=== PATIENT | female | born 1955 | race Caucasian/White ===

== ENCOUNTER → 2016-06-16 | Outpatient (CLI) | payer BC ==
[2014-01-31 01:30] VITALS: BP 175/92
== END ==
LOC: LAB 16:32
PROVIDERS: ATTEND Nurse Practitioner Family
DX: J41.1 Mucopurulent chronic bronchitis (principal); B96.29 Other Escherichia coli [E. coli] as the cause of diseases classified elsewhere
CPT/HCPCS: 87070; 87077; 87186; 87205

== ENCOUNTER → 2016-07-22 | Outpatient (CLI) | payer BC ==
[2014-01-31 01:30] VITALS: BP 175/92
[2016-07-22 13:13] LABS: HEMOGLOBIN A1C 7.2 % (4.5-6.2)
[2016-07-22 13:22] LABS: CHOL/HDL RATIO 5.3 (0.0-5.0); TSH (3RD GENERATION) 0.722 uIU/mL (0.358-3.74)
== END ==
LOC: LAB 12:25
PROVIDERS: ATTEND Nurse Practitioner Family
DX: E11.69 Type 2 diabetes mellitus with other specified complication (principal); D53.8 Other specified nutritional anemias; E03.8 Other specified hypothyroidism
CPT/HCPCS: 36415; 80061; 82607; 82728; 82746; 83036; 83918; 84443; 84466

== ENCOUNTER → 2016-07-25 | Outpatient (CLI) | payer BC ==
[2014-01-31 01:30] VITALS: BP 175/92
[2016-07-25 11:18] LABS: CREATININE,URINE 109.26 mg/dL (29-226); MICROALBUMIN,URINE 4.8 mg/L
== END ==
LOC: LAB 10:01
PROVIDERS: ATTEND Nurse Practitioner Family
DX: R05 Cough (principal)
CPT/HCPCS: 82043; 87070; 87205

== ENCOUNTER → 2016-07-30 | Outpatient (CLI) | payer BC ==
[2014-01-31 01:30] VITALS: BP 175/92
[2016-07-30 10:09] LABS: BILIRUBIN,URINE NEGATIVE (NEGATIVE); BLOOD/HEMOGLOBIN,URINE NEGATIVE (NEGATIVE); GLUCOSE, URINE NEGATIVE (NEGATIVE); KETONES,URINE NEGATIVE (NEGATIVE); LEUKOCYTE ESTERASE ,URINE NEGATIVE (NEGATIVE); NITRITES,URINE NEGATIVE (NEGATIVE); PROTEIN,URINE NEGATIVE (NEGATIVE); UROBILINOGEN,URINE NORMAL (NORMAL)
[2016-07-30 10:18] LABS: APPEARANCE,URINE CLEAR (CLEAR); BACTERIA,URINE TRACE /HPF (NEGATIVE); COLOR,URINE YELLOW (YELLOW); RBC,URINE 0-3 /HPF (NEGATIVE); SQUAMOUS EPITHELIAL CELL,UR RARE /HPF (NEGATIVE)
== END ==
LOC: LAB 09:36
PROVIDERS: ATTEND Nurse Practitioner Family
DX: N34.3 Urethral syndrome, unspecified (principal)
CPT/HCPCS: 81001; 87086

== ENCOUNTER → 2016-08-12 | Outpatient (CLI) | payer BC ==
[2014-01-31 01:30] VITALS: BP 175/92
--- NOTE | 2016-08-12 06:31 | RAD ---
HISTORY: Shortness of breath Study: Chest two-view Comparison: March 31, 2016 Findings: The heart is overall upper limits normal in size, however, the left ventricle is prominent. No conge stive heart failure is noted. No infiltrates are identified. No pleural effusions are present. The b luzma thorax is unremarkable. IMPRESSION: Left ventricular prominence Lungs clear Reported By:
== END ==
LOC: RAD 00:14
PROVIDERS: ATTEND Nurse Practitioner Family
DX: R06.02 Shortness of breath (principal)
CPT/HCPCS: 71020

== ENCOUNTER → 2017-01-30 | Outpatient (CLI) | payer BC ==
[2014-01-31 01:30] VITALS: BP 175/92
--- NOTE | 2017-01-30 14:20 | RAD ---
Examination: Right knee, three views History: Chronic pain no trauma Comparison reference: 10/19/2015 Findings: There is degenerative narrowing of the patellar-femoral and lateral compartments. Less carlene re degenerative change involves the medial compartment. No fracture or bone destruction or subluxatio n is noted. Detail is limited by patient habitus. There is a healed fracture deformity of the proxima l neck of the fibula but this was present on prior examination. Impression: 1. Osteoarthritis, distribution as noted. No acute features identified. 2. Old fracture proximal right fibula. Reported By:
== END | disposition home or self-care (01) | DRG 57 ==
LOC: RAD 12:54
DX: G25.81 Restless legs syndrome (principal); Z68.44 Body mass index [BMI] 60.0-69.9, adult; M54.2 Cervicalgia; Z79.899 Other long term (current) drug therapy; M17.0 Bilateral primary osteoarthritis of knee; M54.5 Low back pain; M79.7 Fibromyalgia; M1A.09X0 Idiopathic chronic gout, multiple sites, without tophus (tophi)
CPT/HCPCS: 73560

== ENCOUNTER → 2017-03-24 | Outpatient (CLI) | payer BC ==
[2014-01-31 01:30] VITALS: BP 175/92
--- NOTE | 2017-03-25 05:34 | RAD ---
Examination: Chest, PA and lateral views History: Cough and cold Comparison 08/12/2016 Findings: Continued borderline cardiac enlargement with grossly clear lungs and pleural spaces. There is no obvious consolidation, pulmonary edema or pneumothorax. Impression: Cardiac prominence, no acute findings. Reported By:
== END ==
LOC: RAD 19:06
PROVIDERS: ATTEND Psychiatry & Neurology Neurology
DX: J44.1 Chronic obstructive pulmonary disease with (acute) exacerbation (principal)
CPT/HCPCS: 71046; 87070; 87205

== ENCOUNTER → 2017-06-30 | Outpatient (CLI) | payer BC ==
[2014-01-31 01:30] VITALS: BP 175/92
--- NOTE | 2017-06-30 11:03 | RAD ---
Left knee, three views Indication: Chronic knee pain Comparison: None Findings: No acute fracture, malalignment or significant joint effusion is identified. There is mild degenerative narrowing of the medial femorotibial and patellofemoral compartments. Surrounding soft t issues are unremarkable. Impression: Degenerative changes, as above without acute fracture or dislocation. Reported By:
[2017-06-30 11:06] LABS: BASOPHILS # (AUTO) 0.1 X10^3/uL (0.0-0.1); BASOPHILS % (AUTO) 0.7 % (0.2-1.0); EOSINOPHILS # (AUTO) 0.3 x10^3/uL (0.0-0.2); EOSINOPHILS % (AUTO) 2.2 % (0.9-2.9); HEMATOCRIT 40.5 % (36.0-47.0); HEMOGLOBIN 13.3 g/dL (12.0-16.0); LYMPHOCYTES # (AUTO) 2.6 X10^3/uL (1.3-2.9); LYMPHOCYTES % (AUTO) 20.9 % (21.0-51.0); MEAN CORPUSCULAR HEMOGLOBIN 26.9 pg (27.0-34.0); MEAN CORPUSCULAR HGB CONC 32.8 g/dL (33.0-35.0); MEAN CORPUSCULAR VOLUME 82.1 fL (80.0-100.0); MEAN PLATELET VOLUME 8.7 fL (7.4-11.0); MONOCYTES # (AUTO) 0.7 x10^3/uL (0.3-0.8); MONOCYTES % (AUTO) 5.9 % (0.0-13.0); NEUTROPHILS # (AUTO) 8.8 x10^3/uL (2.2-4.8); NEUTROPHILS % (AUTO) 70.3 % (42.0-75.0); PLATELET COUNT 292 X10^3/uL (150.0-450.0); RED BLOOD COUNT 4.93 X10^6/uL (3.5-5.4); RED CELL DISTRIBUTION WIDTH 16.2 % (11.6-16.5); WHITE BLOOD COUNT 12.5 X10^3/uL (3.6-10.0)
[2017-06-30 11:13] LABS: CREATININE,URINE 78.47 mg/dL (29-226); MICROALBUMIN,URINE 7.9 mg/L
[2017-06-30 11:15] LABS: HEMOGLOBIN A1C 7.1 %
[2017-06-30 11:24] LABS: ALANINE AMINOTRANSFERASE 25 Units/L (12-78); ALBUMIN 3.8 g/dL (3.4-5.0); ALKALINE PHOSPHATASE 95 Units/L (46-116); ASPARTATE AMINO TRANSFERASE 17 Units/L (15-37); BLOOD UREA NITROGEN 25 mg/dL (7-18); CALCIUM 8.9 mg/dL (8.5-10.1); CARBON DIOXIDE 28.7 mmol/L (21-32); CHLORIDE 101 mmol/L (98-107); CHOL/HDL RATIO 4.9 (0.0-5.0); CHOLESTEROL 221 mg/dL (0-200); COR NA(FOR HYPERGLY) 140 mmol/L (136-145); CREATININE 0.86 mg/dL (0.55-1.02); HDL CHOLESTEROL 45 mg/dL (40-60); SODIUM 139 mmol/L (136-145); TOTAL PROTEIN 8.9 g/dL (6.4-8.2); TRIGLYCERIDES 158 mg/dL (0-150); TSH (3RD GENERATION) 1.325 uIU/mL (0.358-3.74); URIC ACID 7.6 mg/dL (2.6-6.0); eGFR BLACK RACES > 60 (>60); eGFR NON BLACK RACES > 60 (>60)
[2017-06-30 11:37] LABS: ERYTHROCYTE SEDIMENTATION RATE 56 MM/HOUR (0-20)
[2017-06-30 11:45] LABS: IRON 60 ug/dL (50-175); TOTAL IRON BINDING CAPACITY 415 ug/dL (250-450)
== END ==
LOC: LAB 10:01
PROVIDERS: ATTEND Psychiatry & Neurology Neurology
DX: M10.9 Gout, unspecified (principal); Z86.39 Personal history of other endocrine, nutritional and metabolic disease; E03.8 Other specified hypothyroidism; E56.8 Deficiency of other vitamins; E11.9 Type 2 diabetes mellitus without complications; M17.0 Bilateral primary osteoarthritis of knee; R79.82 Elevated C-reactive protein (CRP)
CPT/HCPCS: 36415; 73564; 80053; 80061; 82043; 82607; 83036; 83540; 83550; 84439; 84443; 84481; 84550; 85025; 85652; 86140

== ENCOUNTER 2018-12-07 17:05 | Observation (INO) ==
[2018-12-07] MEDS ORDERED: LR 1000 ML IV 2,000 ML IV ONE (18:13)
[2018-12-07] MEDS ORDERED: LR IV SCH ×2 (18:18)
[2018-12-07] MEDS ORDERED: MVI IV SCH ×2 (18:18)
[2018-12-07] MEDS ORDERED: LR 1000 ML IV 1,000 ML IV ONE (19:00)
[2018-12-07] MEDS ORDERED: HumuLIN R SC PRN (19:20)
[2018-12-07 19:57] VITALS: BMI 55.0
[2018-12-07] MEDS: PROTONIX INJ 40 MG VIAL IVP SCH (21:25)
[2018-12-07] MEDS: LR 1000 ML IV 1,000 ML IV ONE (23:23)
[2018-12-08] MEDS ORDERED: LR IV ONE ×2 (03:00)
[2018-12-08] MEDS ORDERED: MVI IV ONE ×2 (03:00)
[2018-12-08] MEDS: LR 1000 ML IV 1,000 ML IV ONE (03:30)
[2018-12-08 08:39] LABS: CRYPTOSPORIDIUM PARVUM ANTIGEN NEGATIVE (NEGATIVE); GIARDIA LAMBLIA ANTIGEN NEGATIVE (NEGATIVE)
[2018-12-08] MEDS ORDERED: VISTARIL PO PRN (08:46)
[2018-12-08 09:12] LABS: BASOPHILS % (AUTO) 0.3 % (0.2-1.0); EOSINOPHILS # (AUTO) 0.1 x10^3/uL (0.0-0.2); EOSINOPHILS % (AUTO) 1.9 % (0.9-2.9); HEMATOCRIT 36.2 % (36.0-47.0); HEMOGLOBIN 11.8 g/dL (12.0-16.0); LYMPHOCYTES % (AUTO) 19.3 % (21.0-51.0); MEAN CORPUSCULAR HEMOGLOBIN 27.9 pg (27.0-34.0); MEAN CORPUSCULAR HGB CONC 32.7 g/dL (33.0-35.0); MEAN CORPUSCULAR VOLUME 85.3 fL (80.0-100.0); MEAN PLATELET VOLUME 7.8 fL (7.4-11.0); MONOCYTES # (AUTO) 0.6 x10^3/uL (0.3-0.8); NEUTROPHILS # (AUTO) 3.6 x10^3/uL (2.2-4.8); NEUTROPHILS % (AUTO) 67.5 % (42.0-75.0); PLATELET COUNT 185 X10^3/uL (150.0-450.0); RED BLOOD COUNT 4.24 X10^6/uL (3.5-5.4); RED CELL DISTRIBUTION WIDTH 16.9 % (11.6-16.5); WHITE BLOOD COUNT 5.3 X10^3/uL (3.6-10.0)
[2018-12-08 09:22] LABS: ALANINE AMINOTRANSFERASE 15 Units/L (12-78); ALBUMIN 2.9 g/dL (3.4-5.0); ALKALINE PHOSPHATASE 71 Units/L (46-116); ASPARTATE AMINO TRANSFERASE 13 Units/L (15-37); BLOOD UREA NITROGEN 29 mg/dL (7-18); CALCIUM 8.3 mg/dL (8.5-10.1); CARBON DIOXIDE 25.5 mmol/L (21-32); CHLORIDE 105 mmol/L (98-107); COR CA(FOR HYPOALB) 9.2 mg/dL (8.5-10.1); SODIUM 139 mmol/L (136-145); TOTAL PROTEIN 6.9 g/dL (6.4-8.2); eGFR NON BLACK RACES 60 (>60)
[2018-12-08] MEDS ORDERED: PHARMACY CONSULT - DOSE _____ XX SCH (10:00)
[2018-12-08] MEDS ORDERED: NS 1000 ML 1,000 ML IV ONE (10:02)
[2018-12-08] MEDS: NORCO 10/325 TAB PO PRN ×2 (10:26→21:39)
[2018-12-08] MEDS: PROTONIX INJ 40 MG VIAL IVP SCH ×2 (10:27→21:44)
[2018-12-08] MEDS ORDERED: NS 1000 ML 1,000 ML ONE (10:30)
[2018-12-08] MEDS: LOVENOX INJ 40 MG SYR SC SCH (11:55)
[2018-12-08] MEDS ORDERED: ZOFRAN INJ 4 MG VIAL IVP PRN (15:36)
[2018-12-08] MEDS ORDERED: ZOFRAN INJ 4 MG VIAL ONE (16:21)
[2018-12-09 05:17] LABS: BASOPHILS % (AUTO) 0.3 % (0.2-1.0); EOSINOPHILS # (AUTO) 0.1 x10^3/uL (0.0-0.2); EOSINOPHILS % (AUTO) 2.3 % (0.9-2.9); HEMATOCRIT 35.6 % (36.0-47.0); HEMOGLOBIN 11.6 g/dL (12.0-16.0); LYMPHOCYTES # (AUTO) 1.2 X10^3/uL (1.3-2.9); LYMPHOCYTES % (AUTO) 26.3 % (21.0-51.0); MEAN CORPUSCULAR HEMOGLOBIN 28.2 pg (27.0-34.0); MEAN CORPUSCULAR HGB CONC 32.5 g/dL (33.0-35.0); MEAN CORPUSCULAR VOLUME 86.6 fL (80.0-100.0); MEAN PLATELET VOLUME 8.4 fL (7.4-11.0); MONOCYTES # (AUTO) 0.6 x10^3/uL (0.3-0.8); MONOCYTES % (AUTO) 12.3 % (0.0-13.0); NEUTROPHILS # (AUTO) 2.7 x10^3/uL (2.2-4.8); NEUTROPHILS % (AUTO) 58.8 % (42.0-75.0); PLATELET COUNT 170 X10^3/uL (150.0-450.0); RED BLOOD COUNT 4.11 X10^6/uL (3.5-5.4); RED CELL DISTRIBUTION WIDTH 16.3 % (11.6-16.5); WHITE BLOOD COUNT 4.6 X10^3/uL (3.6-10.0)
[2018-12-09 05:26] LABS: ALANINE AMINOTRANSFERASE 12 Units/L (12-78); ALBUMIN 2.7 g/dL (3.4-5.0); ALKALINE PHOSPHATASE 64 Units/L (46-116); ASPARTATE AMINO TRANSFERASE 12 Units/L (15-37); BLOOD UREA NITROGEN 14 mg/dL (7-18); CALCIUM 8.2 mg/dL (8.5-10.1); CARBON DIOXIDE 26.3 mmol/L (21-32); CHLORIDE 107 mmol/L (98-107); COR CA(FOR HYPOALB) 9.2 mg/dL (8.5-10.1); CREATININE 0.82 mg/dL (0.55-1.02); SODIUM 141 mmol/L (136-145); TOTAL PROTEIN 6.5 g/dL (6.4-8.2); eGFR NON BLACK RACES > 60 (>60)
[2018-12-09] MEDS: NORCO 10/325 TAB PO PRN (07:30)
[2018-12-09] MEDS ORDERED: MICRO K EXTEN CAP 10 MEQ PO PRN (08:00)
[2018-12-09] MEDS ORDERED: K-DUR TAB 20 MEQ PO PRN (08:00)
[2018-12-09] MEDS ORDERED: POTASSIUM CHL 60 MEQ/NS 0.45% 500 ML IV PRN (08:00)
[2018-12-09] MEDS ORDERED: KLOR-CON PO PRN (08:00)
[2018-12-09] MEDS ORDERED: POTASSIUM CHL 40 MEQ/NS 0.45% 500 ML IV PRN (08:00)
[2018-12-09] MEDS ORDERED: POTASSIUM CHLORIDE LIQ 20 MEQ UDC PO PRN (08:00)
[2018-12-09] MEDS ORDERED: K-RIDER 10 MEQ/NS 100 ML 10 MEQ/100 ML BAG IV PRN (08:00)
[2018-12-09] MEDS ORDERED: CALAN SR 240 MG PO SCH (09:00)
[2018-12-09] MEDS ORDERED: LOTENSIN TAB 10 MG PO SCH (09:00)
[2018-12-09] MEDS ORDERED: CYMBALTA PO SCH (09:00)
[2018-12-09] MEDS ORDERED: SYNTHROID 150 mcg TAB PO SCH (09:00)
[2018-12-09] MEDS: PROTONIX INJ 40 MG VIAL IVP SCH (09:44)
[2018-12-09] MEDS: LOVENOX INJ 40 MG SYR SC SCH (10:28)
[2018-12-09 11:53] VITALS: BP 155/69
[2018-12-09] MEDS ORDERED: LOPRESSOR TAB 50 MG PO SCH (21:00)
== END 2018-12-09 11:48 | disposition home or self-care (01) ==
LOC: MED/SURG
PROVIDERS: ADMIT Obstetrics & Gynecology Obstetrics; ATTEND Obstetrics & Gynecology Obstetrics
DX: I95.89 Other hypotension; E86.0 Dehydration; Z79.899 Other long term (current) drug therapy; K58.0 Irritable bowel syndrome with diarrhea
CPT/HCPCS: 36415; 74022; 80053; 82270; 83630; 83735; 85025; 87045; 87328; 87329; 87427; 87449; 87493; 87899; 94760; 96367; 96372; 96374; A4222; C9113; Q0177; G0378; J1650; J2405; J7030; J7120

== ENCOUNTER 2023-08-28 13:46 | Inpatient (IN) ==
--- NOTE | 2023-08-28 14:45 | DR.EXTPAIN ---
HPI Time seen Time Seen by Provider: 08/28/23 14:44 PCP Primary Care Physician: Stacey Stanley Complaint/Symptoms Chief Complaint Doctor Comments: Right foot ulcer that is now draining and red. Primary care provider sent her here for further evaluation and most probably admission for treatment with antibiotic therapy. Chief Complaint:: Pt c/o fever x2 days, saw PCP today d/t "thought I might have a URI and allergies". Pt having burning w/ urination. Pt states she also is having issue with her right foot. Pt also has bruising and redness to left holliday and redness to left foot. Pt has dressing to right foot that she states is rowdy ining malodorous blood tinged/clear fluid. Pt is not currently taking any antibiotics Self Treatment fo Chief Complaint: Pt has been going to wound clinic x2 weeks on Wednesdays; did not go this week d/t "I felt so bad". Pt has home health nurses on Thursday and Thursday was supposed to have them come today; pt cancelled nurse today and has presented to PCP who transferred pt to ER Source History Provided: Patient Mode of arrival Mode of Arrival: Wheelchair Timing Onset of Chief Complaint: 08/26/23 PMH PMH Past Medical History: Yes Past Medical History: Anemia, Arthritis, COPD, Diabetes, Migraines, GERD, Gout, Hypertension, Hypothyroidism, Kidney Stones, Renal Disease and Sleep Apnea Past Medical History Comment: states she doesn't wear CPAP at HS d/t "I've been sleeping in the recliner" Past Surgical History: Yes Surgical History: Hysterectomy, Thyroidectomy, Tonsillectomy and Other Family History History of Family Medical Conditions: Yes Family Medical History: Diabetes Mellitus, Cancer, [place] and Hypertension Social History Does patient currently use any type of tobacco product: No Have you used tobacco products in the last 12 months: No Type of Tobacco Use: None Does any household member use tobacco: No Alcohol Use: None Do you use any recreational Drugs:: No Lives With: Alone Lives Where: Home Infectious screening Have you traveled outside the country in the last 6 months?: No Isolation: Contact ROS Review of Systems Constitutional: Other (pain in r heel with some drainage from ulcer) Eyes: No Symptoms Reported ENTM: No Symptoms Reported Respiratoy: No Symptoms Reported Cardiovascular: No Symptoms Reported Gastrointestinal/Abdominal: No Symptoms Reported Genitourinary: No Symptoms Reported Neurological: No Symptoms Reported Musculoskeletal: Right and Foot (heel ulcer) Integumentary: Other (ulcer r ight heel) Hematologic/Lymphatic: No Symptoms Reported Endocrine: No Symptoms Reported Psychiatric: No Symptoms Reported PE Vital Signs Vitals: Vital Signs Temperature 98.3 F Temperature 98.5 F Pulse Rate [Left] 65 Pulse Rate 62 Respiratory Rate 18 Respiratory Rate 17 Blood Pressure [Left Arm] 137/68 Blood Pressure 133/62 Blood Pressure 121/61 O2 Sat by Pulse Oximetry 97 O2 Sat by Pulse Oximetry 95 General Limitations: Physical Limitation (limite ambulation due to weight and r heel ulcer) General Appearance: Alert and In Distress (mild distress) Head Head Exam: Atraumatic Eyes Eye exam: Normal Appearance, PERRL and EOMI ENT ENT Exam: Normal Exam, Normal Oropharynx and Normal External Ear Exam Neck Neck Exam: Normal Inspection, Full ROM and Trachea Midline Chest Chest Inspection: Normal Inspection and Symmetric Chest Wall Rise Respiratory Respiratory Exam: Normal Lung Sounds Bilat Respiratory Exam: Bilateral: Clear to Auscultation Cardiovascular Cardiovascular Exam: Regular Rate and Normal Rhythm Abdominal Exam Abdominal Exam: Normal Inspection and Normal Bowel Sounds Extremities Extremities Exam: Normal Inspection and Full ROM Upper Extremities Shoulder Exam: Normal Inspection Arm Exam: Normal Inspection Elbow Exam: Normal Inspection Forearm Exam: Normal Inspection Hand Exam: Normal Inspection Neuromotor Exam: Normal Exam Lower Extremities Hip/Pelvis Exam: Normal Inspection Upper Leg Exam: Normal Inspection Knee Exam: Normal Inspection Lower Leg Exam: Normal Inspection Ankle Exam: Normal Inspection Foot/Toe Exam: Tenderness, Swelling and Other (ulcer with drainage on r heel) Gait Exam: Not Tested/Not Observed Back Back Exam: Normal Inspection Neurological Neurological Exam: Alert, Oriented X3 and CN II-XII Intact Psychiatric Psychiatric Exam: Normal Affect Skin Skin Exam: Warm and Other (heel ulcer with drainage on r heel) MDM Differential Diagnosis Differential Diagnosis: Other (ulcer r heel,sepsis) COURSE Treatment Treatment: Patient remained relatively stable during the ER evaluation. She did have an infected ulcer on her right heel. Which has showed a chronic increase exchange administrator the last couple days she was getting wound care for that ulcer but it seemed to progress more to the necrosis. Patient's primary care provider sent her here for further evaluation possible treatment possible put in for antibiotic therapy and get a consultation with the clinical esthetician for a possible debridement while she was here. Contact was made with Dr. Langley who was in the ER seeing another patient that need to be admitted and he stated he would follow-up on the patient consult on the patient and he also wanted Dr. Worthy to see the patient for possible evaluation for some vascular intervention. I spoke to Dr. Lazcano who is the on-call medical personnel and he stated that he would take the patient for the medical side of treatment for this patient contact was made with the utilization review and they stated they would have her to come in for antibiotic treatment for observation. The patient was made of the intent to admit and was agreeable to the admission . [facility]OR Labs Reviewed Laboratory Results Reviewed?: Yes 08/28/23 14:45 08/28/23 14:45 Laboratory: WBC 11.9 X10^3/uL (3.6-10.0) H 08/28/23 14:45 RBC 4.26 X10^6/uL (3.5-5.4) 08/28/23 14:45 Hgb 12.3 g/dL (12.0-16.0) 08/28/23 14:45 Hct 38.1 % (36.0-47.0) 08/28/23 14:45 MCV 89.5 fL (80.0-100.0) 08/28/23 14:45 MCH 28.9 pg (27.0-34.0) 08/28/23 14:45 MCHC 32.3 g/dL (33.0-35.0) L 08/28/23 14:45 RDW 14.7 % (11.6-16.5) 08/28/23 14:45 Plt Count 259 X10^3/uL (150.0-450.0) 08/28/23 14:45 MPV 8.2 fL (7.4-11.0) 08/28/23 14:45 Neut % (Auto) 74.6 % (42.0-75.0) 08/28/23 14:45 Lymph % (Auto) 12.0 % (21.0-51.0) L 08/28/23 14:45 [place] % (Auto) 11.4 % (0.0-13.0) 08/28/23 14:45 Eos % (Auto) 1.7 % (0.9-2.9) 08/28/23 14:45 Baso % (Auto) 0.3 % (0.2-1.0) 08/28/23 14:45 Neut # (Auto) 8.9 x10^3/uL (2.2-4.8) H 08/28/23 14:45 Lymph # (Auto) 1.4 X10^3/uL (1.3-2.9) 08/28/23 14:45 [place] # (Auto) 1.4 x10^3/uL (0.3-0.8) H 08/28/23 14:45 Eos # (Auto) 0.2 x10^3/uL (0.0-0.2) 08/28/23 14:45 Baso # (Auto) 0.0 X10^3/uL (0.0-0.1) 08/28/23 14:45 Absolute Nucleated RBC 0.0 /100WBC 08/28/23 14:45 Sodium 139 mmol/L (136-145) 08/28/23 14:45 Corrected Sodium TNP 08/28/23 14:45 Potassium 4.7 mmol/L (3.5-5.1) 08/28/23 14:45 Chloride 103 mmol/L (98-107) 08/28/23 14:45 Carbon Dioxide 30.7 mmol/L (21-32) 08/28/23 14:45 BUN 30 mg/dL (7-18) H 08/28/23 14:45 Creatinine 0.77 mg/dL (0.55-1.02) 08/28/23 14:45 Est GFR (MDRD) Af Amer > 60 (>60) 08/28/23 14:45 Est GFR (MDRD) Non-Af > 60 (>60) 08/28/23 14:45 Glucose 92 mg/dL (65-99) 08/28/23 14:45 Lactic Acid 1.4 mmol/L (0.4-2.0) 08/28/23 14:45 Calcium 9.0 mg/dL (8.5-10.1) 08/28/23 14:45 Corrected Calcium 9.8 mg/dL (8.5-10.1) 08/28/23 14:45 Total Bilirubin 0.40 mg/dL (0.2-1.0) 08/28/23 14:45 AST 31 Units/L (15-37) 08/28/23 14:45 ALT 26 Units/L (12-78) 08/28/23 14:45 Alkaline Phosphatase 106 Units/L (46-116) 08/28/23 14:45 Total Protein 7.5 g/dL (6.4-8.2) 08/28/23 14:45 Albumin 3.0 g/dL (3.4-5.0) L 08/28/23 14:45 Globulin 4.5 g/dL (2.5-4.5) 08/28/23 14:45 Albumin/Globulin Ratio 0.7 Ratio (1.1-2.1) L 08/28/23 14:45 Specimen Type Clean catch urine 08/28/23 17:51 Urine Color Yellow (YELLOW) 08/28/23 17:51 Urine Appearance Cloudy (CLEAR) 08/28/23 17:51 Urine pH 6.0 (5.0 - 8.0) 08/28/23 17:51 Ur Specific [place] 1.015 (1.000-1.030) 08/28/23 17:51 Urine Protein 2+ (NEGATIVE) 08/28/23 17:51 Urine Glucose (UA) Negative (NEGATIVE) 08/28/23 17:51 Urine Ketones Negative (NEGATIVE) 08/28/23 17:51 Urine Blood 1+ (NEGATIVE) 08/28/23 17:51 Urine Nitrite Negative (NEGATIVE) 08/28/23 17:51 Urine Bilirubin Negative (NEGATIVE) 08/28/23 17:51 Urine Urobilinogen 1+ (NORMAL) 08/28/23 17:51 Ur Leukocyte Esterase 2+ (NEGATIVE) 08/28/23 17:51 Urine RBC 0-2 /HPF (0-3) 08/28/23 17:51 Urine WBC 10-20 /HPF (0-5) A 08/28/23 17:51 Ur Squamous Epith Cells Rare /HPF (NEGATIVE) 08/28/23 17:51 Urine Bacteria 3+ /HPF (NEGATIVE) 08/28/23 17:51 Ur Culture Indicated? Yes/culture set up 08/28/23 17:51 Opioid Opioid Risk Tool Age (Garrett box if 16-45): No History of Preadolescent Sexual Abuse: No Total: 0 Total Score Risk Category: Low Risk Copyright: Niranjan ZHENG predicting aberrant behaviors Discharge Plan Diagnosis Discharge Problem: Cellulitis of foot, right, Pressure ulcer of right heel Discharge Plan Patient Disposition: ADMITTED INPATIENT Condition: Stable Orders to Discharge Patient Discharge Orders: Transfer (Routine); Ordered 08/28/23 Ordered By: Noel Caldwell
[2023-08-28 15:14] LABS: BASOPHILS % (AUTO) 0.3 % (0.2-1.0); EOSINOPHILS # (AUTO) 0.2 x10^3/uL (0.0-0.2); EOSINOPHILS % (AUTO) 1.7 % (0.9-2.9); HEMATOCRIT 38.1 % (36.0-47.0); HEMOGLOBIN 12.3 g/dL (12.0-16.0); LYMPHOCYTES # (AUTO) 1.4 X10^3/uL (1.3-2.9); MEAN CORPUSCULAR HEMOGLOBIN 28.9 pg (27.0-34.0); MEAN CORPUSCULAR HGB CONC 32.3 g/dL (33.0-35.0); MEAN CORPUSCULAR VOLUME 89.5 fL (80.0-100.0); MEAN PLATELET VOLUME 8.2 fL (7.4-11.0); MONOCYTES # (AUTO) 1.4 x10^3/uL (0.3-0.8); MONOCYTES % (AUTO) 11.4 % (0.0-13.0); NEUTROPHILS # (AUTO) 8.9 x10^3/uL (2.2-4.8); NEUTROPHILS % (AUTO) 74.6 % (42.0-75.0); PLATELET COUNT 259 X10^3/uL (150.0-450.0); RED BLOOD COUNT 4.26 X10^6/uL (3.5-5.4); RED CELL DISTRIBUTION WIDTH 14.7 % (11.6-16.5); WHITE BLOOD COUNT 11.9 X10^3/uL (3.6-10.0)
[2023-08-28 15:24] LABS: ALANINE AMINOTRANSFERASE 26 Units/L (12-78); ALKALINE PHOSPHATASE 106 Units/L (46-116); BLOOD UREA NITROGEN 30 mg/dL (7-18); CARBON DIOXIDE 30.7 mmol/L (21-32); CHLORIDE 103 mmol/L (98-107); COR CA(FOR HYPOALB) 9.8 mg/dL (8.5-10.1); CREATININE 0.77 mg/dL (0.55-1.02); GLUCOSE 92 mg/dL (65-99); SODIUM 139 mmol/L (136-145); TOTAL PROTEIN 7.5 g/dL (6.4-8.2); eGFR NON BLACK RACES > 60 (>60)
[2023-08-28 15:27] LABS: ASPARTATE AMINO TRANSFERASE 31 Units/L (15-37); POTASSIUM 4.7 mmol/L (3.5-5.1)
--- NOTE | 2023-08-28 15:57 | NOTE.SOAP ---
Soap Note Note for Day of Date of Exam: 08/28/23 Subjective Data Subjective Data: Patient presents to the ER with a chief complaint of a heel sore to her right foot. She is typically seen by Dr. Barnett in [place] and developped a heal wound about 3 months ago. She is neuropathic and denies any senstion to the area. Denies any constitutional symptoms at this time Objective Data Objective Data: Full thickness ulcer under the right heel that is necrotic and unstageable. Erythema surrounding the wound. No purulence or malodor. nonpalpable pulses. Gross epicritic and protective sensation is diminished. Assessment Assessment: Cellulitis, Right foot PAD Diabetes Mellitis with neuropathy Plan Plan: Patient was seen bedside this am. Diagnosis and treatment discussed. CT, MRI and VAS ordered to futher evaluate the extent of patient's condition. Dressing changes with betadine DSD to the RLE. Keep heel offloaded at all times. Vascular recs appreciated. IV antibiotics on schedule. Will follow
--- NOTE | 2023-08-28 16:05 | DR.CONSULT ---
CONSULT Consultation for Day of: Date: 08/28/23 Chief Complaint Chief Complaint: consult for wound on the right foot which has not healed. Allergies Allergies Allergy/AdvReac Type Severity Reaction Status Date / Time erythromycin base Allergy Intermediate Verified 08/28/23 14:13 diclofenac [From Voltaren] Allergy Unknown Verified 08/28/23 14:13 Fish Containing Products Allergy Unknown Verified 08/28/23 14:13 gabapentin Allergy Unknown Verified 08/28/23 14:13 ibuprofen [Nuprin] Allergy Unknown Verified 08/28/23 14:13 nalbuphine [From Nubain] Allergy Unknown Verified 08/28/23 14:13 Penicillins Allergy Unknown Verified 08/28/23 14:13 shrimp Allergy Unknown Verified 08/28/23 14:13 sumatriptan [Imitrex] Allergy Unknown Verified 08/28/23 14:13 minocycline Allergy Verified 08/28/23 14:13 morphine Allergy Verified 08/28/23 14:13 oyster extract Allergy Verified 08/28/23 14:13 penicillin G Allergy Verified 08/28/23 14:13 promethazine [From Phenergan] Allergy Verified 08/28/23 14:13 History of Present Illness History of Present Illness: patient seen in consult for right foot wound. has seen Dr. Barnett in recent past. has wound of unknown cause. patient has small sore on lateralright 5th met head as well. Past Medical History Past Medical History: Anemia, Arthritis, COPD, Diabetes, Migraines, GERD, Gout, Hypertension, Hypothyroidism, Kidney Stones, Renal Disease and Sleep Apnea Past Surgical History Surgical History: Hysterectomy, Thyroidectomy, Tonsillectomy and Other Family History Family Medical History: Diabetes Mellitus, Cancer, [place] and Hypertension Social History Does patient currently use any type of tobacco product: No Have you used tobacco products in the last 12 months: No Type of Tobacco Use: None Does any household member use tobacco: No Alcohol Use: None Medications Home Medications: erythromycin base Allergy (Intermediate, Verified 08/28/23 14:13) diclofenac [From Voltaren] Allergy (Unknown, Verified 08/28/23 14:13) Fish Containing Products Allergy (Unknown, Verified 08/28/23 14:13) gabapentin Allergy (Unknown, Verified 08/28/23 14:13) ibuprofen [Nuprin] Allergy (Unknown, Verified 08/28/23 14:13) nalbuphine [From Nubain] Allergy (Unknown, Verified 08/28/23 14:13) Penicillins Allergy (Unknown, Verified 08/28/23 14:13) shrimp Allergy (Unknown, Verified 08/28/23 14:13) sumatriptan [Imitrex] Allergy (Unknown, Verified 08/28/23 14:13) minocycline Allergy (Verified 08/28/23 14:13) morphine Allergy (Verified 08/28/23 14:13) oyster extract Allergy (Verified 08/28/23 14:13) penicillin G Allergy (Verified 08/28/23 14:13) promethazine [From Phenergan] Allergy (Verified 08/28/23 14:13) Physical Exam Vital Signs: Vital Signs Temperature 98.5 F Pulse Rate 62 Respiratory Rate 17 Blood Pressure 133/62 Blood Pressure 121/61 O2 Sat by Pulse Oximetry 95 Tenderness: Other (has mild tenderness with palpatino medial lateral heel with squeeze but no pain with ROM of ankle. no crepitation noted. ) Musculoskeletal: Foot (right foot with large wound plantar foot. 6.5cm diameter with necrotic eschar. this is full thickness to the fat. she has erythema that is medial and lateral on the foot and extends to the ankle. has no drainage or purulence expressed. no malodor. ) Plan (1) Decubitus ulcer of foot, stage 3: Status: Acute Narrative Support Text: wound plantar foot. consistent with peroneal artery occlusion. will order CTA and will consult vascular. patient will probably need OR debridement as well, will await vascular findings. IV abx at this time and will order santyl to bedside to apply to the wound. no planned OR today, may consider next week. (2) Cellulitis of right foot: Status: Acute Narrative Support Text: admission and iv abx. failed outpatient woundcare and oral abx and treatment
--- NOTE | 2023-08-28 16:31 | CT ---
EXAM:CT right foot without IV contrastHISTORY:Right foot ulcerCOMPARISON:CT 08/07/2023TECHNIQUE:Multiple axial images of the right foot are obtained without IV contrast . Sagittal and coronal reconstructions were performed and reviewed. Dose reduction techniques including Automated Exposure Control (AEC) and adjustment of mA and kV were utilized.FINDINGS:Diffuse soft tissue edema is seen in the right lower leg, ankle and foot. This is similar to prior study. No gas is seen in the soft tissues. No abscess is seen on this unenhanced exam. There may be skin ulceration in the heel.No fracture or dislocation is seen. No bone destruction is seen to suggest osteomyelitis. Accessory ossicle is seen adjacent to the dorsum of the navicular bone, unchanged. Mild calcifications are seen in the plantar fascia, unchanged. Moderate arthritic changes are seen in the 1st MTP joint with mild arthritic changes in the midfoot.IMPRESSION:Persistent diffuse soft tissue edema could be bland edema or cellulitis. No evidence of osteomyelitis is seen. Consider evaluation with three-phase nuclear medicine bone scan or MRI if clinical suspicion for osteomyelitis persists.THIS IS AN ELECTRONICALLY VERIFIED FINAL REPORT08/28/2023 4:27 PM - Electronically signed by Lux Manning MD
[2023-08-28 18:18] LABS: BILIRUBIN,URINE NEGATIVE (NEGATIVE); BLOOD/HEMOGLOBIN,URINE 1+ (NEGATIVE); GLUCOSE, URINE NEGATIVE (NEGATIVE); KETONES,URINE NEGATIVE (NEGATIVE); LEUKOCYTE ESTERASE ,URINE 2+ (NEGATIVE); NITRITES,URINE NEGATIVE (NEGATIVE); PROTEIN,URINE 2+ (NEGATIVE); UROBILINOGEN,URINE 1+ (NORMAL)
[2023-08-28 18:29] LABS: APPEARANCE,URINE CLOUDY (CLEAR); BACTERIA,URINE 3+ /HPF (NEGATIVE); COLOR,URINE YELLOW (YELLOW); RBC,URINE 0-2 /HPF (0-3); SQUAMOUS EPITHELIAL CELL,UR RARE /HPF (NEGATIVE)
[2023-08-28] MEDS: CLEOCIN 600 MG IV PREMIX 600 MG/50 ML BAG IV ONE (19:52)
--- NOTE | 2023-08-28 20:16 | VAS ---
EXAM:LOWER EXT ARTERIALHISTORY:PAD, ULCER ;COMPARISON:None.TECHNIQUE:45 images were provided for interpretation.FINDINGS:RIGHT LOWER EXTREMITY ARTERY:Common femoral artery:183 cm/sec; triphasic wave patternSuperficial femoral artery: 108-186 cm/sec; triphasic wave patternPopliteal artery: 131 cm/sec; biphasic wave patternPosterior tibial artery: 96 cm/sec; monophasic wave patternDorsalis pedis artery: 74 cm/sec; monophasic wave patternLEFT LOWER EXTREMITY ARTERY:Common femoral artery: 110 cm/sec; biphasic wave patternSuperficial femoral artery: 138 cm/sec; triphasic wave patternPopliteal artery: 77 cm/sec; biphasic wave patternPosterior tibial artery: 82 cm/sec; triphasic wave patternDorsalis pedis artery: 97 cm/sec; triphasic wave patternIMPRESSION:1. Based on the above velocities and wave patterns, findings most likely represent moderate degree of multifocal segmental disease in the right lower extremity arteries most notable in the popliteal artery and three-vessel runoff.2. Based on the above velocity and wave patterns, findings most likely represent moderate degree of flow-limiting stenosis in the left lower extremity arteries at the level of the popliteal artery.THIS IS AN ELECTRONICALLY VERIFIED FINAL REPORT08/28/2023 8:13 PM - Electronically signed by Roney Coley MD
[2023-08-28] MEDS: SNACK - Diabetic Appropriate PO SCH (21:00)
[2023-08-28] MEDS ORDERED: PATIENT'S HOME MEDICATION (Lovastatin 40 mg tablet) PO SCH (21:00)
[2023-08-28] MEDS: LOPRESSOR TAB 50 MG PO SCH (21:36)
[2023-08-28] MEDS: SINGULAIR TAB 10 MG PO SCH (21:36)
[2023-08-28] MEDS: TOPAMAX TAB 100 MG PO SCH (21:36)
[2023-08-28] MEDS: MIRAPEX TAB 0.25 MG PO SCH (21:36)
[2023-08-28] MEDS: MICRO K EXTEN CAP 10 MEQ PO SCH (21:37)
[2023-08-28] MEDS: CLEOCIN 600 MG IV PREMIX 600 MG/50 ML BAG IV SCH (21:37)
[2023-08-28] MEDS: LIPITOR TAB 10 MG PO SCH (22:00)
[2023-08-28] MEDS: ZANAFLEX PO PRN (22:00)
[2023-08-28] MEDS ORDERED: SANTYL ONE (22:10)
[2023-08-29] MEDS: NS 250 ML IV 250 ML IV PRN (05:22)
[2023-08-29] MEDS: SANTYL EXT SCH (05:23)
[2023-08-29 06:45] LABS: BASOPHILS % (AUTO) 0.4 % (0.2-1.0); EOSINOPHILS # (AUTO) 0.2 x10^3/uL (0.0-0.2); EOSINOPHILS % (AUTO) 2.7 % (0.9-2.9); HEMATOCRIT 36.3 % (36.0-47.0); HEMOGLOBIN 11.6 g/dL (12.0-16.0); LYMPHOCYTES # (AUTO) 1.3 X10^3/uL (1.3-2.9); LYMPHOCYTES % (AUTO) 18.8 % (21.0-51.0); MEAN CORPUSCULAR HEMOGLOBIN 28.8 pg (27.0-34.0); MEAN CORPUSCULAR HGB CONC 31.9 g/dL (33.0-35.0); MEAN CORPUSCULAR VOLUME 90.1 fL (80.0-100.0); MEAN PLATELET VOLUME 7.9 fL (7.4-11.0); MONOCYTES # (AUTO) 0.7 x10^3/uL (0.3-0.8); NEUTROPHILS # (AUTO) 4.9 x10^3/uL (2.2-4.8); NEUTROPHILS % (AUTO) 68.1 % (42.0-75.0); PLATELET COUNT 218 X10^3/uL (150.0-450.0); RED BLOOD COUNT 4.03 X10^6/uL (3.5-5.4); RED CELL DISTRIBUTION WIDTH 14.8 % (11.6-16.5); WHITE BLOOD COUNT 7.2 X10^3/uL (3.6-10.0)
[2023-08-29 06:56] LABS: ALANINE AMINOTRANSFERASE 21 Units/L (12-78); ALBUMIN 2.5 g/dL (3.4-5.0); ALKALINE PHOSPHATASE 84 Units/L (46-116); ASPARTATE AMINO TRANSFERASE 18 Units/L (15-37); BLOOD UREA NITROGEN 20 mg/dL (7-18); CALCIUM 8.7 mg/dL (8.5-10.1); CARBON DIOXIDE 29.8 mmol/L (21-32); CHLORIDE 105 mmol/L (98-107); COR CA(FOR HYPOALB) 9.9 mg/dL (8.5-10.1); CREATININE 0.65 mg/dL (0.55-1.02); GLUCOSE 94 mg/dL (65-99); POTASSIUM 4.1 mmol/L (3.5-5.1); SODIUM 141 mmol/L (136-145); TOTAL PROTEIN 6.5 g/dL (6.4-8.2); eGFR NON BLACK RACES > 60 (>60)
[2023-08-29] MEDS: AMARYL TAB 4 MG PO SCH (08:43)
[2023-08-29] MEDS: CYMBALTA PO SCH (08:43)
[2023-08-29] MEDS: ASPIRIN 81 MG CHEWTAB PO SCH (08:43)
[2023-08-29] MEDS: LOTENSIN TAB 10 MG PO SCH (08:43)
[2023-08-29] MEDS: NU IRON PO SCH (08:43)
[2023-08-29] MEDS: CALAN SR 240 MG PO SCH (08:43)
[2023-08-29] MEDS: ZYLOPRIM PO SCH (08:43)
[2023-08-29] MEDS: PLAQUENIL PO SCH (08:43)
--- NOTE | 2023-08-29 08:57 | NOTE.SOAP ---
Soap Note Note for Day of Date of Exam: 08/29/23 Subjective Data Subjective Data: Patient doing well this am; resting comfortably and receiving dressing changes. No complaitns Objective Data Objective Data: Dressing intact with some serous drainage this am Full thickness ulcer under the right heel that is necrotic and unstageable. Erythema surrounding the wound. No purulence or malodor. nonpalpable pulses. Gross epicritic and protective sensation is diminished. Assessment Assessment: Cellulitis, Right foot PAD Diabetes Mellitis with neuropathy Plan Plan: Patient was seen bedside this am. Diagnosis and treatment discussed. Patient unable to get CTA at this facility, MRI will be done on thursday and VAS reviewed; recommending vascular intervention. Dressing changes with amara BENSON to the RLE daily. Keep heel offloaded at all times with pillowed. IV antibiotics on schedule. Will follow
[2023-08-29] MEDS: ROCEPHIN VIAL 1 GRAM 1 G in NS 100 ML IV 100 ML IV SCH (14:00)
--- NOTE | 2023-08-29 16:25 | DR.H&P ---
H&P History & Physical for Day of: H&P Date: 08/29/23 Chief Complaint Chief Complaint: foot ulcer History of Present Illness History of Present Illness: Patient with a longstanding foot ulcer being treated by a local national coverage specialist missed wound care visit earlier this week. At the beginning of the week the wound had seem to be healing and overall improved. She went to see her PCP yesterday and it was noted that the wound and now become necrotic. She was sent straight to the ER where she was evaluated by podiatry and it was advised that she be admitted for failure of outpatient antibiotics and possible surgical intervention. She did not go to the OR yesterday and they are planning on observing her on antibiotics over the weekend. She currently reports she feels like she is doing well and the pain is well-controlled. She is confined to the bed at this time with the wound redressed this morning by podiatry. Nurses deny any interval events. ROS: 12 point review of systems negative except as noted in the HPI. Past Medical History Past Medical History: Anemia, Arthritis, COPD, Diabetes, Migraines, GERD, Gout, Hypertension, Hypothyroidism, Kidney Stones, Renal Disease and Sleep Apnea Past Surgical History Surgical History: Thyroidectomy Family History Family Medical History: Diabetes Mellitus and [place] Social History Does patient currently use any type of tobacco product: No Have you used tobacco products in the last 12 months: No Type of Tobacco Use: None Does any household member use tobacco: No Alcohol Use: None Drug Use: None Medications Home Medications: Home Medications Medication Instructions Recorded Confirmed Type allopurinol 300 mg tablet 300 mg PO DAILY 08/07/23 08/28/23 History aspirin 81 mg chewable tablet 81 mg PO DAILY 08/07/23 08/28/23 History benazepril 20 mg tablet 20 mg PO DAILY 08/07/23 08/28/23 History duloxetine 60 mg capsule,delayed 60 mg PO QDAY 08/07/23 08/28/23 History release empagliflozin 10 mg tablet 10 mg PO DAILY 08/07/23 08/28/23 History (Jardiance) hydroxychloroquine 200 mg tablet 200 mg PO DAILY 08/07/23 08/28/23 History lovastatin 40 mg tablet 40 mg PO HS 08/07/23 08/28/23 History metoprolol tartrate 50 mg tablet 50 mg PO HS 08/07/23 08/28/23 History montelukast 10 mg tablet 10 mg PO HS 08/07/23 08/28/23 History polysaccharide iron complex 150 mg 150 mg DAILY 08/07/23 08/28/23 History iron capsule pramipexole 0.5 mg tablet 0.5 mg PO BID 08/07/23 08/28/23 History topiramate 100 mg tablet 100 mg PO BID 08/07/23 08/28/23 History verapamil 240 mg tablet,extended 240 mg PO DAILY 08/07/23 08/28/23 History release tizanidine 4 mg tablet 4 mg PO TID PRN 08/28/23 08/28/23 History Allergies Allergies Allergy/AdvReac Type Severity Reaction Status Date / Time erythromycin base Allergy Intermediate Verified 08/28/23 14:13 diclofenac [From Voltaren] Allergy Unknown Verified 08/28/23 14:13 Fish Containing Products Allergy Unknown Verified 08/28/23 14:13 gabapentin Allergy Unknown Verified 08/28/23 14:13 ibuprofen [Nuprin] Allergy Unknown Verified 08/28/23 14:13 nalbuphine [From Nubain] Allergy Unknown Verified 08/28/23 14:13 Penicillins Allergy Unknown Verified 08/28/23 14:13 shrimp Allergy Unknown Verified 08/28/23 14:13 sumatriptan [Imitrex] Allergy Unknown Verified 08/28/23 14:13 minocycline Allergy Verified 08/28/23 14:13 morphine Allergy Verified 08/28/23 14:13 oyster extract Allergy Verified 08/28/23 14:13 penicillin G Allergy Verified 08/28/23 14:13 promethazine [From Phenergan] Allergy Verified 08/28/23 14:13 Labs 08/29/23 05:54 08/29/23 05:54 Labs: 08/28/23 14:50 Foot - Right Wound Gram Stain - Final 08/28/23 14:50 Foot - Right Wound Culture - Preliminary 08/28/23 17:51 Urine,Clean Catch Urine Culture - Preliminary Laboratory WBC 7.2 X10^3/uL (3.6-10.0) 08/29/23 05:54 RBC 4.03 X10^6/uL (3.5-5.4) 08/29/23 05:54 Hgb 11.6 g/dL (12.0-16.0) L 08/29/23 05:54 Hct 36.3 % (36.0-47.0) 08/29/23 05:54 MCV 90.1 fL (80.0-100.0) 08/29/23 05:54 MCH 28.8 pg (27.0-34.0) 08/29/23 05:54 MCHC 31.9 g/dL (33.0-35.0) L 08/29/23 05:54 RDW 14.8 % (11.6-16.5) 08/29/23 05:54 Plt Count 218 X10^3/uL (150.0-450.0) 08/29/23 05:54 MPV 7.9 fL (7.4-11.0) 08/29/23 05:54 Neut % (Auto) 68.1 % (42.0-75.0) 08/29/23 05:54 Lymph % (Auto) 18.8 % (21.0-51.0) L 08/29/23 05:54 [place] % (Auto) 10.0 % (0.0-13.0) 08/29/23 05:54 Eos % (Auto) 2.7 % (0.9-2.9) 08/29/23 05:54 Baso % (Auto) 0.4 % (0.2-1.0) 08/29/23 05:54 Neut # (Auto) 4.9 x10^3/uL (2.2-4.8) H 08/29/23 05:54 Lymph # (Auto) 1.3 X10^3/uL (1.3-2.9) 08/29/23 05:54 [place] # (Auto) 0.7 x10^3/uL (0.3-0.8) 08/29/23 05:54 Eos # (Auto) 0.2 x10^3/uL (0.0-0.2) 08/29/23 05:54 Baso # (Auto) 0.0 X10^3/uL (0.0-0.1) 08/29/23 05:54 Absolute Nucleated RBC 0.1 /100WBC 08/29/23 05:54 Sodium 141 mmol/L (136-145) 08/29/23 05:54 Corrected Sodium TNP 08/29/23 05:54 Potassium 4.1 mmol/L (3.5-5.1) 08/29/23 05:54 Chloride 105 mmol/L (98-107) 08/29/23 05:54 Carbon Dioxide 29.8 mmol/L (21-32) 08/29/23 05:54 BUN 20 mg/dL (7-18) H 08/29/23 05:54 Creatinine 0.65 mg/dL (0.55-1.02) 08/29/23 05:54 Est GFR (MDRD) Af Amer > 60 (>60) 08/29/23 05:54 Est GFR (MDRD) Non-Af > 60 (>60) 08/29/23 05:54 Glucose 94 mg/dL (65-99) 08/29/23 05:54 POC Glucose (mg/dL) 132 mg/dL (65-99) H 08/29/23 10:52 Lactic Acid 1.4 mmol/L (0.4-2.0) 08/28/23 14:45 Calcium 8.7 mg/dL (8.5-10.1) 08/29/23 05:54 Corrected Calcium 9.9 mg/dL (8.5-10.1) 08/29/23 05:54 Total Bilirubin 0.40 mg/dL (0.2-1.0) 08/29/23 05:54 AST 18 Units/L (15-37) 08/29/23 05:54 ALT 21 Units/L (12-78) 08/29/23 05:54 Alkaline Phosphatase 84 Units/L (46-116) 08/29/23 05:54 Total Protein 6.5 g/dL (6.4-8.2) 08/29/23 05:54 Albumin 2.5 g/dL (3.4-5.0) L 08/29/23 05:54 Globulin 4.0 g/dL (2.5-4.5) 08/29/23 05:54 Albumin/Globulin Ratio 0.6 Ratio (1.1-2.1) L 08/29/23 05:54 Specimen Type Clean catch urine 08/28/23 17:51 Urine Color Yellow (YELLOW) 08/28/23 17:51 Urine Appearance Cloudy (CLEAR) 08/28/23 17:51 Urine pH 6.0 (5.0 - 8.0) 08/28/23 17:51 Ur Specific [place] 1.015 (1.000-1.030) 08/28/23 17:51 Urine Protein 2+ (NEGATIVE) 08/28/23 17:51 Urine Glucose (UA) Negative (NEGATIVE) 08/28/23 17:51 Urine Ketones Negative (NEGATIVE) 08/28/23 17:51 Urine Blood 1+ (NEGATIVE) 08/28/23 17:51 Urine Nitrite Negative (NEGATIVE) 08/28/23 17:51 Urine Bilirubin Negative (NEGATIVE) 08/28/23 17:51 Urine Urobilinogen 1+ (NORMAL) 08/28/23 17:51 Ur Leukocyte Esterase 2+ (NEGATIVE) 08/28/23 17:51 Urine RBC 0-2 /HPF (0-3) 08/28/23 17:51 Urine WBC 10-20 /HPF (0-5) A 08/28/23 17:51 Ur Squamous Epith Cells Rare /HPF (NEGATIVE) 08/28/23 17:51 Urine Bacteria 3+ /HPF (NEGATIVE) 08/28/23 17:51 Ur Culture Indicated? Yes/culture set up 08/28/23 17:51 Physical Exam Vital Signs: Vital Signs Temperature 97.7 F Pulse Rate [Left] 67 Respiratory Rate 18 Blood Pressure [Left Arm] 134/62 O2 Sat by Pulse Oximetry 99 Oriented: Time, Person and Place Ear: Normal (Hearing intact to conversation.) Respiratory: Clear Throughout and Diminished Throughout Cardiovascular: Normal; negative Murmur Auscultation: Bowel Sounds: Normal Palpation: Normal (Protuberant) Tenderness: Normal Musculoskeletal: Normal (Other than right lower extremity which is currently wrapped) Psychiatric: Normal Mood Description: Calm Affect: Normal Speech Pattern: Clear and Appropriate Assessment/Plan (1) Decubitus ulcer of foot, stage 3: Qualifiers: Laterality: right Qualified Code(s): L89.893 - Pressure ulcer of other site, stage 3 Narrative Support Text: Continue IV antibiotics. Continue per podiatry. Status: Acute (2) Cellulitis of right foot: Narrative Support Text: See above Status: Acute (3) Hypothyroidism in adult: Narrative Support Text: Continue home meds. Status: None (4) Type 2 diabetes mellitus with morbid obesity: Narrative Support Text: Monitor sugars closely. Sliding scale insulin. Status: None
[2023-08-29] MEDS: TYLENOL 325 MG TAB PO PRN (23:17)
[2023-08-30 06:27] LABS: BASOPHILS % (AUTO) 0.4 % (0.2-1.0); EOSINOPHILS # (AUTO) 0.3 x10^3/uL (0.0-0.2); EOSINOPHILS % (AUTO) 3.5 % (0.9-2.9); HEMATOCRIT 35.5 % (36.0-47.0); HEMOGLOBIN 11.4 g/dL (12.0-16.0); LYMPHOCYTES # (AUTO) 1.6 X10^3/uL (1.3-2.9); MEAN CORPUSCULAR HEMOGLOBIN 28.8 pg (27.0-34.0); MEAN CORPUSCULAR VOLUME 89.9 fL (80.0-100.0); MEAN PLATELET VOLUME 7.9 fL (7.4-11.0); MONOCYTES # (AUTO) 0.8 x10^3/uL (0.3-0.8); MONOCYTES % (AUTO) 10.8 % (0.0-13.0); NEUTROPHILS % (AUTO) 64.3 % (42.0-75.0); PLATELET COUNT 238 X10^3/uL (150.0-450.0); RED BLOOD COUNT 3.95 X10^6/uL (3.5-5.4); RED CELL DISTRIBUTION WIDTH 14.3 % (11.6-16.5); WHITE BLOOD COUNT 7.8 X10^3/uL (3.6-10.0)
[2023-08-30 06:39] LABS: ALANINE AMINOTRANSFERASE 22 Units/L (12-78); ALBUMIN 2.4 g/dL (3.4-5.0); ALKALINE PHOSPHATASE 91 Units/L (46-116); ASPARTATE AMINO TRANSFERASE 17 Units/L (15-37); BLOOD UREA NITROGEN 18 mg/dL (7-18); CALCIUM 8.2 mg/dL (8.5-10.1); CARBON DIOXIDE 29.6 mmol/L (21-32); CHLORIDE 106 mmol/L (98-107); COR CA(FOR HYPOALB) 9.5 mg/dL (8.5-10.1); COR NA(FOR HYPERGLY) 141 mmol/L (136-145); CREATININE 0.77 mg/dL (0.55-1.02); GLUCOSE 119 mg/dL (65-99); POTASSIUM 4.6 mmol/L (3.5-5.1); SODIUM 141 mmol/L (136-145); TOTAL PROTEIN 6.4 g/dL (6.4-8.2); eGFR NON BLACK RACES > 60 (>60)
[2023-08-30] MEDS: DUONEB 0.5 MG/3 MG (3 mL) NEB PRN (10:29)
--- NOTE | 2023-08-30 10:31 | EKG ---
Test Reason : preop clearance Blood Pressure : */* mmHG Vent. Rate : 56 BPM Atrial Rate : * BPM P-R Int : * ms QRS Dur : 100 ms QT Int : 456 ms P-R-T Axes : * 45 38 degrees QTc Int : 440 ms Junctional rhythm Poor R-wave progression Abnormal ECG No previous ECGs available Confirmed by Reji Palmer MD ([id number]) on 08/31/2023 7:31:47 AM Referred By: Confirmed By: Reji Palmer MD
[2023-08-30 12:29] VITALS: BMI 55.0
--- NOTE | 2023-08-30 14:24 | DR.PROGNOT ---
HOSPITAL PROGRESS NOTE Progress Note for Day of: Progress Note Date: 08/30/23 Chief Complaint Chief Complaint: Heel still draining. No overnight events. Pt reports she is doing well. Further imaging studies planned for tomorrow. Past Medical Family Social History Allergies: Allergies erythromycin base Allergy (Intermediate, Verified 08/28/23 14:13) diclofenac [From Voltaren] Allergy (Unknown, Verified 08/28/23 14:13) Reason: Drug allergy Fish Containing Products Allergy (Unknown, Verified 08/28/23 14:13) "seafood" allergy gabapentin Allergy (Unknown, Verified 08/28/23 14:13) Reason: Drug allergy ibuprofen [Nuprin] Allergy (Unknown, Verified 08/28/23 14:13) nalbuphine [From Nubain] Allergy (Unknown, Verified 08/28/23 14:13) Penicillins Allergy (Unknown, Verified 08/28/23 14:13) shrimp Allergy (Unknown, Verified 08/28/23 14:13) "seafood" allergy sumatriptan [Imitrex] Allergy (Unknown, Verified 08/28/23 14:13) minocycline Allergy (Verified 08/28/23 14:13) morphine Allergy (Verified 08/28/23 14:13) oyster extract Allergy (Verified 08/28/23 14:13) penicillin G Allergy (Verified 08/28/23 14:13) promethazine [From Phenergan] Allergy (Verified 08/28/23 14:13) Vital Signs Vital Signs: Vital Signs Temperature 97.0 F Temperature 97.0 F Pulse Rate [Left] 84 Pulse Rate [Left] 50 Pulse Rate 55 Respiratory Rate 18 Respiratory Rate 18 Blood Pressure [Left Arm] 119/58 Blood Pressure [Left Arm] 133/55 O2 Sat by Pulse Oximetry 93 O2 Sat by Pulse Oximetry 96 O2 Sat by Pulse Oximetry 95 Physical Exam Oriented: Time, Person and Place Ear: Normal (Hearing intact to conversation.) Cardiovascular: Normal; negative Murmur GI:Auscultation: Normal GI:Palpation: Normal (Protuberant) GI: Tenderness: Normal Musculoskeletal: Normal (Other than right lower extremity which is currently wrapped) Psychiatric: Normal Mood Description: Calm Affect: Normal Speech Pattern: Clear and Appropriate Laboratory and Diagnostics 08/30/23 06:05 08/30/23 06:05 Labs: 08/28/23 14:55 Blood Blood Culture - Preliminary 08/28/23 14:45 Blood Blood Culture - Preliminary 08/28/23 17:51 Urine,Clean Catch Urine Culture - Final Escherichia Coli 08/28/23 14:50 Foot - Right Wound Gram Stain - Final 08/28/23 14:50 Foot - Right Wound Culture - Preliminary Laboratory WBC 7.8 X10^3/uL (3.6-10.0) 08/30/23 06:05 RBC 3.95 X10^6/uL (3.5-5.4) 08/30/23 06:05 Hgb 11.4 g/dL (12.0-16.0) L 08/30/23 06:05 Hct 35.5 % (36.0-47.0) L 08/30/23 06:05 MCV 89.9 fL (80.0-100.0) 08/30/23 06:05 MCH 28.8 pg (27.0-34.0) 08/30/23 06:05 MCHC 32.0 g/dL (33.0-35.0) L 08/30/23 06:05 RDW 14.3 % (11.6-16.5) 08/30/23 06:05 Plt Count 238 X10^3/uL (150.0-450.0) 08/30/23 06:05 MPV 7.9 fL (7.4-11.0) 08/30/23 06:05 Neut % (Auto) 64.3 % (42.0-75.0) 08/30/23 06:05 Lymph % (Auto) 21.0 % (21.0-51.0) 08/30/23 06:05 [place] % (Auto) 10.8 % (0.0-13.0) 08/30/23 06:05 Eos % (Auto) 3.5 % (0.9-2.9) H 08/30/23 06:05 Baso % (Auto) 0.4 % (0.2-1.0) 08/30/23 06:05 Neut # (Auto) 5.0 x10^3/uL (2.2-4.8) H 08/30/23 06:05 Lymph # (Auto) 1.6 X10^3/uL (1.3-2.9) 08/30/23 06:05 [place] # (Auto) 0.8 x10^3/uL (0.3-0.8) 08/30/23 06:05 Eos # (Auto) 0.3 x10^3/uL (0.0-0.2) H 08/30/23 06:05 Baso # (Auto) 0.0 X10^3/uL (0.0-0.1) 08/30/23 06:05 Absolute Nucleated RBC 0.0 /100WBC 08/30/23 06:05 Sodium 141 mmol/L (136-145) 08/30/23 06:05 Corrected Sodium 141 mmol/L (136-145) 08/30/23 06:05 Potassium 4.6 mmol/L (3.5-5.1) 08/30/23 06:05 Chloride 106 mmol/L (98-107) 08/30/23 06:05 Carbon Dioxide 29.6 mmol/L (21-32) 08/30/23 06:05 BUN 18 mg/dL (7-18) 08/30/23 06:05 Creatinine 0.77 mg/dL (0.55-1.02) 08/30/23 06:05 Est GFR (MDRD) Af Amer > 60 (>60) 08/30/23 06:05 Est GFR (MDRD) Non-Af > 60 (>60) 08/30/23 06:05 Glucose 119 mg/dL (65-99) H 08/30/23 06:05 POC Glucose (mg/dL) 120 mg/dL (65-99) H 08/30/23 12:42 Lactic Acid 1.4 mmol/L (0.4-2.0) 08/28/23 14:45 Calcium 8.2 mg/dL (8.5-10.1) L 08/30/23 06:05 Corrected Calcium 9.5 mg/dL (8.5-10.1) 08/30/23 06:05 Total Bilirubin 0.20 mg/dL (0.2-1.0) 08/30/23 06:05 AST 17 Units/L (15-37) 08/30/23 06:05 ALT 22 Units/L (12-78) 08/30/23 06:05 Alkaline Phosphatase 91 Units/L (46-116) 08/30/23 06:05 Total Protein 6.4 g/dL (6.4-8.2) 08/30/23 06:05 Albumin 2.4 g/dL (3.4-5.0) L 08/30/23 06:05 Globulin 4.0 g/dL (2.5-4.5) 08/30/23 06:05 Albumin/Globulin Ratio 0.6 Ratio (1.1-2.1) L 08/30/23 06:05 Specimen Type Clean catch urine 08/28/23 17:51 Urine Color Yellow (YELLOW) 08/28/23 17:51 Urine Appearance Cloudy (CLEAR) 08/28/23 17:51 Urine pH 6.0 (5.0 - 8.0) 08/28/23 17:51 Ur Specific [place] 1.015 (1.000-1.030) 08/28/23 17:51 Urine Protein 2+ (NEGATIVE) 08/28/23 17:51 Urine Glucose (UA) Negative (NEGATIVE) 08/28/23 17:51 Urine Ketones Negative (NEGATIVE) 08/28/23 17:51 Urine Blood 1+ (NEGATIVE) 08/28/23 17:51 Urine Nitrite Negative (NEGATIVE) 08/28/23 17:51 Urine Bilirubin Negative (NEGATIVE) 08/28/23 17:51 Urine Urobilinogen 1+ (NORMAL) 08/28/23 17:51 Ur Leukocyte Esterase 2+ (NEGATIVE) 08/28/23 17:51 Urine RBC 0-2 /HPF (0-3) 08/28/23 17:51 Urine WBC 10-20 /HPF (0-5) A 08/28/23 17:51 Ur Squamous Epith Cells Rare /HPF (NEGATIVE) 08/28/23 17:51 Urine Bacteria 3+ /HPF (NEGATIVE) 08/28/23 17:51 Ur Culture Indicated? Yes/culture set up 08/28/23 17:51 Assessment and Plan 1: Rt foot cellulitis with pressure wound to heel. Continue current. MRI tomorrow. Follow podiatry recommendations 2: DM2 with peripheral neuropathy and diabetic foot wound. Continue current. Sugars and SCr doing well. 3: Ess HTN. No changes. Monitor. 4: SLE. continue Plaquenil. Problem Patient Problems: Patient Problems (Updated 08/29/23 @ 16:24 by Glenn Lazcano) Cellulitis of foot, right (Acute) L03.115 Pressure ulcer of right heel (Acute) L89.619
--- NOTE | 2023-08-30 19:24 | DR.CONSULT ---
CONSULT Consultation for Day of: Date: 08/30/23 Chief Complaint Chief Complaint: large ulcer/ infection plantar aspect of right heel Allergies Allergies Allergy/AdvReac Type Severity Reaction Status Date / Time erythromycin base Allergy Intermediate Verified 08/28/23 14:13 diclofenac [From Voltaren] Allergy Unknown Verified 08/28/23 14:13 Fish Containing Products Allergy Unknown Verified 08/28/23 14:13 gabapentin Allergy Unknown Verified 08/28/23 14:13 ibuprofen [Nuprin] Allergy Unknown Verified 08/28/23 14:13 nalbuphine [From Nubain] Allergy Unknown Verified 08/28/23 14:13 Penicillins Allergy Unknown Verified 08/28/23 14:13 shrimp Allergy Unknown Verified 08/28/23 14:13 sumatriptan [Imitrex] Allergy Unknown Verified 08/28/23 14:13 minocycline Allergy Verified 08/28/23 14:13 morphine Allergy Verified 08/28/23 14:13 oyster extract Allergy Verified 08/28/23 14:13 penicillin G Allergy Verified 08/28/23 14:13 promethazine [From Phenergan] Allergy Verified 08/28/23 14:13 History of Present Illness History of Present Illness: 67 year old female, morbidly obese with diabetes who presents with an uncontrolled ulcer/ infection to the plantar aspect to the right foot with obvious infection. Past Medical History Past Medical History: Anemia, Arthritis, COPD, Diabetes, Migraines, GERD, Gout, Hypertension, Hypothyroidism, Kidney Stones, Renal Disease and Sleep Apnea Past Surgical History Surgical History: Thyroidectomy Family History Family Medical History: Diabetes Mellitus and [place] Social History Does patient currently use any type of tobacco product: No Have you used tobacco products in the last 12 months: No Type of Tobacco Use: None Does any household member use tobacco: No Alcohol Use: None Drug Use: None Medications Home Medications: erythromycin base Allergy (Intermediate, Verified 08/28/23 14:13) diclofenac [From Voltaren] Allergy (Unknown, Verified 08/28/23 14:13) Fish Containing Products Allergy (Unknown, Verified 08/28/23 14:13) gabapentin Allergy (Unknown, Verified 08/28/23 14:13) ibuprofen [Nuprin] Allergy (Unknown, Verified 08/28/23 14:13) nalbuphine [From Nubain] Allergy (Unknown, Verified 08/28/23 14:13) Penicillins Allergy (Unknown, Verified 08/28/23 14:13) shrimp Allergy (Unknown, Verified 08/28/23 14:13) sumatriptan [Imitrex] Allergy (Unknown, Verified 08/28/23 14:13) minocycline Allergy (Verified 08/28/23 14:13) morphine Allergy (Verified 08/28/23 14:13) oyster extract Allergy (Verified 08/28/23 14:13) penicillin G Allergy (Verified 08/28/23 14:13) promethazine [From Phenergan] Allergy (Verified 08/28/23 14:13) Review of Systems Constitutional: See HPI Eyes: No Symptoms Reported ENT: No Symptoms Reported Respiratory: No Symptoms Reported Cardiovascular: No Symptoms Reported Gastrointestinal: No Symptoms Reported Genitourinary: No Symptoms Reported Musculoskeletal: No Symptoms Reported Skin: See HPI Neurological: No Symptoms Reported Physical Exam Vital Signs: Vital Signs Temperature 97.2 F Temperature 97.0 F Pulse Rate [Left] 54 Pulse Rate [Left] 84 Respiratory Rate 17 Respiratory Rate 18 Blood Pressure [Left Arm] 149/69 Blood Pressure [Left Arm] 119/58 O2 Sat by Pulse Oximetry 93 O2 Sat by Pulse Oximetry 93 Oriented: Normal, Time, Person and Place Eyes: Normal Ear: Normal Nose: Normal Throat: Normal Respiratory: Clear Throughout Cardiovascular: Normal and Other (Palpable pulses throughout both legs all the way to the ankles ) : Normal Auscultation: Bowel Sounds: Normal Palpation: Normal Skin: Other (7 cm diameter ulcer to the planter right foot with eschar and evidence of celluitis ) Musculoskeletal: Normal Psychiatric: Normal Mood Description: Calm Affect: Normal Speech Pattern: Clear and Appropriate Plan (1) Decubitus ulcer of foot, stage 3: Status: Acute Qualifiers: Laterality: right Qualified Code(s): L89.893 - Pressure ulcer of other site, stage 3 Plan: As you are doing , planned debridemetn and IV antibitocs , I have nothing to ad, no obvious vascuar compromise (2) Cellulitis of right foot: Status: Acute (3) Hypothyroidism in adult: Status: None (4) Type 2 diabetes mellitus with morbid obesity: Status: None
[2023-08-30] MEDS: COLACE CAP 100 MG PO SCH (20:09)
[2023-08-30] MEDS: MILK OF MAGNESIA PO SCH (20:09)
[2023-08-31 04:56] LABS: BASOPHILS % (AUTO) 0.5 % (0.2-1.0); EOSINOPHILS # (AUTO) 0.3 x10^3/uL (0.0-0.2); EOSINOPHILS % (AUTO) 3.3 % (0.9-2.9); HEMATOCRIT 35.2 % (36.0-47.0); HEMOGLOBIN 11.3 g/dL (12.0-16.0); LYMPHOCYTES # (AUTO) 1.5 X10^3/uL (1.3-2.9); LYMPHOCYTES % (AUTO) 18.6 % (21.0-51.0); MEAN CORPUSCULAR HEMOGLOBIN 28.8 pg (27.0-34.0); MEAN CORPUSCULAR HGB CONC 32.2 g/dL (33.0-35.0); MEAN CORPUSCULAR VOLUME 89.4 fL (80.0-100.0); MEAN PLATELET VOLUME 7.8 fL (7.4-11.0); MONOCYTES # (AUTO) 0.8 x10^3/uL (0.3-0.8); MONOCYTES % (AUTO) 9.7 % (0.0-13.0); NEUTROPHILS # (AUTO) 5.4 x10^3/uL (2.2-4.8); NEUTROPHILS % (AUTO) 67.9 % (42.0-75.0); PLATELET COUNT 247 X10^3/uL (150.0-450.0); RED BLOOD COUNT 3.94 X10^6/uL (3.5-5.4); RED CELL DISTRIBUTION WIDTH 14.5 % (11.6-16.5); WHITE BLOOD COUNT 7.9 X10^3/uL (3.6-10.0)
[2023-08-31] MEDS: HIBICLENS WASH EXT ONE (05:03)
[2023-08-31] MEDS: NOZIN NASAL SANITIZER TP ONE (05:04)
[2023-08-31 05:06] LABS: ALANINE AMINOTRANSFERASE 21 Units/L (12-78); ALBUMIN 2.3 g/dL (3.4-5.0); ALKALINE PHOSPHATASE 87 Units/L (46-116); ASPARTATE AMINO TRANSFERASE 17 Units/L (15-37); BLOOD UREA NITROGEN 12 mg/dL (7-18); CALCIUM 8.4 mg/dL (8.5-10.1); CARBON DIOXIDE 29.2 mmol/L (21-32); CHLORIDE 106 mmol/L (98-107); COR CA(FOR HYPOALB) 9.8 mg/dL (8.5-10.1); CREATININE 0.69 mg/dL (0.55-1.02); GLUCOSE 83 mg/dL (65-99); SODIUM 141 mmol/L (136-145); TOTAL PROTEIN 6.4 g/dL (6.4-8.2); eGFR NON BLACK RACES > 60 (>60)
[2023-08-31] MEDS: NS 1,000 ML IV 1,000 ML ONE (08:45)
[2023-08-31] MEDS: DUONEB 0.5 MG/3 MG (3 mL) NEB ONE (09:17)
[2023-08-31] MEDS: FENTANYL VIAL INJ 100 mcg ONE (09:29)
[2023-08-31] MEDS ORDERED: XYLOCAINE 2 % (PLAIN) ONE (09:29)
[2023-08-31] MEDS ORDERED: KETAMINE HCL ONE (09:29)
[2023-08-31] MEDS: DECADRON INJ ONE (09:29)
[2023-08-31] MEDS: VERSED ONE (09:29)
[2023-08-31] MEDS: OFIRMEV IV 1000 MG VIAL 1,000 MG/100 ML VIAL IV ONE (09:29)
[2023-08-31] MEDS: DIPRIVAN VIAL 20 ML ONE (09:29)
[2023-08-31] MEDS: ZOFRAN INJ 4 MG VIAL ONE (09:29)
[2023-08-31] MEDS: PEPCID 20 MG VIAL ONE (09:29)
[2023-08-31] MEDS: ROBINUL ONE (09:29)
[2023-08-31] MEDS ORDERED: PRECEDEX INJ VIAL ONE (09:29)
[2023-08-31] MEDS: MARCAINE 0.25% INJ ONE (09:43)
[2023-08-31] MEDS: BETADINE SOLN ONE (09:43)
[2023-08-31] MEDS: VANCOMYCIN HCL ONE (09:45)
[2023-08-31] MEDS: TOBRAMYCIN SULFATE ONE (09:46)
--- NOTE | 2023-08-31 09:53 | RAD ---
EXAM: Portable chest HISTORY: Preop vascular surgery COMPARISON: 02/13/2024 FINDINGS: Heart is minimally enlarged. No congestive heart failure is noted. No acute alveolar infiltrates or pleural effusions are identified. Bony thorax is unremarkable. IMPRESSION: Minimal cardiomegaly without congestive heart failure Lungs clear THIS IS AN ELECTRONICALLY VERIFIED FINAL REPORT 08/31/2023 9:47 AM - Electronically signed by Doc Montoya MD
[2023-08-31] MEDS: EPHEDRINE SULFATE INJ ONE ×2 (10:07)
[2023-08-31] MEDS ORDERED: ZOFRAN INJ 4 MG VIAL ONE (10:28)
--- NOTE | 2023-08-31 10:43 | PCM.PROG ---
Progress Note Progress Note for Day of Date of Exam: 08/31/23 Subjective Subjective: Patient seen at bedside, just came back from the OR after I&D of right foot. She is being treated for diabetic ulcer and cellulitis. Podiatry and Vascular following. She is currently on Rocephin and Clindamycin IV. Labs/imaging reviewed -Hgb 11.3 WBC 7.9 -Wound Cx: ENTEROBACTER CLOACAE -Urine Cx: E.Coli -Blood Cx: no growth Plan: follow Podiatry/Vascular recommendations. Switch Rocephin to Invanz. Picc line placement. Follow pending wound cultures. Follow pending imaging studies. Replace electrolytes as per protocol. Continue pain control. Monitor AM labs/imaging. Past Medical Family Social History Allergies: Allergies erythromycin base Allergy (Intermediate, Verified 08/28/23 14:13) diclofenac [From Voltaren] Allergy (Unknown, Verified 08/28/23 14:13) Reason: Drug allergy Fish Containing Products Allergy (Unknown, Verified 08/28/23 14:13) "seafood" allergy gabapentin Allergy (Unknown, Verified 08/28/23 14:13) Reason: Drug allergy ibuprofen [Nuprin] Allergy (Unknown, Verified 08/28/23 14:13) nalbuphine [From Nubain] Allergy (Unknown, Verified 08/28/23 14:13) Penicillins Allergy (Unknown, Verified 08/28/23 14:13) shrimp Allergy (Unknown, Verified 08/28/23 14:13) "seafood" allergy sumatriptan [Imitrex] Allergy (Unknown, Verified 08/28/23 14:13) minocycline Allergy (Verified 08/28/23 14:13) morphine Allergy (Verified 08/28/23 14:13) oyster extract Allergy (Verified 08/28/23 14:13) penicillin G Allergy (Verified 08/28/23 14:13) promethazine [From Phenergan] Allergy (Verified 08/28/23 14:13) Vital Signs and I&O's Vital Signs: Vital Signs Temperature 98.4 F Temperature 97.1 F Temperature 98.4 F Pulse Rate [Right Brachial] 81 Pulse Rate [Left] 74 Pulse Rate [Left] 72 Pulse Rate 80 Respiratory Rate 18 Respiratory Rate 18 Respiratory Rate 18 Respiratory Rate 18 Blood Pressure [Left Arm] 136/63 Blood Pressure [Left Arm] 115/59 Blood Pressure [Right Arm] 112/53 Blood Pressure 125/58 O2 Sat by Pulse Oximetry 93 O2 Sat by Pulse Oximetry 94 O2 Sat by Pulse Oximetry 92 O2 Sat by Pulse Oximetry 94 Intake and Output: Intake & Output 08/28/23 08/29/23 08/30/23 08/31/23 23:59 23:59 23:59 23:59 Intake Total 100 / 100 1612 / 1612 2041 / 2041 1050 / 1050 Output Total 800 / 800 1200 / 1200 2450 / 2450 Balance 100 / 100 812 / 812 841 / 841 -1400 / -1400 Physical Exam Oriented: Normal, Time, Person and Place Eyes: Normal Ear: Normal Nose: Normal Throat: Normal Respiratory: Generalized and Diminished Cardiovascular: Normal : Normal Auscultation: Bowel Sounds: Normal Tenderness: Normal Skin: Other (7 cm diameter ulcer to the planter right foot with eschar and evidence of cellulitis: dressing intact) Musculoskeletal: Normal Psychiatric: Normal Mood Description: Calm Affect: Normal Speech Pattern: Clear and Appropriate Laboratory and Diagnostics 08/31/23 04:30 08/31/23 04:30 Labs: 08/28/23 14:50 Foot - Right Wound Gram Stain - Final 08/28/23 14:50 Foot - Right Wound Culture - Preliminary Enterobacter Cloacae 08/28/23 14:55 Blood Blood Culture - Preliminary 08/28/23 14:45 Blood Blood Culture - Preliminary 08/28/23 17:51 Urine,Clean Catch Urine Culture - Final Escherichia Coli Laboratory WBC 7.9 X10^3/uL (3.6-10.0) 08/31/23 04:30 RBC 3.94 X10^6/uL (3.5-5.4) 08/31/23 04:30 Hgb 11.3 g/dL (12.0-16.0) L 08/31/23 04:30 Hct 35.2 % (36.0-47.0) L 08/31/23 04:30 MCV 89.4 fL (80.0-100.0) 08/31/23 04:30 MCH 28.8 pg (27.0-34.0) 08/31/23 04:30 MCHC 32.2 g/dL (33.0-35.0) L 08/31/23 04:30 RDW 14.5 % (11.6-16.5) 08/31/23 04:30 Plt Count 247 X10^3/uL (150.0-450.0) 08/31/23 04:30 MPV 7.8 fL (7.4-11.0) 08/31/23 04:30 Neut % (Auto) 67.9 % (42.0-75.0) 08/31/23 04:30 Lymph % (Auto) 18.6 % (21.0-51.0) L 08/31/23 04:30 [place] % (Auto) 9.7 % (0.0-13.0) 08/31/23 04:30 Eos % (Auto) 3.3 % (0.9-2.9) H 08/31/23 04:30 Baso % (Auto) 0.5 % (0.2-1.0) 08/31/23 04:30 Neut # (Auto) 5.4 x10^3/uL (2.2-4.8) H 08/31/23 04:30 Lymph # (Auto) 1.5 X10^3/uL (1.3-2.9) 08/31/23 04:30 [place] # (Auto) 0.8 x10^3/uL (0.3-0.8) 08/31/23 04:30 Eos # (Auto) 0.3 x10^3/uL (0.0-0.2) H 08/31/23 04:30 Baso # (Auto) 0.0 X10^3/uL (0.0-0.1) 08/31/23 04:30 Absolute Nucleated RBC 0.0 /100WBC 08/31/23 04:30 Sodium 141 mmol/L (136-145) 08/31/23 04:30 Corrected Sodium TNP 08/31/23 04:30 Potassium 4.0 mmol/L (3.5-5.1) 08/31/23 04:30 Chloride 106 mmol/L (98-107) 08/31/23 04:30 Carbon Dioxide 29.2 mmol/L (21-32) 08/31/23 04:30 BUN 12 mg/dL (7-18) 08/31/23 04:30 Creatinine 0.69 mg/dL (0.55-1.02) 08/31/23 04:30 Est GFR (MDRD) Af Amer > 60 (>60) 08/31/23 04:30 Est GFR (MDRD) Non-Af > 60 (>60) 08/31/23 04:30 Glucose 83 mg/dL (65-99) 08/31/23 04:30 POC Glucose (mg/dL) 106 mg/dL (65-99) H 08/31/23 08:45 Lactic Acid 1.4 mmol/L (0.4-2.0) 08/28/23 14:45 Calcium 8.4 mg/dL (8.5-10.1) L 08/31/23 04:30 Corrected Calcium 9.8 mg/dL (8.5-10.1) 08/31/23 04:30 Total Bilirubin 0.30 mg/dL (0.2-1.0) 08/31/23 04:30 AST 17 Units/L (15-37) 08/31/23 04:30 ALT 21 Units/L (12-78) 08/31/23 04:30 Alkaline Phosphatase 87 Units/L (46-116) 08/31/23 04:30 Total Protein 6.4 g/dL (6.4-8.2) 08/31/23 04:30 Albumin 2.3 g/dL (3.4-5.0) L 08/31/23 04:30 Globulin 4.1 g/dL (2.5-4.5) 08/31/23 04:30 Albumin/Globulin Ratio 0.6 Ratio (1.1-2.1) L 08/31/23 04:30 Specimen Type Clean catch urine 08/28/23 17:51 Urine Color Yellow (YELLOW) 08/28/23 17:51 Urine Appearance Cloudy (CLEAR) 08/28/23 17:51 Urine pH 6.0 (5.0 - 8.0) 08/28/23 17:51 Ur Specific [place] 1.015 (1.000-1.030) 08/28/23 17:51 Urine Protein 2+ (NEGATIVE) 08/28/23 17:51 Urine Glucose (UA) Negative (NEGATIVE) 08/28/23 17:51 Urine Ketones Negative (NEGATIVE) 08/28/23 17:51 Urine Blood 1+ (NEGATIVE) 08/28/23 17:51 Urine Nitrite Negative (NEGATIVE) 08/28/23 17:51 Urine Bilirubin Negative (NEGATIVE) 08/28/23 17:51 Urine Urobilinogen 1+ (NORMAL) 08/28/23 17:51 Ur Leukocyte Esterase 2+ (NEGATIVE) 08/28/23 17:51 Urine RBC 0-2 /HPF (0-3) 08/28/23 17:51 Urine WBC 10-20 /HPF (0-5) A 08/28/23 17:51 Ur Squamous Epith Cells Rare /HPF (NEGATIVE) 08/28/23 17:51 Urine Bacteria 3+ /HPF (NEGATIVE) 08/28/23 17:51 Ur Culture Indicated? Yes/culture set up 08/28/23 17:51 Plan (1) Decubitus ulcer of foot, stage 3: Status: Acute Qualifiers: Laterality: right Qualified Code(s): L89.893 - Pressure ulcer of other site, stage 3 (2) Cellulitis of right foot: Status: Acute (3) Hypothyroidism in adult: Status: None (4) Type 2 diabetes mellitus with morbid obesity: Status: None
[2023-08-31] MEDS: LOVENOX INJ 40 MG SYR SC SCH (12:04)
[2023-08-31] MEDS: INVanz INJ 1 GRAM VIAL 1 G in NS 100 ML IV 100 ML IV SCH (12:20)
[2023-09-01 06:13] LABS: BASOPHILS % (AUTO) 0.5 % (0.2-1.0); EOSINOPHILS # (AUTO) 0.1 x10^3/uL (0.0-0.2); EOSINOPHILS % (AUTO) 0.7 % (0.9-2.9); HEMATOCRIT 36.5 % (36.0-47.0); HEMOGLOBIN 11.4 g/dL (12.0-16.0); LYMPHOCYTES # (AUTO) 1.4 X10^3/uL (1.3-2.9); LYMPHOCYTES % (AUTO) 18.3 % (21.0-51.0); MEAN CORPUSCULAR HGB CONC 31.4 g/dL (33.0-35.0); MEAN CORPUSCULAR VOLUME 89.4 fL (80.0-100.0); MEAN PLATELET VOLUME 7.7 fL (7.4-11.0); MONOCYTES # (AUTO) 0.6 x10^3/uL (0.3-0.8); MONOCYTES % (AUTO) 8.5 % (0.0-13.0); NEUTROPHILS # (AUTO) 5.5 x10^3/uL (2.2-4.8); PLATELET COUNT 255 X10^3/uL (150.0-450.0); RED BLOOD COUNT 4.08 X10^6/uL (3.5-5.4); RED CELL DISTRIBUTION WIDTH 14.4 % (11.6-16.5); WHITE BLOOD COUNT 7.7 X10^3/uL (3.6-10.0)
[2023-09-01 06:26] LABS: ALANINE AMINOTRANSFERASE 18 Units/L (12-78); ALBUMIN 2.3 g/dL (3.4-5.0); ALKALINE PHOSPHATASE 88 Units/L (46-116); ASPARTATE AMINO TRANSFERASE 15 Units/L (15-37); BLOOD UREA NITROGEN 15 mg/dL (7-18); CALCIUM 8.5 mg/dL (8.5-10.1); CARBON DIOXIDE 29.5 mmol/L (21-32); CHLORIDE 107 mmol/L (98-107); COR CA(FOR HYPOALB) 9.9 mg/dL (8.5-10.1); CREATININE 0.79 mg/dL (0.55-1.02); GLUCOSE 107 mg/dL (65-99); POTASSIUM 4.5 mmol/L (3.5-5.1); SODIUM 141 mmol/L (136-145); TOTAL PROTEIN 6.6 g/dL (6.4-8.2); eGFR NON BLACK RACES > 60 (>60)
--- NOTE | 2023-09-01 06:29 | NOTE.SOAP ---
Soap Note Note for Day of Date of Exam: 09/01/23 Subjective Data Subjective Data: Patient is POD1 s/p right heel I&D with implantation of abx cement and bone biopsy. Patient is havign a litttle pain but otherwise doing well Objective Data Objective Data: Dressing c/d/i without strikethrouhg Assessment Assessment: s/p right heel I&D with implantation of abx cement and bone biopsy Cellulitis, Right foot PAD Diabetes Mellitis with neuropathy Plan Plan: Patient was seen bedside this am. Diagnosis and treatment discussed. Imaging reviewed; mri unable to be obtained due to weight. Will wait on bone biopsy result to determine if patient needs outpatient infectious disease consult. PICC line attempted but unable to obtain due to small veins. CUlture is only sensitive to IV antibiotics but there is antibiotic infused cement in her wound to help treat locally. Keep heel offloaded at all times with pillowed. IV antibiotics on schedule. Ok for discharge from a podiatry standpoint
--- NOTE | 2023-09-01 16:35 | RAD ---
EXAM: CHEST, 1 VIEW HISTORY: cough; COMPARISON: August 30, 2019 TECHNIQUE: Single frontal view of the chest FINDINGS: Heart size and mediastinal contours are normal. Lungs are clear as are the pleural spaces. No free ai r or pneumothorax. No acute bony abnormality. IMPRESSION: No acute radiographic abnormalities of the chest THIS IS AN ELECTRONICALLY VERIFIED FINAL REPORT 09/01/2023 4:31 PM - Electronically signed by Navid Jessica MD
[2023-09-02 05:02] LABS: BASOPHILS # (AUTO) 0.1 X10^3/uL (0.0-0.1); BASOPHILS % (AUTO) 0.7 % (0.2-1.0); EOSINOPHILS # (AUTO) 0.3 x10^3/uL (0.0-0.2); EOSINOPHILS % (AUTO) 4.7 % (0.9-2.9); HEMATOCRIT 37.9 % (36.0-47.0); LYMPHOCYTES # (AUTO) 1.8 X10^3/uL (1.3-2.9); LYMPHOCYTES % (AUTO) 26.4 % (21.0-51.0); MEAN CORPUSCULAR HEMOGLOBIN 28.4 pg (27.0-34.0); MEAN CORPUSCULAR HGB CONC 31.6 g/dL (33.0-35.0); MEAN PLATELET VOLUME 7.6 fL (7.4-11.0); MONOCYTES # (AUTO) 0.6 x10^3/uL (0.3-0.8); MONOCYTES % (AUTO) 8.5 % (0.0-13.0); NEUTROPHILS # (AUTO) 4.2 x10^3/uL (2.2-4.8); NEUTROPHILS % (AUTO) 59.7 % (42.0-75.0); PLATELET COUNT 269 X10^3/uL (150.0-450.0); RED BLOOD COUNT 4.22 X10^6/uL (3.5-5.4); RED CELL DISTRIBUTION WIDTH 14.6 % (11.6-16.5)
[2023-09-02 05:17] LABS: ALANINE AMINOTRANSFERASE 19 Units/L (12-78); ALBUMIN 2.5 g/dL (3.4-5.0); ALKALINE PHOSPHATASE 94 Units/L (46-116); ASPARTATE AMINO TRANSFERASE 15 Units/L (15-37); BLOOD UREA NITROGEN 16 mg/dL (7-18); CALCIUM 8.6 mg/dL (8.5-10.1); CARBON DIOXIDE 30.6 mmol/L (21-32); CHLORIDE 106 mmol/L (98-107); COR CA(FOR HYPOALB) 9.8 mg/dL (8.5-10.1); CREATININE 0.86 mg/dL (0.55-1.02); GLUCOSE 96 mg/dL (65-99); POTASSIUM 4.4 mmol/L (3.5-5.1); SODIUM 142 mmol/L (136-145); TOTAL PROTEIN 6.8 g/dL (6.4-8.2); eGFR NON BLACK RACES > 60 (>60)
--- NOTE | 2023-09-02 07:23 | VAS ---
EXAM:ANKLE BRACHIAL INDEXHISTORY:REDNESS IN THE LEGS;COMPARISON:NoneTECHNIQUE:Multi-segm ental arterial pressure with PVR wave form of both lower extremities.FINDINGS:RIGHTThe right brachial segmental pressure mmHg is 106.The right calf segmental pressure mmHg is 141 and the index is 1.18; waveform analysis is monophasic.The right posterior tibial mmHg is 130 and the index is 1.08; waveform analysis is monophasic.LEFTThe left brachial segmental pressure mmHg is 120.The left thigh segmental pressure mmHg is 168 and the index is 0.40; waveform analysis is monophasic.The left calf segmental pressure mmHg is 130 and the index is 1.08; waveform analysis is monophasic.The left posterior tibial mmHg is 132 and the index is 1.10; waveform analysis is monophasic.IMPRESSION:Right: 1.08Left: 1.10THIS IS AN ELECTRONICALLY VERIFIED FINAL REPORT09/02/2023 7:19 AM - Electronically signed by Doc Montoya MD
--- NOTE | 2023-09-02 08:49 | PCM.PROG ---
Progress Note Progress Note for Day of Date of Exam: 09/01/23 Subjective Subjective: POD#1 s/p I&D right heel with implantation of abx cement and bone biopsy. Patient seen at bedside, no acute events overnight. She is doing well. She states pain has been well-controlled. PICC line could not be placed yesterday due to multiple attempts. Patient is stable to be discharged home with home health as per podiatry. Patient does not need IV antibiotics at this time as there is abx cement placed in the heel. Patient will f/u with Podiatry outpatient for biopsy results. Labs/imaging reviewed -Hgb 11.4 WBC 7.7 -Wound Cx: ENTEROBACTER CLOACAE, repeat wound Cx pending -Urine Cx: E.Coli -Blood Cx: no growth Plan: follow podiatry recommendations. Patient is stable for discharge. Initially patient wanted to go home with home health but then decided to go to rehab. CM is working on rehab placement. Continue current medications. Continue pain control. Continue dressing changes. Monitor AM labs/imaging. Past Medical Family Social History Allergies: Allergies erythromycin base Allergy (Intermediate, Verified 08/28/23 14:13) diclofenac [From Voltaren] Allergy (Unknown, Verified 08/28/23 14:13) Reason: Drug allergy Fish Containing Products Allergy (Unknown, Verified 08/28/23 14:13) "seafood" allergy gabapentin Allergy (Unknown, Verified 08/28/23 14:13) Reason: Drug allergy ibuprofen [Nuprin] Allergy (Unknown, Verified 08/28/23 14:13) nalbuphine [From Nubain] Allergy (Unknown, Verified 08/28/23 14:13) Penicillins Allergy (Unknown, Verified 08/28/23 14:13) shrimp Allergy (Unknown, Verified 08/28/23 14:13) "seafood" allergy sumatriptan [Imitrex] Allergy (Unknown, Verified 08/28/23 14:13) minocycline Allergy (Verified 08/28/23 14:13) morphine Allergy (Verified 08/28/23 14:13) oyster extract Allergy (Verified 08/28/23 14:13) penicillin G Allergy (Verified 08/28/23 14:13) promethazine [From Phenergan] Allergy (Verified 08/28/23 14:13) Vital Signs and I&O's Vital Signs: Vital Signs Temperature 98.7 F Pulse Rate [Left] 75 Respiratory Rate 18 Blood Pressure [Left Arm] 139/66 O2 Sat by Pulse Oximetry 96 Intake and Output: Intake & Output 08/30/23 08/31/23 09/01/23 09/02/23 23:59 23:59 23:59 23:59 Intake Total 2040 / 2041 2265 / 2265 1730 / 1730 700 / 700 Output Total 1200 / 1200 3750 / 3750 1999 / 1999 1500 / 1500 Balance 841 / 841 -1485 / -1485 -270 / -270 -800 / -800 Physical Exam Oriented: Normal, Time, Person and Place Eyes: Normal Ear: Normal Nose: Normal Throat: Normal Respiratory: Generalized and Diminished Cardiovascular: Normal Auscultation: Bowel Sounds: Normal Palpation: Normal Tenderness: Normal Skin: Other (dressing intact - no streaking noted ) Musculoskeletal: Normal Psychiatric: Normal Mood Description: Calm Affect: Normal Speech Pattern: Clear and Appropriate Laboratory and Diagnostics 09/02/23 04:33 09/02/23 04:33 Labs: 08/28/23 14:50 Foot - Right Wound Gram Stain - Final 08/28/23 14:50 Foot - Right Wound Culture - Final Enterobacter Cloacae 08/31/23 09:55 Foot - Right Wound Gram Stain - Final 08/31/23 09:55 Foot - Right Wound Culture - Preliminary 08/28/23 14:55 Blood Blood Culture - Preliminary 08/28/23 14:45 Blood Blood Culture - Preliminary 08/28/23 17:51 Urine,Clean Catch Urine Culture - Final Escherichia Coli Laboratory WBC 7.0 X10^3/uL (3.6-10.0) 09/02/23 04:33 RBC 4.22 X10^6/uL (3.5-5.4) 09/02/23 04:33 Hgb 12.0 g/dL (12.0-16.0) 09/02/23 04:33 Hct 37.9 % (36.0-47.0) 09/02/23 04:33 MCV 90.0 fL (80.0-100.0) 09/02/23 04:33 MCH 28.4 pg (27.0-34.0) 09/02/23 04:33 MCHC 31.6 g/dL (33.0-35.0) L 09/02/23 04:33 RDW 14.6 % (11.6-16.5) 09/02/23 04:33 Plt Count 269 X10^3/uL (150.0-450.0) 09/02/23 04:33 MPV 7.6 fL (7.4-11.0) 09/02/23 04:33 Neut % (Auto) 59.7 % (42.0-75.0) 09/02/23 04:33 Lymph % (Auto) 26.4 % (21.0-51.0) 09/02/23 04:33 [place] % (Auto) 8.5 % (0.0-13.0) 09/02/23 04:33 Eos % (Auto) 4.7 % (0.9-2.9) H 09/02/23 04:33 Baso % (Auto) 0.7 % (0.2-1.0) 09/02/23 04:33 Neut # (Auto) 4.2 x10^3/uL (2.2-4.8) 09/02/23 04:33 Lymph # (Auto) 1.8 X10^3/uL (1.3-2.9) 09/02/23 04:33 [place] # (Auto) 0.6 x10^3/uL (0.3-0.8) 09/02/23 04:33 Eos # (Auto) 0.3 x10^3/uL (0.0-0.2) H 09/02/23 04:33 Baso # (Auto) 0.1 X10^3/uL (0.0-0.1) 09/02/23 04:33 Absolute Nucleated RBC 0.0 /100WBC 09/02/23 04:33 Sodium 142 mmol/L (136-145) 09/02/23 04:33 Corrected Sodium TNP 09/02/23 04:33 Potassium 4.4 mmol/L (3.5-5.1) 09/02/23 04:33 Chloride 106 mmol/L (98-107) 09/02/23 04:33 Carbon Dioxide 30.6 mmol/L (21-32) 09/02/23 04:33 BUN 16 mg/dL (7-18) 09/02/23 04:33 Creatinine 0.86 mg/dL (0.55-1.02) 09/02/23 04:33 Est GFR (MDRD) Af Amer > 60 (>60) 09/02/23 04:33 Est GFR (MDRD) Non-Af > 60 (>60) 09/02/23 04:33 Glucose 96 mg/dL (65-99) 09/02/23 04:33 POC Glucose (mg/dL) 147 mg/dL (65-99) H 09/02/23 05:45 Lactic Acid 1.4 mmol/L (0.4-2.0) 08/28/23 14:45 Calcium 8.6 mg/dL (8.5-10.1) 09/02/23 04:33 Corrected Calcium 9.8 mg/dL (8.5-10.1) 09/02/23 04:33 Magnesium 2.0 mg/dL (2.0-2.9) 09/01/23 05:44 Total Bilirubin 0.10 mg/dL (0.2-1.0) L 09/02/23 04:33 AST 15 Units/L (15-37) 09/02/23 04:33 ALT 19 Units/L (12-78) 09/02/23 04:33 Alkaline Phosphatase 94 Units/L (46-116) 09/02/23 04:33 Total Protein 6.8 g/dL (6.4-8.2) 09/02/23 04:33 Albumin 2.5 g/dL (3.4-5.0) L 09/02/23 04:33 Globulin 4.3 g/dL (2.5-4.5) 09/02/23 04:33 Albumin/Globulin Ratio 0.6 Ratio (1.1-2.1) L 09/02/23 04:33 Specimen Type Clean catch urine 08/28/23 17:51 Urine Color Yellow (YELLOW) 08/28/23 17:51 Urine Appearance Cloudy (CLEAR) 08/28/23 17:51 Urine pH 6.0 (5.0 - 8.0) 08/28/23 17:51 Ur Specific [place] 1.015 (1.000-1.030) 08/28/23 17:51 Urine Protein 2+ (NEGATIVE) 08/28/23 17:51 Urine Glucose (UA) Negative (NEGATIVE) 08/28/23 17:51 Urine Ketones Negative (NEGATIVE) 08/28/23 17:51 Urine Blood 1+ (NEGATIVE) 08/28/23 17:51 Urine Nitrite Negative (NEGATIVE) 08/28/23 17:51 Urine Bilirubin Negative (NEGATIVE) 08/28/23 17:51 Urine Urobilinogen 1+ (NORMAL) 08/28/23 17:51 Ur Leukocyte Esterase 2+ (NEGATIVE) 08/28/23 17:51 Urine RBC 0-2 /HPF (0-3) 08/28/23 17:51 Urine WBC 10-20 /HPF (0-5) A 08/28/23 17:51 Ur Squamous Epith Cells Rare /HPF (NEGATIVE) 08/28/23 17:51 Urine Bacteria 3+ /HPF (NEGATIVE) 08/28/23 17:51 Ur Culture Indicated? Yes/culture set up 08/28/23 17:51 Plan (1) Decubitus ulcer of foot, stage 3: Status: Acute Qualifiers: Laterality: right Qualified Code(s): L89.893 - Pressure ulcer of other site, stage 3 (2) Cellulitis of right foot: Status: Acute (3) Hypothyroidism in adult: Status: None (4) Type 2 diabetes mellitus with morbid obesity: Status: None
--- NOTE | 2023-09-02 09:53 | NOTE.SOAP ---
Soap Note Note for Day of Date of Exam: 09/02/23 Subjective Data Subjective Data: Patient is POD2 s/p right heel I&D with implantation of abx cement and bone biopsy. Patient is havign a litttle pain but otherwise doing well. Waiting for rehab placement Objective Data Objective Data: Full thickness would with granular base and some sanguinous drainage. Macerated periphery. Edema and erythema appears to have resolved. Antibiotic cement beads are intact within the wound. Assessment Assessment: s/p right heel I&D with implantation of abx cement and bone biopsy Cellulitis, Right foot PAD Diabetes Mellitis with neuropathy Plan Plan: Patient was seen bedside this am. Diagnosis and treatment discussed. Imaging reviewed; mri unable to be obtained due to weight. Will wait on bone biopsy result to determine if patient needs outpatient infectious disease consult. PICC line attempted but unable to obtain due to small veins. CUlture is only sensitive to IV antibiotics but there is antibiotic infused cement in her wound to help treat locally. Keep heel offloaded at all times with pillowed. I changed her dressing today with gauze, webril, abd and an anuj. IV antibiotics on schedule. Ok for discharge from a podiatry standpoint once rehab is placed; discussed with CM about dressing changes every other day
--- NOTE | 2023-09-02 19:21 | PCM.PROG ---
Progress Note Progress Note for Day of Date of Exam: 09/02/23 Subjective Subjective: POD#2 s/p I&D right heel with implantation of abx cement and bone biopsy. Patient seen at bedside, no acute events overnight. She is doing well. She states pain has been well-controlled. Patient is awaiting rehab placement. Patient does not need IV antibiotics at this time as there is abx cement placed in the heel. Patient will f/u with Podiatry outpatient for biopsy results. Labs/imaging reviewed -Hgb 12.0 WBC 7.0 -Wound Cx: ENTEROBACTER CLOACAE, repeat wound Cx Gram (-) rods -Urine Cx: E.Coli -Blood Cx: no growth Plan: follow podiatry recommendations.CM is working on rehab placement. Continue IV antibiotics. Continue current medications. Continue pain control. Continue dressing changes. Monitor AM labs/imaging. Past Medical Family Social History Allergies: Allergies erythromycin base Allergy (Intermediate, Verified 08/28/23 14:13) diclofenac [From Voltaren] Allergy (Unknown, Verified 08/28/23 14:13) Reason: Drug allergy Fish Containing Products Allergy (Unknown, Verified 08/28/23 14:13) "seafood" allergy gabapentin Allergy (Unknown, Verified 08/28/23 14:13) Reason: Drug allergy ibuprofen [Nuprin] Allergy (Unknown, Verified 08/28/23 14:13) nalbuphine [From Nubain] Allergy (Unknown, Verified 08/28/23 14:13) Penicillins Allergy (Unknown, Verified 08/28/23 14:13) shrimp Allergy (Unknown, Verified 08/28/23 14:13) "seafood" allergy sumatriptan [Imitrex] Allergy (Unknown, Verified 08/28/23 14:13) minocycline Allergy (Verified 08/28/23 14:13) morphine Allergy (Verified 08/28/23 14:13) oyster extract Allergy (Verified 08/28/23 14:13) penicillin G Allergy (Verified 08/28/23 14:13) promethazine [From Phenergan] Allergy (Verified 08/28/23 14:13) Vital Signs and I&O's Vital Signs: Vital Signs Temperature 98.1 F Temperature 97.9 F Pulse Rate [Left] 72 Pulse Rate [Left] 81 Respiratory Rate 18 Respiratory Rate 20 Respiratory Rate 18 Respiratory Rate 20 Blood Pressure [Left Arm] 141/63 Blood Pressure [Left Arm] 144/76 O2 Sat by Pulse Oximetry 94 O2 Sat by Pulse Oximetry 95 Intake and Output: Intake & Output 08/30/23 08/31/23 09/01/23 09/02/23 23:59 23:59 23:59 23:59 Intake Total 2040 / 2040 2265 / 2265 1730 / 1730 1568 / 1568 Output Total 1200 / 1200 3750 / 3750 1999 / 1999 2900 / 2900 Balance 841 / 841 -1485 / -1485 -270 / -270 -1332 / -1332 Physical Exam Oriented: Normal, Time, Person and Place Eyes: Normal Ear: Normal Nose: Normal Throat: Normal Respiratory: Generalized and Diminished Cardiovascular: Normal Auscultation: Bowel Sounds: Normal Tenderness: Normal Skin: Other (dressing intact - no streaking noted ) Musculoskeletal: Normal Psychiatric: Normal Mood Description: Calm Affect: Normal Speech Pattern: Clear and Appropriate Laboratory and Diagnostics 09/02/23 04:33 09/02/23 04:33 Labs: 08/28/23 14:50 Foot - Right Wound Gram Stain - Final 08/28/23 14:50 Foot - Right Wound Culture - Final Enterobacter Cloacae 08/31/23 09:55 Foot - Right Wound Gram Stain - Final 08/31/23 09:55 Foot - Right Wound Culture - Preliminary 08/28/23 14:55 Blood Blood Culture - Preliminary 08/28/23 14:45 Blood Blood Culture - Preliminary 08/28/23 17:51 Urine,Clean Catch Urine Culture - Final Escherichia Coli Laboratory WBC 7.0 X10^3/uL (3.6-10.0) 09/02/23 04:33 RBC 4.22 X10^6/uL (3.5-5.4) 09/02/23 04:33 Hgb 12.0 g/dL (12.0-16.0) 09/02/23 04:33 Hct 37.9 % (36.0-47.0) 09/02/23 04:33 MCV 90.0 fL (80.0-100.0) 09/02/23 04:33 MCH 28.4 pg (27.0-34.0) 09/02/23 04:33 MCHC 31.6 g/dL (33.0-35.0) L 09/02/23 04:33 RDW 14.6 % (11.6-16.5) 09/02/23 04:33 Plt Count 269 X10^3/uL (150.0-450.0) 09/02/23 04:33 MPV 7.6 fL (7.4-11.0) 09/02/23 04:33 Neut % (Auto) 59.7 % (42.0-75.0) 09/02/23 04:33 Lymph % (Auto) 26.4 % (21.0-51.0) 09/02/23 04:33 [place] % (Auto) 8.5 % (0.0-13.0) 09/02/23 04:33 Eos % (Auto) 4.7 % (0.9-2.9) H 09/02/23 04:33 Baso % (Auto) 0.7 % (0.2-1.0) 09/02/23 04:33 Neut # (Auto) 4.2 x10^3/uL (2.2-4.8) 09/02/23 04:33 Lymph # (Auto) 1.8 X10^3/uL (1.3-2.9) 09/02/23 04:33 [place] # (Auto) 0.6 x10^3/uL (0.3-0.8) 09/02/23 04:33 Eos # (Auto) 0.3 x10^3/uL (0.0-0.2) H 09/02/23 04:33 Baso # (Auto) 0.1 X10^3/uL (0.0-0.1) 09/02/23 04:33 Absolute Nucleated RBC 0.0 /100WBC 09/02/23 04:33 Sodium 142 mmol/L (136-145) 09/02/23 04:33 Corrected Sodium TNP 09/02/23 04:33 Potassium 4.4 mmol/L (3.5-5.1) 09/02/23 04:33 Chloride 106 mmol/L (98-107) 09/02/23 04:33 Carbon Dioxide 30.6 mmol/L (21-32) 09/02/23 04:33 BUN 16 mg/dL (7-18) 09/02/23 04:33 Creatinine 0.86 mg/dL (0.55-1.02) 09/02/23 04:33 Est GFR (MDRD) Af Amer > 60 (>60) 09/02/23 04:33 Est GFR (MDRD) Non-Af > 60 (>60) 09/02/23 04:33 Glucose 96 mg/dL (65-99) 09/02/23 04:33 POC Glucose (mg/dL) 110 mg/dL (65-99) H 09/02/23 16:37 Lactic Acid 1.4 mmol/L (0.4-2.0) 08/28/23 14:45 Calcium 8.6 mg/dL (8.5-10.1) 09/02/23 04:33 Corrected Calcium 9.8 mg/dL (8.5-10.1) 09/02/23 04:33 Magnesium 2.0 mg/dL (2.0-2.9) 09/01/23 05:44 Total Bilirubin 0.10 mg/dL (0.2-1.0) L 09/02/23 04:33 AST 15 Units/L (15-37) 09/02/23 04:33 ALT 19 Units/L (12-78) 09/02/23 04:33 Alkaline Phosphatase 94 Units/L (46-116) 09/02/23 04:33 Total Protein 6.8 g/dL (6.4-8.2) 09/02/23 04:33 Albumin 2.5 g/dL (3.4-5.0) L 09/02/23 04:33 Globulin 4.3 g/dL (2.5-4.5) 09/02/23 04:33 Albumin/Globulin Ratio 0.6 Ratio (1.1-2.1) L 09/02/23 04:33 Specimen Type Clean catch urine 08/28/23 17:51 Urine Color Yellow (YELLOW) 08/28/23 17:51 Urine Appearance Cloudy (CLEAR) 08/28/23 17:51 Urine pH 6.0 (5.0 - 8.0) 08/28/23 17:51 Ur Specific [place] 1.015 (1.000-1.030) 08/28/23 17:51 Urine Protein 2+ (NEGATIVE) 08/28/23 17:51 Urine Glucose (UA) Negative (NEGATIVE) 08/28/23 17:51 Urine Ketones Negative (NEGATIVE) 08/28/23 17:51 Urine Blood 1+ (NEGATIVE) 08/28/23 17:51 Urine Nitrite Negative (NEGATIVE) 08/28/23 17:51 Urine Bilirubin Negative (NEGATIVE) 08/28/23 17:51 Urine Urobilinogen 1+ (NORMAL) 08/28/23 17:51 Ur Leukocyte Esterase 2+ (NEGATIVE) 08/28/23 17:51 Urine RBC 0-2 /HPF (0-3) 08/28/23 17:51 Urine WBC 10-20 /HPF (0-5) A 08/28/23 17:51 Ur Squamous Epith Cells Rare /HPF (NEGATIVE) 08/28/23 17:51 Urine Bacteria 3+ /HPF (NEGATIVE) 08/28/23 17:51 Ur Culture Indicated? Yes/culture set up 08/28/23 17:51 Plan (1) Decubitus ulcer of foot, stage 3: Status: Acute Qualifiers: Laterality: right Qualified Code(s): L89.893 - Pressure ulcer of other site, stage 3 (2) Cellulitis of right foot: Status: Acute (3) Hypothyroidism in adult: Status: None (4) Type 2 diabetes mellitus with morbid obesity: Status: None
[2023-09-03 05:20] LABS: BASOPHILS # (AUTO) 0.1 X10^3/uL (0.0-0.1); BASOPHILS % (AUTO) 0.8 % (0.2-1.0); EOSINOPHILS # (AUTO) 0.4 x10^3/uL (0.0-0.2); EOSINOPHILS % (AUTO) 4.5 % (0.9-2.9); HEMATOCRIT 37.6 % (36.0-47.0); HEMOGLOBIN 12.1 g/dL (12.0-16.0); LYMPHOCYTES # (AUTO) 2.1 X10^3/uL (1.3-2.9); LYMPHOCYTES % (AUTO) 26.2 % (21.0-51.0); MEAN CORPUSCULAR HEMOGLOBIN 28.6 pg (27.0-34.0); MEAN CORPUSCULAR HGB CONC 32.1 g/dL (33.0-35.0); MEAN CORPUSCULAR VOLUME 89.1 fL (80.0-100.0); MEAN PLATELET VOLUME 7.8 fL (7.4-11.0); MONOCYTES # (AUTO) 0.7 x10^3/uL (0.3-0.8); MONOCYTES % (AUTO) 9.2 % (0.0-13.0); NEUTROPHILS # (AUTO) 4.7 x10^3/uL (2.2-4.8); NEUTROPHILS % (AUTO) 59.3 % (42.0-75.0); PLATELET COUNT 262 X10^3/uL (150.0-450.0); RED BLOOD COUNT 4.22 X10^6/uL (3.5-5.4); RED CELL DISTRIBUTION WIDTH 14.6 % (11.6-16.5); WHITE BLOOD COUNT 7.9 X10^3/uL (3.6-10.0)
[2023-09-03 05:30] LABS: ALANINE AMINOTRANSFERASE 18 Units/L (12-78); ALBUMIN 2.4 g/dL (3.4-5.0); ALKALINE PHOSPHATASE 91 Units/L (46-116); ASPARTATE AMINO TRANSFERASE 17 Units/L (15-37); BLOOD UREA NITROGEN 18 mg/dL (7-18); CALCIUM 8.7 mg/dL (8.5-10.1); CHLORIDE 104 mmol/L (98-107); CREATININE 0.85 mg/dL (0.55-1.02); GLUCOSE 98 mg/dL (65-99); POTASSIUM 4.2 mmol/L (3.5-5.1); SODIUM 142 mmol/L (136-145); TOTAL PROTEIN 6.5 g/dL (6.4-8.2); eGFR NON BLACK RACES > 60 (>60)
[2023-09-03] MEDS: SYNTHROID 150 mcg TAB PO SCH (05:32)
[2023-09-04 06:09] LABS: BASOPHILS # (AUTO) 0.1 X10^3/uL (0.0-0.1); BASOPHILS % (AUTO) 0.7 % (0.2-1.0); EOSINOPHILS # (AUTO) 0.4 x10^3/uL (0.0-0.2); EOSINOPHILS % (AUTO) 5.2 % (0.9-2.9); HEMATOCRIT 39.8 % (36.0-47.0); HEMOGLOBIN 12.9 g/dL (12.0-16.0); LYMPHOCYTES # (AUTO) 1.8 X10^3/uL (1.3-2.9); LYMPHOCYTES % (AUTO) 22.3 % (21.0-51.0); MEAN CORPUSCULAR HEMOGLOBIN 28.6 pg (27.0-34.0); MEAN CORPUSCULAR HGB CONC 32.3 g/dL (33.0-35.0); MEAN CORPUSCULAR VOLUME 88.7 fL (80.0-100.0); MEAN PLATELET VOLUME 7.5 fL (7.4-11.0); MONOCYTES # (AUTO) 0.6 x10^3/uL (0.3-0.8); MONOCYTES % (AUTO) 7.6 % (0.0-13.0); NEUTROPHILS # (AUTO) 5.1 x10^3/uL (2.2-4.8); NEUTROPHILS % (AUTO) 64.2 % (42.0-75.0); PLATELET COUNT 248 X10^3/uL (150.0-450.0); RED BLOOD COUNT 4.49 X10^6/uL (3.5-5.4); RED CELL DISTRIBUTION WIDTH 14.6 % (11.6-16.5); WHITE BLOOD COUNT 7.9 X10^3/uL (3.6-10.0)
[2023-09-04 06:24] LABS: ALANINE AMINOTRANSFERASE 19 Units/L (12-78); ALBUMIN 2.4 g/dL (3.4-5.0); ALKALINE PHOSPHATASE 91 Units/L (46-116); ASPARTATE AMINO TRANSFERASE 18 Units/L (15-37); BLOOD UREA NITROGEN 18 mg/dL (7-18); CALCIUM 8.6 mg/dL (8.5-10.1); CARBON DIOXIDE 29.5 mmol/L (21-32); CHLORIDE 105 mmol/L (98-107); COR CA(FOR HYPOALB) 9.9 mg/dL (8.5-10.1); CREATININE 0.75 mg/dL (0.55-1.02); GLUCOSE 101 mg/dL (65-99); POTASSIUM 4.1 mmol/L (3.5-5.1); SODIUM 140 mmol/L (136-145); TOTAL PROTEIN 6.7 g/dL (6.4-8.2); eGFR NON BLACK RACES > 60 (>60)
[2023-09-05 05:10] LABS: BASOPHILS % (AUTO) 0.6 % (0.2-1.0); EOSINOPHILS # (AUTO) 0.3 x10^3/uL (0.0-0.2); EOSINOPHILS % (AUTO) 3.8 % (0.9-2.9); HEMATOCRIT 38.1 % (36.0-47.0); HEMOGLOBIN 12.3 g/dL (12.0-16.0); LYMPHOCYTES # (AUTO) 1.6 X10^3/uL (1.3-2.9); MEAN CORPUSCULAR HEMOGLOBIN 28.6 pg (27.0-34.0); MEAN CORPUSCULAR HGB CONC 32.1 g/dL (33.0-35.0); MEAN CORPUSCULAR VOLUME 89.1 fL (80.0-100.0); MEAN PLATELET VOLUME 7.7 fL (7.4-11.0); MONOCYTES # (AUTO) 0.6 x10^3/uL (0.3-0.8); MONOCYTES % (AUTO) 7.5 % (0.0-13.0); NEUTROPHILS # (AUTO) 5.8 x10^3/uL (2.2-4.8); NEUTROPHILS % (AUTO) 69.1 % (42.0-75.0); PLATELET COUNT 255 X10^3/uL (150.0-450.0); RED BLOOD COUNT 4.28 X10^6/uL (3.5-5.4); RED CELL DISTRIBUTION WIDTH 14.6 % (11.6-16.5); WHITE BLOOD COUNT 8.4 X10^3/uL (3.6-10.0)
[2023-09-05 05:23] LABS: ALANINE AMINOTRANSFERASE 18 Units/L (12-78); ALBUMIN 2.4 g/dL (3.4-5.0); ALKALINE PHOSPHATASE 85 Units/L (46-116); ASPARTATE AMINO TRANSFERASE 16 Units/L (15-37); BLOOD UREA NITROGEN 18 mg/dL (7-18); CALCIUM 8.5 mg/dL (8.5-10.1); CARBON DIOXIDE 31.2 mmol/L (21-32); CHLORIDE 105 mmol/L (98-107); COR CA(FOR HYPOALB) 9.8 mg/dL (8.5-10.1); COR NA(FOR HYPERGLY) 141 mmol/L (136-145); CREATININE 0.79 mg/dL (0.55-1.02); GLUCOSE 119 mg/dL (65-99); POTASSIUM 4.2 mmol/L (3.5-5.1); SODIUM 141 mmol/L (136-145); TOTAL PROTEIN 6.4 g/dL (6.4-8.2); eGFR NON BLACK RACES > 60 (>60)
[2023-09-05] MEDS: ULTRAM PO PRN (10:17)
--- NOTE | 2023-09-05 10:36 | PCM.PROG ---
Progress Note Progress Note for Day of Date of Exam: 09/03/23 Subjective Subjective: Pt is a 67 year old female s/p I&D right heel with implantation of abx cement and bone biopsy. Patient is resting comfortably at bedside, no acute events overnight. No concerns. She states pain has been well-controlled. Patient is awaiting rehab placement. Patient will f/u with Podiatry outpatient for biopsy results. Labs/imaging reviewed -Wbc 7.9, Hgb 12.1, Plt 262, Na 142, K 4.2, Creatinine 0.85, Glucose 98. -Wound Cx: ENTEROBACTER CLOACAE, repeat wound Cx Gram (-) rods -Urine Cx: E.Coli -Blood Cx: no growth Plan: follow podiatry recommendations.CM is working on rehab placement. Continue IV antibiotics. Continue current medications. Continue pain control. Continue dressing changes. Monitor AM labs/imaging. Past Medical Family Social History Allergies: Allergies erythromycin base Allergy (Intermediate, Verified 08/28/23 14:13) diclofenac [From Voltaren] Allergy (Unknown, Verified 08/28/23 14:13) Reason: Drug allergy Fish Containing Products Allergy (Unknown, Verified 08/28/23 14:13) "seafood" allergy gabapentin Allergy (Unknown, Verified 08/28/23 14:13) Reason: Drug allergy ibuprofen [Nuprin] Allergy (Unknown, Verified 08/28/23 14:13) nalbuphine [From Nubain] Allergy (Unknown, Verified 08/28/23 14:13) Penicillins Allergy (Unknown, Verified 08/28/23 14:13) shrimp Allergy (Unknown, Verified 08/28/23 14:13) "seafood" allergy sumatriptan [Imitrex] Allergy (Unknown, Verified 08/28/23 14:13) minocycline Allergy (Verified 08/28/23 14:13) morphine Allergy (Verified 08/28/23 14:13) oyster extract Allergy (Verified 08/28/23 14:13) penicillin G Allergy (Verified 08/28/23 14:13) promethazine [From Phenergan] Allergy (Verified 08/28/23 14:13) Review of Systems ROS changes noted: see HPI Vital Signs and I&O's Vital Signs: Vital Signs Temperature 97.8 F Temperature 98.4 F Pulse Rate [Right Brachial] 71 Pulse Rate [Right Brachial] 62 Respiratory Rate 20 Respiratory Rate 20 Blood Pressure [Left Arm] 147/73 Blood Pressure [Left Arm] 139/61 O2 Sat by Pulse Oximetry 95 O2 Sat by Pulse Oximetry 93 Intake and Output: Intake & Output 09/01/23 09/02/23 09/03/23 09/04/23 23:59 23:59 23:59 23:59 Intake Total 1730 / 1730 1568 / 1568 1437 / 1437 210 / 210 Output Total 1999 2900 / 2900 1300 / 1300 1400 / 1400 Balance -270 / -270 -1332 / -1332 137 / 137 -1190 / -1190 Physical Exam Oriented: Normal, Time, Person and Place Eyes: Normal Ear: Normal Nose: Normal Throat: Normal Respiratory: Generalized and Diminished Cardiovascular: Normal : Normal Auscultation: Bowel Sounds: Normal Tenderness: Normal Skin: Other (dressing intact - no streaking noted ) Musculoskeletal: Normal Psychiatric: Normal Mood Description: Calm Affect: Normal Speech Pattern: Clear and Appropriate Laboratory and Diagnostics 09/05/23 04:35 09/05/23 04:35 Labs: 08/28/23 14:55 Blood Blood Culture - Final 08/28/23 14:45 Blood Blood Culture - Final 08/31/23 09:55 Foot - Right Wound Gram Stain - Final 08/31/23 09:55 Foot - Right Wound Culture - Final Enterobacter Cloacae 08/28/23 14:50 Foot - Right Wound Gram Stain - Final 08/28/23 14:50 Foot - Right Wound Culture - Final Enterobacter Cloacae 08/28/23 17:51 Urine,Clean Catch Urine Culture - Final Escherichia Coli Laboratory WBC 7.9 X10^3/uL (3.6-10.0) 09/04/23 05:45 RBC 4.49 X10^6/uL (3.5-5.4) 09/04/23 05:45 Hgb 12.9 g/dL (12.0-16.0) 09/04/23 05:45 Hct 39.8 % (36.0-47.0) 09/04/23 05:45 MCV 88.7 fL (80.0-100.0) 09/04/23 05:45 MCH 28.6 pg (27.0-34.0) 09/04/23 05:45 MCHC 32.3 g/dL (33.0-35.0) L 09/04/23 05:45 RDW 14.6 % (11.6-16.5) 09/04/23 05:45 Plt Count 248 X10^3/uL (150.0-450.0) 09/04/23 05:45 MPV 7.5 fL (7.4-11.0) 09/04/23 05:45 Neut % (Auto) 64.2 % (42.0-75.0) 09/04/23 05:45 Lymph % (Auto) 22.3 % (21.0-51.0) 09/04/23 05:45 [place] % (Auto) 7.6 % (0.0-13.0) 09/04/23 05:45 Eos % (Auto) 5.2 % (0.9-2.9) H 09/04/23 05:45 Baso % (Auto) 0.7 % (0.2-1.0) 09/04/23 05:45 Neut # (Auto) 5.1 x10^3/uL (2.2-4.8) H 09/04/23 05:45 Lymph # (Auto) 1.8 X10^3/uL (1.3-2.9) 09/04/23 05:45 [place] # (Auto) 0.6 x10^3/uL (0.3-0.8) 09/04/23 05:45 Eos # (Auto) 0.4 x10^3/uL (0.0-0.2) H 09/04/23 05:45 Baso # (Auto) 0.1 X10^3/uL (0.0-0.1) 09/04/23 05:45 Absolute Nucleated RBC 0.1 /100WBC 09/04/23 05:45 Sodium 140 mmol/L (136-145) 09/04/23 05:45 Corrected Sodium TNP 09/04/23 05:45 Potassium 4.1 mmol/L (3.5-5.1) 09/04/23 05:45 Chloride 105 mmol/L (98-107) 09/04/23 05:45 Carbon Dioxide 29.5 mmol/L (21-32) 09/04/23 05:45 BUN 18 mg/dL (7-18) 09/04/23 05:45 Creatinine 0.75 mg/dL (0.55-1.02) 09/04/23 05:45 Est GFR (MDRD) Af Amer > 60 (>60) 09/04/23 05:45 Est GFR (MDRD) Non-Af > 60 (>60) 09/04/23 05:45 Glucose 101 mg/dL (65-99) H 09/04/23 05:45 POC Glucose (mg/dL) 97 mg/dL (65-99) 09/04/23 05:44 Lactic Acid 1.4 mmol/L (0.4-2.0) 08/28/23 14:45 Calcium 8.6 mg/dL (8.5-10.1) 09/04/23 05:45 Corrected Calcium 9.9 mg/dL (8.5-10.1) 09/04/23 05:45 Magnesium 2.0 mg/dL (2.0-2.9) 09/01/23 05:44 Total Bilirubin 0.20 mg/dL (0.2-1.0) 09/04/23 05:45 AST 18 Units/L (15-37) 09/04/23 05:45 ALT 19 Units/L (12-78) 09/04/23 05:45 Alkaline Phosphatase 91 Units/L (46-116) 09/04/23 05:45 Total Protein 6.7 g/dL (6.4-8.2) 09/04/23 05:45 Albumin 2.4 g/dL (3.4-5.0) L 09/04/23 05:45 Globulin 4.3 g/dL (2.5-4.5) 09/04/23 05:45 Albumin/Globulin Ratio 0.6 Ratio (1.1-2.1) L 09/04/23 05:45 Specimen Type Clean catch urine 08/28/23 17:51 Urine Color Yellow (YELLOW) 08/28/23 17:51 Urine Appearance Cloudy (CLEAR) 08/28/23 17:51 Urine pH 6.0 (5.0 - 8.0) 08/28/23 17:51 Ur Specific [place] 1.015 (1.000-1.030) 08/28/23 17:51 Urine Protein 2+ (NEGATIVE) 08/28/23 17:51 Urine Glucose (UA) Negative (NEGATIVE) 08/28/23 17:51 Urine Ketones Negative (NEGATIVE) 08/28/23 17:51 Urine Blood 1+ (NEGATIVE) 08/28/23 17:51 Urine Nitrite Negative (NEGATIVE) 08/28/23 17:51 Urine Bilirubin Negative (NEGATIVE) 08/28/23 17:51 Urine Urobilinogen 1+ (NORMAL) 08/28/23 17:51 Ur Leukocyte Esterase 2+ (NEGATIVE) 08/28/23 17:51 Urine RBC 0-2 /HPF (0-3) 08/28/23 17:51 Urine WBC 10-20 /HPF (0-5) A 08/28/23 17:51 Ur Squamous Epith Cells Rare /HPF (NEGATIVE) 08/28/23 17:51 Urine Bacteria 3+ /HPF (NEGATIVE) 08/28/23 17:51 Ur Culture Indicated? Yes/culture set up 08/28/23 17:51 Plan (1) Decubitus ulcer of foot, stage 3: Status: Acute Qualifiers: Laterality: right Qualified Code(s): L89.893 - Pressure ulcer of other site, stage 3 (2) Cellulitis of right foot: Status: Acute (3) Hypothyroidism in adult: Status: None (4) Type 2 diabetes mellitus with morbid obesity: Status: None
--- NOTE | 2023-09-05 10:41 | PCM.PROG ---
Progress Note Progress Note for Day of Date of Exam: 09/04/23 Subjective Subjective: Pt is a 67 year old female s/p I&D right heel with implantation of abx cement and bone biopsy. Patient examined this morning laying in bed. No acute events overnight. She states pain has been well-controlled. Patient awaiting rehab placement. Patient will f/u with Podiatry outpatient for biopsy results. Labs/imaging reviewed -Wbc 7.9, Hgb 12.9, Plt 248, Na 140, K 4.1, Creatinine 0.75, Glucose 101. -Wound Cx: ENTEROBACTER CLOACAE, -Urine Cx: E.Coli Plan: Follow podiatry recommendations.CM is working on rehab placement. Continue IV antibiotics: Invanz. Continue current medications. Continue pain control. Continue dressing changes. Monitor AM labs/imaging. Past Medical Family Social History Allergies: Allergies erythromycin base Allergy (Intermediate, Verified 08/28/23 14:13) diclofenac [From Voltaren] Allergy (Unknown, Verified 08/28/23 14:13) Reason: Drug allergy Fish Containing Products Allergy (Unknown, Verified 08/28/23 14:13) "seafood" allergy gabapentin Allergy (Unknown, Verified 08/28/23 14:13) Reason: Drug allergy ibuprofen [Nuprin] Allergy (Unknown, Verified 08/28/23 14:13) nalbuphine [From Nubain] Allergy (Unknown, Verified 08/28/23 14:13) Penicillins Allergy (Unknown, Verified 08/28/23 14:13) shrimp Allergy (Unknown, Verified 08/28/23 14:13) "seafood" allergy sumatriptan [Imitrex] Allergy (Unknown, Verified 08/28/23 14:13) minocycline Allergy (Verified 08/28/23 14:13) morphine Allergy (Verified 08/28/23 14:13) oyster extract Allergy (Verified 08/28/23 14:13) penicillin G Allergy (Verified 08/28/23 14:13) promethazine [From Phenergan] Allergy (Verified 08/28/23 14:13) Review of Systems ROS changes noted: see HPI Vital Signs and I&O's Vital Signs: Vital Signs Temperature 98.0 F Temperature 98.0 F Pulse Rate [Right Brachial] 73 Pulse Rate [Right Brachial] 77 Pulse Rate 75 Respiratory Rate 20 Respiratory Rate 20 Respiratory Rate 18 Respiratory Rate 20 Respiratory Rate 18 Blood Pressure [Left Arm] 141/73 Blood Pressure [Left Arm] 137/66 O2 Sat by Pulse Oximetry 92 O2 Sat by Pulse Oximetry 95 O2 Sat by Pulse Oximetry 94 Intake and Output: Intake & Output 09/02/23 09/03/23 09/04/23 09/05/23 23:59 23:59 23:59 23:59 Intake Total 1568 / 1568 1437 / 1437 640 / 640 130 / 130 Output Total 2900 / 2900 1300 / 1300 2200 / 2200 500 / 500 Balance -1332 / -1332 137 / 137 -1560 / -1560 -370 / -370 Physical Exam Oriented: Normal, Time, Person and Place Eyes: Normal Ear: Normal Nose: Normal Throat: Normal Respiratory: Generalized and Diminished Cardiovascular: Normal : Normal Auscultation: Bowel Sounds: Normal Tenderness: Normal Skin: Other (dressing intact - no streaking noted ) Musculoskeletal: Normal Psychiatric: Normal Mood Description: Calm Affect: Normal Speech Pattern: Clear and Appropriate Laboratory and Diagnostics 09/05/23 04:35 09/05/23 04:35 Labs: 08/28/23 14:55 Blood Blood Culture - Final 08/28/23 14:45 Blood Blood Culture - Final 08/31/23 09:55 Foot - Right Wound Gram Stain - Final 08/31/23 09:55 Foot - Right Wound Culture - Final Enterobacter Cloacae 08/28/23 14:50 Foot - Right Wound Gram Stain - Final 08/28/23 14:50 Foot - Right Wound Culture - Final Enterobacter Cloacae 08/28/23 17:51 Urine,Clean Catch Urine Culture - Final Escherichia Coli Laboratory WBC 8.4 X10^3/uL (3.6-10.0) 09/05/23 04:35 RBC 4.28 X10^6/uL (3.5-5.4) 09/05/23 04:35 Hgb 12.3 g/dL (12.0-16.0) 09/05/23 04:35 Hct 38.1 % (36.0-47.0) 09/05/23 04:35 MCV 89.1 fL (80.0-100.0) 09/05/23 04:35 MCH 28.6 pg (27.0-34.0) 09/05/23 04:35 MCHC 32.1 g/dL (33.0-35.0) L 09/05/23 04:35 RDW 14.6 % (11.6-16.5) 09/05/23 04:35 Plt Count 255 X10^3/uL (150.0-450.0) 09/05/23 04:35 MPV 7.7 fL (7.4-11.0) 09/05/23 04:35 Neut % (Auto) 69.1 % (42.0-75.0) 09/05/23 04:35 Lymph % (Auto) 19.0 % (21.0-51.0) L 09/05/23 04:35 [place] % (Auto) 7.5 % (0.0-13.0) 09/05/23 04:35 Eos % (Auto) 3.8 % (0.9-2.9) H 09/05/23 04:35 Baso % (Auto) 0.6 % (0.2-1.0) 09/05/23 04:35 Neut # (Auto) 5.8 x10^3/uL (2.2-4.8) H 09/05/23 04:35 Lymph # (Auto) 1.6 X10^3/uL (1.3-2.9) 09/05/23 04:35 [place] # (Auto) 0.6 x10^3/uL (0.3-0.8) 09/05/23 04:35 Eos # (Auto) 0.3 x10^3/uL (0.0-0.2) H 09/05/23 04:35 Baso # (Auto) 0.0 X10^3/uL (0.0-0.1) 09/05/23 04:35 Absolute Nucleated RBC 0.2 /100WBC 09/05/23 04:35 Sodium 141 mmol/L (136-145) 09/05/23 04:35 Corrected Sodium 141 mmol/L (136-145) 09/05/23 04:35 Potassium 4.2 mmol/L (3.5-5.1) 09/05/23 04:35 Chloride 105 mmol/L (98-107) 09/05/23 04:35 Carbon Dioxide 31.2 mmol/L (21-32) 09/05/23 04:35 BUN 18 mg/dL (7-18) 09/05/23 04:35 Creatinine 0.79 mg/dL (0.55-1.02) 09/05/23 04:35 Est GFR (MDRD) Af Amer > 60 (>60) 09/05/23 04:35 Est GFR (MDRD) Non-Af > 60 (>60) 09/05/23 04:35 Glucose 119 mg/dL (65-99) H 09/05/23 04:35 POC Glucose (mg/dL) 135 mg/dL (65-99) H 09/05/23 05:22 Lactic Acid 1.4 mmol/L (0.4-2.0) 08/28/23 14:45 Calcium 8.5 mg/dL (8.5-10.1) 09/05/23 04:35 Corrected Calcium 9.8 mg/dL (8.5-10.1) 09/05/23 04:35 Magnesium 2.0 mg/dL (2.0-2.9) 09/01/23 05:44 Total Bilirubin 0.20 mg/dL (0.2-1.0) 09/05/23 04:35 AST 16 Units/L (15-37) 09/05/23 04:35 ALT 18 Units/L (12-78) 09/05/23 04:35 Alkaline Phosphatase 85 Units/L (46-116) 09/05/23 04:35 Total Protein 6.4 g/dL (6.4-8.2) 09/05/23 04:35 Albumin 2.4 g/dL (3.4-5.0) L 09/05/23 04:35 Globulin 4.0 g/dL (2.5-4.5) 09/05/23 04:35 Albumin/Globulin Ratio 0.6 Ratio (1.1-2.1) L 09/05/23 04:35 Specimen Type Clean catch urine 08/28/23 17:51 Urine Color Yellow (YELLOW) 08/28/23 17:51 Urine Appearance Cloudy (CLEAR) 08/28/23 17:51 Urine pH 6.0 (5.0 - 8.0) 08/28/23 17:51 Ur Specific [place] 1.015 (1.000-1.030) 08/28/23 17:51 Urine Protein 2+ (NEGATIVE) 08/28/23 17:51 Urine Glucose (UA) Negative (NEGATIVE) 08/28/23 17:51 Urine Ketones Negative (NEGATIVE) 08/28/23 17:51 Urine Blood 1+ (NEGATIVE) 08/28/23 17:51 Urine Nitrite Negative (NEGATIVE) 08/28/23 17:51 Urine Bilirubin Negative (NEGATIVE) 08/28/23 17:51 Urine Urobilinogen 1+ (NORMAL) 08/28/23 17:51 Ur Leukocyte Esterase 2+ (NEGATIVE) 08/28/23 17:51 Urine RBC 0-2 /HPF (0-3) 08/28/23 17:51 Urine WBC 10-20 /HPF (0-5) A 08/28/23 17:51 Ur Squamous Epith Cells Rare /HPF (NEGATIVE) 08/28/23 17:51 Urine Bacteria 3+ /HPF (NEGATIVE) 08/28/23 17:51 Ur Culture Indicated? Yes/culture set up 08/28/23 17:51 Tissue Pathology See comment. 08/31/23 09:59 Plan (1) Decubitus ulcer of foot, stage 3: Status: Acute Qualifiers: Laterality: right Qualified Code(s): L89.893 - Pressure ulcer of other site, stage 3 (2) Cellulitis of right foot: Status: Acute (3) Hypothyroidism in adult: Status: None (4) Type 2 diabetes mellitus with morbid obesity: Status: None
--- NOTE | 2023-09-05 10:56 | PCM.PROG ---
Progress Note Progress Note for Day of Date of Exam: 09/05/23 Subjective Subjective: Pt is a 67 year old female s/p I&D right heel with implantation of abx cement and bone biopsy. Patient examined this morning laying in bed. No acute events overnight. She does report feeling more pain today. Patient awaiting rehab placement. Patient will f/u with Podiatry outpatient for biopsy results. Labs/imaging reviewed -Wbc 8.4, Hgb 12.3, Plt 255, Na 141, K 4.2, Creatinine 0.79, Glucose 119. -Wound Cx: ENTEROBACTER CLOACAE, -Urine Cx: E.Coli Plan: Follow podiatry recommendations.CM is working on rehab placement. Continue IV antibiotics: Invanz. Continue current medications. Continue pain control, will add tramadol. Continue dressing changes. Monitor AM labs/imaging. Past Medical Family Social History Allergies: Allergies erythromycin base Allergy (Intermediate, Verified 08/28/23 14:13) diclofenac [From Voltaren] Allergy (Unknown, Verified 08/28/23 14:13) Reason: Drug allergy Fish Containing Products Allergy (Unknown, Verified 08/28/23 14:13) "seafood" allergy gabapentin Allergy (Unknown, Verified 08/28/23 14:13) Reason: Drug allergy ibuprofen [Nuprin] Allergy (Unknown, Verified 08/28/23 14:13) nalbuphine [From Nubain] Allergy (Unknown, Verified 08/28/23 14:13) Penicillins Allergy (Unknown, Verified 08/28/23 14:13) shrimp Allergy (Unknown, Verified 08/28/23 14:13) "seafood" allergy sumatriptan [Imitrex] Allergy (Unknown, Verified 08/28/23 14:13) minocycline Allergy (Verified 08/28/23 14:13) morphine Allergy (Verified 08/28/23 14:13) oyster extract Allergy (Verified 08/28/23 14:13) penicillin G Allergy (Verified 08/28/23 14:13) promethazine [From Phenergan] Allergy (Verified 08/28/23 14:13) Review of Systems ROS changes noted: see HPI Vital Signs and I&O's Vital Signs: Vital Signs Temperature 98.0 F Temperature 98.0 F Pulse Rate [Right Brachial] 73 Pulse Rate [Right Brachial] 77 Pulse Rate 75 Respiratory Rate 20 Respiratory Rate 20 Respiratory Rate 18 Respiratory Rate 20 Respiratory Rate 18 Blood Pressure [Left Arm] 141/73 Blood Pressure [Left Arm] 137/66 O2 Sat by Pulse Oximetry 92 O2 Sat by Pulse Oximetry 95 O2 Sat by Pulse Oximetry 94 Intake and Output: Intake & Output 09/02/23 09/03/23 09/04/23 09/05/23 23:59 23:59 23:59 23:59 Intake Total 1568 / 1568 1437 / 1437 640 / 640 130 / 130 Output Total 2900 / 2900 1300 / 1300 2200 / 2200 500 / 500 Balance -1332 / -1332 137 / 137 -1560 / -1560 -370 / -370 Physical Exam Oriented: Normal, Time, Person and Place Eyes: Normal Ear: Normal Nose: Normal Throat: Normal Respiratory: Generalized and Diminished Cardiovascular: Normal : Normal Auscultation: Bowel Sounds: Normal Tenderness: Normal Skin: Other (dressing intact - no streaking noted ) Musculoskeletal: Normal Psychiatric: Normal Mood Description: Calm Affect: Normal Speech Pattern: Clear and Appropriate Laboratory and Diagnostics 09/05/23 04:35 09/05/23 04:35 Labs: 08/28/23 14:55 Blood Blood Culture - Final 08/28/23 14:45 Blood Blood Culture - Final 08/31/23 09:55 Foot - Right Wound Gram Stain - Final 08/31/23 09:55 Foot - Right Wound Culture - Final Enterobacter Cloacae 08/28/23 14:50 Foot - Right Wound Gram Stain - Final 08/28/23 14:50 Foot - Right Wound Culture - Final Enterobacter Cloacae 08/28/23 17:51 Urine,Clean Catch Urine Culture - Final Escherichia Coli Laboratory WBC 8.4 X10^3/uL (3.6-10.0) 09/05/23 04:35 RBC 4.28 X10^6/uL (3.5-5.4) 09/05/23 04:35 Hgb 12.3 g/dL (12.0-16.0) 09/05/23 04:35 Hct 38.1 % (36.0-47.0) 09/05/23 04:35 MCV 89.1 fL (80.0-100.0) 09/05/23 04:35 MCH 28.6 pg (27.0-34.0) 09/05/23 04:35 MCHC 32.1 g/dL (33.0-35.0) L 09/05/23 04:35 RDW 14.6 % (11.6-16.5) 09/05/23 04:35 Plt Count 255 X10^3/uL (150.0-450.0) 09/05/23 04:35 MPV 7.7 fL (7.4-11.0) 09/05/23 04:35 Neut % (Auto) 69.1 % (42.0-75.0) 09/05/23 04:35 Lymph % (Auto) 19.0 % (21.0-51.0) L 09/05/23 04:35 [place] % (Auto) 7.5 % (0.0-13.0) 09/05/23 04:35 Eos % (Auto) 3.8 % (0.9-2.9) H 09/05/23 04:35 Baso % (Auto) 0.6 % (0.2-1.0) 09/05/23 04:35 Neut # (Auto) 5.8 x10^3/uL (2.2-4.8) H 09/05/23 04:35 Lymph # (Auto) 1.6 X10^3/uL (1.3-2.9) 09/05/23 04:35 [place] # (Auto) 0.6 x10^3/uL (0.3-0.8) 09/05/23 04:35 Eos # (Auto) 0.3 x10^3/uL (0.0-0.2) H 09/05/23 04:35 Baso # (Auto) 0.0 X10^3/uL (0.0-0.1) 09/05/23 04:35 Absolute Nucleated RBC 0.2 /100WBC 09/05/23 04:35 Sodium 141 mmol/L (136-145) 09/05/23 04:35 Corrected Sodium 141 mmol/L (136-145) 09/05/23 04:35 Potassium 4.2 mmol/L (3.5-5.1) 09/05/23 04:35 Chloride 105 mmol/L (98-107) 09/05/23 04:35 Carbon Dioxide 31.2 mmol/L (21-32) 09/05/23 04:35 BUN 18 mg/dL (7-18) 09/05/23 04:35 Creatinine 0.79 mg/dL (0.55-1.02) 09/05/23 04:35 Est GFR (MDRD) Af Amer > 60 (>60) 09/05/23 04:35 Est GFR (MDRD) Non-Af > 60 (>60) 09/05/23 04:35 Glucose 119 mg/dL (65-99) H 09/05/23 04:35 POC Glucose (mg/dL) 135 mg/dL (65-99) H 09/05/23 05:22 Lactic Acid 1.4 mmol/L (0.4-2.0) 08/28/23 14:45 Calcium 8.5 mg/dL (8.5-10.1) 09/05/23 04:35 Corrected Calcium 9.8 mg/dL (8.5-10.1) 09/05/23 04:35 Magnesium 2.0 mg/dL (2.0-2.9) 09/01/23 05:44 Total Bilirubin 0.20 mg/dL (0.2-1.0) 09/05/23 04:35 AST 16 Units/L (15-37) 09/05/23 04:35 ALT 18 Units/L (12-78) 09/05/23 04:35 Alkaline Phosphatase 85 Units/L (46-116) 09/05/23 04:35 Total Protein 6.4 g/dL (6.4-8.2) 09/05/23 04:35 Albumin 2.4 g/dL (3.4-5.0) L 09/05/23 04:35 Globulin 4.0 g/dL (2.5-4.5) 09/05/23 04:35 Albumin/Globulin Ratio 0.6 Ratio (1.1-2.1) L 09/05/23 04:35 Specimen Type Clean catch urine 08/28/23 17:51 Urine Color Yellow (YELLOW) 08/28/23 17:51 Urine Appearance Cloudy (CLEAR) 08/28/23 17:51 Urine pH 6.0 (5.0 - 8.0) 08/28/23 17:51 Ur Specific [place] 1.015 (1.000-1.030) 08/28/23 17:51 Urine Protein 2+ (NEGATIVE) 08/28/23 17:51 Urine Glucose (UA) Negative (NEGATIVE) 08/28/23 17:51 Urine Ketones Negative (NEGATIVE) 08/28/23 17:51 Urine Blood 1+ (NEGATIVE) 08/28/23 17:51 Urine Nitrite Negative (NEGATIVE) 08/28/23 17:51 Urine Bilirubin Negative (NEGATIVE) 08/28/23 17:51 Urine Urobilinogen 1+ (NORMAL) 08/28/23 17:51 Ur Leukocyte Esterase 2+ (NEGATIVE) 08/28/23 17:51 Urine RBC 0-2 /HPF (0-3) 08/28/23 17:51 Urine WBC 10-20 /HPF (0-5) A 08/28/23 17:51 Ur Squamous Epith Cells Rare /HPF (NEGATIVE) 08/28/23 17:51 Urine Bacteria 3+ /HPF (NEGATIVE) 08/28/23 17:51 Ur Culture Indicated? Yes/culture set up 08/28/23 17:51 Tissue Pathology See comment. 08/31/23 09:59 Plan (1) Decubitus ulcer of foot, stage 3: Status: Acute Qualifiers: Laterality: right Qualified Code(s): L89.893 - Pressure ulcer of other site, stage 3 (2) Cellulitis of right foot: Status: Acute (3) Hypothyroidism in adult: Status: None (4) Type 2 diabetes mellitus with morbid obesity: Status: None
[2023-09-05] MEDS: NORCO 5/325 MG TAB PO PRN (21:31)
[2023-09-06 05:59] LABS: BASOPHILS # (AUTO) 0.1 X10^3/uL (0.0-0.1); BASOPHILS % (AUTO) 0.7 % (0.2-1.0); EOSINOPHILS # (AUTO) 0.5 x10^3/uL (0.0-0.2); EOSINOPHILS % (AUTO) 5.5 % (0.9-2.9); HEMATOCRIT 38.7 % (36.0-47.0); HEMOGLOBIN 12.4 g/dL (12.0-16.0); LYMPHOCYTES # (AUTO) 2.1 X10^3/uL (1.3-2.9); LYMPHOCYTES % (AUTO) 25.6 % (21.0-51.0); MEAN CORPUSCULAR HEMOGLOBIN 28.6 pg (27.0-34.0); MEAN CORPUSCULAR HGB CONC 31.9 g/dL (33.0-35.0); MEAN CORPUSCULAR VOLUME 89.6 fL (80.0-100.0); MEAN PLATELET VOLUME 7.7 fL (7.4-11.0); MONOCYTES # (AUTO) 0.8 x10^3/uL (0.3-0.8); MONOCYTES % (AUTO) 9.2 % (0.0-13.0); NEUTROPHILS # (AUTO) 4.9 x10^3/uL (2.2-4.8); PLATELET COUNT 243 X10^3/uL (150.0-450.0); RED BLOOD COUNT 4.32 X10^6/uL (3.5-5.4); RED CELL DISTRIBUTION WIDTH 14.7 % (11.6-16.5); WHITE BLOOD COUNT 8.3 X10^3/uL (3.6-10.0)
[2023-09-06 06:13] LABS: ALANINE AMINOTRANSFERASE 17 Units/L (12-78); ALBUMIN 2.5 g/dL (3.4-5.0); ALKALINE PHOSPHATASE 85 Units/L (46-116); ASPARTATE AMINO TRANSFERASE 18 Units/L (15-37); BLOOD UREA NITROGEN 17 mg/dL (7-18); CALCIUM 8.5 mg/dL (8.5-10.1); CARBON DIOXIDE 30.4 mmol/L (21-32); CHLORIDE 106 mmol/L (98-107); COR CA(FOR HYPOALB) 9.7 mg/dL (8.5-10.1); CREATININE 0.81 mg/dL (0.55-1.02); GLUCOSE 82 mg/dL (65-99); POTASSIUM 4.4 mmol/L (3.5-5.1); SODIUM 140 mmol/L (136-145); TOTAL PROTEIN 6.5 g/dL (6.4-8.2); eGFR NON BLACK RACES > 60 (>60)
--- NOTE | 2023-09-06 11:40 | PCM.PROG ---
Progress Note Progress Note for Day of Date of Exam: 09/06/23 Subjective Subjective: Pt is a 67 year old female s/p I&D right heel with implantation of abx cement and bone biopsy. Patient resting in bed this morning. No acute events overnight. Her pain is well controlled after adding tramadol and norco. Patient awaiting rehab placement. Patient will f/u with Podiatry outpatient for biopsy results. Labs/imaging reviewed -Wbc 8.3, Hgb 12.4, Plt 243, Na 140, K 4.4, Creatinine 0.81, Glucose 82. -Wound Cx: ENTEROBACTER CLOACAE, -Urine Cx: E.Coli Plan: Follow podiatry recommendations.CM is working on rehab placement. Continue IV antibiotics: Invanz. Continue current medications. Continue pain control. Continue dressing changes. Monitor AM labs/imaging. Past Medical Family Social History Allergies: Allergies erythromycin base Allergy (Intermediate, Verified 08/28/23 14:13) diclofenac [From Voltaren] Allergy (Unknown, Verified 08/28/23 14:13) Reason: Drug allergy Fish Containing Products Allergy (Unknown, Verified 08/28/23 14:13) "seafood" allergy gabapentin Allergy (Unknown, Verified 08/28/23 14:13) Reason: Drug allergy ibuprofen [Nuprin] Allergy (Unknown, Verified 08/28/23 14:13) nalbuphine [From Nubain] Allergy (Unknown, Verified 08/28/23 14:13) Penicillins Allergy (Unknown, Verified 08/28/23 14:13) shrimp Allergy (Unknown, Verified 08/28/23 14:13) "seafood" allergy sumatriptan [Imitrex] Allergy (Unknown, Verified 08/28/23 14:13) minocycline Allergy (Verified 08/28/23 14:13) morphine Allergy (Verified 08/28/23 14:13) oyster extract Allergy (Verified 08/28/23 14:13) penicillin G Allergy (Verified 08/28/23 14:13) promethazine [From Phenergan] Allergy (Verified 08/28/23 14:13) Review of Systems ROS changes noted: see HPI Vital Signs and I&O's Vital Signs: Vital Signs Temperature 98.5 F Temperature 98.2 F Pulse Rate [Right Brachial] 81 Pulse Rate [Right Brachial] 69 Pulse Rate 77 Respiratory Rate 20 Respiratory Rate 18 Blood Pressure [Left Arm] 149/77 Blood Pressure [Left Arm] 122/67 O2 Sat by Pulse Oximetry 93 O2 Sat by Pulse Oximetry 94 O2 Sat by Pulse Oximetry 95 Intake and Output: Intake & Output 09/03/23 09/04/23 09/05/23 09/06/23 23:59 23:59 23:59 23:59 Intake Total 1437 / 1437 640 / 640 920 / 920 310 / 310 Output Total 1300 / 1300 2200 / 2200 1700 / 1700 1200 / 1200 Balance 137 / 137 -1560 / -1560 -780 / -780 -890 / -890 Physical Exam Oriented: Normal, Time, Person and Place Eyes: Normal Ear: Normal Nose: Normal Throat: Normal Respiratory: Generalized and Diminished Cardiovascular: Normal : Normal Auscultation: Bowel Sounds: Normal Tenderness: Normal Skin: Other (dressing intact - no streaking noted ) Musculoskeletal: Normal Psychiatric: Normal Mood Description: Calm Affect: Normal Speech Pattern: Clear and Appropriate Laboratory and Diagnostics 09/06/23 05:15 09/06/23 05:15 Labs: 08/28/23 14:55 Blood Blood Culture - Final 08/28/23 14:45 Blood Blood Culture - Final 08/31/23 09:55 Foot - Right Wound Gram Stain - Final 08/31/23 09:55 Foot - Right Wound Culture - Final Enterobacter Cloacae 08/28/23 14:50 Foot - Right Wound Gram Stain - Final 08/28/23 14:50 Foot - Right Wound Culture - Final Enterobacter Cloacae 08/28/23 17:51 Urine,Clean Catch Urine Culture - Final Escherichia Coli Laboratory WBC 8.3 X10^3/uL (3.6-10.0) 09/06/23 05:15 RBC 4.32 X10^6/uL (3.5-5.4) 09/06/23 05:15 Hgb 12.4 g/dL (12.0-16.0) 09/06/23 05:15 Hct 38.7 % (36.0-47.0) 09/06/23 05:15 MCV 89.6 fL (80.0-100.0) 09/06/23 05:15 MCH 28.6 pg (27.0-34.0) 09/06/23 05:15 MCHC 31.9 g/dL (33.0-35.0) L 09/06/23 05:15 RDW 14.7 % (11.6-16.5) 09/06/23 05:15 Plt Count 243 X10^3/uL (150.0-450.0) 09/06/23 05:15 MPV 7.7 fL (7.4-11.0) 09/06/23 05:15 Neut % (Auto) 59.0 % (42.0-75.0) 09/06/23 05:15 Lymph % (Auto) 25.6 % (21.0-51.0) 09/06/23 05:15 [place] % (Auto) 9.2 % (0.0-13.0) 09/06/23 05:15 Eos % (Auto) 5.5 % (0.9-2.9) H 09/06/23 05:15 Baso % (Auto) 0.7 % (0.2-1.0) 09/06/23 05:15 Neut # (Auto) 4.9 x10^3/uL (2.2-4.8) H 09/06/23 05:15 Lymph # (Auto) 2.1 X10^3/uL (1.3-2.9) 09/06/23 05:15 [place] # (Auto) 0.8 x10^3/uL (0.3-0.8) 09/06/23 05:15 Eos # (Auto) 0.5 x10^3/uL (0.0-0.2) H 09/06/23 05:15 Baso # (Auto) 0.1 X10^3/uL (0.0-0.1) 09/06/23 05:15 Absolute Nucleated RBC 0.1 /100WBC 09/06/23 05:15 Sodium 140 mmol/L (136-145) 09/06/23 05:15 Corrected Sodium TNP 09/06/23 05:15 Potassium 4.4 mmol/L (3.5-5.1) 09/06/23 05:15 Chloride 106 mmol/L (98-107) 09/06/23 05:15 Carbon Dioxide 30.4 mmol/L (21-32) 09/06/23 05:15 BUN 17 mg/dL (7-18) 09/06/23 05:15 Creatinine 0.81 mg/dL (0.55-1.02) 09/06/23 05:15 Est GFR (MDRD) Af Amer > 60 (>60) 09/06/23 05:15 Est GFR (MDRD) Non-Af > 60 (>60) 09/06/23 05:15 Glucose 82 mg/dL (65-99) 09/06/23 05:15 POC Glucose (mg/dL) 101 mg/dL (65-99) H 09/06/23 11:34 Lactic Acid 1.4 mmol/L (0.4-2.0) 08/28/23 14:45 Calcium 8.5 mg/dL (8.5-10.1) 09/06/23 05:15 Corrected Calcium 9.7 mg/dL (8.5-10.1) 09/06/23 05:15 Magnesium 2.0 mg/dL (2.0-2.9) 09/01/23 05:44 Total Bilirubin 0.30 mg/dL (0.2-1.0) 09/06/23 05:15 AST 18 Units/L (15-37) 09/06/23 05:15 ALT 17 Units/L (12-78) 09/06/23 05:15 Alkaline Phosphatase 85 Units/L (46-116) 09/06/23 05:15 Total Protein 6.5 g/dL (6.4-8.2) 09/06/23 05:15 Albumin 2.5 g/dL (3.4-5.0) L 09/06/23 05:15 Globulin 4.0 g/dL (2.5-4.5) 09/06/23 05:15 Albumin/Globulin Ratio 0.6 Ratio (1.1-2.1) L 09/06/23 05:15 Specimen Type Clean catch urine 08/28/23 17:51 Urine Color Yellow (YELLOW) 08/28/23 17:51 Urine Appearance Cloudy (CLEAR) 08/28/23 17:51 Urine pH 6.0 (5.0 - 8.0) 08/28/23 17:51 Ur Specific [place] 1.015 (1.000-1.030) 08/28/23 17:51 Urine Protein 2+ (NEGATIVE) 08/28/23 17:51 Urine Glucose (UA) Negative (NEGATIVE) 08/28/23 17:51 Urine Ketones Negative (NEGATIVE) 08/28/23 17:51 Urine Blood 1+ (NEGATIVE) 08/28/23 17:51 Urine Nitrite Negative (NEGATIVE) 08/28/23 17:51 Urine Bilirubin Negative (NEGATIVE) 08/28/23 17:51 Urine Urobilinogen 1+ (NORMAL) 08/28/23 17:51 Ur Leukocyte Esterase 2+ (NEGATIVE) 08/28/23 17:51 Urine RBC 0-2 /HPF (0-3) 08/28/23 17:51 Urine WBC 10-20 /HPF (0-5) A 08/28/23 17:51 Ur Squamous Epith Cells Rare /HPF (NEGATIVE) 08/28/23 17:51 Urine Bacteria 3+ /HPF (NEGATIVE) 08/28/23 17:51 Ur Culture Indicated? Yes/culture set up 08/28/23 17:51 Tissue Pathology See comment. 08/31/23 09:59 Plan (1) Decubitus ulcer of foot, stage 3: Status: Acute Qualifiers: Laterality: right Qualified Code(s): L89.893 - Pressure ulcer of other site, stage 3 (2) Cellulitis of right foot: Status: Acute (3) Hypothyroidism in adult: Status: None (4) Type 2 diabetes mellitus with morbid obesity: Status: None
[2023-09-06] MEDS: NYSTATIN POWDER TOP SCH (17:01)
[2023-09-07 06:18] LABS: BASOPHILS # (AUTO) 0.1 X10^3/uL (0.0-0.1); BASOPHILS % (AUTO) 0.8 % (0.2-1.0); EOSINOPHILS # (AUTO) 0.4 x10^3/uL (0.0-0.2); EOSINOPHILS % (AUTO) 4.8 % (0.9-2.9); HEMATOCRIT 40.4 % (36.0-47.0); LYMPHOCYTES # (AUTO) 1.9 X10^3/uL (1.3-2.9); LYMPHOCYTES % (AUTO) 23.6 % (21.0-51.0); MEAN CORPUSCULAR HEMOGLOBIN 28.8 pg (27.0-34.0); MEAN CORPUSCULAR HGB CONC 32.3 g/dL (33.0-35.0); MEAN CORPUSCULAR VOLUME 89.1 fL (80.0-100.0); MONOCYTES # (AUTO) 0.7 x10^3/uL (0.3-0.8); MONOCYTES % (AUTO) 9.4 % (0.0-13.0); NEUTROPHILS # (AUTO) 4.8 x10^3/uL (2.2-4.8); NEUTROPHILS % (AUTO) 61.4 % (42.0-75.0); PLATELET COUNT 248 X10^3/uL (150.0-450.0); RED BLOOD COUNT 4.53 X10^6/uL (3.5-5.4); RED CELL DISTRIBUTION WIDTH 15.2 % (11.6-16.5); WHITE BLOOD COUNT 7.8 X10^3/uL (3.6-10.0)
[2023-09-07 06:30] LABS: ALANINE AMINOTRANSFERASE 21 Units/L (12-78); ALBUMIN 2.7 g/dL (3.4-5.0); ALKALINE PHOSPHATASE 88 Units/L (46-116); ASPARTATE AMINO TRANSFERASE 23 Units/L (15-37); BLOOD UREA NITROGEN 17 mg/dL (7-18); CALCIUM 8.9 mg/dL (8.5-10.1); CARBON DIOXIDE 29.2 mmol/L (21-32); CHLORIDE 104 mmol/L (98-107); COR CA(FOR HYPOALB) 9.9 mg/dL (8.5-10.1); GLUCOSE 97 mg/dL (65-99); POTASSIUM 3.9 mmol/L (3.5-5.1); SODIUM 139 mmol/L (136-145); TOTAL PROTEIN 6.9 g/dL (6.4-8.2); eGFR NON BLACK RACES > 60 (>60)
--- NOTE | 2023-09-07 11:44 | PCM.PROG ---
Progress Note Progress Note for Day of Date of Exam: 09/07/23 Subjective Subjective: Pt is a 67 year old female s/p I&D right heel with implantation of abx cement and bone biopsy. Patient resting in bed this morning. No acute events overnight. Her pain is well controlled, she had right foot dressing changed yesterday. Patient awaiting rehab placement. Patient will f/u with Podiatry outpatient for biopsy results. Labs/imaging reviewed -Wbc 7.8, Hgb 13 BUN/Cr: 17/0.80 -Wound Cx: ENTEROBACTER CLOACAE -Urine Cx: E.Coli Plan: Follow podiatry recommendations.CM is working on rehab placement or swing bed status. Continue IV antibiotics: Invanz. Continue current medications. Continue pain control. Continue dressing changes. Monitor AM labs/imaging. Past Medical Family Social History Allergies: Allergies erythromycin base Allergy (Intermediate, Verified 08/28/23 14:13) diclofenac [From Voltaren] Allergy (Unknown, Verified 08/28/23 14:13) Reason: Drug allergy Fish Containing Products Allergy (Unknown, Verified 08/28/23 14:13) "seafood" allergy gabapentin Allergy (Unknown, Verified 08/28/23 14:13) Reason: Drug allergy ibuprofen [Nuprin] Allergy (Unknown, Verified 08/28/23 14:13) nalbuphine [From Nubain] Allergy (Unknown, Verified 08/28/23 14:13) Penicillins Allergy (Unknown, Verified 08/28/23 14:13) shrimp Allergy (Unknown, Verified 08/28/23 14:13) "seafood" allergy sumatriptan [Imitrex] Allergy (Unknown, Verified 08/28/23 14:13) minocycline Allergy (Verified 08/28/23 14:13) morphine Allergy (Verified 08/28/23 14:13) oyster extract Allergy (Verified 08/28/23 14:13) penicillin G Allergy (Verified 08/28/23 14:13) promethazine [From Phenergan] Allergy (Verified 08/28/23 14:13) Vital Signs and I&O's Vital Signs: Vital Signs Temperature 97.9 F Temperature 97.7 F Pulse Rate [Right Brachial] 76 Pulse Rate [Right Brachial] 76 Respiratory Rate 20 Respiratory Rate 20 Blood Pressure [Left Arm] 119/58 Blood Pressure [Left Arm] 137/74 O2 Sat by Pulse Oximetry 95 O2 Sat by Pulse Oximetry 94 Intake and Output: Intake & Output 09/04/23 09/05/23 09/06/23 09/07/23 23:59 23:59 23:59 23:59 Intake Total 640 / 640 920 / 920 1166 / 1166 Output Total 2200 / 2200 1700 / 1700 1200 / 1200 Balance -1560 / -1560 -780 / -780 -34 / -34 Physical Exam Oriented: Normal, Time, Person and Place Eyes: Normal Ear: Normal Nose: Normal Throat: Normal Respiratory: Generalized and Diminished Cardiovascular: Normal Auscultation: Bowel Sounds: Normal Tenderness: Normal Skin: Other (dressing intact - no streaking noted ) Musculoskeletal: Normal Psychiatric: Normal Mood Description: Calm Affect: Normal Speech Pattern: Clear and Appropriate Laboratory and Diagnostics 09/07/23 05:50 09/07/23 05:50 Labs: 08/28/23 14:55 Blood Blood Culture - Final 08/28/23 14:45 Blood Blood Culture - Final 08/31/23 09:55 Foot - Right Wound Gram Stain - Final 08/31/23 09:55 Foot - Right Wound Culture - Final Enterobacter Cloacae 08/28/23 14:50 Foot - Right Wound Gram Stain - Final 08/28/23 14:50 Foot - Right Wound Culture - Final Enterobacter Cloacae 08/28/23 17:51 Urine,Clean Catch Urine Culture - Final Escherichia Coli Laboratory WBC 7.8 X10^3/uL (3.6-10.0) 09/07/23 05:50 RBC 4.53 X10^6/uL (3.5-5.4) 09/07/23 05:50 Hgb 13.0 g/dL (12.0-16.0) 09/07/23 05:50 Hct 40.4 % (36.0-47.0) 09/07/23 05:50 MCV 89.1 fL (80.0-100.0) 09/07/23 05:50 MCH 28.8 pg (27.0-34.0) 09/07/23 05:50 MCHC 32.3 g/dL (33.0-35.0) L 09/07/23 05:50 RDW 15.2 % (11.6-16.5) 09/07/23 05:50 Plt Count 248 X10^3/uL (150.0-450.0) 09/07/23 05:50 MPV 8.0 fL (7.4-11.0) 09/07/23 05:50 Neut % (Auto) 61.4 % (42.0-75.0) 09/07/23 05:50 Lymph % (Auto) 23.6 % (21.0-51.0) 09/07/23 05:50 [place] % (Auto) 9.4 % (0.0-13.0) 09/07/23 05:50 Eos % (Auto) 4.8 % (0.9-2.9) H 09/07/23 05:50 Baso % (Auto) 0.8 % (0.2-1.0) 09/07/23 05:50 Neut # (Auto) 4.8 x10^3/uL (2.2-4.8) 09/07/23 05:50 Lymph # (Auto) 1.9 X10^3/uL (1.3-2.9) 09/07/23 05:50 [place] # (Auto) 0.7 x10^3/uL (0.3-0.8) 09/07/23 05:50 Eos # (Auto) 0.4 x10^3/uL (0.0-0.2) H 09/07/23 05:50 Baso # (Auto) 0.1 X10^3/uL (0.0-0.1) 09/07/23 05:50 Absolute Nucleated RBC 0.0 /100WBC 09/07/23 05:50 Sodium 139 mmol/L (136-145) 09/07/23 05:50 Corrected Sodium TNP 09/07/23 05:50 Potassium 3.9 mmol/L (3.5-5.1) 09/07/23 05:50 Chloride 104 mmol/L (98-107) 09/07/23 05:50 Carbon Dioxide 29.2 mmol/L (21-32) 09/07/23 05:50 BUN 17 mg/dL (7-18) 09/07/23 05:50 Creatinine 0.80 mg/dL (0.55-1.02) 09/07/23 05:50 Est GFR (MDRD) Af Amer > 60 (>60) 09/07/23 05:50 Est GFR (MDRD) Non-Af > 60 (>60) 09/07/23 05:50 Glucose 97 mg/dL (65-99) 09/07/23 05:50 POC Glucose (mg/dL) 119 mg/dL (65-99) H 09/07/23 05:19 Lactic Acid 1.4 mmol/L (0.4-2.0) 08/28/23 14:45 Calcium 8.9 mg/dL (8.5-10.1) 09/07/23 05:50 Corrected Calcium 9.9 mg/dL (8.5-10.1) 09/07/23 05:50 Magnesium 2.0 mg/dL (2.0-2.9) 09/01/23 05:44 Total Bilirubin 0.30 mg/dL (0.2-1.0) 09/07/23 05:50 AST 23 Units/L (15-37) 09/07/23 05:50 ALT 21 Units/L (12-78) 09/07/23 05:50 Alkaline Phosphatase 88 Units/L (46-116) 09/07/23 05:50 Total Protein 6.9 g/dL (6.4-8.2) 09/07/23 05:50 Albumin 2.7 g/dL (3.4-5.0) L 09/07/23 05:50 Globulin 4.2 g/dL (2.5-4.5) 09/07/23 05:50 Albumin/Globulin Ratio 0.6 Ratio (1.1-2.1) L 09/07/23 05:50 Specimen Type Clean catch urine 08/28/23 17:51 Urine Color Yellow (YELLOW) 08/28/23 17:51 Urine Appearance Cloudy (CLEAR) 08/28/23 17:51 Urine pH 6.0 (5.0 - 8.0) 08/28/23 17:51 Ur Specific [place] 1.015 (1.000-1.030) 08/28/23 17:51 Urine Protein 2+ (NEGATIVE) 08/28/23 17:51 Urine Glucose (UA) Negative (NEGATIVE) 08/28/23 17:51 Urine Ketones Negative (NEGATIVE) 08/28/23 17:51 Urine Blood 1+ (NEGATIVE) 08/28/23 17:51 Urine Nitrite Negative (NEGATIVE) 08/28/23 17:51 Urine Bilirubin Negative (NEGATIVE) 08/28/23 17:51 Urine Urobilinogen 1+ (NORMAL) 08/28/23 17:51 Ur Leukocyte Esterase 2+ (NEGATIVE) 08/28/23 17:51 Urine RBC 0-2 /HPF (0-3) 08/28/23 17:51 Urine WBC 10-20 /HPF (0-5) A 08/28/23 17:51 Ur Squamous Epith Cells Rare /HPF (NEGATIVE) 08/28/23 17:51 Urine Bacteria 3+ /HPF (NEGATIVE) 08/28/23 17:51 Ur Culture Indicated? Yes/culture set up 08/28/23 17:51 Tissue Pathology See comment. 08/31/23 09:59 Plan (1) Decubitus ulcer of foot, stage 3: Status: Acute Qualifiers: Laterality: right Qualified Code(s): L89.893 - Pressure ulcer of other site, stage 3 (2) Cellulitis of right foot: Status: Acute (3) Hypothyroidism in adult: Status: None (4) Type 2 diabetes mellitus with morbid obesity: Status: None
[2023-09-07 23:45] VITALS: RESP 20
[2023-09-08 06:24] LABS: BASOPHILS # (AUTO) 0.1 X10^3/uL (0.0-0.1); BASOPHILS % (AUTO) 0.8 % (0.2-1.0); EOSINOPHILS # (AUTO) 0.4 x10^3/uL (0.0-0.2); EOSINOPHILS % (AUTO) 5.6 % (0.9-2.9); HEMATOCRIT 40.7 % (36.0-47.0); HEMOGLOBIN 13.1 g/dL (12.0-16.0); LYMPHOCYTES # (AUTO) 1.9 X10^3/uL (1.3-2.9); LYMPHOCYTES % (AUTO) 26.1 % (21.0-51.0); MEAN CORPUSCULAR HEMOGLOBIN 28.7 pg (27.0-34.0); MEAN CORPUSCULAR HGB CONC 32.2 g/dL (33.0-35.0); MEAN CORPUSCULAR VOLUME 89.4 fL (80.0-100.0); MEAN PLATELET VOLUME 8.5 fL (7.4-11.0); MONOCYTES # (AUTO) 0.6 x10^3/uL (0.3-0.8); MONOCYTES % (AUTO) 8.4 % (0.0-13.0); NEUTROPHILS # (AUTO) 4.4 x10^3/uL (2.2-4.8); NEUTROPHILS % (AUTO) 59.1 % (42.0-75.0); PLATELET COUNT 229 X10^3/uL (150.0-450.0); RED BLOOD COUNT 4.55 X10^6/uL (3.5-5.4); WHITE BLOOD COUNT 7.4 X10^3/uL (3.6-10.0)
[2023-09-08 06:36] LABS: ALANINE AMINOTRANSFERASE 22 Units/L (12-78); ALBUMIN 2.7 g/dL (3.4-5.0); ALKALINE PHOSPHATASE 89 Units/L (46-116); ASPARTATE AMINO TRANSFERASE 22 Units/L (15-37); BLOOD UREA NITROGEN 21 mg/dL (7-18); CALCIUM 8.9 mg/dL (8.5-10.1); CARBON DIOXIDE 31.6 mmol/L (21-32); CHLORIDE 104 mmol/L (98-107); COR CA(FOR HYPOALB) 9.9 mg/dL (8.5-10.1); CREATININE 0.84 mg/dL (0.55-1.02); GLUCOSE 92 mg/dL (65-99); POTASSIUM 4.2 mmol/L (3.5-5.1); SODIUM 142 mmol/L (136-145); TOTAL PROTEIN 6.8 g/dL (6.4-8.2); eGFR NON BLACK RACES > 60 (>60)
[2023-09-08] MEDS: ZOFRAN ODT PO PRN (12:04)
[2023-09-08] MEDS: ZOFRAN ODT ONE (13:23)
[2023-09-08 13:46] VITALS: BP 127/71; PULSE 83; TEMP 98.1; O2SAT 96
== END 2023-09-08 12:29 | disposition swing bed (61) | DRG 571 ==
LOC: ER 13:46 → MED/SURG 19:35
PROVIDERS: ADMIT Family Medicine; ATTEND Family Medicine
PROC: DEBRIDE (2023-08-31 09:15)

== ENCOUNTER 2023-09-08 12:30 | Inpatient (IN) ==
[2023-09-08] MEDS ORDERED: TYLENOL 325 MG TAB PO PRN (13:34)
[2023-09-08] MEDS: MICRO K EXTEN CAP 10 MEQ PO SCH (14:50)
--- NOTE | 2023-09-08 19:17 | PT/OTEVAL ---
PT/OT OBJECTIVES - HISTORY Prescription: OT Consult Diagnosis: Ulcer stg 3 R foot, cellutlitis R lower limb Precautions: TTWB/PWB R foot PMH: Anemia, arthritis, COPD, diabetes, migrines, GERD, gout, HTN, hypothyroidism, kidney stones, renal disease and sleep apnea Other: Per patient report- she resides alone in single story home with no steps to enter. PLOF: Independent with all mobility tasks with rollator including driving. Pt did state that home visiting nurses recently started seeing her 2x/week at home. DME includes a Rollator and a Shower Chair. Pt reports her brother lives across the street but due to his own medical complications he cannot physically assist and no other help is available. History of Present Illness: Pt is a 67 year old female who was sent to [facility] for a right foot ulcer that was draining and red by PCP for further evaluation and admission for treatment with abt therapy on 08/28/23. Pt was c/o fever for 2 days stating she "thought I might have a URI and allergies". Pt having buring with urination. Pt stated she also having issue with her R foot. Pt had bruising and redness to L holliday and redness to L foot. She had a dressing to the R foot that she stated was draining malodorous blood tinged/clear fluid. Pt has been going to wound clinic x2 week on ; did not go that week d/t "feeling so bad". Since then she was a s/p I&D right heel with implantation of abx cement and bone biopsy on 08/31/23. She then transitioned to [facility] for further skilled therapy treatment. - COGNITION Mental Status: Alert, Oriented, Name, Date, Place, Purpose Communication Status: Verbal Ability to Follow Directions: 2 Step Memory Loss: None Affect: Calm - PAIN Right Foot Pain Scale: Mild Comments: 3-06/16 "It's okay, but I can feel it" Back Pain Scale: Mild Comments: "It always hurts and is worse when I stand up" - TRANSFERS Sit to Stand: Minimal Sit to Stand Comment: With RW Toileting: Maximum Toileting comment: Needs AE for reaching Safety (requires cues for:): Hand Placement Precaution - ADL'S Feeding: Supervision Grooming: Supervision Upper Body ADL: Supervision Lower Body ADL: Maximum Lower Body ADL: Needs AE to reach Toileting: Maximum Toileting Comment: Needs AE to reach Bathing: Maximum Bathing Comment: Needs AE to reach Hygeine: Supervision - BALANCE Static Sitting: Good Standing: Fair Dynamic Sitting: Good Standing: Fair - NEUROMOTOR/SENSATION Luis Eduardo. Lower Ext Sensation: Impaired Coordination: WFL Luis Eduardo. Upper Ext Sensation: WFL Coordination: WFL - HAND DOMINANCE Extremity Function: Hand Dominance: Right - ROM Bilateral UE ROM: WFL - STRENGTH Left LE Strength Number: 3 Other comment: 3+/5 Right LE Strength Number: 3 Bilateral UE Strength Number: 3 - GAIT Pt. ambulates how many feet?: 15 Amount of assistance required: Minimal Type of Assistive Device: Rolling Walker - TREATMENT Date: 09/08/23 Time: 12:45 Treatment Type: Evaluation Treatment Provided: Therapeutic Activities, Therapeutic Excersises, Other - TOTAL TREATMENT TIME Total Time: 75 - POST ASSESSMENT Post Assessment Comment: Pt was seen for skilled OT to assess CLOF. Pt was able to give PLOF and hx. Pt agreeable to be seen by skilled OT this date. Pt functionally AMB with RW and touch A ~ 15 feet with STS from recliner with Jung. Pt stood at sink and completed grooming/oral care with supv A, and touch A for balance. Pt became weak during standing and needed a seated RB. Pt then completed seated BUE exe using a 2# hand weight 15 reps in all planes. Therapuetic RBs for fatigue as needed. Pt demonstrates deficits with ADLs, ADL functional transfers, balance, FAT, MMT and standing tolerance. She would benefit from skilled OT to address these deficits needed to facilitate safe d/c planning. - EXIT DISPOSITION Exit Position: CHAIR Call light in reach: Yes PT/OT ASSESSMENT - OT Problem List: Decreased Mobility ADL's, Decreased Dressing, Decreased Bathing, Decreased Grooming, Decreased UE Strength - OT GOALS Block Breaker Goals Days: 20 Mobility for ADL's: Pt will improve functional transfers to commode with LRAD and supv A. Dressing: Pt to improve LB dressing with AE PRN and supv A Bathing: Pt to improve overall bathing task with AE PRN and supv A. Grooming: Pt to improve grooming and oral care to (I) Short Term Goals Days: 10 Mobility for ADL's: Pt will improve functional transfers to commode with LRAD and touch A. Dressing: Pt to improve UB dressing set up A Upper Ext. Strength/Use: Pt to improve overall MMT in BUE by 1 grade Other: Pt to improve MBI score to 76 indicating mod dependency level. - PATIENT GOALS Patient/Family Goals: To walk to her BSC at home Goals Discussed with Patient/Family: Yes Rehabilitation Potential: Good to meet stated goals Justification for Potential: To facilitate highest level of ADL function needed for esafe d/c planning Weakness and Barriers: None - PLAN Suggested Treatment Plan: Therapeutic Activity, Self Care Training, Therapeutic Ex with HEP, Patient Education - FREQUENCY AND DURATION OT: 5x a week x 20 days Expected Continuation of Care at Discharge: Home, Home Health
--- NOTE | 2023-09-08 19:59 | PT/OTEVAL ---
PT/OT OBJECTIVES - HISTORY Prescription: PT Consult Diagnosis: R Foot Ulcer s/p I&D Precautions: TTWB RLE, Fall Risk PMH: Anemia, Arthritis, COPD, DM, Migraines, GERD, Gout, HTN, Hypothyroidism, Kidney Stones, Renal Disease, Sleep Apnea, Morbid Obesity, Hysterectomy, Thyroidectomy, Tonsillectomy Prior Level of Function: Independent Other: Per patient report- she resides alone in single story home with no steps to enter. PLOF: Independent with all mobility tasks with rollator including driving. Pt did state that home visiting nurses recently started seeing her 2x/week at home. DME: Rollator, Shower Chair. Pt reports her brother lives across the street but due to own medical complications cannot physically assist and no other help available. History of Present Illness: Pt is a 67 year old female who was initially admitted to [facility] on 08/28/2023 due to R foot ulcer and cellulitis. On 08/31/2023 pt underwent surgery with Dr Langley to include: 1. Incision and drainage to bone, right foot wound measuring 5 X 6 X 3 cm. 2. Bone biopsy, deep, right foot. 3. Implantation of antibiotic infused cement. Pt was initially made NWB to RLE and had extreme difficulty maintaining NWB and safely performing mobilitys. Because of deficits related to R foot, pt unable to safely return home alone and was transitioned to swing bed program for further rehab services prior to returning home to facilitate highest level of function. - COGNITION Mental Status: Alert, Oriented, Name, Date, Place, Purpose Communication Status: Verbal Ability to Follow Directions: 3 Step Memory Loss: None Affect: Calm - PAIN Right Foot Pain Scale: Mild Comments: 3-06/16 "I had my medicine, it's not too bad" Back Pain Scale: Mild Comments: "It always hurts and is worse when I stand up" - BED MOBILITY Rolling: Supervision Scooting: Supervision - TRANSFERS Supine to Sit: Supervision Sit to Stand: Moderate Sit to Stand Comment: Cues for TTWB Sit or Stand Pivot: Moderate Sit or Stand Pivot Comment: Cues for TTWB Safety (requires cues for:): Weight Bearing Precaution - BALANCE Static Sitting: Good Standing: Fair Balance Comment: Fair- Dynamic Sitting: Good Standing: Poor Balance Comment: Poor+ - NEUROMOTOR/SENSATION Luis Eduardo. Lower Ext Sensation: Impaired Coordination: WFL Proprioception: WFL Comments: Reports at time she has numbness to the bottom of B feet - HAND DOMINANCE Extremity Function: Hand Dominance: Right - ROM Left LE ROM: WFL Muscle Tone: WFL Right LE ROM: WFL Muscle Tone: WFL - STRENGTH Left LE Strength Number: 3 Other comment: 3+/5 Right LE Strength Number: 3 - GAIT Pt. ambulates how many feet?: 10 Amount of assistance required: Moderate Type of Assistive Device: Rolling Walker - TREATMENT Date: 09/08/23 Time: 15:00 Treatment Type: Evaluation Treatment Provided: Gait, Therapeutic Activities - TOTAL TREATMENT TIME Total Time: 105 - POST ASSESSMENT Post Assessment Comment: Pt was found supine in bed in room and agreeable to participation in PT services. Pt confirmed history, PLOF and discharge plans with PT. Pt has rollator and shower chair currently at home. Review of WB precautions with pt to RLE with pt able to verbalize understanding. Pt reports mild pain to R foot and states that she had her pain medication. Pt does report feeling nauseous. Pt able to perform bed mobility with supervision and use of siderail and increased time. Pt able to maintaing sitting balance at EOB. Pt mod assist for sit to stand and stand pivot transfers with FWW to maintain TTWB to RLE with post op shoe donned. Pt was able to ambulate 10ft x 3 with seated t herapeutic rest breaks between bouts. Pt with standing tolerance of 2 minutes before fatigue and reports of "back spasms". Reports these happened prior to hospitalization as well. Pt instructed in and completed seated LE exercises in chair to all joints in all available planes with focus on proper technique (2 x 15). Pt requesting to stay in chair following. Discussion of goals with pt wishing to return home independently. Pt with excellent motivation for participation and would benefit from continued participation in PT services to address remaining deficits and facilitate highest level of function and safe discharge planning. - EXIT DISPOSITION Exit Position: CHAIR Call light in reach: Yes PT/OT ASSESSMENT - PT Problem List: Decreased Bed Mobility, Decreased Transfers, Decreased Gait, Decreased Balance, Decreased Safety, Decreased LE Strength, Other - PT GOALS Short Term Goals Days: 10 Mobility: Pt will perform bed mobility tasks with mod I Transfers: Pt will perform functional transfers with supervision Gait: Pt will ambulate 50ft with FWW with TTWB and touch assist Balance: Pt will increase static standing to good Intermediate Goals Days: 20 Transfers: Pt will perform functional transfers with mod I Gait: Pt will ambulate 75ft with FWW and appropriate WB precautions with mod I Balance: Pt will increase dynamic standing balance to good ROM/Strength: Pt will increase BLE strength to 5/5 - OT GOALS Intermediate Goals Days: 20 Mobility for ADL's: Pt will improve functional transfers to commode with LRAD and supv A. Dressing: Pt to improve LB dressing with AE PRN and supv A Bathing: Pt to improve overall bathing task with AE PRN and supv A. Grooming: Pt to improve grooming and oral care to (I) Short Term Goals Days: 10 Mobility for ADL's: Pt will improve functional transfers to commode with LRAD and touch A. Dressing: Pt to improve UB dressing set up A Upper Ext. Strength/Use: Pt to improve overall MMT in BUE by 1 grade Other: Pt to improve MBI score to 76 indicating mod dependency level. - PATIENT GOALS Patient/Family Goals: "I want to get better and get back home" Goals Discussed with Patient/Family: Yes Rehabilitation Potential: Good to meet stated goals Justification for Potential: Facilitate highest level of function and safe discharge planning Weakness and Barriers: None - PLAN Suggested Treatment Plan: Bed Mobility Training, Therapeutic Activity, Gait Training, Neuro Re-education, Therapeutic Ex with HEP, Patient Education - FREQUENCY AND DURATION PT: 5-6x per week x 20 days Expected Continuation of Care at Discharge: Home Health Anticipated Equipment Needs: FWW, BSC, Wheelchair
[2023-09-08] MEDS ORDERED: SNACK - Diabetic Appropriate PO SCH (20:00)
[2023-09-08] MEDS: ZANAFLEX PO PRN (21:42)
[2023-09-08] MEDS: SNACK - Diabetic Appropriate PO SCH (21:42)
[2023-09-08] MEDS: COLACE CAP 100 MG PO SCH (21:42)
[2023-09-08] MEDS: MILK OF MAGNESIA PO SCH (21:42)
[2023-09-08] MEDS: MIRAPEX TAB 0.25 MG PO SCH (21:43)
[2023-09-08] MEDS: NORCO 5/325 MG TAB PO PRN (21:43)
[2023-09-08] MEDS: TOPAMAX TAB 100 MG PO SCH (21:44)
[2023-09-08] MEDS: LIPITOR TAB 10 MG PO SCH (21:44)
[2023-09-08] MEDS: SINGULAIR TAB 10 MG PO SCH (21:44)
[2023-09-08] MEDS: LOPRESSOR TAB 50 MG PO SCH (21:44)
[2023-09-08] MEDS: NYSTATIN POWDER TOP SCH (21:45)
[2023-09-09] MEDS: SYNTHROID 150 mcg TAB PO SCH (05:50)
[2023-09-09 06:45] LABS: BASOPHILS % (AUTO) 0.5 % (0.2-1.0); EOSINOPHILS # (AUTO) 0.4 x10^3/uL (0.0-0.2); EOSINOPHILS % (AUTO) 4.9 % (0.9-2.9); HEMATOCRIT 42.9 % (36.0-47.0); HEMOGLOBIN 13.8 g/dL (12.0-16.0); LYMPHOCYTES % (AUTO) 25.8 % (21.0-51.0); MEAN CORPUSCULAR HEMOGLOBIN 29.1 pg (27.0-34.0); MEAN CORPUSCULAR HGB CONC 32.2 g/dL (33.0-35.0); MEAN CORPUSCULAR VOLUME 90.2 fL (80.0-100.0); MEAN PLATELET VOLUME 8.3 fL (7.4-11.0); MONOCYTES # (AUTO) 0.6 x10^3/uL (0.3-0.8); MONOCYTES % (AUTO) 7.7 % (0.0-13.0); NEUTROPHILS # (AUTO) 4.6 x10^3/uL (2.2-4.8); NEUTROPHILS % (AUTO) 61.1 % (42.0-75.0); PLATELET COUNT 228 X10^3/uL (150.0-450.0); RED BLOOD COUNT 4.76 X10^6/uL (3.5-5.4); RED CELL DISTRIBUTION WIDTH 15.5 % (11.6-16.5); WHITE BLOOD COUNT 7.6 X10^3/uL (3.6-10.0)
[2023-09-09 06:54] LABS: ALANINE AMINOTRANSFERASE 22 Units/L (12-78); ALBUMIN 2.9 g/dL (3.4-5.0); ALKALINE PHOSPHATASE 106 Units/L (46-116); ASPARTATE AMINO TRANSFERASE 21 Units/L (15-37); BLOOD UREA NITROGEN 27 mg/dL (7-18); CALCIUM 8.8 mg/dL (8.5-10.1); CHLORIDE 103 mmol/L (98-107); COR CA(FOR HYPOALB) 9.7 mg/dL (8.5-10.1); COR NA(FOR HYPERGLY) 141 mmol/L (136-145); CREATININE 0.98 mg/dL (0.55-1.02); GLUCOSE 136 mg/dL (65-99); POTASSIUM 4.2 mmol/L (3.5-5.1); SODIUM 140 mmol/L (136-145); TOTAL PROTEIN 7.3 g/dL (6.4-8.2); eGFR NON BLACK RACES > 60 (>60)
[2023-09-09] MEDS: DUONEB 0.5 MG/3 MG (3 mL) NEB PRN (08:52)
[2023-09-09] MEDS: INVanz INJ 1 GRAM VIAL 1 G in NS 100 ML IV 100 ML IV SCH (09:15)
[2023-09-09] MEDS: LOVENOX INJ 40 MG SYR SC SCH (09:15)
[2023-09-09] MEDS: CYMBALTA PO SCH (09:16)
[2023-09-09] MEDS: AMARYL TAB 4 MG PO SCH (09:18)
[2023-09-09] MEDS: ASPIRIN 81 MG CHEWTAB PO SCH (09:19)
[2023-09-09] MEDS: ZYLOPRIM PO SCH (09:19)
[2023-09-09] MEDS: NU IRON PO SCH (09:19)
[2023-09-09] MEDS: PLAQUENIL PO SCH (09:19)
[2023-09-09] MEDS: CALAN SR 240 MG PO SCH (09:19)
[2023-09-09] MEDS: LOTENSIN TAB 10 MG PO SCH (09:26)
[2023-09-09] MEDS: FARXIGA PO SCH (09:27)
[2023-09-09] MEDS: TAB-A-VITE PO SCH (11:44)
[2023-09-09] MEDS: PATIENT'S HOME MEDICATION PO SCH (11:44)
[2023-09-09] MEDS: VITAMIN D3 125 mcg (5,000 UNITS) PO SCH (11:44)
[2023-09-09] MEDS: D50W ABBOJECT SYR IV ONE (12:41)
--- NOTE | 2023-09-09 13:12 | PCM.PROG ---
Progress Note Progress Note for Day of Date of Exam: 09/09/23 Subjective Subjective: Patient seen at bedside, no acute events overnight. She is currently swing bed status for physical therapy. She has been doing well with therapy. her right foot pain has been controlled. PT is working on getting her a special boot for that foot. Labs and imaging reviewed Plan: Continue IV Invanz for total of 14 days. Continue current medications. Patient states she takes vitamin D and multivitamin at home, will check with pharmacy to add it to her list here. Patient was supposed to have a follow-up with podiatry yesterday but she is still currently in the hospital. Will check with podiatry if they can examine her while she is admitted for rehab. Replace electrolytes as needed. Continue physical therapy as tolerated. Past Medical Family Social History Allergies: Allergies erythromycin base Allergy (Intermediate, Verified 08/28/23 14:13) diclofenac [From Voltaren] Allergy (Unknown, Verified 08/28/23 14:13) Reason: Drug allergy Fish Containing Products Allergy (Unknown, Verified 08/28/23 14:13) "seafood" allergy gabapentin Allergy (Unknown, Verified 08/28/23 14:13) Reason: Drug allergy ibuprofen [Nuprin] Allergy (Unknown, Verified 08/28/23 14:13) nalbuphine [From Nubain] Allergy (Unknown, Verified 08/28/23 14:13) Penicillins Allergy (Unknown, Verified 08/28/23 14:13) shrimp Allergy (Unknown, Verified 08/28/23 14:13) "seafood" allergy sumatriptan [Imitrex] Allergy (Unknown, Verified 08/28/23 14:13) minocycline Allergy (Verified 08/28/23 14:13) morphine Allergy (Verified 08/28/23 14:13) oyster extract Allergy (Verified 08/28/23 14:13) penicillin G Allergy (Verified 08/28/23 14:13) promethazine [From Phenergan] Allergy (Verified 08/28/23 14:13) Vital Signs and I&O's Vital Signs: Vital Signs Temperature 97.8 F Pulse Rate [Left Radial] 77 Pulse Rate 77 Respiratory Rate 18 Blood Pressure [Left Arm] 113/60 O2 Sat by Pulse Oximetry 97 O2 Sat by Pulse Oximetry 93 Intake and Output: Intake & Output 06/3009/07/23 09/08/23 09/09/23 23:59 23:59 23:59 23:59 Intake Total 175 / 1755 270 / 270 Balance 175 175 270 / 270 Physical Exam Oriented: Normal Eyes: Normal Throat: Normal Respiratory: Normal Cardiovascular: Normal Auscultation: Bowel Sounds: Normal Palpation: Normal Tenderness: Normal Skin: Wound (Right foot Anirudh bandage noted) Musculoskeletal: Right and Leg Psychiatric: Normal Affect: Normal Speech Pattern: Clear and Appropriate Laboratory and Diagnostics 09/09/23 06:25 09/09/23 06:25 Labs: Laboratory WBC 7.6 X10^3/uL (3.6-10.0) 09/09/23 06:25 RBC 4.76 X10^6/uL (3.5-5.4) 09/09/23 06:25 Hgb 13.8 g/dL (12.0-16.0) 09/09/23 06:25 Hct 42.9 % (36.0-47.0) 09/09/23 06:25 MCV 90.2 fL (80.0-100.0) 09/09/23 06:25 MCH 29.1 pg (27.0-34.0) 09/09/23 06:25 MCHC 32.2 g/dL (33.0-35.0) L 09/09/23 06:25 RDW 15.5 % (11.6-16.5) 09/09/23 06:25 Plt Count 228 X10^3/uL (150.0-450.0) 09/09/23 06:25 MPV 8.3 fL (7.4-11.0) 09/09/23 06:25 Neut % (Auto) 61.1 % (42.0-75.0) 09/09/23 06:25 Lymph % (Auto) 25.8 % (21.0-51.0) 09/09/23 06:25 [place] % (Auto) 7.7 % (0.0-13.0) 09/09/23 06:25 Eos % (Auto) 4.9 % (0.9-2.9) H 09/09/23 06:25 Baso % (Auto) 0.5 % (0.2-1.0) 09/09/23 06:25 Neut # (Auto) 4.6 x10^3/uL (2.2-4.8) 09/09/23 06:25 Lymph # (Auto) 2.0 X10^3/uL (1.3-2.9) 09/09/23 06:25 [place] # (Auto) 0.6 x10^3/uL (0.3-0.8) 09/09/23 06:25 Eos # (Auto) 0.4 x10^3/uL (0.0-0.2) H 09/09/23 06:25 Baso # (Auto) 0.0 X10^3/uL (0.0-0.1) 09/09/23 06:25 Absolute Nucleated RBC 0.1 /100WBC 09/09/23 06:25 Sodium 140 mmol/L (136-145) 09/09/23 06:25 Corrected Sodium 141 mmol/L (136-145) 09/09/23 06:25 Potassium 4.2 mmol/L (3.5-5.1) 09/09/23 06:25 Chloride 103 mmol/L (98-107) 09/09/23 06:25 Carbon Dioxide 32.0 mmol/L (21-32) 09/09/23 06:25 BUN 27 mg/dL (7-18) H 09/09/23 06:25 Creatinine 0.98 mg/dL (0.55-1.02) 09/09/23 06:25 Est GFR (MDRD) Af Amer > 60 (>60) 09/09/23 06:25 Est GFR (MDRD) Non-Af > 60 (>60) 09/09/23 06:25 Glucose 136 mg/dL (65-99) H 09/09/23 06:25 POC Glucose (mg/dL) 70 mg/dL (65-99) 09/09/23 12:16 Calcium 8.8 mg/dL (8.5-10.1) 09/09/23 06:25 Corrected Calcium 9.7 mg/dL (8.5-10.1) 09/09/23 06:25 Total Bilirubin 0.20 mg/dL (0.2-1.0) 09/09/23 06:25 AST 21 Units/L (15-37) 07/03/24 06:25 ALT 22 Units/L (12-78) 09/09/23 06:25 Alkaline Phosphatase 106 Units/L (46-116) 09/09/23 06:25 Total Protein 7.3 g/dL (6.4-8.2) 09/09/23 06:25 Albumin 2.9 g/dL (3.4-5.0) L 09/09/23 06:25 Globulin 4.4 g/dL (2.5-4.5) 09/09/23 06:25 Albumin/Globulin Ratio 0.7 Ratio (1.1-2.1) L 09/09/23 06:25 Plan (1) Cellulitis of foot, right: Status: Acute (2) Decubitus ulcer of foot, stage 3: Status: Acute Qualifiers: Laterality: right Qualified Code(s): L89.893 - Pressure ulcer of other site, stage 3 (3) Diabetic foot ulcer: Status: Acute Qualifiers: Diabetic foot ulcer location: heel Diabetes mellitus type: type 2 Laterality: right Non-pressure ulcer stage: unspecified non-pressure ulcer stage Qualified Code(s): E11.621 - Type 2 diabetes mellitus with foot ulcer; L97.419 - Non-pressure chronic ulcer of right heel and midfoot with unspecified severity (4) Generalized weakness: Status: Acute (5) Type 2 diabetes mellitus with morbid obesity: Status: None
[2023-09-10] MEDS: GLUTOSE 15 GEL ORAL PO PRN (06:27)
[2023-09-10] MEDS: D50W ABBOJECT SYR IV ONE (07:27)
[2023-09-10] MEDS: ZOFRAN ODT PO PRN (08:51)
[2023-09-11 05:20] LABS: BASOPHILS % (AUTO) 0.6 % (0.2-1.0); EOSINOPHILS # (AUTO) 0.4 x10^3/uL (0.0-0.2); EOSINOPHILS % (AUTO) 5.6 % (0.9-2.9); HEMATOCRIT 39.6 % (36.0-47.0); HEMOGLOBIN 12.7 g/dL (12.0-16.0); LYMPHOCYTES % (AUTO) 28.5 % (21.0-51.0); MEAN CORPUSCULAR HEMOGLOBIN 28.7 pg (27.0-34.0); MEAN CORPUSCULAR HGB CONC 32.1 g/dL (33.0-35.0); MEAN CORPUSCULAR VOLUME 89.6 fL (80.0-100.0); MEAN PLATELET VOLUME 8.7 fL (7.4-11.0); MONOCYTES # (AUTO) 0.7 x10^3/uL (0.3-0.8); MONOCYTES % (AUTO) 9.4 % (0.0-13.0); NEUTROPHILS # (AUTO) 3.9 x10^3/uL (2.2-4.8); NEUTROPHILS % (AUTO) 55.9 % (42.0-75.0); PLATELET COUNT 217 X10^3/uL (150.0-450.0); RED BLOOD COUNT 4.41 X10^6/uL (3.5-5.4); RED CELL DISTRIBUTION WIDTH 15.6 % (11.6-16.5)
[2023-09-11 05:22] LABS: ALANINE AMINOTRANSFERASE 18 Units/L (12-78); ALBUMIN 2.6 g/dL (3.4-5.0); ALKALINE PHOSPHATASE 101 Units/L (46-116); ASPARTATE AMINO TRANSFERASE 16 Units/L (15-37); BLOOD UREA NITROGEN 23 mg/dL (7-18); CALCIUM 8.6 mg/dL (8.5-10.1); CARBON DIOXIDE 33.5 mmol/L (21-32); CHLORIDE 105 mmol/L (98-107); COR CA(FOR HYPOALB) 9.7 mg/dL (8.5-10.1); CREATININE 0.85 mg/dL (0.55-1.02); GLUCOSE 98 mg/dL (65-99); POTASSIUM 4.1 mmol/L (3.5-5.1); SODIUM 140 mmol/L (136-145); TOTAL PROTEIN 6.4 g/dL (6.4-8.2); eGFR NON BLACK RACES > 60 (>60)
[2023-09-11] MEDS: ULTRAM PO PRN (15:03)
[2023-09-11 22:03] VITALS: BMI 56.9
[2023-09-12] MEDS: GLUTOSE 15 GEL ORAL PO STA (11:29)
[2023-09-12] MEDS: GLUCOPHAGE XR 24-HR PO SCH (12:31)
[2023-09-13] MEDS: DUONEB 0.5 MG/3 MG (3 mL) NEB PRN (08:12)
[2023-09-13] MEDS: ROBITUSSIN DM PO PRN (20:23)
[2023-09-14 06:15] LABS: BASOPHILS # (AUTO) 0.1 X10^3/uL (0.0-0.1); BASOPHILS % (AUTO) 0.8 % (0.2-1.0); EOSINOPHILS # (AUTO) 0.4 x10^3/uL (0.0-0.2); EOSINOPHILS % (AUTO) 5.9 % (0.9-2.9); HEMATOCRIT 39.3 % (36.0-47.0); HEMOGLOBIN 12.6 g/dL (12.0-16.0); LYMPHOCYTES # (AUTO) 2.1 X10^3/uL (1.3-2.9); MEAN CORPUSCULAR HGB CONC 31.9 g/dL (33.0-35.0); MEAN CORPUSCULAR VOLUME 90.7 fL (80.0-100.0); MEAN PLATELET VOLUME 9.4 fL (7.4-11.0); MONOCYTES # (AUTO) 0.5 x10^3/uL (0.3-0.8); MONOCYTES % (AUTO) 7.2 % (0.0-13.0); NEUTROPHILS # (AUTO) 4.1 x10^3/uL (2.2-4.8); NEUTROPHILS % (AUTO) 57.1 % (42.0-75.0); PLATELET COUNT 223 X10^3/uL (150.0-450.0); RED BLOOD COUNT 4.34 X10^6/uL (3.5-5.4); RED CELL DISTRIBUTION WIDTH 15.5 % (11.6-16.5); WHITE BLOOD COUNT 7.2 X10^3/uL (3.6-10.0)
[2023-09-14 06:33] LABS: ALANINE AMINOTRANSFERASE 18 Units/L (12-78); ALKALINE PHOSPHATASE 118 Units/L (46-116); ASPARTATE AMINO TRANSFERASE 16 Units/L (15-37); BLOOD UREA NITROGEN 41 mg/dL (7-18); CALCIUM 9.4 mg/dL (8.5-10.1); CARBON DIOXIDE 30.5 mmol/L (21-32); CHLORIDE 103 mmol/L (98-107); COR CA(FOR HYPOALB) 10.2 mg/dL (8.5-10.1); COR NA(FOR HYPERGLY) 139 mmol/L (136-145); GLUCOSE 111 mg/dL (65-99); POTASSIUM 4.7 mmol/L (3.5-5.1); SODIUM 139 mmol/L (136-145); TOTAL PROTEIN 7.2 g/dL (6.4-8.2); eGFR NON BLACK RACES > 60 (>60)
[2023-09-14] MEDS: NS 250 ML IV 250 ML IV PRN (08:58)
--- NOTE | 2023-09-14 10:22 | PCM.PROG ---
Progress Note Progress Note for Day of Date of Exam: 09/14/23 Subjective Subjective: Patient seen at bedside, no acute events overnight. She is doing ok. Her dressing was changed on her right foot today, looks a lot better, healing well. Patient missed her outpatient appointment with Podiatry, Dr Langley will be coming Wed to see her in the hospital. Will f/u on bone biopsy results. Patient did have some hypoglycemia over the weekend, diet was changed and she was started on metformin but patient refused. She states she is not able to eat that food as it's too much meat. She prefers to be on the diabetic diet. Her Jardiance has been on hold due to hypoglycemia. She has been working with PT. Labs and imaging reviewed -WBC 7.2 BUN/Cr: 41/0.90 Glucose: 111 Plan: Will DC metformin. Continue ADA diet. Hold Jardiance for today, monitor glucose. Continue current medications. F/U with podiatry and biopsy results. Continue Invanz. Replace electrolytes as per protocol. Continue PT. Monitor AM labs. Past Medical Family Social History Allergies: Allergies erythromycin base Allergy (Intermediate, Verified 08/28/23 14:13) diclofenac [From Voltaren] Allergy (Unknown, Verified 08/28/23 14:13) Reason: Drug allergy Fish Containing Products Allergy (Unknown, Verified 08/28/23 14:13) "seafood" allergy gabapentin Allergy (Unknown, Verified 08/28/23 14:13) Reason: Drug allergy ibuprofen [Nuprin] Allergy (Unknown, Verified 08/28/23 14:13) nalbuphine [From Nubain] Allergy (Unknown, Verified 08/28/23 14:13) Penicillins Allergy (Unknown, Verified 08/28/23 14:13) shrimp Allergy (Unknown, Verified 08/28/23 14:13) "seafood" allergy sumatriptan [Imitrex] Allergy (Unknown, Verified 08/28/23 14:13) minocycline Allergy (Verified 08/28/23 14:13) morphine Allergy (Verified 08/28/23 14:13) oyster extract Allergy (Verified 08/28/23 14:13) penicillin G Allergy (Verified 08/28/23 14:13) promethazine [From Phenergan] Allergy (Verified 08/28/23 14:13) Vital Signs and I&O's Intake and Output: Intake & Output 09/11/23 09/12/23 09/13/23 09/14/23 23:59 23:59 23:59 23:59 Intake Total 730 / 730 1386 / 1386 2016 50 / 50 Balance 730 / 730 1386 / 1386 2016 50 / 50 Physical Exam Oriented: Normal Eyes: Normal Throat: Normal Respiratory: Normal Cardiovascular: Normal Auscultation: Bowel Sounds: Normal Palpation: Normal Tenderness: Normal Skin: Wound (improvement in erythema, abx beads noted. ) Musculoskeletal: Right and Leg Psychiatric: Normal Affect: Normal Speech Pattern: Clear and Appropriate Laboratory and Diagnostics 09/14/23 05:40 09/14/23 05:40 Labs: Laboratory WBC 7.2 X10^3/uL (3.6-10.0) 09/14/23 05:40 RBC 4.34 X10^6/uL (3.5-5.4) 09/14/23 05:40 Hgb 12.6 g/dL (12.0-16.0) 09/14/23 05:40 Hct 39.3 % (36.0-47.0) 09/14/23 05:40 MCV 90.7 fL (80.0-100.0) 09/14/23 05:40 MCH 29.0 pg (27.0-34.0) 09/14/23 05:40 MCHC 31.9 g/dL (33.0-35.0) L 09/14/23 05:40 RDW 15.5 % (11.6-16.5) 09/14/23 05:40 Plt Count 223 X10^3/uL (150.0-450.0) 09/14/23 05:40 MPV 9.4 fL (7.4-11.0) 09/14/23 05:40 Neut % (Auto) 57.1 % (42.0-75.0) 09/14/23 05:40 Lymph % (Auto) 29.0 % (21.0-51.0) 09/14/23 05:40 [place] % (Auto) 7.2 % (0.0-13.0) 09/14/23 05:40 Eos % (Auto) 5.9 % (0.9-2.9) H 09/14/23 05:40 Baso % (Auto) 0.8 % (0.2-1.0) 09/14/23 05:40 Neut # (Auto) 4.1 x10^3/uL (2.2-4.8) 09/14/23 05:40 Lymph # (Auto) 2.1 X10^3/uL (1.3-2.9) 09/14/23 05:40 [place] # (Auto) 0.5 x10^3/uL (0.3-0.8) 09/14/23 05:40 Eos # (Auto) 0.4 x10^3/uL (0.0-0.2) H 09/14/23 05:40 Baso # (Auto) 0.1 X10^3/uL (0.0-0.1) 09/14/23 05:40 Absolute Nucleated RBC 0.1 /100WBC 09/14/23 05:40 Sodium 139 mmol/L (136-145) 09/14/23 05:40 Corrected Sodium 139 mmol/L (136-145) 09/14/23 05:40 Potassium 4.7 mmol/L (3.5-5.1) 09/14/23 05:40 Chloride 103 mmol/L (98-107) 09/14/23 05:40 Carbon Dioxide 30.5 mmol/L (21-32) 09/14/23 05:40 BUN 41 mg/dL (7-18) H 09/14/23 05:40 Creatinine 0.90 mg/dL (0.55-1.02) 09/14/23 05:40 Est GFR (MDRD) Af Amer > 60 (>60) 09/14/23 05:40 Est GFR (MDRD) Non-Af > 60 (>60) 09/14/23 05:40 Glucose 111 mg/dL (65-99) H 09/14/23 05:40 POC Glucose (mg/dL) 105 mg/dL (65-99) H 09/14/23 05:22 Calcium 9.4 mg/dL (8.5-10.1) 09/14/23 05:40 Corrected Calcium 10.2 mg/dL (8.5-10.1) H 09/14/23 05:40 Total Bilirubin 0.20 mg/dL (0.2-1.0) 09/14/23 05:40 AST 16 Units/L (15-37) 09/14/23 05:40 ALT 18 Units/L (12-78) 09/14/23 05:40 Alkaline Phosphatase 118 Units/L (46-116) H 09/14/23 05:40 Total Protein 7.2 g/dL (6.4-8.2) 09/14/23 05:40 Albumin 3.0 g/dL (3.4-5.0) L 09/14/23 05:40 Globulin 4.2 g/dL (2.5-4.5) 09/14/23 05:40 Albumin/Globulin Ratio 0.7 Ratio (1.1-2.1) L 09/14/23 05:40 Plan (1) Cellulitis of foot, right: Status: Acute (2) Decubitus ulcer of foot, stage 3: Status: Acute Qualifiers: Laterality: right Qualified Code(s): L89.893 - Pressure ulcer of other site, stage 3 (3) Diabetic foot ulcer: Status: Acute Qualifiers: Diabetes mellitus type: type 2 Diabetic foot ulcer location: heel L aterality: right Non-pressure ulcer stage: unspecified non-pressure ulcer stage Qualified Code(s): E11.621 - Type 2 diabetes mellitus with foot ulcer; L97.419 - Non-pressure chronic ulcer of right heel and midfoot with unspecified severity (4) Generalized weakness: Status: Acute (5) Type 2 diabetes mellitus with morbid obesity: Status: None
[2023-09-14] MEDS: MAGIC MOUTHWASH (Orig. Formula) MT SCH (11:35)
[2023-09-16 05:18] LABS: BASOPHILS % (AUTO) 0.5 % (0.2-1.0); EOSINOPHILS # (AUTO) 0.5 x10^3/uL (0.0-0.2); EOSINOPHILS % (AUTO) 6.6 % (0.9-2.9); HEMATOCRIT 35.8 % (36.0-47.0); HEMOGLOBIN 11.5 g/dL (12.0-16.0); LYMPHOCYTES # (AUTO) 1.9 X10^3/uL (1.3-2.9); LYMPHOCYTES % (AUTO) 27.7 % (21.0-51.0); MEAN CORPUSCULAR HGB CONC 32.2 g/dL (33.0-35.0); MEAN CORPUSCULAR VOLUME 90.2 fL (80.0-100.0); MEAN PLATELET VOLUME 8.8 fL (7.4-11.0); MONOCYTES # (AUTO) 0.7 x10^3/uL (0.3-0.8); MONOCYTES % (AUTO) 9.3 % (0.0-13.0); NEUTROPHILS # (AUTO) 3.9 x10^3/uL (2.2-4.8); NEUTROPHILS % (AUTO) 55.9 % (42.0-75.0); PLATELET COUNT 190 X10^3/uL (150.0-450.0); RED BLOOD COUNT 3.97 X10^6/uL (3.5-5.4); RED CELL DISTRIBUTION WIDTH 15.9 % (11.6-16.5)
[2023-09-16 05:33] LABS: ALANINE AMINOTRANSFERASE 16 Units/L (12-78); ALBUMIN 2.6 g/dL (3.4-5.0); ALKALINE PHOSPHATASE 81 Units/L (46-116); ASPARTATE AMINO TRANSFERASE 12 Units/L (15-37); BLOOD UREA NITROGEN 30 mg/dL (7-18); CARBON DIOXIDE 30.5 mmol/L (21-32); CHLORIDE 105 mmol/L (98-107); COR CA(FOR HYPOALB) 10.1 mg/dL (8.5-10.1); COR NA(FOR HYPERGLY) 142 mmol/L (136-145); CREATININE 0.82 mg/dL (0.55-1.02); GLUCOSE 130 mg/dL (65-99); POTASSIUM 4.1 mmol/L (3.5-5.1); SODIUM 141 mmol/L (136-145); TOTAL PROTEIN 6.2 g/dL (6.4-8.2); eGFR NON BLACK RACES > 60 (>60)
--- NOTE | 2023-09-16 10:12 | PCM.PROG ---
Progress Note Progress Note for Day of Date of Exam: 09/16/23 Subjective Subjective: Patient seen at bedside, no acute events overnight. She is doing well. She continues to work with PT and is able to go to the bathroom with the boot. Bone biopsy results were negative for osteomyelitis. Podiatry will examine the patient today in the hospital. Labs and imaging reviewed -WBC 7.0 BUN/Cr: 30/0.82 Plan: follow up podiatry recommendations regarding dressing changes at home. Patient will be discharged on Thursday. Last dose of Invanz today. Continue wound care. Continue PT as tolerated. Restart jardiance. Continue home medications. Past Medical Family Social History Allergies: Allergies erythromycin base Allergy (Intermediate, Verified 08/28/23 14:13) diclofenac [From Voltaren] Allergy (Unknown, Verified 08/28/23 14:13) Reason: Drug allergy Fish Containing Products Allergy (Unknown, Verified 08/28/23 14:13) "seafood" allergy gabapentin Allergy (Unknown, Verified 08/28/23 14:13) Reason: Drug allergy ibuprofen [Nuprin] Allergy (Unknown, Verified 08/28/23 14:13) nalbuphine [From Nubain] Allergy (Unknown, Verified 08/28/23 14:13) Penicillins Allergy (Unknown, Verified 08/28/23 14:13) shrimp Allergy (Unknown, Verified 08/28/23 14:13) "seafood" allergy sumatriptan [Imitrex] Allergy (Unknown, Verified 08/28/23 14:13) minocycline Allergy (Verified 08/28/23 14:13) morphine Allergy (Verified 08/28/23 14:13) oyster extract Allergy (Verified 08/28/23 14:13) penicillin G Allergy (Verified 08/28/23 14:13) promethazine [From Phenergan] Allergy (Verified 08/28/23 14:13) Vital Signs and I&O's Vital Signs: Vital Signs Respiratory Rate 16 Intake and Output: Intake & Output 09/13/23 09/14/23 09/15/23 09/16/23 23:59 23:59 23:59 23:59 Intake Total 2016 1461 / 1461 131 / 131 580 / 580 Balance 2016 1461 / 1461 131 / 131 580 / 580 Physical Exam Oriented: Normal Eyes: Normal Throat: Normal Respiratory: Normal Cardiovascular: Normal Auscultation: Bowel Sounds: Normal Palpation: Normal Tenderness: Normal Skin: Wound (improvement in erythema, abx beads noted. ) Musculoskeletal: Right and Leg Psychiatric: Normal Affect: Normal Speech Pattern: Clear and Appropriate Laboratory and Diagnostics 09/16/23 04:50 09/16/23 04:50 Labs: Laboratory WBC 7.0 X10^3/uL (3.6-10.0) 09/16/23 04:50 RBC 3.97 X10^6/uL (3.5-5.4) 09/16/23 04:50 Hgb 11.5 g/dL (12.0-16.0) L 09/16/23 04:50 Hct 35.8 % (36.0-47.0) L 09/16/23 04:50 MCV 90.2 fL (80.0-100.0) 09/16/23 04:50 MCH 29.0 pg (27.0-34.0) 09/16/23 04:50 MCHC 32.2 g/dL (33.0-35.0) L 09/16/23 04:50 RDW 15.9 % (11.6-16.5) 09/16/23 04:50 Plt Count 190 X10^3/uL (150.0-450.0) 09/16/23 04:50 MPV 8.8 fL (7.4-11.0) 09/16/23 04:50 Neut % (Auto) 55.9 % (42.0-75.0) 09/16/23 04:50 Lymph % (Auto) 27.7 % (21.0-51.0) 09/16/23 04:50 [place] % (Auto) 9.3 % (0.0-13.0) 09/16/23 04:50 Eos % (Auto) 6.6 % (0.9-2.9) H 09/16/23 04:50 Baso % (Auto) 0.5 % (0.2-1.0) 09/16/23 04:50 Neut # (Auto) 3.9 x10^3/uL (2.2-4.8) 09/16/23 04:50 Lymph # (Auto) 1.9 X10^3/uL (1.3-2.9) 09/16/23 04:50 [place] # (Auto) 0.7 x10^3/uL (0.3-0.8) 09/16/23 04:50 Eos # (Auto) 0.5 x10^3/uL (0.0-0.2) H 09/16/23 04:50 Baso # (Auto) 0.0 X10^3/uL (0.0-0.1) 09/16/23 04:50 Absolute Nucleated RBC 0.0 /100WBC 09/16/23 04:50 Sodium 141 mmol/L (136-145) 09/16/23 04:50 Corrected Sodium 142 mmol/L (136-145) 09/16/23 04:50 Potassium 4.1 mmol/L (3.5-5.1) 09/16/23 04:50 Chloride 105 mmol/L (98-107) 09/16/23 04:50 Carbon Dioxide 30.5 mmol/L (21-32) 09/16/23 04:50 BUN 30 mg/dL (7-18) H 09/16/23 04:50 Creatinine 0.82 mg/dL (0.55-1.02) 09/16/23 04:50 Est GFR (MDRD) Af Amer > 60 (>60) 09/16/23 04:50 Est GFR (MDRD) Non-Af > 60 (>60) 09/16/23 04:50 Glucose 130 mg/dL (65-99) H 09/16/23 04:50 POC Glucose (mg/dL) 143 mg/dL (65-99) H 09/16/23 08:56 Calcium 9.0 mg/dL (8.5-10.1) 09/16/23 04:50 Corrected Calcium 10.1 mg/dL (8.5-10.1) 09/16/23 04:50 Total Bilirubin 0.30 mg/dL (0.2-1.0) 09/16/23 04:50 AST 12 Units/L (15-37) L 09/16/23 04:50 ALT 16 Units/L (12-78) 09/16/23 04:50 Alkaline Phosphatase 81 Units/L (46-116) 09/16/23 04:50 Total Protein 6.2 g/dL (6.4-8.2) L 09/16/23 04:50 Albumin 2.6 g/dL (3.4-5.0) L 09/16/23 04:50 Globulin 3.6 g/dL (2.5-4.5) 09/16/23 04:50 Albumin/Globulin Ratio 0.7 Ratio (1.1-2.1) L 09/16/23 04:50 Plan (1) Cellulitis of foot, right: Status: Acute (2) Decubitus ulcer of foot, stage 3: Status: Acute Qualifiers: Laterality: right Qualified Code(s): L89.893 - Pressure ulcer of other site, stage 3 (3) Diabetic foot ulcer: Status: Acute Qualifiers: Diabetes mellitus type: type 2 Diabetic foot ulcer location: heel Laterality: right Non-pressure ulcer stage: unspecified non-pressure ulcer stage Qualified Code(s): E11.621 - Type 2 diabetes mellitus with foot ulcer; L97.419 - Non-pressure chronic ulcer of right heel and midfoot with unspecified severity (4) Generalized weakness: Status: Acute (5) Type 2 diabetes mellitus with morbid obesity: Status: None
--- NOTE | 2023-09-16 16:29 | NOTE.SOAP ---
Soap Note Note for Day of Date of Exam: 09/16/23 Subjective Data Subjective Data: Patient seen at bedside. NAD. patient has drainage on bandage. she has no pain . no issues. would like to go home. Objective Data Objective Data: wound still very large. it is 4.8cm x 4.6cm x 1.0cm deep today. it is 50% fibrous adn 50% granular. no malodor. no erythema surrouding. Assessment Assessment: 67 F with large wound plantar heel. morbid obestity. DM with neuropathy. Plan Plan: Patient doesn't qualify for rehab due to her weight. wound plantar foot and is impossible for her to not be on foot for even transfers due to her size. IV therapy will discontinue outside hospital. not great options for oral treatments on discharge. she has many allergies to IV abx. will have see ID on discharge. would have her take Clindamycin 300mg TID x 10 days on discharge. Has rollator at home. will need dressing changes every other day. recommend apply sidra collagen with dry 4x4 and then ABD and then kerlex and JOSÉ LUIS. need to pad anterior ankle due to skin irritation and region of likely breakdown due to walking on her foot with the dressing on. will need home nurses as will not be able to do it herself. she will see me as outpatient after discharge in 1-2 weeks. plan to leave thursday and we will try to change dressing for her prior to being discharged
[2023-09-17] MEDS: KLOR-CON 10 MEQ TAB PO SCH (13:56)
[2023-09-18 07:56] VITALS: BP 109/55; PULSE 77; RESP 19; TEMP 97.4; O2SAT 95
== END 2023-09-18 13:25 | disposition home health service (06) | DRG 593 ==
LOC: MED/SURG 12:30
PROVIDERS: ADMIT Family Medicine; ATTEND Family Medicine
DX: E11.65 Type 2 diabetes mellitus with hyperglycemia; L03.115 Cellulitis of right lower limb; E66.01 Morbid (severe) obesity due to excess calories; E03.8 Other specified hypothyroidism; J44.9 Chronic obstructive pulmonary disease, unspecified; Z51.89 Encounter for other specified aftercare; K21.9 Gastro-esophageal reflux disease without esophagitis; R53.1 Weakness; L89.613 Pressure ulcer of right heel, stage 3; Z68.43 Body mass index [BMI] 50.0-59.9, adult; I10 Essential (primary) hypertension; K59.09 Other constipation; Z98.890 Other specified postprocedural states; E11.649 Type 2 diabetes mellitus with hypoglycemia without coma; E11.621 Type 2 diabetes mellitus with foot ulcer

== ENCOUNTER 2023-10-17 16:29 | Inpatient (IN) ==
--- NOTE | 2023-10-17 16:57 | DR.CE ---
HPI Time Seen Time Seen by Provider: 10/17/23 16:57 PMH PMH Past Medical History: Anemia, Arthritis, COPD, Diabetes, Migraines, GERD, Gout, Hypertension, Hypothyroidism, Kidney Stones, Renal Disease and Sleep Apnea Past Surgical History: Yes Surgical History: Thyroidectomy Family History Family Medical History: Diabetes Mellitus and [place] Social History Do you use any recreational Drugs:: No PE Vital Signs Vital Signs: Temp Pulse Resp BP Pulse Ox O2 Del Method 10/17/23 21:45 73 29 H 98 10/17/23 21:31 148/65 10/17/23 21:31 148/65 10/17/23 21:31 65 41 H 10/17/23 21:30 69 39 H 10/17/23 21:15 68 46 H 10/17/23 21:01 70 39 H 93 L 10/17/23 21:01 157/67 10/17/23 21:00 68 40 H 94 L 10/17/23 20:45 73 50 H 93 L 10/17/23 20:31 176/74 10/17/23 20:31 176/74 10/17/23 20:31 68 33 H 96 10/17/23 20:30 67 42 H 94 L 10/17/23 20:15 64 40 H 10/17/23 20:10 97.5 F L 173/71 10/17/23 20:10 68 34 H 95 10/17/23 20:07 71 55 H 95 10/17/23 20:00 69 37 H 89 L 10/17/23 19:45 79 49 H 10/17/23 19:30 159/70 10/17/23 19:30 159/70 10/17/23 19:30 64 41 H 10/17/23 19:15 64 36 H 96 10/17/23 19:01 158/74 10/17/23 19:01 58 L 28 H 96 10/17/23 19:00 59 L 30 H 94 L 10/17/23 18:45 62 34 H 96 10/17/23 18:31 156/64 10/17/23 18:31 62 35 H 97 10/17/23 18:30 60 40 H 95 10/17/23 18:15 58 L 43 H 98 10/17/23 18:01 145/68 10/17/23 18:01 57 L 31 H 95 10/17/23 18:00 61 31 H 77 L 10/17/23 17:30 56 L 45 H 155/66 10/17/23 17:57 75 42 H 10/17/23 17:16 50 L 34 H 141/61 10/17/23 17:56 97.3 F L 10/17/23 17:02 94.2 F L 55 L 30 H 141/61 98 Room Air ROR Labs Reviewed 10/21/23 04:15 10/21/23 04:15 Laboratory: 10/17/23 17:28 Urine,Clean Catch Urine Culture - Final Enterobacter Cloacae 10/17/23 17:28 Foot - Right Wound Gram Stain - Final 10/17/23 17:28 Foot - Right Wound Culture - Final Citrobacter Freundii Morganella Morganii 10/17/23 17:35 Blood Blood Culture - Preliminary 10/17/23 17:25 Blood Blood Culture - Preliminary WBC 14.2 X10^3/uL (3.6-10.0) H 10/17/23 17:25 RBC 4.21 X10^6/uL (3.5-5.4) 10/17/23 17:25 Hgb 12.2 g/dL (12.0-16.0) 10/17/23 17:25 Hct 38.5 % (36.0-47.0) 10/17/23 17:25 MCV 91.4 fL (80.0-100.0) 10/17/23 17:25 MCH 29.1 pg (27.0-34.0) 10/17/23 17:25 MCHC 31.8 g/dL (33.0-35.0) L 10/17/23 17:25 RDW 15.7 % (11.6-16.5) 10/17/23 17:25 Plt Count 245 X10^3/uL (150.0-450.0) 10/17/23 17:25 Plt Count Comment Adequate (ADEQUATE) 10/17/23 17:25 MPV 7.9 fL (7.4-11.0) 10/17/23 17:25 Neut % (Auto) 91.9 % (42.0-75.0) H 10/17/23 17:25 Lymph % (Auto) 4.4 % (21.0-51.0) L 10/17/23 17:25 Dickenson % (Auto) 3.4 % (0.0-13.0) 10/17/23 17:25 Eos % (Auto) 0.1 % (0.9-2.9) L 10/17/23 17:25 Baso % (Auto) 0.2 % (0.2-1.0) 10/17/23 17:25 Neut # (Auto) 13.1 x10^3/uL (2.2-4.8) H 10/17/23 17:25 Lymph # (Auto) 0.6 X10^3/uL (1.3-2.9) L 10/17/23 17:25 Dickenson # (Auto) 0.5 x10^3/uL (0.3-0.8) 10/17/23 17:25 Eos # (Auto) 0.0 x10^3/uL (0.0-0.2) 10/17/23 17:25 Baso # (Auto) 0.0 X10^3/uL (0.0-0.1) 10/17/23 17:25 Absolute Nucleated RBC 0.1 /100WBC 10/17/23 17:25 Total Counted 100 10/17/23 17:25 Neutrophils % (Manual) 95 % (39-76) H 10/17/23 17:25 Lymphocytes % (Manual) 3 % (13-43) L 10/17/23 17:25 Monocytes % (Manual) 2 % (4-9) L 10/17/23 17:25 Plt Morphology Comment Normal (NORMAL) 10/17/23 17:25 RBC Morphology Normal (NORMAL) 10/17/23 17:25 Sodium 138 mmol/L (136-145) 10/17/23 17:25 Corrected Sodium TNP 10/17/23 17:25 Potassium 4.6 mmol/L (3.5-5.1) 10/17/23 17:25 Chloride 103 mmol/L (98-107) 10/17/23 17:25 Carbon Dioxide 27.6 mmol/L (21-32) 10/17/23 17:25 BUN 41 mg/dL (7-18) H 10/17/23 17:25 Creatinine 1.10 mg/dL (0.55-1.02) H 10/17/23 17:25 Est GFR (MDRD) Af Amer > 60 (>60) 10/17/23 17:25 Est GFR (MDRD) Non-Af 53 (>60) L 10/17/23 17:25 Glucose 151 mg/dL (65-99) H 10/17/23 19:40 POC Glucose (mg/dL) 126 mg/dL (65-99) H 10/17/23 20:31 Lactic Acid 0.9 mmol/L (0.4-2.0) 10/17/23 19:25 Calcium 9.5 mg/dL (8.5-10.1) 10/17/23 17:25 Corrected Calcium 10.4 mg/dL (8.5-10.1) H 10/17/23 17:25 Total Bilirubin 0.20 mg/dL (0.2-1.0) 10/17/23 17:25 AST 25 Units/L (15-37) 10/17/23 17:25 ALT 22 Units/L (12-78) 10/17/23 17:25 Alkaline Phosphatase 117 Units/L (46-116) H 10/17/23 17:25 Total Protein 7.4 g/dL (6.4-8.2) 10/17/23 17:25 Albumin 2.9 g/dL (3.4-5.0) L 10/17/23 17:25 Globulin 4.5 g/dL (2.5-4.5) 10/17/23 17:25 Albumin/Globulin Ratio 0.6 Ratio (1.1-2.1) L 10/17/23 17:25 Specimen Type Clean catch urine 10/17/23 17:28 Urine Color Pale yellow (YELLOW) 10/17/23 17: Urine Appearance Slightly hazy (CLEAR) 10/17/23 17:28 Urine pH 5.0 (5.0 - 8.0) 10/17/23: Ur Specific Raphine 1.015 (1.000-1.030) 10/17/23 17: Urine Protein 1+ (NEGATIVE) 10/17/23 17: Urine Glucose (UA) 4+ (NEGATIVE) 10/17/23 17: Urine Ketones Negative (NEGATIVE) 10/17/23: Urine Blood 1+ (NEGATIVE) 10/17/23 17:28 Urine Nitrite Negative (NEGATIVE) 10/17/23 17:28 Urine Bilirubin Negative (NEGATIVE) 10/17/23 17:28 Urine Urobilinogen Normal (NORMAL) 10/17/23 17:28 Ur Leukocyte Esterase 3+ (NEGATIVE) 10/17/23 17:28 Urine RBC 0-2 /HPF (0-3) 10/17/23 17:28 Urine WBC Tntc /HPF (0-5) A 10/17/23 17:28 Ur Squamous Epith Cells Moderate /HPF (NEGATIVE) 10/17/23 17:28 Urine Bacteria 2+ /HPF (NEGATIVE) 10/17/23 17:28 Urine Yeast Rare /HPF (NEGATIVE) 10/17/23 17:28 Ur Culture Indicated? Yes/culture set up 10/17/23 17:28 SARS-CoV-2 (PCR) Negative (NEGATIVE) 10/17/23 19:55 Influenza Type A (PCR) Negative (NEGATIVE) 10/17/23 19:55 Influenza Type B (PCR) Negative (NEGATIVE) 10/17/23 19:55 RSV (PCR) Negative (NEGATIVE) 10/17/23 19:55 S. pyogenes (TEM-PCR) Not detected (NOT DETECT) 10/17/23 19:55 Opioid Opioid Risk Tool Age (Garrett box if 16-45): No History of Preadolescent Sexual Abuse: No Total: 0 Total Score Risk Category: Low Risk Copyright: Niranjan ZHENG predicting aberrant behaviors Discharge Plan Diagnosis Discharge Problem: Acute UTI, Hypothermia, Wound infection Sepsis Qualifiers: Sepsis type: sepsis due to unspecified organism Sepsis acute organ dysfunction status: without acute organ dysfunction Qualified Code(s): A41.9 - Sepsis, unspecified organism CHF (congestive heart failure) Qualifiers: Heart failure type: unspecified Heart failure chronicity: unspecified Qualified Code(s): I50.9 - Heart failure, unspecified Discharge Plan Patient Disposition: ADMITTED INPATIENT Condition: Stable
[2023-10-17] MEDS: NS 1,000 ML IV 1,000 ML IV ONE (17:27)
--- NOTE | 2023-10-17 17:44 | RAD ---
EXAM: CHEST X-RAYHISTORY: Fever.TECHNIQUE: AP CXR dated October 17, 2023 at 5:28 PM.COMPARISON: CXR dated September 01, 2023.FINDINGS:Note: Exam degraded by shallow inspiratory effort (stable).There is evidence for a shallow inspiratory effort with mild prominence of the bronchopulmonary markings and widening of the cardiac silhouette. Note that minimal CHF or volume overload cannot be excluded in this radiographic setting. Clinical correlation is advised.There is no gross focal lung consolidation, pleural effusion, or pneumothorax. The visualized bony structures are within normal limits.IMPRESSION:1. Shallow inspiratory effort with mild prominence of the bronchopulmonary markings (new finding) and widening of the cardiac silhouette; DDX includes minimal CHF or volume overload in the appropriate clinical setting; consider mild bronchitis and interstitial pneumonia in the appropriate clinical setting.2. Recommend clinical correlation and appropriate follow-up x-ray evaluation to ensure complete clearance as clinically warranted.3. Consider follow evaluation with noncontrast chest CT for further characterization as clinically warranted.THIS IS AN ELECTRONICALLY VERIFIED FINAL REPORT10/17/2023 5:41 PM - Electronically signed by Shona Hatch MD
[2023-10-17 17:51] LABS: HEMOGLOBIN 12.2 g/dL (12.0-16.0); WHITE BLOOD COUNT 14.2 X10^3/uL (3.6-10.0)
[2023-10-17 17:51] LABS: BILIRUBIN,URINE NEGATIVE (NEGATIVE); BLOOD/HEMOGLOBIN,URINE 1+ (NEGATIVE); GLUCOSE, URINE 4+ (NEGATIVE); KETONES,URINE NEGATIVE (NEGATIVE); LEUKOCYTE ESTERASE ,URINE 3+ (NEGATIVE); NITRITES,URINE NEGATIVE (NEGATIVE); PROTEIN,URINE 1+ (NEGATIVE); UROBILINOGEN,URINE NORMAL (NORMAL)
[2023-10-17 17:52] LABS: APPEARANCE,URINE SLIGHTLY HAZY (CLEAR); COLOR,URINE PALE YELLOW (YELLOW)
[2023-10-17 17:55] LABS: BASOPHILS % (AUTO) 0.2 % (0.2-1.0); EOSINOPHILS % (AUTO) 0.1 % (0.9-2.9); HEMATOCRIT 38.5 % (36.0-47.0); LYMPHOCYTES # (AUTO) 0.6 X10^3/uL (1.3-2.9); LYMPHOCYTES % (AUTO) 4.4 % (21.0-51.0); MEAN CORPUSCULAR HEMOGLOBIN 29.1 pg (27.0-34.0); MEAN CORPUSCULAR HGB CONC 31.8 g/dL (33.0-35.0); MEAN CORPUSCULAR VOLUME 91.4 fL (80.0-100.0); MEAN PLATELET VOLUME 7.9 fL (7.4-11.0); MONOCYTES # (AUTO) 0.5 x10^3/uL (0.3-0.8); MONOCYTES % (AUTO) 3.4 % (0.0-13.0); NEUTROPHILS # (AUTO) 13.1 x10^3/uL (2.2-4.8); NEUTROPHILS % (AUTO) 91.9 % (42.0-75.0); PLATELET COUNT 245 X10^3/uL (150.0-450.0); RED BLOOD COUNT 4.21 X10^6/uL (3.5-5.4); RED CELL DISTRIBUTION WIDTH 15.7 % (11.6-16.5)
[2023-10-17 17:59] LABS: BACTERIA,URINE 2+ /HPF (NEGATIVE); RBC,URINE 0-2 /HPF (0-3); SQUAMOUS EPITHELIAL CELL,UR MODERATE /HPF (NEGATIVE); YEAST,URINE RARE /HPF (NEGATIVE)
[2023-10-17 18:02] LABS: ALANINE AMINOTRANSFERASE 22 Units/L (12-78); ALBUMIN 2.9 g/dL (3.4-5.0); ALKALINE PHOSPHATASE 117 Units/L (46-116); ASPARTATE AMINO TRANSFERASE 25 Units/L (15-37); BLOOD UREA NITROGEN 41 mg/dL (7-18); CALCIUM 9.5 mg/dL (8.5-10.1); CARBON DIOXIDE 27.6 mmol/L (21-32); CHLORIDE 103 mmol/L (98-107); COR CA(FOR HYPOALB) 10.4 mg/dL (8.5-10.1); GLUCOSE 106 mg/dL (65-99); POTASSIUM 4.6 mmol/L (3.5-5.1); SODIUM 138 mmol/L (136-145); TOTAL PROTEIN 7.4 g/dL (6.4-8.2); eGFR NON BLACK RACES 53 (>60)
[2023-10-17 18:12] LABS: PLATELET MORPHOLOGY COMMENT NORMAL (NORMAL)
[2023-10-17] MEDS: D50W ABBOJECT SYR IV ONE ×2 (19:26→19:32)
[2023-10-17] MEDS: VANCOMYCIN IV *PREMIX 1 G/200 ML BAG 1 G/200 ML PIGGYBACK IV ONE ×2 (20:33→23:26)
[2023-10-17 20:41] LABS: STREP A BY PCR NOT DETECTED (NOT DETECT)
[2023-10-17 22:13] LABS: BILIRUBIN,URINE NEGATIVE (NEGATIVE); BLOOD/HEMOGLOBIN,URINE 1+ (NEGATIVE); GLUCOSE, URINE 3+ (NEGATIVE); KETONES,URINE NEGATIVE (NEGATIVE); LEUKOCYTE ESTERASE ,URINE 3+ (NEGATIVE); NITRITES,URINE NEGATIVE (NEGATIVE); PROTEIN,URINE 1+ (NEGATIVE); UROBILINOGEN,URINE NORMAL (NORMAL)
[2023-10-17 22:17] LABS: APPEARANCE,URINE CLOUDY (CLEAR); COLOR,URINE STRAW (YELLOW)
[2023-10-17 22:23] LABS: BACTERIA,URINE TRACE /HPF (NEGATIVE); SQUAMOUS EPITHELIAL CELL,UR RARE /HPF (NEGATIVE); YEAST,URINE MODERATE /HPF (NEGATIVE)
[2023-10-17] MEDS ORDERED: PHARMACY CONSULT - VANCOMYCIN XX SCH (23:00)
[2023-10-17] MEDS: D5 NS 1,000 ML IV 1,000 ML IV SCH (23:19)
[2023-10-18] MEDS: INVanz INJ 1 GRAM VIAL 1 G in NS 100 ML IV 100 ML IV SCH (02:16)
[2023-10-18] MEDS: NS 250 ML IV 25 ML IV PRN (02:17)
[2023-10-18 03:11] VITALS: BMI 59.0
[2023-10-18 05:18] LABS: HEMOGLOBIN 10.7 g/dL (12.0-16.0); MEAN PLATELET VOLUME 8.3 fL (7.4-11.0); WHITE BLOOD COUNT 10.5 X10^3/uL (3.6-10.0)
[2023-10-18] MEDS: ZOFRAN TAB 4 MG SL PRN (05:24)
[2023-10-18] MEDS: TYLENOL 325 MG TAB PO PRN (05:25)
[2023-10-18 05:32] LABS: BASOPHILS % (AUTO) 0.1 % (0.2-1.0); EOSINOPHILS # (AUTO) 0.1 x10^3/uL (0.0-0.2); EOSINOPHILS % (AUTO) 0.8 % (0.9-2.9); HEMATOCRIT 33.9 % (36.0-47.0); LYMPHOCYTES # (AUTO) 1.3 X10^3/uL (1.3-2.9); LYMPHOCYTES % (AUTO) 12.7 % (21.0-51.0); MEAN CORPUSCULAR HEMOGLOBIN 28.7 pg (27.0-34.0); MEAN CORPUSCULAR HGB CONC 31.6 g/dL (33.0-35.0); MEAN CORPUSCULAR VOLUME 90.8 fL (80.0-100.0); MONOCYTES # (AUTO) 0.7 x10^3/uL (0.3-0.8); MONOCYTES % (AUTO) 7.1 % (0.0-13.0); NEUTROPHILS # (AUTO) 8.4 x10^3/uL (2.2-4.8); NEUTROPHILS % (AUTO) 79.3 % (42.0-75.0); PLATELET COUNT 245 X10^3/uL (150.0-450.0); RED BLOOD COUNT 3.74 X10^6/uL (3.5-5.4); RED CELL DISTRIBUTION WIDTH 15.4 % (11.6-16.5)
[2023-10-18 05:37] LABS: ALANINE AMINOTRANSFERASE 17 Units/L (12-78); ALBUMIN 2.2 g/dL (3.4-5.0); ALKALINE PHOSPHATASE 104 Units/L (46-116); ASPARTATE AMINO TRANSFERASE 19 Units/L (15-37); BLOOD UREA NITROGEN 33 mg/dL (7-18); CALCIUM 8.6 mg/dL (8.5-10.1); CARBON DIOXIDE 26.5 mmol/L (21-32); CHLORIDE 106 mmol/L (98-107); CREATININE 1.06 mg/dL (0.55-1.02); GLUCOSE 101 mg/dL (65-99); MAGNESIUM 1.8 mg/dL (2.0-2.9); POTASSIUM 4.4 mmol/L (3.5-5.1); SODIUM 141 mmol/L (136-145); eGFR NON BLACK RACES 55 (>60)
[2023-10-18 05:52] LABS: INR 1.22 (0.8-1.3)
[2023-10-18] MEDS: ZOFRAN INJ 4 MG VIAL IVP PRN (07:45)
[2023-10-18] MEDS: NORCO 5/325 MG TAB PO PRN (07:45)
[2023-10-18] MEDS ORDERED: CONSULT PHARMACY - POTASSIUM & MAGNESIUM XX SCH (08:00)
[2023-10-18] MEDS: VANCOMYCIN IV *PREMIX 2 G/400 ML BAG 2 G/400 ML PIGGYBACK IV SCH (10:09)
[2023-10-18] MEDS: MAG-OX TAB PO SCH (10:10)
[2023-10-18] MEDS: K-DUR TAB 20 MEQ PO SCH (10:10)
[2023-10-18] MEDS ORDERED: NORCO 5/325 MG TAB PO PRN (18:02)
--- NOTE | 2023-10-18 18:55 | DR.H&P ---
H&P History & Physical for Day of: H&P Date: 10/18/23 Chief Complaint Chief Complaint: Unresponsive/hypoglycemia/hypothermia History of Present Illness History of Present Illness: This is a 67-year-old white female with a history of multiple medical problems. She was found unresponsive at home and was very cold. EMS was called, and when they got there, they found that the patient was extremely hypothermic at 92 F with profoundly low blood sugar and unresponsive. She was also found to be very hypoglycemic, and they gave her two amps of D50 en route to the emergency department at the [facility]. When she arrive d, her temperature was taken, and it was found to be 93 F. She remained hypoglycemic with exceptionally low glucose and ended up getting two more amps of D50. Afterward, she started having an increase in her blood sugar as well as her body temperature. As she was being treated, her mental status became more coherent. The patient had lab work drawn and a urinalysis done. Urinalysis showed that she had had a UTI, and the patient was found to have a chronic stage III decubitus of the right heel with purulent drainage and a foul odor. She has recently restarted going to wound care as an outpatient, but I am not exactly sure where. She states that she had not been receiving wound care for a while and only just recently started going back. There is a concern about her being septic. She became more coherent after the patient's blood sugar was corrected and her body temperature warmed up yesterday evening. It continued to improve and normalize before she left the emergency department. She had a blood culture drawn in the emergency department. Later, after she got to the ICU, another blood culture was done. She was also found to have leukocytosis and dehydration. She was given IV fluid overnight as well as IV vancomycin and Invanz, and by this morning, she was coherent and speaking. Her white count has improved to 10,500, and her BUN and creatinine levels have also improved. Past Medical History Past Medical History: Anemia, Arthritis, COPD, Diabetes, Migraines, GERD, Gout, Hypertension, Hypothyroidism, Kidney Stones, Renal Disease and Sleep Apnea Past Surgical History Surgical History: Hysterectomy, Thyroidectomy and Tonsillectomy Family History Family Medical History: Diabetes Mellitus, Cancer, PR and Hypertension Social History Does patient currently use any type of tobacco product: No Have you used tobacco products in the last 12 months: No Type of Tobacco Use: None Does any household member use tobacco: No Alcohol Use: None Drug Use: None and Prescription Drugs Medications Home Medications: Home Medications Medication Instructions Recorded Confirmed Type allopurinol 300 mg tablet 300 mg PO DAILY 08/07/23 10/17/23 History aspirin 81 mg chewable tablet 81 mg PO DAILY 08/07/23 10/17/23 History benazepril 20 mg tablet 20 mg PO DAILY 08/07/23 10/17/23 History duloxetine 60 mg capsule,delayed 60 mg PO QDAY 08/07/23 10/17/23 History release empagliflozin 10 mg tablet 10 mg PO DAILY 08/07/23 10/17/23 History (Jardiance) hydroxychloroquine 200 mg tablet 200 mg PO DAILY 08/07/23 10/17/23 History lovastatin 40 mg tablet 40 mg PO HS 08/07/23 10/17/23 History metoprolol tartrate 50 mg tablet 50 mg PO HS 08/07/23 10/17/23 History montelukast 10 mg tablet 10 mg PO HS 08/07/23 10/17/23 History polysaccharide iron complex 150 mg 150 mg DAILY 08/07/23 10/17/23 History iron capsule pramipexole 0.5 mg tablet 0.5 mg PO BID 08/07/23 10/17/23 History topiramate 100 mg tablet 100 mg PO BID 08/07/23 10/17/23 History verapamil 240 mg tablet,extended 240 mg PO DAILY 08/07/23 10/17/23 History release tizanidine 4 mg tablet 4 mg PO TID PRN 08/28/23 10/17/23 History levothyroxine 150 mcg tablet 150 mcg PO DAILY 09/02/23 10/17/23 History Allergies Allergies Allergy/AdvReac Type Severity Reaction Status Date / Time erythromycin base Allergy Intermediate Verified 08/28/23 14:13 diclofenac [From Voltaren] Allergy Unknown Verified 08/28/23 14:13 Fish Containing Products Allergy Unknown Verified 08/28/23 14:13 gabapentin Allergy Unknown Verified 08/28/23 14:13 ibuprofen [Nuprin] Allergy Unknown Verified 08/28/23 14:13 nalbuphine [From Nubain] Allergy Unknown Verified 08/28/23 14:13 Penicillins Allergy Unknown Verified 08/28/23 14:13 shrimp Allergy Unknown Verified 08/28/23 14:13 sumatriptan [Imitrex] Allergy Unknown Verified 08/28/23 14:13 minocycline Allergy Verified 08/28/23 14:13 morphine Allergy Verified 08/28/23 14:13 oyster extract Allergy Verified 08/28/23 14:13 penicillin G Allergy Verified 08/28/23 14:13 promethazine [From Phenergan] Allergy Verified 08/28/23 14:13 Labs 10/18/23 04:20 10/18/23 04:20 Labs: 10/17/23 17:28 Foot - Right Wound Gram Stain - Final 10/17/23 17:28 Foot - Right Wound Culture - Preliminary 10/17/23 17:28 Urine,Clean Catch Urine Culture - Preliminary Laboratory WBC 10.5 X10^3/uL (3.6-10.0) H 10/18/23 04:20 RBC 3.74 X10^6/uL (3.5-5.4) 10/18/23 04:20 Hgb 10.7 g/dL (12.0-16.0) L 10/18/23 04:20 Hct 33.9 % (36.0-47.0) L 10/18/23 04:20 MCV 90.8 fL (80.0-100.0) 10/18/23 04:20 MCH 28.7 pg (27.0-34.0) 10/18/23 04:20 MCHC 31.6 g/dL (33.0-35.0) L 10/18/23 04:20 RDW 15.4 % (11.6-16.5) 10/18/23 04:20 Plt Count 245 X10^3/uL (150.0-450.0) 10/18/23 04:20 Plt Count Comment Adequate (ADEQUATE) 10/17/23 17:25 MPV 8.3 fL (7.4-11.0) 10/18/23 04:20 Neut % (Auto) 79.3 % (42.0-75.0) H 10/18/23 04:20 Lymph % (Auto) 12.7 % (21.0-51.0) L 10/18/23 04:20 Gray % (Auto) 7.1 % (0.0-13.0) 10/18/23 04:20 Eos % (Auto) 0.8 % (0.9-2.9) L 10/18/23 04:20 Baso % (Auto) 0.1 % (0.2-1.0) L 10/18/23 04:20 Neut # (Auto) 8.4 x10^3/uL (2.2-4.8) H 10/18/23 04:20 Lymph # (Auto) 1.3 X10^3/uL (1.3-2.9) 10/18/23 04:20 Gray # (Auto) 0.7 x10^3/uL (0.3-0.8) 10/18/23 04:20 Eos # (Auto) 0.1 x10^3/uL (0.0-0.2) 10/18/23 04:20 Baso # (Auto) 0.0 X10^3/uL (0.0-0.1) 10/18/23 04:20 Absolute Nucleated RBC 0.0 /100WBC 10/18/23 04:20 Total Counted 100 10/17/23 17:25 Neutrophils % (Manual) 95 % (39-76) H 10/17/23 17:25 Lymphocytes % (Manual) 3 % (13-43) L 10/17/23 17:25 Monocytes % (Manual) 2 % (4-9) L 10/17/23 17:25 Plt Morphology Comment Normal (NORMAL) 10/17/23 17:25 RBC Morphology Normal (NORMAL) 10/17/23 17:25 PT 15.1 SECONDS (11.8-14.3) 10/18/23 04:20 INR Target Range - 10/18/23 04:20 INR 1.22 (0.8-1.3) 10/18/23 04:20 APTT 31.7 SECONDS (22.9-36.5) 10/18/23 04:20 PTT Comment - 10/18/23 04:20 Sodium 141 mmol/L (136-145) 10/18/23 04:20 Corrected Sodium TNP 10/18/23 04:20 Potassium 4.4 mmol/L (3.5-5.1) 10/18/23 04:20 Chloride 106 mmol/L (98-107) 10/18/23 04:20 Carbon Dioxide 26.5 mmol/L (21-32) 10/18/23 04:20 BUN 33 mg/dL (7-18) H 10/18/23 04:20 Creatinine 1.06 mg/dL (0.55-1.02) H 10/18/23 04:20 Est GFR (MDRD) Af Amer > 60 (>60) 10/18/23 04:20 Est GFR (MDRD) Non-Af 55 (>60) L 10/18/23 04:20 Glucose 101 mg/dL (65-99) H 10/18/23 04:20 POC Glucose (mg/dL) 115 mg/dL (65-99) H 10/18/23 16:00 Lactic Acid 0.9 mmol/L (0.4-2.0) 10/17/23 19:25 Calcium 8.6 mg/dL (8.5-10.1) 10/18/23 04:20 Corrected Calcium 10.0 mg/dL (8.5-10.1) 10/18/23 04:20 Magnesium 1.8 mg/dL (2.0-2.9) L 10/18/23 04:20 Total Bilirubin 0.10 mg/dL (0.2-1.0) L 10/18/23 04:20 AST 19 Units/L (15-37) 10/18/23 04:20 ALT 17 Units/L (12-78) 10/18/23 04:20 Alkaline Phosphatase 104 Units/L (46-116) 10/18/23 04:20 Total Protein 6.0 g/dL (6.4-8.2) L 10/18/23 04:20 Albumin 2.2 g/dL (3.4-5.0) L 10/18/23 04:20 Globulin 3.8 g/dL (2.5-4.5) 10/18/23 04:20 Albumin/Globulin Ratio 0.6 Ratio (1.1-2.1) L 10/18/23 04:20 Specimen Type Catherized urine 10/17/23 22:00 Urine Color Straw (YELLOW) 10/17/23 22:00 Urine Appearance Cloudy (CLEAR) 10/17/23 22:00 Urine pH 5.0 (5.0 - 8.0) 10/17/23 22:00 Ur Specific Tuckerman 1.010 (1.000-1.030) 10/17/23 22:00 Urine Protein 1+ (NEGATIVE) 10/17/23 22:00 Urine Glucose (UA) 3+ (NEGATIVE) 10/17/23 22:00 Urine Ketones Negative (NEGATIVE) 10/17/23 22:00 Urine Blood 1+ (NEGATIVE) 10/17/23 22:00 Urine Nitrite Negative (NEGATIVE) 10/17/23 22:00 Urine Bilirubin Negative (NEGATIVE) 10/17/23 22:00 Urine Urobilinogen Normal (NORMAL) 10/17/23 22:00 Ur Leukocyte Esterase 3+ (NEGATIVE) 10/17/23 22:00 Urine RBC 10-20 /HPF (0-3) A 10/17/23 22:00 Urine WBC 30-50 /HPF (0-5) A 10/17/23 22:00 Ur Squamous Epith Cells Rare /HPF (NEGATIVE) 10/17/23 22:00 Amorphous Sediment 1+ /HPF (NEGATIVE) 10/17/23 22:00 Urine Bacteria Trace /HPF (NEGATIVE) 10/17/23 22:00 Urine Yeast Moderate /HPF (NEGATIVE) 10/17/23 22:00 Ur Culture Indicated? Yes/culture set up 10/17/23 22:00 SARS-CoV-2 (PCR) Negative (NEGATIVE) 10/17/23 19:55 Influenza Type A (PCR) Negative (NEGATIVE) 10/17/23 19:55 Influenza Type B (PCR) Negative (NEGATIVE) 10/17/23 19:55 RSV (PCR) Negative (NEGATIVE) 10/17/23 19:55 S. pyogenes (TEM-PCR) Not detected (NOT DETECT) 10/17/23 19:55 Review of Systems Constitutional: Fever, Chills, Sweats, Weakness and Malaise Eyes: No Symptoms Reported ENT: No Symptoms Reported Respiratory: No Symptoms Reported Cardiovascular: No Symptoms Reported Gastrointestinal: No Symptoms Reported Genitourinary: Dysuria, Frequency and Incontinence Musculoskeletal: Back Pain and Foot Pain Skin: Wound Neurological: Weakness, Numbness, Incoordination and Confusion; denies Change in Speech Physical Exam Vital Signs: Vital Signs Temperature 98.3 F Temperature 98.1 F Pulse Rate 99 Pulse Rate 97 Pulse Rate 93 Pulse Rate 90 Pulse Rate 95 Pulse Rate 94 Pulse Rate 92 Pulse Rate 93 Pulse Rate 94 Pulse Rate 93 Pulse Rate 92 Pulse Rate 93 Pulse Rate 92 Pulse Rate 95 Pulse Rate 97 Pulse Rate 96 Pulse Rate 94 Pulse Rate 92 Pulse Rate 91 Pulse Rate 94 Pulse Rate 97 Pulse Rate 97 Pulse Rate 93 Pulse Rate 94 Pulse Rate 94 Pulse Rate 94 Pulse Rate 92 Pulse Rate 92 Pulse Rate 93 Pulse Rate 93 Pulse Rate 95 Pulse Rate 98 Respiratory Rate 18 Respiratory Rate 18 Respiratory Rate 20 Respiratory Rate 19 Respiratory Rate 20 Respiratory Rate 20 Respiratory Rate 20 Respiratory Rate 27 Respiratory Rate 21 Respiratory Rate 22 Respiratory Rate 21 Respiratory Rate 24 Respiratory Rate 22 Respiratory Rate 23 Respiratory Rate 23 Respiratory Rate 24 Respiratory Rate 33 Respiratory Rate 21 Respiratory Rate 21 Respiratory Rate 22 Respiratory Rate 22 Respiratory Rate 23 Respiratory Rate 25 Respiratory Rate 23 Respiratory Rate 22 Respiratory Rate 21 Respiratory Rate 21 Respiratory Rate 21 Respiratory Rate 25 Respiratory Rate 24 Respiratory Rate 24 Respiratory Rate 24 Respiratory Rate 35 Blood Pressure 141/61 Blood Pressure 170/74 Blood Pressure 164/70 Blood Pressure 142/66 Blood Pressure 150/65 Blood Pressure 141/61 Blood Pressure 130/61 Blood Pressure 122/58 Blood Pressure 140/63 Blood Pressure 133/60 Blood Pressure 152/63 Blood Pressure 106/76 Blood Pressure 135/61 Blood Pressure 135/61 Blood Pressure 126/60 Blood Pressure 114/56 Blood Pressure 114/54 O2 Sat by Pulse Oximetry 97 O2 Sat by Pulse Oximetry 96 O2 Sat by Pulse Oximetry 93 O2 Sat by Pulse Oximetry 86 O2 Sat by Pulse Oximetry 97 O2 Sat by Pulse Oximetry 96 O2 Sat by Pulse Oximetry 96 O2 Sat by Pulse Oximetry 96 O2 Sat by Pulse Oximetry 98 O2 Sat by Pulse Oximetry 97 O2 Sat by Pulse Oximetry 98 O2 Sat by Pulse Oximetry 96 O2 Sat by Pulse Oximetry 97 O2 Sat by Pulse Oximetry 97 O2 Sat by Pulse Oximetry 97 O2 Sat by Pulse Oximetry 98 O2 Sat by Pulse Oximetry 96 O2 Sat by Pulse Oximetry 96 O2 Sat by Pulse Oximetry 98 O2 Sat by Pulse Oximetry 98 O2 Sat by Pulse Oximetry 98 O2 Sat by Pulse Oximetry 97 O2 Sat by Pulse Oximetry 98 O2 Sat by Pulse Oximetry 97 O2 Sat by Pulse Oximetry 95 O2 Sat by Pulse Oximetry 95 O2 Sat by Pulse Oximetry 95 O2 Sat by Pulse Oximetry 97 O2 Sat by Pulse Oximetry 97 O2 Sat by Pulse Oximetry 98 O2 Sat by Pulse Oximetry 97 O2 Sat by Pulse Oximetry 97 Oriented: Normal, Time, Person and Place Eyes: Normal Ear: Normal Nose: Normal Throat: Normal Respiratory: Clear Throughout Cardiovascular: Normal Auscultation: Bowel Sounds: Normal Palpation: Normal Tenderness: Normal Skin: Wound (Patient has a draining foul-smelling, large decubitus ulcer of the right heel in a circular pattern that is probably 3.5 inches x 3.5 inches exposing muscle and fat.) Musculoskeletal: Back:Thoracic, Back:Lumbar, Back:Paraspinous and Tender Psychiatric: Normal Mood Description: Calm Affect: Normal Speech Pattern: Clear and Appropriate Assessment/Plan (1) Hypothermia: Qualifiers: Encounter type: initial encounter Qualified Code(s): T68.XXXA - Hypothermia, initial encounter Status: Resolved Plan: The patient was found I have significant hypothermia on the way to the hospital but manage degrees Fahrenheit. When she arrived to the bank in emergency department yesterday she was 93 F. Her hypothermia has resolved at this time but we will continue to monitor her temperature. (2) Acute UTI: Narrative Support Text: Gram stain on the urine specimen shows gram-negative rods with greater than 100,000 CFU's. Status: Acute Plan: Continue of the vancomycin and Invanz at this time. (3) Sepsis: Qualifiers: Sepsis acute organ dysfunction status: without acute organ dysfunction Narrative Support Text: Patient recently found to be profoundly hypothermic with an infected right stage III chronic heel decubitus. It is currently infected and draining and given the patient's symptoms and low body temperature with elevated white blood cell count of 14,000 it is likely that she does have underlying sepsis. Status: Acute Plan: Blood cultures x 2 are pending. The patient is receiving IV vancomycin and Invanz at this time. Continue to monitor the patient in the ICU closely in case the patient starts decompensating. (4) Wound infection: Status: Acute Plan: Consult general surgery for possible debridement of her right heel. The patient has been seen at a wound care clinic as an outpatient. She recently started back with him after not going and having treatment for quite a long time. (5) Generalized weakness: Status: Acute (6) Type 2 diabetes mellitus with morbid obesity: Status: None Plan: I will resume the patient's regular home diabetic medications. Will add/scale regular insulin if needed. (7) Sleep apnea with use of continuous positive airway pressure (CPAP): Status: None Plan: Patient may use her own CPAP device if she has brought her to the hospital or she has a family member or friend to bring him. (8) Decubitus ulcer of right heel, stage 3: Status: Acute Plan: IV vancomycin and Invanz. Follow-up with wound culture. General surgery consultation for possible wound debridement. Review H&P Reviewed: Yes Patient was examined?: Yes
[2023-10-18] MEDS: ZYLOPRIM PO SCH (19:49)
[2023-10-18] MEDS: CYMBALTA PO SCH (19:49)
[2023-10-18] MEDS: CALAN SR 240 MG PO SCH (19:49)
[2023-10-18] MEDS ORDERED: SNACK - Diabetic Appropriate PO SCH (20:00)
[2023-10-18] MEDS: SNACK - Diabetic Appropriate PO SCH (20:12)
[2023-10-18] MEDS ORDERED: PATIENT'S HOME MEDICATION (Lovastatin 40 mg tablet) PO SCH (21:00)
[2023-10-18] MEDS: KLOR-CON 10 MEQ TAB PO SCH (21:08)
[2023-10-18] MEDS: LIPITOR TAB 10 MG PO SCH (21:09)
[2023-10-18] MEDS: TOPAMAX TAB 100 MG PO SCH (21:09)
[2023-10-18] MEDS: SINGULAIR TAB 10 MG PO SCH (21:09)
[2023-10-18] MEDS: MIRAPEX TAB 0.25 MG PO SCH (21:09)
[2023-10-18] MEDS: COLACE CAP 100 MG PO SCH (21:09)
[2023-10-18] MEDS: LOPRESSOR TAB 50 MG PO SCH (21:09)
[2023-10-19 05:41] LABS: BASOPHILS % (AUTO) 0.6 % (0.2-1.0); EOSINOPHILS # (AUTO) 0.2 x10^3/uL (0.0-0.2); EOSINOPHILS % (AUTO) 2.9 % (0.9-2.9); HEMATOCRIT 33.3 % (36.0-47.0); HEMOGLOBIN 10.6 g/dL (12.0-16.0); LYMPHOCYTES % (AUTO) 26.3 % (21.0-51.0); MEAN CORPUSCULAR HEMOGLOBIN 29.3 pg (27.0-34.0); MEAN CORPUSCULAR HGB CONC 31.8 g/dL (33.0-35.0); MEAN PLATELET VOLUME 8.3 fL (7.4-11.0); MONOCYTES # (AUTO) 0.9 x10^3/uL (0.3-0.8); MONOCYTES % (AUTO) 12.1 % (0.0-13.0); NEUTROPHILS # (AUTO) 4.3 x10^3/uL (2.2-4.8); NEUTROPHILS % (AUTO) 58.1 % (42.0-75.0); PLATELET COUNT 238 X10^3/uL (150.0-450.0); RED BLOOD COUNT 3.62 X10^6/uL (3.5-5.4); RED CELL DISTRIBUTION WIDTH 15.6 % (11.6-16.5); WHITE BLOOD COUNT 7.5 X10^3/uL (3.6-10.0)
[2023-10-19] MEDS: SYNTHROID 150 mcg TAB PO SCH (05:45)
[2023-10-19] MEDS: AMARYL TAB 4 MG PO SCH (06:06)
[2023-10-19 06:21] LABS: ALANINE AMINOTRANSFERASE 17 Units/L (12-78); ALBUMIN 2.3 g/dL (3.4-5.0); ALKALINE PHOSPHATASE 98 Units/L (46-116); ASPARTATE AMINO TRANSFERASE 19 Units/L (15-37); BLOOD UREA NITROGEN 23 mg/dL (7-18); CALCIUM 8.1 mg/dL (8.5-10.1); CARBON DIOXIDE 27.8 mmol/L (21-32); CHLORIDE 105 mmol/L (98-107); COR CA(FOR HYPOALB) 9.5 mg/dL (8.5-10.1); COR NA(FOR HYPERGLY) 139 mmol/L (136-145); CREATININE 0.92 mg/dL (0.55-1.02); GLUCOSE 132 mg/dL (65-99); MAGNESIUM 1.7 mg/dL (2.0-2.9); POTASSIUM 4.9 mmol/L (3.5-5.1); SODIUM 138 mmol/L (136-145); TOTAL PROTEIN 6.4 g/dL (6.4-8.2); eGFR NON BLACK RACES > 60 (>60)
[2023-10-19] MEDS: D50W ABBOJECT SYR ONE (07:25)
[2023-10-19] MEDS ORDERED: PHARMACY COMMENT IV ONE (08:30)
[2023-10-19 09:22] LABS: CREATININE 0.93 mg/dL (0.55-1.02)
[2023-10-19 09:24] LABS: VANCOMYCIN,TROUGH 22.5 ug/mL (15-20)
--- NOTE | 2023-10-19 10:00 | PCM.PROG ---
Progress Note Progress Note for Day of Date of Exam: 10/19/23 Subjective Subjective: Patient seen at bedside, no acute events overnight. She was admitted for hypoglycemia, hypothermia and sepsis. She was found to have UTI and right heel chronic wound infection. She is currently on Invanz and Vancomycin. She remains on D5 and her glucose has improved into the 100s. She has been tolerating PO intake. Cultures are pending. Labs/imaging reviewed: -WBC 7.5 Hgb 10.6 Ma.7 BUN/Cr: 23/0.92 Glucose:135 -Urine Cx: GNR -Wound Cx: GNR -Blood Cx pending Plan: will stop D5, DC oral hypoglycemics, continue SSI. Repeat CXR. Wean O2 as tolerated. Continue IV antibiotics, follow final cultures. Will consult Podiatry for the right heel wound. Continue wound care. Replace electrolytes as per protocol. Patient does have a andino in place. Continue home medications. Monitor AM labs/imaging. Time spent for clinical assessment, reviewing labs/imaging, physical exam, de cision making and documentation greater than 45 mins. Past Medical Family Social History Allergies: Allergies erythromycin base Allergy (Intermediate, Verified 08/28/23 14:13) diclofenac [From Voltaren] Allergy (Unknown, Verified 08/28/23 14:13) Reason: Drug allergy Fish Containing Products Allergy (Unknown, Verified 08/28/23 14:13) "seafood" allergy gabapentin Allergy (Unknown, Verified 08/28/23 14:13) Reason: Drug allergy ibuprofen [Nuprin] Allergy (Unknown, Verified 08/28/23 14:13) nalbuphine [From Nubain] Allergy (Unknown, Verified 08/28/23 14:13) Penicillins Allergy (Unknown, Verified 08/28/23 14:13) shrimp Allergy (Unknown, Verified 08/28/23 14:13) "seafood" allergy sumatriptan [Imitrex] Allergy (Unknown, Verified 08/28/23 14:13) minocycline Allergy (Verified 08/28/23 14:13) morphine Allergy (Verified 08/28/23 14:13) oyster extract Allergy (Verified 08/28/23 14:13) penicillin G Allergy (Verified 08/28/23 14:13) promethazine [From Phenergan] Allergy (Verified 08/28/23 14:13) Vital Signs and I&O's Vital Signs: Vital Signs Temperature 97.9 F Temperature 98.1 F Pulse Rate 80 Pulse Rate 77 Pulse Rate 60 Pulse Rate 46 Pulse Rate 46 Pulse Rate 43 Pulse Rate 47 Pulse Rate 48 Pulse Rate 47 Pulse Rate 50 Pulse Rate 52 Pulse Rate 50 Respiratory Rate 19 Respiratory Rate 21 Respiratory Rate 32 Respiratory Rate 24 Respiratory Rate 25 Respiratory Rate 22 Respiratory Rate 24 Respiratory Rate 24 Respiratory Rate 23 Respiratory Rate 26 Respiratory Rate 28 Respiratory Rate 24 Blood Pressure 138/63 Blood Pressure 130/60 Blood Pressure 132/59 Blood Pressure 136/63 Blood Pressure 137/63 Blood Pressure 119/58 Blood Pressure 120/58 Blood Pressure 120/66 Blood Pressure 119/56 O2 Sat by Pulse Oximetry 97 O2 Sat by Pulse Oximetry 100 O2 Sat by Pulse Oximetry 99 O2 Sat by Pulse Oximetry 99 O2 Sat by Pulse Oximetry 98 O2 Sat by Pulse Oximetry 99 O2 Sat by Pulse Oximetry 98 O2 Sat by Pulse Oximetry 98 O2 Sat by Pulse Oximetry 98 O2 Sat by Pulse Oximetry 97 O2 Sat by Pulse Oximetry 98 O2 Sat by Pulse Oximetry 97 Intake and Output: Intake & Output 10/16/23 10/17/23 10/18/23 10/19/23 23:59 23:59 23:59 23:59 Intake Total 620 / 620 5863 / 5863 701 / 701 Output Total 600 / 600 5500 / 5500 550 / 550 Balance 363 / 363 151 / 151 Physical Exam Oriented: Normal, Time, Person and Place Eyes: Normal Ear: Normal Nose: Normal Throat: Normal Cardiovascular: Normal Auscultation: Bowel Sounds: Normal Palpation: Normal Tenderness: Normal Skin: Wound (Patient has a draining foul-smelling, large decubitus ulcer of the right heel in a circular pattern that is probably 3.5 inches x 3.5 inches exposing muscle and fat.) Musculoskeletal: Back:Thoracic, Back:Lumbar, Back:Paraspinous and Tender Psychiatric: Normal Mood Description: Calm Affect: Normal Speech Pattern: Clear and Appropriate Laboratory and Diagnostics 10/19/23 04:10 10/19/23 08:28 Labs: 10/17/23 17:28 Foot - Right Wound Gram Stain - Final 10/17/23 17:28 Foot - Right Wound Culture - Preliminary 10/17/23 17:28 Urine,Clean Catch Urine Culture - Preliminary Laboratory WBC 7.5 X10^3/uL (3.6-10.0) 10/19/23 04:10 RBC 3.62 X10^6/uL (3.5-5.4) 10/19/23 04:10 Hgb 10.6 g/dL (12.0-16.0) L 10/19/23 04:10 Hct 33.3 % (36.0-47.0) L 10/19/23 04:10 MCV 92.0 fL (80.0-100.0) 10/19/23 04:10 MCH 29.3 pg (27.0-34.0) 10/19/23 04:10 MCHC 31.8 g/dL (33.0-35.0) L 10/19/23 04:10 RDW 15.6 % (11.6-16.5) 10/19/23 04:10 Plt Count 238 X10^3/uL (150.0-450.0) 10/19/23 04:10 Plt Count Comment Adequate (ADEQUATE) 10/17/23 17:25 MPV 8.3 fL (7.4-11.0) 10/19/23 04:10 Neut % (Auto) 58.1 % (42.0-75.0) 10/19/23 04:10 Lymph % (Auto) 26.3 % (21.0-51.0) 10/19/23 04:10 [place] % (Auto) 12.1 % (0.0-13.0) 10/19/23 04:10 Eos % (Auto) 2.9 % (0.9-2.9) 10/19/23 04:10 Baso % (Auto) 0.6 % (0.2-1.0) 10/19/23 04:10 Neut # (Auto) 4.3 x10^3/uL (2.2-4.8) 10/19/23 04:10 Lymph # (Auto) 2.0 X10^3/uL (1.3-2.9) 10/19/23 04:10 [place] # (Auto) 0.9 x10^3/uL (0.3-0.8) H 10/19/23 04:10 Eos # (Auto) 0.2 x10^3/uL (0.0-0.2) 10/19/23 04:10 Baso # (Auto) 0.0 X10^3/uL (0.0-0.1) 10/19/23 04:10 Absolute Nucleated RBC 0.1 /100WBC 10/19/23 04:10 Total Counted 100 10/17/23 17:25 Neutrophils % (Manual) 95 % (39-76) H 10/17/23 17:25 Lymphocytes % (Manual) 3 % (13-43) L 10/17/23 17:25 Monocytes % (Manual) 2 % (4-9) L 10/17/23 17:25 Plt Morphology Comment Normal (NORMAL) 10/17/23 17:25 RBC Morphology Normal (NORMAL) 10/17/23 17:25 PT 15.1 SECONDS (11.8-14.3) 10/18/23 04:20 INR Target Range - 10/18/23 04:20 INR 1.22 (0.8-1.3) 10/18/23 04:20 APTT 31.7 SECONDS (22.9-36.5) 10/18/23 04:20 PTT Comment - 10/18/23 04:20 Sodium 138 mmol/L (136-145) 10/19/23 04:10 Corrected Sodium 139 mmol/L (136-145) 10/19/23 04:10 Potassium 4.9 mmol/L (3.5-5.1) 10/19/23 04:10 Chloride 105 mmol/L (98-107) 10/19/23 04:10 Carbon Dioxide 27.8 mmol/L (21-32) 10/19/23 04:10 BUN 23 mg/dL (7-18) H 10/19/23 04:10 Creatinine 0.93 mg/dL (0.55-1.02) 10/19/23 08:28 Est GFR (MDRD) Af Amer > 60 (>60) 10/19/23 04:10 Est GFR (MDRD) Non-Af > 60 (>60) 10/19/23 04:10 Glucose 132 mg/dL (65-99) H 10/19/23 04:10 POC Glucose (mg/dL) 135 mg/dL (65-99) H 10/19/23 05:44 Lactic Acid 0.9 mmol/L (0.4-2.0) 10/17/23 19:25 Calcium 8.1 mg/dL (8.5-10.1) L 10/19/23 04:10 Corrected Calcium 9.5 mg/dL (8.5-10.1) 10/19/23 04:10 Magnesium 1.7 mg/dL (2.0-2.9) L 10/19/23 04:10 Total Bilirubin 0.10 mg/dL (0.2-1.0) L 10/19/23 04:10 AST 19 Units/L (15-37) 10/19/23 04:10 ALT 17 Units/L (12-78) 10/19/23 04:10 Alkaline Phosphatase 98 Units/L (46-116) 10/19/23 04:10 Total Protein 6.4 g/dL (6.4-8.2) 10/19/23 04:10 Albumin 2.3 g/dL (3.4-5.0) L 10/19/23 04:10 Globulin 4.1 g/dL (2.5-4.5) 10/19/23 04:10 Albumin/Globulin Ratio 0.6 Ratio (1.1-2.1) L 10/19/23 04:10 Specimen Type Catherized urine 10/17/23 22:00 Urine Color Straw (YELLOW) 10/17/23 22:00 Urine Appearance Cloudy (CLEAR) 10/17/23 22:00 Urine pH 5.0 (5.0 - 8.0) 10/17/23 22:00 Ur Specific [place] 1.010 (1.000-1.030) 10/17/23 22:00 Urine Protein 1+ (NEGATIVE) 10/17/23 22:00 Urine Glucose (UA) 3+ (NEGATIVE) 10/17/23 22:00 Urine Ketones Negative (NEGATIVE) 10/17/23 22:00 Urine Blood 1+ (NEGATIVE) 10/17/23 22:00 Urine Nitrite Negative (NEGATIVE) 10/17/23 22:00 Urine Bilirubin Negative (NEGATIVE) 10/17/23 22:00 Urine Urobilinogen Normal (NORMAL) 10/17/23 22:00 Ur Leukocyte Esterase 3+ (NEGATIVE) 10/17/23 22:00 Urine RBC 10-20 /HPF (0-3) A 10/17/23 22:00 Urine WBC 30-50 /HPF (0-5) A 10/17/23 22:00 Ur Squamous Epith Cells Rare /HPF (NEGATIVE) 10/17/23 22:00 Amorphous Sediment 1+ /HPF (NEGATIVE) 10/17/23 22:00 Urine Bacteria Trace /HPF (NEGATIVE) 10/17/23 22:00 Urine Yeast Moderate /HPF (NEGATIVE) 10/17/23 22:00 Ur Culture Indicated? Yes/culture set up 10/17/23 22:00 Vancomycin Trough 22.5 ug/mL (15-20) H* 10/19/23 08:28 SARS-CoV-2 (PCR) Negative (NEGATIVE) 10/17/23 19:55 Influenza Type A (PCR) Negative (NEGATIVE) 10/17/23 19:55 Influenza Type B (PCR) Negative (NEGATIVE) 10/17/23 19:55 RSV (PCR) Negative (NEGATIVE) 10/17/23 19:55 S. pyogenes (TEM-PCR) Not detected (NOT DETECT) 10/17/23 19:55 Plan (1) Acute UTI: Status: Acute (2) Sepsis: Status: Acute Qualifiers: Sepsis acute organ dysfunction status: without acute organ dysfunction Sepsis type: sepsis due to unspecified organism Qualified Code(s): A41.9 - Sepsis, unspecified organism (3) Wound infection: Status: Acute (4) Generalized weakness: Status: Acute (5) Type 2 diabetes mellitus with morbid obesity: Status: None (6) Sleep apnea with use of continuous positive airway pressure (CPAP): Status: None Plan: Patient may use her own CPAP device if she has brought her to the hospital or she has a family member or friend to bring him. (7) Decubitus ulcer of right heel, stage 3: Status: Acute (8) CHF (congestive heart failure): Status: Acute Qualifiers: Heart failure chronicity: unspecified Heart failure type: unspecified Qualified Code(s): I50.9 - Heart failure, unspecified (9) Hypomagnesemia: Status: Acute
[2023-10-19] MEDS: PLAQUENIL PO SCH (10:05)
[2023-10-19] MEDS: LOTENSIN TAB 10 MG PO SCH (10:05)
[2023-10-19] MEDS: LOPRESSOR TAB 25 MG PO SCH (10:53)
[2023-10-19] MEDS: NYSTATIN POWDER TOP SCH (10:53)
[2023-10-19] MEDS: LOVENOX INJ 40 MG SYR SC SCH (10:54)
[2023-10-19] MEDS ORDERED: D5 NS 1,000 ML IV 1,000 ML IV SCH (14:00)
--- NOTE | 2023-10-19 14:14 | RAD ---
EXAM:CHEST x-ray, 1 VIEWHISTORY:PULMONARY EDEMA -COMPARISON:X-ray 10/17/2023FINDINGS:Borderline CHF without evidence of pulmonary edema. Appearance may have slightly worsened from prior study. No suggestion of pneumonia. No pneumothorax or pleural effusion is seen. Right CP angle is not completely included on the study.IMPRESSION:Borderline CHF, similar to prior study. No pulmonary edema is seen.THIS IS AN ELECTRONICALLY VERIFIED FINAL REPORT10/19/2023 2:11 PM - Electronically signed by Lux Manning MD
[2023-10-19] MEDS: MERREM VIAL 1 G in NS 100 ML IV 100 ML IV SCH (14:41)
[2023-10-19] MEDS: LASIX IVP ONE (16:58)
[2023-10-19] MEDS ORDERED: CONSULT PHARMACY - POTASSIUM & MAGNESIUM XX SCH (20:00)
[2023-10-19] MEDS: MAG-OX TAB PO SCH (20:22)
[2023-10-19] MEDS ORDERED: STERILE WATER IRRIGATION IR ONE (20:28)
[2023-10-19] MEDS: ZANAFLEX PO PRN (22:38)
[2023-10-19] MEDS: MILK OF MAGNESIA PO SCH (23:02)
[2023-10-20] MEDS ORDERED: MERREM VIAL ONE (04:27)
[2023-10-20 05:32] LABS: BASOPHILS % (AUTO) 0.3 % (0.2-1.0); EOSINOPHILS # (AUTO) 0.2 x10^3/uL (0.0-0.2); EOSINOPHILS % (AUTO) 2.9 % (0.9-2.9); HEMOGLOBIN 10.6 g/dL (12.0-16.0); LYMPHOCYTES # (AUTO) 1.9 X10^3/uL (1.3-2.9); LYMPHOCYTES % (AUTO) 28.2 % (21.0-51.0); MEAN CORPUSCULAR HEMOGLOBIN 29.7 pg (27.0-34.0); MEAN CORPUSCULAR VOLUME 92.7 fL (80.0-100.0); MONOCYTES # (AUTO) 0.5 x10^3/uL (0.3-0.8); MONOCYTES % (AUTO) 7.5 % (0.0-13.0); NEUTROPHILS # (AUTO) 4.2 x10^3/uL (2.2-4.8); NEUTROPHILS % (AUTO) 61.1 % (42.0-75.0); PLATELET COUNT 235 X10^3/uL (150.0-450.0); RED BLOOD COUNT 3.56 X10^6/uL (3.5-5.4); RED CELL DISTRIBUTION WIDTH 15.8 % (11.6-16.5); WHITE BLOOD COUNT 6.9 X10^3/uL (3.6-10.0)
[2023-10-20 05:43] LABS: ALANINE AMINOTRANSFERASE 15 Units/L (12-78); ALBUMIN 2.3 g/dL (3.4-5.0); ALKALINE PHOSPHATASE 94 Units/L (46-116); ASPARTATE AMINO TRANSFERASE 17 Units/L (15-37); BLOOD UREA NITROGEN 23 mg/dL (7-18); CALCIUM 8.1 mg/dL (8.5-10.1); CARBON DIOXIDE 32.3 mmol/L (21-32); CHLORIDE 104 mmol/L (98-107); COR CA(FOR HYPOALB) 9.5 mg/dL (8.5-10.1); CREATININE 0.96 mg/dL (0.55-1.02); GLUCOSE 91 mg/dL (65-99); MAGNESIUM 1.8 mg/dL (2.0-2.9); POTASSIUM 4.2 mmol/L (3.5-5.1); SODIUM 139 mmol/L (136-145); TOTAL PROTEIN 6.2 g/dL (6.4-8.2); eGFR NON BLACK RACES > 60 (>60)
[2023-10-20] MEDS ORDERED: CONSULT PHARMACY - POTASSIUM & MAGNESIUM XX SCH (07:00)
[2023-10-20] MEDS: PHARMACY COMMENT IV NR (08:07)
--- NOTE | 2023-10-20 09:23 | PCM.PROG ---
Progress Note Progress Note for Day of Date of Exam: 10/20/23 Subjective Subjective: Patient seen at bedside, no acute events overnight. She is doing slightly better. Podiatry has been consulted for right heel ulcer. She was switched to Meropenem yesterday based on wound culture sensitivity. Her glucose dropped to the 80s. She has been eating better. She did not get any oral hypoglycemics or insulin yesterday. Patient did get one dose of IV lasix yesterday Labs/imaging reviewed: -WBC 6.9 Hgb 10.6 Ma.8 BUN/Cr: 23/0.96 Glucose:85 -CXR: borderline CHF -Urine Cx: GNR -Wound Cx: see report -Blood Cx pending Plan: Wean O2 as tolerated. Continue IV antibiotics, follow final cultures. Podiatry consulted for right heel wound. Continue wound care. Replace ramya ctrolytes as per protocol. Patient does have a andino in place. Continue home medications. Hold oral hypoglycemics, continue SSI. Monitor AM labs/imaging. Time spent for clinical assessment, reviewing labs/imaging, physical exam, decision making and documentation greater than 45 mins. Past Medical Family Social History Allergies: Allergies erythromycin base Allergy (Intermediate, Verified 08/28/23 14:13) diclofenac [From Voltaren] Allergy (Unknown, Verified 08/28/23 14:13) Reason: Drug allergy Fish Containing Products Allergy (Unknown, Verified 08/28/23 14:13) "seafood" allergy gabapentin Allergy (Unknown, Verified 08/28/23 14:13) Reason: Drug allergy ibuprofen [Nuprin] Allergy (Unknown, Verified 08/28/23 14:13) nalbuphine [From Nubain] Allergy (Unknown, Verified 08/28/23 14:13) Penicillins Allergy (Unknown, Verified 08/28/23 14:13) shrimp Allergy (Unknown, Verified 08/28/23 14:13) "seafood" allergy sumatriptan [Imitrex] Allergy (Unknown, Verified 08/28/23 14:13) minocycline Allergy (Verified 08/28/23 14:13) morphine Allergy (Verified 08/28/23 14:13) oyster extract Allergy (Verified 08/28/23 14:13) penicillin G Allergy (Verified 08/28/23 14:13) promethazine [From Phenergan] Allergy (Verified 08/28/23 14:13) Vital Signs and I&O's Vital Signs: Vital Signs Temperature 98.8 F Temperature 98.1 F Pulse Rate 86 Pulse Rate 85 Pulse Rate 81 Pulse Rate 80 Pulse Rate 81 Pulse Rate 80 Pulse Rate 80 Pulse Rate 73 Pulse Rate 77 Pulse Rate 79 Pulse Rate 79 Pulse Rate 76 Pulse Rate 75 Pulse Rate 76 Respiratory Rate 28 Respiratory Rate 13 Respiratory Rate 17 Respiratory Rate 17 Respiratory Rate 16 Respiratory Rate 17 Respiratory Rate 18 Respiratory Rate 15 Respiratory Rate 17 Respiratory Rate 17 Respiratory Rate 18 Respiratory Rate 33 Respiratory Rate 33 Respiratory Rate 19 Blood Pressure 145/69 Blood Pressure 147/64 Blood Pressure 149/67 Blood Pressure 157/72 Blood Pressure 157/72 Blood Pressure 122/57 Blood Pressure 122/57 Blood Pressure 142/72 Blood Pressure 142/72 Blood Pressure 142/67 Blood Pressure 142/67 Blood Pressure 127/60 Blood Pressure 127/60 O2 Sat by Pulse Oximetry 98 O2 Sat by Pulse Oximetry 98 O2 Sat by Pulse Oximetry 98 O2 Sat by Pulse Oximetry 100 O2 Sat by Pulse Oximetry 100 O2 Sat by Pulse Oximetry 100 O2 Sat by Pulse Oximetry 100 O2 Sat by Pulse Oximetry 100 O2 Sat by Pulse Oximetry 95 O2 Sat by Pulse Oximetry 96 O2 Sat by Pulse Oximetry 97 O2 Sat by Pulse Oximetry 99 O2 Sat by Pulse Oximetry 100 O2 Sat by Pulse Oximetry 97 Intake and Output: Intake & Output 10/17/23 10/18/23 10/19/23 10/20/23 23:59 23:59 23:59 23:59 Intake Total 620 / 620 5863 / 5863 2369 / 2369 200 / 200 Output Total 600 / 600 5500 / 5500 2500 / 2500 1350 / 1350 Balance 363 / 363 -131 / -131 -1150 / -1150 Physical Exam Oriented: Normal, Time, Person and Place Eyes: Normal Ear: Normal Nose: Normal Throat: Normal Respiratory: Generalized and Diminished Cardiovascular: Normal Auscultation: Bowel Sounds: Normal Palpation: Normal Tenderness: Normal Skin: Wound (Patient has a draining foul-smelling, large decubitus ulcer of the right heel in a circular pattern that is probably 3.5 inches x 3.5 inches exposing muscle and fat.) Musculoskeletal: Back:Thoracic, Back:Lumbar, Back:Paraspinous and Tender Psychiatric: Normal Mood Description: Calm Affect: Normal Speech Pattern: Clear and Appropriate Laboratory and Diagnostics 10/20/23 04:30 10/20/23 04:30 Labs: 10/17/23 17:35 Blood Blood Culture - Preliminary 10/17/23 17:25 Blood Blood Culture - Preliminary 10/17/23 17:28 Foot - Right Wound Gram Stain - Final 10/17/23 17:28 Foot - Right Wound Culture - Preliminary Citrobacter Freundii Morganella Morganii 10/17/23 17:28 Urine,Clean Catch Urine Culture - Preliminary Laboratory WBC 6.9 X10^3/uL (3.6-10.0) 10/20/23 04:30 RBC 3.56 X10^6/uL (3.5-5.4) 10/20/23 04:30 Hgb 10.6 g/dL (12.0-16.0) L 10/20/23 04:30 Hct 33.0 % (36.0-47.0) L 10/20/23 04:30 MCV 92.7 fL (80.0-100.0) 10/20/23 04:30 MCH 29.7 pg (27.0-34.0) 10/20/23 04:30 MCHC 32.0 g/dL (33.0-35.0) L 10/20/23 04:30 RDW 15.8 % (11.6-16.5) 10/20/23 04:30 Plt Count 235 X10^3/uL (150.0-450.0) 10/20/23 04:30 Plt Count Comment Adequate (ADEQUATE) 10/17/23 17:25 MPV 8.0 fL (7.4-11.0) 10/20/23 04:30 Neut % (Auto) 61.1 % (42.0-75.0) 10/20/23 04:30 Lymph % (Auto) 28.2 % (21.0-51.0) 10/20/23 04:30 [place] % (Auto) 7.5 % (0.0-13.0) 10/20/23 04:30 Eos % (Auto) 2.9 % (0.9-2.9) 10/20/23 04:30 Baso % (Auto) 0.3 % (0.2-1.0) 10/20/23 04:30 Neut # (Auto) 4.2 x10^3/uL (2.2-4.8) 10/20/23 04:30 Lymph # (Auto) 1.9 X10^3/uL (1.3-2.9) 10/20/23 04:30 [place] # (Auto) 0.5 x10^3/uL (0.3-0.8) 10/20/23 04:30 Eos # (Auto) 0.2 x10^3/uL (0.0-0.2) 10/20/23 04:30 Baso # (Auto) 0.0 X10^3/uL (0.0-0.1) 10/20/23 04:30 Absolute Nucleated RBC 0.1 /100WBC 10/20/23 04:30 Total Counted 100 10/17/23 17:25 Neutrophils % (Manual) 95 % (39-76) H 10/17/23 17:25 Lymphocytes % (Manual) 3 % (13-43) L 10/17/23 17:25 Monocytes % (Manual) 2 % (4-9) L 10/17/23 17:25 Plt Morphology Comment Normal (NORMAL) 10/17/23 17:25 RBC Morphology Normal (NORMAL) 10/17/23 17:25 PT 15.1 SECONDS (11.8-14.3) 10/18/23 04:20 INR Target Range - 10/18/23 04:20 INR 1.22 (0.8-1.3) 10/18/23 04:20 APTT 31.7 SECONDS (22.9-36.5) 10/18/23 04:20 PTT Comment - 10/18/23 04:20 Sodium 139 mmol/L (136-145) 10/20/23 04:30 Corrected Sodium TNP 10/20/23 04:30 Potassium 4.2 mmol/L (3.5-5.1) 10/20/23 04:30 Chloride 104 mmol/L (98-107) 10/20/23 04:30 Carbon Dioxide 32.3 mmol/L (21-32) H 10/20/23 04:30 BUN 23 mg/dL (7-18) H 10/20/23 04:30 Creatinine 0.96 mg/dL (0.55-1.02) 10/20/23 04:30 Est GFR (MDRD) Af Amer > 60 (>60) 10/20/23 04:30 Est GFR (MDRD) Non-Af > 60 (>60) 10/20/23 04:30 Glucose 91 mg/dL (65-99) 10/20/23 04:30 POC Glucose (mg/dL) 85 mg/dL (65-99) 10/20/23 05:37 Lactic Acid 0.9 mmol/L (0.4-2.0) 10/17/23 19:25 Calcium 8.1 mg/dL (8.5-10.1) L 10/20/23 04:30 Corrected Calcium 9.5 mg/dL (8.5-10.1) 10/20/23 04:30 Magnesium 1.8 mg/dL (2.0-2.9) L 10/20/23 04:30 Total Bilirubin 0.10 mg/dL (0.2-1.0) L 10/20/23 04:30 AST 17 Units/L (15-37) 10/20/23 04:30 ALT 15 Units/L (12-78) 10/20/23 04:30 Alkaline Phosphatase 94 Units/L (46-116) 10/20/23 04:30 Total Protein 6.2 g/dL (6.4-8.2) L 10/20/23 04:30 Albumin 2.3 g/dL (3.4-5.0) L 10/20/23 04:30 Globulin 3.9 g/dL (2.5-4.5) 10/20/23 04:30 Albumin/Globulin Ratio 0.6 Ratio (1.1-2.1) L 10/20/23 04:30 Specimen Type Catherized urine 10/17/23 22:00 Urine Color Straw (YELLOW) 10/17/23 22:00 Urine Appearance Cloudy (CLEAR) 10/17/23 22:00 Urine pH 5.0 (5.0 - 8.0) 10/17/23 22:00 Ur Specific [place] 1.010 (1.000-1.030) 10/17/23 22:00 Urine Protein 1+ (NEGATIVE) 10/17/23 22:00 Urine Glucose (UA) 3+ (NEGATIVE) 10/17/23 22:00 Urine Ketones Negative (NEGATIVE) 10/17/23 22:00 Urine Blood 1+ (NEGATIVE) 10/17/23 22:00 Urine Nitrite Negative (NEGATIVE) 10/17/23 22:00 Urine Bilirubin Negative (NEGATIVE) 10/17/23 22:00 Urine Urobilinogen Normal (NORMAL) 10/17/23 22:00 Ur Leukocyte Esterase 3+ (NEGATIVE) 10/17/23 22:00 Urine RBC 10-20 /HPF (0-3) A 10/17/23 22:00 Urine WBC 30-50 /HPF (0-5) A 10/17/23 22:00 Ur Squamous Epith Cells Rare /HPF (NEGATIVE) 10/17/23 22:00 Amorphous Sediment 1+ /HPF (NEGATIVE) 10/17/23 22:00 Urine Bacteria Trace /HPF (NEGATIVE) 10/17/23 22:00 Urine Yeast Moderate /HPF (NEGATIVE) 10/17/23 22:00 Ur Culture Indicated? Yes/culture set up 10/17/23 22:00 Vancomycin Trough 22.5 ug/mL (15-20) H* 10/19/23 08:28 Random Vancomycin 13.0 ug/mL 10/20/23 04:30 SARS-CoV-2 (PCR) Negative (NEGATIVE) 10/17/23 19:55 Influenza Type A (PCR) Negative (NEGATIVE) 10/17/23 19:55 Influenza Type B (PCR) Negative (NEGATIVE) 10/17/23 19:55 RSV (PCR) Negative (NEGATIVE) 10/17/23 19:55 S. pyogenes (TEM-PCR) Not detected (NOT DETECT) 10/17/23 19:55 Plan (1) Acute UTI: Status: Acute (2) Sepsis: Status: Acute Qualifiers: Sepsis acute organ dysfunction status: without acute organ dysfunction Sepsis type: sepsis due to unspecified organism Qualified Code(s): A41.9 - Sepsis, unspecified organism (3) Wound infection: Status: Acute (4) Generalized weakness: Status: Acute (5) Type 2 diabetes mellitus with morbid obesity: Status: None (6) Sleep apnea with use of continuous positive airway pressure (CPAP): Status: None (7) Decubitus ulcer of right heel, stage 3: Status: Acute (8) CHF (congestive heart failure): Status: Acute Qualifiers: Heart failure chronicity: unspecified Heart failure type: unspecified Qualified Code(s): I50.9 - Heart failure, unspecified (9) Hypomagnesemia: Status: Acute
[2023-10-20] MEDS: MAG-OX TAB PO SCH (13:10)
--- NOTE | 2023-10-20 14:54 | DR.CONSULT ---
CONSULT Consultation for Day of: Date: 10/20/23 Chief Complaint Chief Complaint: Infection, Right Heel Allergies Allergies Allergy/AdvReac Type Severity Reaction Status Date / Time erythromycin base Allergy Intermediate Verified 08/28/23 14:13 diclofenac [From Voltaren] Allergy Unknown Verified 08/28/23 14:13 Fish Containing Products Allergy Unknown Verified 08/28/23 14:13 gabapentin Allergy Unknown Verified 08/28/23 14:13 ibuprofen [Nuprin] Allergy Unknown Verified 08/28/23 14:13 nalbuphine [From Nubain] Allergy Unknown Verified 08/28/23 14:13 Penicillins Allergy Unknown Verified 08/28/23 14:13 shrimp Allergy Unknown Verified 08/28/23 14:13 sumatriptan [Imitrex] Allergy Unknown Verified 08/28/23 14:13 minocycline Allergy Verified 08/28/23 14:13 morphine Allergy Verified 08/28/23 14:13 oyster extract Allergy Verified 08/28/23 14:13 penicillin G Allergy Verified 08/28/23 14:13 promethazine [From Phenergan] Allergy Verified 08/28/23 14:13 History of Present Illness History of Present Illness: Ms. Graham is well known to the Podiatry team. She has been seeing the wound care center in [place] for continued treatment. She was recently found unresponsive by her family in the recliner. Per family her blood glucose was 30 at the time. The family also believes the patient has not been going to her wound care appointments as well. She was admitted and Podiatry was consulted for evaluation of the right plantar heel. Past Medical History Past Medical History: Anemia, Arthritis, COPD, Diabetes, Migraines, GERD, Gout, Hypertension, Hypothyroidism, Kidney Stones, Renal Disease and Sleep Apnea Past Surgical History Surgical History: Hysterectomy, Thyroidectomy and Tonsillectomy Family History Family Medical History: Diabetes Mellitus, Cancer, [place] and Hypertension Social History Does patient currently use any type of tobacco product: No Have you used tobacco products in the last 12 months: No Type of Tobacco Use: None Does any household member use tobacco: No Alcohol Use: None Drug Use: None and Prescription Drugs Medications Home Medications: erythromycin base Allergy (Intermediate, Verified 08/28/23 14:13) diclofenac [From Voltaren] Allergy (Unknown, Verified 08/28/23 14:13) Fish Containing Products Allergy (Unknown, Verified 08/28/23 14:13) gabapentin Allergy (Unknown, Verified 08/28/23 14:13) ibuprofen [Nuprin] Allergy (Unknown, Verified 08/28/23 14:13) nalbuphine [From Nubain] Allergy (Unknown, Verified 08/28/23 14:13) Penicillins Allergy (Unknown, Verified 08/28/23 14:13) shrimp Allergy (Unknown, Verified 08/28/23 14:13) sumatriptan [Imitrex] Allergy (Unknown, Verified 08/28/23 14:13) minocycline Allergy (Verified 08/28/23 14:13) morphine Allergy (Verified 08/28/23 14:13) oyster extract Allergy (Verified 08/28/23 14:13) penicillin G Allergy (Verified 08/28/23 14:13) promethazine [From Phenergan] Allergy (Verified 08/28/23 14:13) Physical Exam Vital Signs: Vital Signs Temperature 98.6 F Temperature 98.8 F Pulse Rate 66 Pulse Rate 77 Pulse Rate 75 Pulse Rate 74 Pulse Rate 73 Pulse Rate 86 Pulse Rate 85 Pulse Rate 81 Respiratory Rate 22 Respiratory Rate 28 Respiratory Rate 17 Respiratory Rate 30 Respiratory Rate 21 Respiratory Rate 28 Respiratory Rate 13 Respiratory Rate 17 Blood Pressure 134/65 Blood Pressure 164/74 Blood Pressure 137/61 Blood Pressure 133/61 Blood Pressure 145/69 Blood Pressure 147/64 Blood Pressure 149/67 O2 Sat by Pulse Oximetry 98 O2 Sat by Pulse Oximetry 97 O2 Sat by Pulse Oximetry 96 O2 Sat by Pulse Oximetry 98 O2 Sat by Pulse Oximetry 97 O2 Sat by Pulse Oximetry 98 O2 Sat by Pulse Oximetry 98 O2 Sat by Pulse Oximetry 98 Skin: Wound (5 cm x 5 cmx down to the level of plantar fascia and flexor digitorum brevis muscle with gross purulent drainage. The wound is located on the plantar/posterior heel. There is gross infection. ) Musculoskeletal: Right (Foot: Open wound, see above. MSK is noted to be 5/5 to invertors, evertors, dorsiflexors, plantarflexors. Pulses are noted to be intact. CFT WNL to all digits. Epicritic sensation is absent.) Plan (1) Acute UTI: Status: Acute Narrative Support Text: Primary treating. (2) Sepsis: Status: Acute Qualifiers: Sepsis acute organ dysfunction status: without acute organ dysfunction Sepsis type: sepsis due to unspecified organism Qualified Code(s): A41.9 - Sepsis, unspecified organism Narrative Support Text: See wound infection. (3) Wound infection: Status: Acute Narrative Support Text: - Patient has a wound infection to the plantar heel, right. - I discussed with her family members at bedside there is a high risk that the patient may lose her leg. As she has multiple medical comorbidities and she is not following up on her healthcare either. - An order for an MRI was placed to evaluate for osteomyelitis of the calcaneus, I expect there is some present. If there is osteomyelitis present, then patient will require a subtotal calcaectomy with external fixator application to offload the right leg while it heals. We will consider placing antibiotic beads as well. We will obtain cultures and pathology reports as well. She will likely require budget technician antibiotics oral v IV, to be determined. Oral more likely has they attempted PICC access before and were unable to obtain one. - She will like require continued local wound care once out of the hospital. - Patient and family are aware of the above outlined plan and are amendable. - Patient is scheduled for surgical intervention tomorrow. - NPO order placed. (4) Generalized weakness: Status: Acute Narrative Support Text: Primary managing. (5) Type 2 diabetes mellitus with morbid obesity: Status: None Narrative Support Text: Primary managing. (6) Sleep apnea with use of continuous positive airway pressure (CPAP): Status: None (7) Decubitus ulcer of right heel, stage 3: Status: Acute (8) CHF (congestive heart failure): Status: Acute Qualifiers: Heart failure chronicity: unspecified Heart failure type: unspecified Qualified Code(s): I50.9 - Heart failure, unspecified (9) Hypomagnesemia: Status: Acute
--- NOTE | 2023-10-20 21:56 | MRI ---
EXAM:EXT LOWER NON-JOINT W/O CONHISTORY:RIGHT ANKLE/HEEL WOUND;COMPARISON:08/28/2023 CTTECHNIQUE:Multiplanar multisequence MRI of the right ankle was obtained utilizing standard departmental protocol.FINDINGS:Diffuse subcutaneous edema with visible plantar ulceration at the medial aspect of the heel extending towards the calcaneus. No obvious abscess on this noncontrast study. There is diffuse bone marrow edema within the plantar aspect of the calcaneus with low T1 signal at this region suggesting osteomyelitis and there is cortical disruption at this site as well. This does represent a notable change since the previous CT with ulceration having developed.Bone infarct noted within the distal tibia as on prior CT with scattered degenerative changes in the visualized foot. Old 1st proximal metatarsal fracture deformity evident and mild hallux valgus deformity with mild degenerative changes at the 1st metatarsophalangeal joint.Visualized flexor and extensor tendons are unremarkable. Motion degraded study please note. Dorsal foot subcutaneous edema. No definable abscess on this noncontrast study.IMPRESSION:1. Visible ulceration medial aspect of the heel has developed since the previous CT with diffuse edema/cellulitis in this region. In addition, there is osteomyelitis involvement at the plantar aspect of the calcaneus at the central plantar and medial plantar aspect of the calcaneus adjacent to the wound site with cortical disruption evident. No definable abscess on this noncontrast study.THIS IS AN ELECTRONICALLY VERIFIED FINAL REPORT10/20/2023 9:52 PM - Electronically signed by Parag Sousa MD
[2023-10-21] MEDS ORDERED: HIBICLENS WASH ONE (04:13)
[2023-10-21] MEDS: HIBICLENS WASH EXT ONE (04:19)
[2023-10-21 05:40] LABS: HEMOGLOBIN 10.5 g/dL (12.0-16.0); MEAN CORPUSCULAR VOLUME 91.8 fL (80.0-100.0)
[2023-10-21 05:50] LABS: BASOPHILS % (AUTO) 0.4 % (0.2-1.0); EOSINOPHILS # (AUTO) 0.2 x10^3/uL (0.0-0.2); EOSINOPHILS % (AUTO) 3.1 % (0.9-2.9); HEMATOCRIT 33.2 % (36.0-47.0); LYMPHOCYTES # (AUTO) 1.9 X10^3/uL (1.3-2.9); LYMPHOCYTES % (AUTO) 27.8 % (21.0-51.0); MEAN CORPUSCULAR HEMOGLOBIN 29.1 pg (27.0-34.0); MEAN CORPUSCULAR HGB CONC 31.7 g/dL (33.0-35.0); MEAN PLATELET VOLUME 8.2 fL (7.4-11.0); MONOCYTES # (AUTO) 0.6 x10^3/uL (0.3-0.8); MONOCYTES % (AUTO) 9.2 % (0.0-13.0); NEUTROPHILS # (AUTO) 4.1 x10^3/uL (2.2-4.8); NEUTROPHILS % (AUTO) 59.5 % (42.0-75.0); PLATELET COUNT 253 X10^3/uL (150.0-450.0); RED BLOOD COUNT 3.61 X10^6/uL (3.5-5.4); RED CELL DISTRIBUTION WIDTH 15.2 % (11.6-16.5); WHITE BLOOD COUNT 6.9 X10^3/uL (3.6-10.0)
[2023-10-21 05:54] LABS: ALANINE AMINOTRANSFERASE 14 Units/L (12-78); ALBUMIN 2.3 g/dL (3.4-5.0); ALKALINE PHOSPHATASE 90 Units/L (46-116); ASPARTATE AMINO TRANSFERASE 13 Units/L (15-37); BLOOD UREA NITROGEN 20 mg/dL (7-18); CALCIUM 8.1 mg/dL (8.5-10.1); CARBON DIOXIDE 30.6 mmol/L (21-32); CHLORIDE 105 mmol/L (98-107); COR CA(FOR HYPOALB) 9.5 mg/dL (8.5-10.1); CREATININE 0.79 mg/dL (0.55-1.02); GLUCOSE 88 mg/dL (65-99); MAGNESIUM 1.8 mg/dL (2.0-2.9); POTASSIUM 4.3 mmol/L (3.5-5.1); SODIUM 139 mmol/L (136-145); TOTAL PROTEIN 6.2 g/dL (6.4-8.2); eGFR NON BLACK RACES > 60 (>60)
[2023-10-21] MEDS ORDERED: CONSULT PHARMACY - POTASSIUM & MAGNESIUM XX SCH (07:00)
[2023-10-21] MEDS: MAGNESIUM SULFATE 1 GRAM/100 mL PREMIX 1 G/100 ML BAG IV SCH (09:30)
--- NOTE | 2023-10-21 09:55 | PCM.PROG ---
Progress Note Progress Note for Day of Date of Exam: 10/21/23 Subjective Subjective: Patient seen at bedside, no acute events overnight. Podiatry saw the patient yesterday and she is scheduled to go to the OR today for debridement and wound vac placement. MRI of right foot is concerning for osteomyelitis. She has been getting IV Meropenem. Her glucose has been stable, reports eating better. Labs/imaging reviewed: -WBC 6.9 Hgb 10.5 Ma.8 BUN/Cr: 20/0.79 Glucose:88 -MRI RLE: see report -Urine Cx: Enterobacter -Wound Cx: see report -Blood Cx no growth Plan: Follow podiatry recommendations, OR today. NPO status. Wean O2 as tolerated. Continue IV antibiotics. Continue wound care. Replace electrolytes as per protocol. Patient does have a andino in place. Continue home medications. Hold oral hypoglycemics, continue SSI. Monitor AM labs/imaging. Time spent for clinical assessment, reviewing labs/imaging, physical exam, decision making and documentation greater than 45 mins. Past Medical Family Social History Allergies: Allergies erythromycin base Allergy (Intermediate, Verified 08/28/23 14:13) diclofenac [From Voltaren] Allergy (Unknown, Verified 08/28/23 14:13) Reason: Drug allergy Fish Containing Products Allergy (Unknown, Verified 08/28/23 14:13) "seafood" allergy gabapentin Allergy (Unknown, Verified 08/28/23 14:13) Reason: Drug allergy ibuprofen [Nuprin] Allergy (Unknown, Verified 08/28/23 14:13) nalbuphine [From Nubain] Allergy (Unknown, Verified 08/28/23 14:13) Penicillins Allergy (Unknown, Verified 08/28/23 14:13) shrimp Allergy (Unknown, Verified 08/28/23 14:13) "seafood" allergy sumatriptan [Imitrex] Allergy (Unknown, Verified 08/28/23 14:13) minocycline Allergy (Verified 08/28/23 14:13) morphine Allergy (Verified 08/28/23 14:13) oyster extract Allergy (Verified 08/28/23 14:13) penicillin G Allergy (Verified 08/28/23 14:13) promethazine [From Phenergan] Allergy (Verified 08/28/23 14:13) Vital Signs and I&O's Vital Signs: Vital Signs Temperature 98.3 F Pulse Rate 76 Pulse Rate 75 Pulse Rate 71 Pulse Rate 62 Pulse Rate 67 Respiratory Rate 17 Respiratory Rate 20 Respiratory Rate 18 Respiratory Rate 21 Respiratory Rate 17 Blood Pressure 157/74 Blood Pressure 138/64 Blood Pressure 110/58 Blood Pressure 104/54 Blood Pressure 107/51 O2 Sat by Pulse Oximetry 99 O2 Sat by Pulse Oximetry 95 O2 Sat by Pulse Oximetry 97 O2 Sat by Pulse Oximetry 93 O2 Sat by Pulse Oximetry 96 Intake and Output: Intake & Output 10/18/23 10/19/23 10/20/23 10/21/23 23:59 23:59 23:59 23:59 Intake Total 5863 / 5863 2369 / 2369 1438 / 1438 100 / 100 Output Total 5500 / 5500 2500 / 2500 3700 / 3700 1100 / 1100 Balance 363 / 363 -131 / -131 -2262 / -2262 -1000 / -1000 Physical Exam Oriented: Normal, Time, Person and Place Eyes: Normal Ear: Normal Nose: Normal Throat: Normal Respiratory: Generalized and Diminished Cardiovascular: Normal Auscultation: Bowel Sounds: Normal Tenderness: Normal Skin: Wound (5 cm x 5 cmx down to the level of plantar fascia and flexor digitorum brevis muscle with gross purulent drainage. The wound is located on the plantar/posterior heel. There is gross infection. ) Musculoskeletal: Right (Foot: Open wound, see above. MSK is noted to be 5/5 to invertors, evertors, dorsiflexors, plantarflexors. Pulses are noted to be intact. CFT WNL to all digits. Epicritic sensation is absent.) Psychiatric: Normal Mood Description: Calm Affect: Normal Speech Pattern: Clear and Appropriate Laboratory and Diagnostics 10/21/23 04:15 10/21/23 04:15 Labs: 10/17/23 17:28 Urine,Clean Catch Urine Culture - Final Enterobacter Cloacae 10/17/23 17:28 Foot - Right Wound Gram Stain - Final 10/17/23 17:28 Foot - Right Wound Culture - Final Citrobacter Freundii Morganella Morganii 10/17/23 17:35 Blood Blood Culture - Preliminary 10/17/23 17:25 Blood Blood Culture - Preliminary Laboratory WBC 6.9 X10^3/uL (3.6-10.0) 10/21/23 04:15 RBC 3.61 X10^6/uL (3.5-5.4) 10/21/23 04:15 Hgb 10.5 g/dL (12.0-16.0) L 10/21/23 04:15 Hct 33.2 % (36.0-47.0) L 10/21/23 04:15 MCV 91.8 fL (80.0-100.0) 10/21/23 04:15 MCH 29.1 pg (27.0-34.0) 10/21/23 04:15 MCHC 31.7 g/dL (33.0-35.0) L 10/21/23 04:15 RDW 15.2 % (11.6-16.5) 10/21/23 04:15 Plt Count 253 X10^3/uL (150.0-450.0) 10/21/23 04:15 Plt Count Comment Adequate (ADEQUATE) 10/17/23 17:25 MPV 8.2 fL (7.4-11.0) 10/21/23 04:15 Neut % (Auto) 59.5 % (42.0-75.0) 10/21/23 04:15 Lymph % (Auto) 27.8 % (21.0-51.0) 10/21/23 04:15 [place] % (Auto) 9.2 % (0.0-13.0) 10/21/23 04:15 Eos % (Auto) 3.1 % (0.9-2.9) H 10/21/23 04:15 Baso % (Auto) 0.4 % (0.2-1.0) 10/21/23 04:15 Neut # (Auto) 4.1 x10^3/uL (2.2-4.8) 10/21/23 04:15 Lymph # (Auto) 1.9 X10^3/uL (1.3-2.9) 10/21/23 04:15 [place] # (Auto) 0.6 x10^3/uL (0.3-0.8) 10/21/23 04:15 Eos # (Auto) 0.2 x10^3/uL (0.0-0.2) 10/21/23 04:15 Baso # (Auto) 0.0 X10^3/uL (0.0-0.1) 10/21/23 04:15 Absolute Nucleated RBC 0.1 /100WBC 10/21/23 04:15 Total Counted 100 10/17/23 17:25 Neutrophils % (Manual) 95 % (39-76) H 10/17/23 17:25 Lymphocytes % (Manual) 3 % (13-43) L 10/17/23 17:25 Monocytes % (Manual) 2 % (4-9) L 10/17/23 17:25 Plt Morphology Comment Normal (NORMAL) 10/17/23 17:25 RBC Morphology Normal (NORMAL) 10/17/23 17:25 PT 15.1 SECONDS (11.8-14.3) 10/18/23 04:20 INR Target Range - 10/18/23 04:20 INR 1.22 (0.8-1.3) 10/18/23 04:20 APTT 31.7 SECONDS (22.9-36.5) 10/18/23 04:20 PTT Comment - 10/18/23 04:20 Sodium 139 mmol/L (136-145) 10/21/23 04:15 Corrected Sodium TNP 10/21/23 04:15 Potassium 4.3 mmol/L (3.5-5.1) 10/21/23 04:15 Chloride 105 mmol/L (98-107) 10/21/23 04:15 Carbon Dioxide 30.6 mmol/L (21-32) 10/21/23 04:15 BUN 20 mg/dL (7-18) H 10/21/23 04:15 Creatinine 0.79 mg/dL (0.55-1.02) 10/21/23 04:15 Est GFR (MDRD) Af Amer > 60 (>60) 10/21/23 04:15 Est GFR (MDRD) Non-Af > 60 (>60) 10/21/23 04:15 Glucose 88 mg/dL (65-99) 10/21/23 04:15 POC Glucose (mg/dL) 87 mg/dL (65-99) 10/21/23 05:43 Lactic Acid 0.9 mmol/L (0.4-2.0) 10/17/23 19:25 Calcium 8.1 mg/dL (8.5-10.1) L 10/21/23 04:15 Corrected Calcium 9.5 mg/dL (8.5-10.1) 10/21/23 04:15 Magnesium 1.8 mg/dL (2.0-2.9) L 10/21/23 04:15 Total Bilirubin 0.10 mg/dL (0.2-1.0) L 10/21/23 04:15 AST 13 Units/L (15-37) L 10/21/23 04:15 ALT 14 Units/L (12-78) 10/21/23 04:15 Alkaline Phosphatase 90 Units/L (46-116) 10/21/23 04:15 Total Protein 6.2 g/dL (6.4-8.2) L 10/21/23 04:15 Albumin 2.3 g/dL (3.4-5.0) L 10/21/23 04:15 Globulin 3.9 g/dL (2.5-4.5) 10/21/23 04:15 Albumin/Globulin Ratio 0.6 Ratio (1.1-2.1) L 10/21/23 04:15 Specimen Type Catherized urine 10/17/23 22:00 Urine Color Straw (YELLOW) 10/17/23 22:00 Urine Appearance Cloudy (CLEAR) 10/17/23 22:00 Urine pH 5.0 (5.0 - 8.0) 10/17/23 22:00 Ur Specific [employer] 1.010 (1.000-1.030) 10/17/23 22:00 Urine Protein 1+ (NEGATIVE) 10/17/23 22:00 Urine Glucose (UA) 3+ (NEGATIVE) 10/17/23 22:00 Urine Ketones Negative (NEGATIVE) 10/17/23 22:00 Urine Blood 1+ (NEGATIVE) 10/17/23 22:00 Urine Nitrite Negative (NEGATIVE) 10/17/23 22:00 Urine Bilirubin Negative (NEGATIVE) 10/17/23 22:00 Urine Urobilinogen Normal (NORMAL) 10/17/23 22:00 Ur Leukocyte Esterase 3+ (NEGATIVE) 10/17/23 22:00 Urine RBC 10-20 /HPF (0-3) A 10/17/23 22:00 Urine WBC 30-50 /HPF (0-5) A 10/17/23 22:00 Ur Squamous Epith Cells Rare /HPF (NEGATIVE) 10/17/23 22:00 Amorphous Sediment 1+ /HPF (NEGATIVE) 10/17/23 22:00 Urine Bacteria Trace /HPF (NEGATIVE) 10/17/23 22:00 Urine Yeast Moderate /HPF (NEGATIVE) 10/17/23 22:00 Ur Culture Indicated? Yes/culture set up 10/17/23 22:00 Vancomycin Trough 22.5 ug/mL (15-20) H* 10/19/23 08:28 Random Vancomycin 13.0 ug/mL 10/20/23 04:30 SARS-CoV-2 (PCR) Negative (NEGATIVE) 10/17/23 19:55 Influenza Type A (PCR) Negative (NEGATIVE) 10/17/23 19:55 Influenza Type B (PCR) Negative (NEGATIVE) 10/17/23 19:55 RSV (PCR) Negative (NEGATIVE) 10/17/23 19:55 S. pyogenes (TEM-PCR) Not detected (NOT DETECT) 10/17/23 19:55 Plan (1) Osteomyelitis of right foot: Status: Acute Qualifiers: Osteomyelitis type: chronic, with draining sinus Qualified Code(s): M86.471 - Chronic osteomyelitis with draining sinus, right ankle and foot (2) Acute UTI: Status: Acute (3) Decubitus ulcer of right heel, stage 3: Status: Acute Plan: IV vancomycin and Invanz. Follow-up with wound culture. General surgery consultation for possible wound debridement. (4) Wound infection: Status: Acute (5) Generalized weakness: Status: Acute (6) Type 2 diabetes mellitus with morbid obesity: Status: None (7) Sleep apnea with use of continuous positive airway pressure (CPAP): Status: None (8) CHF (congestive heart failure): Status: Acute Qualifiers: Heart failure chronicity: unspecified Heart failure type: unspecified Qualified Code(s): I50.9 - Heart failure, unspecified (9) Hypomagnesemia: Status: Acute
--- NOTE | 2023-10-21 13:07 | EKG ---
Test Reason : Pre-operative patient Blood Pressure : */* mmHG Vent. Rate : 67 BPM Atrial Rate : 67 BPM P-R Int : 400 ms QRS Dur : 96 ms QT Int : 398 ms P-R-T Axes : 20 -49 31 degrees QTc Int : 420 ms Sinus rhythm with 1st degree AV block Left axis deviation Poor R-wave progression Pulmonary disease pattern Abnormal ECG When compared with ECG of 30-AUG-2023 10:18, Sinus rhythm has replaced Junctional rhythm QRS axis shifted left Confirmed by Reji Palmer MD ([id number]) on 10/22/2023 6:00:59 AM Referred By: Confirmed By: Reji Palmer MD
[2023-10-21] MEDS: NS 1,000 ML IV 1,000 ML ONE (13:23)
[2023-10-21] MEDS: FENTANYL VIAL INJ 100 mcg ONE (14:50)
[2023-10-21] MEDS: VERSED ONE (14:50)
[2023-10-21] MEDS: ZOFRAN INJ 4 MG VIAL ONE (14:50)
[2023-10-21] MEDS: DIPRIVAN VIAL 20 ML ONE ×2 (14:50→15:36)
[2023-10-21] MEDS ORDERED: KETAMINE HCL ONE (14:50)
[2023-10-21] MEDS: MARCAINE 0.25% INJ ONE (15:03)
[2023-10-21] MEDS: BETADINE SOLN ONE (15:03)
[2023-10-21] MEDS: XYLOCAINE 1 % (PLAIN) ONE ×2 (15:09→16:07)
[2023-10-21] MEDS: TOBRAMYCIN SULFATE ONE (15:39)
[2023-10-21] MEDS: EPHEDRINE SULFATE INJ ONE (15:39)
[2023-10-21] MEDS: VANCOMYCIN HCL ONE (15:39)
[2023-10-21] MEDS: NEO-SYNEPHRINE INJ ONE (15:46)
[2023-10-21] MEDS: PREDNISONE TAB 10 MG PO SCH (18:16)
[2023-10-21] MEDS: NS 250 ML IV 250 ML IV ONE (21:36)
[2023-10-22] MEDS: PREDNISONE TAB 10 MG PO SCH ×2 (00:43→06:11)
[2023-10-22 05:23] LABS: BASOPHILS % (AUTO) 0.1 % (0.2-1.0); HEMATOCRIT 36.9 % (36.0-47.0); HEMOGLOBIN 11.8 g/dL (12.0-16.0); LYMPHOCYTES # (AUTO) 0.6 X10^3/uL (1.3-2.9); LYMPHOCYTES % (AUTO) 6.9 % (21.0-51.0); MEAN CORPUSCULAR HEMOGLOBIN 29.5 pg (27.0-34.0); MEAN CORPUSCULAR HGB CONC 32.1 g/dL (33.0-35.0); MEAN PLATELET VOLUME 7.9 fL (7.4-11.0); MONOCYTES # (AUTO) 0.2 x10^3/uL (0.3-0.8); NEUTROPHILS # (AUTO) 8.1 x10^3/uL (2.2-4.8); PLATELET COUNT 281 X10^3/uL (150.0-450.0); RED BLOOD COUNT 4.01 X10^6/uL (3.5-5.4); RED CELL DISTRIBUTION WIDTH 15.1 % (11.6-16.5); WHITE BLOOD COUNT 8.9 X10^3/uL (3.6-10.0)
[2023-10-22 05:35] LABS: ALANINE AMINOTRANSFERASE 15 Units/L (12-78); ALBUMIN 2.6 g/dL (3.4-5.0); ALKALINE PHOSPHATASE 105 Units/L (46-116); ASPARTATE AMINO TRANSFERASE 17 Units/L (15-37); BLOOD UREA NITROGEN 16 mg/dL (7-18); CALCIUM 8.6 mg/dL (8.5-10.1); CARBON DIOXIDE 30.6 mmol/L (21-32); CHLORIDE 103 mmol/L (98-107); COR CA(FOR HYPOALB) 9.7 mg/dL (8.5-10.1); COR NA(FOR HYPERGLY) 140 mmol/L (136-145); CREATININE 0.79 mg/dL (0.55-1.02); GLUCOSE 198 mg/dL (65-99); MAGNESIUM 1.9 mg/dL (2.0-2.9); POTASSIUM 4.6 mmol/L (3.5-5.1); SODIUM 138 mmol/L (136-145); TOTAL PROTEIN 7.2 g/dL (6.4-8.2); eGFR NON BLACK RACES > 60 (>60)
[2023-10-22] MEDS: BENADRYL CAP 50 MG PO SCH (06:11)
[2023-10-22 06:34] LABS: BAND NEUTROPHILS % 4 % (0-10)
[2023-10-22 06:35] LABS: BASOPHILS % (MANUAL) 1 % (0-1); PLATELET MORPHOLOGY COMMENT NORMAL (NORMAL)
--- NOTE | 2023-10-22 09:12 | DR.CONSULT ---
CONSULT Consultation for Day of: Date: 10/21/23 Chief Complaint Chief Complaint: Non- healing right heel decubitus/ diabetic foot ulcer Allergies Allergies Allergy/AdvReac Type Severity Reaction Status Date / Time erythromycin base Allergy Intermediate Verified 08/28/23 14:13 diclofenac [From Voltaren] Allergy Unknown Verified 08/28/23 14:13 Fish Containing Products Allergy Unknown Verified 08/28/23 14:13 gabapentin Allergy Unknown Verified 08/28/23 14:13 ibuprofen [Nuprin] Allergy Unknown Verified 08/28/23 14:13 nalbuphine [From Nubain] Allergy Unknown Verified 08/28/23 14:13 Penicillins Allergy Unknown Verified 08/28/23 14:13 sumatriptan [Imitrex] Allergy Unknown Verified 08/28/23 14:13 minocycline Allergy Verified 08/28/23 14:13 morphine Allergy Verified 08/28/23 14:13 oyster extract Allergy Verified 08/28/23 14:13 penicillin G Allergy Verified 08/28/23 14:13 promethazine [From Phenergan] Allergy Verified 08/28/23 14:13 History of Present Illness History of Present Illness: This patient is a 67 year old, morbidly obese female who was seen by me 3 months ago for non-healing wound to the right heel. At that time I felt she had palpable pulses. She has not been going to wound care as she was supposed to and was found recently unresponsive with hypoglycemia and hypothermia. Patient does have history of diabetes. She was resuscitated with warm blankets I, IV fluids and glucos and is doing better .Her neurological status is within normal limits. She has a large wound to the right heel. She underwent debridement the right heel wound with biopsy of the calcaneus and placement of a external fixator yesterday. There was concern about her blood flow to the right foot as the wound did not bleed very much, as reported. Past Medical History Past Medical History: Anemia, Arthritis, COPD, Diabetes, Migraines, GERD, Gout, Hypertension, Hypothyroidism, Kidney Stones, Renal Disease and Sleep Apnea Past Surgical History Surgical History: Hysterectomy, Thyroidectomy and Tonsillectomy Family History Family Medical History: Diabetes Mellitus, Cancer, [place] and Hypertension Social History Does patient currently use any type of tobacco product: No Have you used tobacco products in the last 12 months: No Type of Tobacco Use: None Does any household member use tobacco: No Alcohol Use: None Drug Use: None and Prescription Drugs Medications Home Medications: erythromycin base Allergy (Intermediate, Verified 08/28/23 14:13) diclofenac [From Voltaren] Allergy (Unknown, Verified 08/28/23 14:13) Fish Containing Products Allergy (Unknown, Verified 08/28/23 14:13) gabapentin Allergy (Unknown, Verified 08/28/23 14:13) ibuprofen [Nuprin] Allergy (Unknown, Verified 08/28/23 14:13) nalbuphine [From Nubain] Allergy (Unknown, Verified 08/28/23 14:13) Penicillins Allergy (Unknown, Verified 08/28/23 14:13) sumatriptan [Imitrex] Allergy (Unknown, Verified 08/28/23 14:13) minocycline Allergy (Verified 08/28/23 14:13) morphine Allergy (Verified 08/28/23 14:13) oyster extract Allergy (Verified 08/28/23 14:13) penicillin G Allergy (Verified 08/28/23 14:13) promethazine [From Phenergan] Allergy (Verified 08/28/23 14:13) Review of Systems Constitutional: See HPI Eyes: No Symptoms Reported ENT: No Symptoms Reported Respiratory: No Symptoms Reported Cardiovascular: No Symptoms Reported Gastrointestinal: No Symptoms Reported Genitourinary: No Symptoms Reported Musculoskeletal: No Symptoms Reported Skin: No Symptoms Reported Neurological: See HPI Physical Exam Vital Signs: Vital Signs Temperature 98.0 F Temperature 98.2 F Temperature 98.2 F Temperature 98.2 F Temperature 98.2 F Temperature 98.2 F Pulse Rate 79 Pulse Rate 79 Pulse Rate 74 Pulse Rate 66 Pulse Rate 57 Pulse Rate 52 Pulse Rate 47 Pulse Rate 44 Pulse Rate 42 Pulse Rate 45 Respiratory Rate 22 Respiratory Rate 27 Respiratory Rate 24 Respiratory Rate 23 Respiratory Rate 19 Respiratory Rate 18 Respiratory Rate 22 Respiratory Rate 18 Respiratory Rate 20 Respiratory Rate 27 Respiratory Rate 23 Respiratory Rate 22 Blood Pressure 116/62 Blood Pressure 137/68 Blood Pressure 144/64 Blood Pressure 133/65 Blood Pressure 127/61 Blood Pressure 127/60 Blood Pressure 138/60 Blood Pressure 137/63 Blood Pressure 110/50 Blood Pressure 122/58 O2 Sat by Pulse Oximetry 79 O2 Sat by Pulse Oximetry 100 O2 Sat by Pulse Oximetry 100 O2 Sat by Pulse Oximetry 99 O2 Sat by Pulse Oximetry 100 O2 Sat by Pulse Oximetry 97 O2 Sat by Pulse Oximetry 100 O2 Sat by Pulse Oximetry 96 O2 Sat by Pulse Oximetry 96 Oriented: Normal, Time, Person and Place Eyes: Normal Ear: Normal Nose: Normal Throat: Normal Respiratory: Clear Throughout Cardiovascular: Normal and Other (Cannot palpate pulses on the right leg due to the external fixator getting in the way. difficult to palpate femoral pulses due to her significant morBID obesity ) : Normal Auscultation: Bowel Sounds: Normal Palpation: Normal Tenderness: Normal Skin: Other (8 centimeter reported ulcer to the right heel ) Musculoskeletal: Normal Psychiatric: Normal Mood Description: Calm Affect: Normal Speech Pattern: Clear and Appropriate Plan (1) Osteomyelitis of right foot: Status: Acute Qualifiers: Osteomyelitis type: chronic, with draining sinus Qualified Code(s): M86.471 - Chronic osteomyelitis with draining sinus, right ankle and foot Plan: will obtain CT and of the aorta with bilateral runoff and re- evaluate for possible intervention in the right leg. (2) Acute UTI: Status: Acute (3) Decubitus ulcer of right heel, stage 3: Status: Acute (4) Wound infection: Status: Acute (5) Generalized weakness: Status: Acute (6) Type 2 diabetes mellitus with morbid obesity: Status: None (7) Sleep apnea with use of continuous positive airway pressure (CPAP): Status: None (8) CHF (congestive heart failure): Status: Acute Qualifiers: Heart failure chronicity: unspecified Heart failure type: unspecified Qualified Code(s): I50.9 - Heart failure, unspecified (9) Hypomagnesemia: Status: Acute
--- NOTE | 2023-10-22 09:41 | NOTE.SOAP ---
Soap Note Note for Day of Date of Exam: 10/22/23 Subjective Data Subjective Data: Patient resting in bed. External fixator in place. Strikethrough noted at dressing site. Objective Data Objective Data: Right Lower Extremity Exam: CFT WNL to all digits. Dressing was taken down, antibiotic beads are in place. Wound on the plantar/posterior heel looks improved when compared to prior examinations. Beads were not removed. No drainage coming from pin sites. No calf or thigh pain concerning for DVT, PE, or Compartment Syndrome. Assessment Assessment: 67 year old diabetic morbidly obese female with calcaneal osteomyelitis who is now s/p POD#1 partial calcectomy with antibiotic bead placement and external fixator placement to offload the heel, right Plan Plan: - Strict NWB to the RLE. - Redressed surgical site with betadine, 4x4s, Kerlix, JOSÉ LUIS. - Following culture results, pending. - Currently on meropenem. - CTA reviewed, does not appear to have flow issues to the vessels distal the knee. Waiting on formal read and any recommendations from Dr. Worthy. - Will take down dressing, remove antibiotic beads, and apply wound vac on 10/23/2023. - Also planning on surgical intervention on 10/26/2023 which will likely consist of debridement, antibiotic bead placement, external fixator adjustment. - [facility] plan is patient will likely require placement, continued wound care, and possibly IV antibiotics for an extended period of time.
--- NOTE | 2023-10-22 09:43 | CT ---
EXAM: CTA abdomen, pelvis, and bilateral lower extremity runoff without and with IV contrast HISTORY: History of PVD; ; pt has ex fixator on right lower leg - COMPARISON: None. TECHNIQUE: Multiple axial images of the abdomen, pelvis, and bilateral lower extremities were obtained from the upper abdomen to the plantar surface of the feet prior to and following the administration of IV con trast. 3D reconstructions were performed utilizing radial maximum intensity projection imaging. Dos e reduction techniques including Automated Exposure Control (AEC) and adjustment of mA and kV were ut ilized. FINDINGS: There is likely cardiomegaly without pulmonary venous congestion. Tiny nonobstructing left renal sto ne is seen. Subcentimeter cyst is suspected in the superior pole of the right kidney. Urinary bladd er is decompressed with a Krueger catheter. There is fatty infiltration of the liver. Spleen is normal in size. Gallbladder and pancreas appear normal. No adrenal nodules. Normal appendix. Mild constipation in the rectosigmoid colon.A few sm all lymph nodes are seen in the pelvis. Previously treated compression fractures are seen of L3 and L2. There is likely prominent lateral re cess and neuroforaminal stenosis at L2-3 with more moderate stenoses elsewhere in the lumbar spine. Abdominal aorta: Abdominal aorta is normal in size. Mild atherosclerotic plaque is seen. No stenosi s is seen in the SMA, celiac axis, or renal arteries. NIURKA enhances normally. Common iliac arteries: No stenosis is seen in the left common iliac artery with trace calcified plaq ue in the right common iliac artery. External iliac arteries: No stenosis. Right lower extremity: Minimal calcified plaque in the right BLENDING OPERATOR causes no significant stenosis. No stenosis is seen in the right SFA or popliteal artery. Artifacts from external immobilization device limited evaluation of the lower leg. Three-vessel runoff is seen at the ankle. There is edema in t he right lower leg and ankle. Skin wound is seen laterally at the ankle with postoperative changes i n the heel. Left lower extremity: No stenosis. Three-vessel runoff is seen in the ankle. There is moderate subc utaneous edema in the calf region with more mild edema in the ankle and foot. IMPRESSION: No significant atherosclerotic changes are seen in the bilateral lower extremities. Postoperative changes are seen in the right lower leg. Lumbar spondylosis is greatest at L2-3 where there is likely compression of the bilateral L2 and L3 n erve roots. THIS IS AN ELECTRONICALLY VERIFIED FINAL REPORT 10/22/2023 9:40 AM - Electronically signed by Lux Manning MD
--- NOTE | 2023-10-22 10:30 | PCM.PROG ---
Progress Note Progress Note for Day of Date of Exam: 10/22/23 Subjective Subjective: Patient is a 67 year old female admitted for osteomyelitis of right foot. This morning she is resting in bed comfortably. No acute events overnight. Podiatry is following. She is s/p external fixation and debridement. She has been getting IV Meropenem. Labs/imaging reviewed: -WBC 8.9, hemoglobin 11.8, platelets 281, sodium 138, potassium 4.6, creatinine 0.79, glucose 198, -MRI RLE: see report -Urine Cx: Enterobacter -Wound Cx: see report -Blood Cx no growth Plan: Follow podiatry recommendations, Continue IV antibiotics. Continue wound care. Replace electrolytes as per protocol. Patient does have a andino in place. Continue home medications. Hold oral hypoglycemics, continue SSI. Vascular surgery-Dr Worthy has been consulted. Patient does have CTA runoff scheduled today. Will follow-up results.Monitor AM labs/imaging. Past Medical Family Social History Allergies: Allergies erythromycin base Allergy (Intermediate, Verified 08/28/23 14:13) diclofenac [From Voltaren] Allergy (Unknown, Verified 08/28/23 14:13) Reason: Drug allergy Fish Containing Products Allergy (Unknown, Verified 08/28/23 14:13) "seafood" allergy gabapentin Allergy (Unknown, Verified 08/28/23 14:13) Reason: Drug allergy ibuprofen [Nuprin] Allergy (Unknown, Verified 08/28/23 14:13) nalbuphine [From Nubain] Allergy (Unknown, Verified 08/28/23 14:13) Penicillins Allergy (Unknown, Verified 08/28/23 14:13) sumatriptan [Imitrex] Allergy (Unknown, Verified 08/28/23 14:13) minocycline Allergy (Verified 08/28/23 14:13) morphine Allergy (Verified 08/28/23 14:13) oyster extract Allergy (Verified 08/28/23 14:13) penicillin G Allergy (Verified 08/28/23 14:13) promethazine [From Phenergan] Allergy (Verified 08/28/23 14:13) Review of Systems ROS changes noted: see HPI Vital Signs and I&O's Vital Signs: Vital Signs Temperature 97.9 F Pulse Rate 71 Pulse Rate 89 Pulse Rate 87 Pulse Rate 81 Pulse Rate 85 Pulse Rate 81 Pulse Rate 70 Pulse Rate 85 Pulse Rate 83 Pulse Rate 72 Pulse Rate 63 Respiratory Rate 18 Respiratory Rate 18 Respiratory Rate 20 Respiratory Rate 34 Respiratory Rate 31 Respiratory Rate 17 Respiratory Rate 16 Respiratory Rate 17 Respiratory Rate 17 Respiratory Rate 20 Respiratory Rate 18 Respiratory Rate 18 Blood Pressure 154/72 Blood Pressure 154/76 Blood Pressure 150/72 Blood Pressure 137/70 Blood Pressure 147/71 Blood Pressure 149/63 Blood Pressure 149/63 Blood Pressure 125/70 Blood Pressure 124/64 Blood Pressure 124/61 O2 Sat by Pulse Oximetry 92 O2 Sat by Pulse Oximetry 97 O2 Sat by Pulse Oximetry 95 O2 Sat by Pulse Oximetry 97 O2 Sat by Pulse Oximetry 99 O2 Sat by Pulse Oximetry 99 O2 Sat by Pulse Oximetry 98 O2 Sat by Pulse Oximetry 99 O2 Sat by Pulse Oximetry 99 O2 Sat by Pulse Oximetry 90 O2 Sat by Pulse Oximetry 98 Intake and Output: Intake & Output 10/19/23 10/20/23 10/21/23 10/22/23 23:59 23:59 23:59 23:59 Intake Total 2369 / 2369 1438 / 1438 2493 / 2493 58 / 58 Output Total 2500 / 2500 3700 / 3700 4700 / 4700 800 / 800 Balance -131 / -131 -2262 / -2262 -2207 / -2207 -742 / -742 Physical Exam Oriented: Normal, Time, Person and Place Eyes: Normal Ear: Normal Nose: Normal Throat: Normal Respiratory: Generalized and Diminished Cardiovascular: Normal and Other (Cannot palpate pulses on the right leg due to the external fixator getting in the way. difficult to palpate femoral pulses due to her significant morBID obesity ) : Normal Auscultation: Bowel Sounds: Normal Tenderness: Normal Skin: Other (8 centimeter reported ulcer to the right heel ) Musculoskeletal: Normal Psychiatric: Normal Mood Description: Calm Affect: Normal Speech Pattern: Clear and Appropriate Laboratory and Diagnostics 10/22/23 04:58 10/22/23 04:58 Labs: 10/21/23 15:46 Foot - Right Wound Culture - Preliminary 10/17/23 17:28 Urine,Clean Catch Urine Culture - Final Enterobacter Cloacae 10/17/23 17:28 Foot - Right Wound Gram Stain - Final 10/17/23 17:28 Foot - Right Wound Culture - Final Citrobacter Freundii Morganella Morganii 10/17/23 17:35 Blood Blood Culture - Preliminary 10/17/23 17:25 Blood Blood Culture - Preliminary Laboratory WBC 8.9 X10^3/uL (3.6-10.0) 10/22/23 04:58 RBC 4.01 X10^6/uL (3.5-5.4) 10/22/23 04:58 Hgb 11.8 g/dL (12.0-16.0) L 10/22/23 04:58 Hct 36.9 % (36.0-47.0) 10/22/23 04:58 MCV 92.0 fL (80.0-100.0) 10/22/23 04:58 MCH 29.5 pg (27.0-34.0) 10/22/23 04:58 MCHC 32.1 g/dL (33.0-35.0) L 10/22/23 04:58 RDW 15.1 % (11.6-16.5) 10/22/23 04:58 Plt Count 281 X10^3/uL (150.0-450.0) 10/22/23 04:58 Plt Count Comment Adequate (ADEQUATE) 10/22/23 04:58 MPV 7.9 fL (7.4-11.0) 10/22/23 04:58 Neut % (Auto) 91.0 % (42.0-75.0) H 10/22/23 04:58 Lymph % (Auto) 6.9 % (21.0-51.0) L 10/22/23 04:58 [place] % (Auto) 2.0 % (0.0-13.0) 10/22/23 04:58 Eos % (Auto) 0.0 % (0.9-2.9) L 10/22/23 04:58 Baso % (Auto) 0.1 % (0.2-1.0) L 10/22/23 04:58 Neut # (Auto) 8.1 x10^3/uL (2.2-4.8) H 10/22/23 04:58 Lymph # (Auto) 0.6 X10^3/uL (1.3-2.9) L 10/22/23 04:58 [place] # (Auto) 0.2 x10^3/uL (0.3-0.8) L 10/22/23 04:58 Eos # (Auto) 0.0 x10^3/uL (0.0-0.2) 10/22/23 04:58 Baso # (Auto) 0.0 X10^3/uL (0.0-0.1) 10/22/23 04:58 Absolute Nucleated RBC 0.0 /100WBC 10/22/23 04:58 Total Counted 100 10/22/23 04:58 Neutrophils % (Manual) 87 % (39-76) H 10/22/23 04:58 Band Neutrophils % 4 % (0-10) 10/22/23 04:58 Lymphocytes % (Manual) 6 % (13-43) L 10/22/23 04:58 Monocytes % (Manual) 2 % (4-9) L 10/22/23 04:58 Basophils % (Manual) 1 % (0-1) 10/22/23 04:58 Plt Morphology Comment Normal (NORMAL) 10/22/23 04:58 RBC Morphology Normal (NORMAL) 10/22/23 04:58 PT 15.1 SECONDS (11.8-14.3) 10/18/23 04:20 INR Target Range - 10/18/23 04:20 INR 1.22 (0.8-1.3) 10/18/23 04:20 APTT 31.7 SECONDS (22.9-36.5) 10/18/23 04:20 PTT Comment - 10/18/23 04:20 Sodium 138 mmol/L (136-145) 10/22/23 04:58 Corrected Sodium 140 mmol/L (136-145) 10/22/23 04:58 Potassium 4.6 mmol/L (3.5-5.1) 10/22/23 04:58 Chloride 103 mmol/L (98-107) 10/22/23 04:58 Carbon Dioxide 30.6 mmol/L (21-32) 10/22/23 04:58 BUN 16 mg/dL (7-18) 10/22/23 04:58 Creatinine 0.79 mg/dL (0.55-1.02) 10/22/23 04:58 Est GFR (MDRD) Af Amer > 60 (>60) 10/22/23 04:58 Est GFR (MDRD) Non-Af > 60 (>60) 10/22/23 04:58 Glucose 198 mg/dL (65-99) H 10/22/23 04:58 POC Glucose (mg/dL) 207 mg/dL (65-99) H 10/22/23 05:54 Lactic Acid 0.9 mmol/L (0.4-2.0) 10/17/23 19:25 Calcium 8.6 mg/dL (8.5-10.1) 10/22/23 04:58 Corrected Calcium 9.7 mg/dL (8.5-10.1) 10/22/23 04:58 Magnesium 1.9 mg/dL (2.0-2.9) L 10/22/23 04:58 Total Bilirubin 0.10 mg/dL (0.2-1.0) L 10/22/23 04:58 AST 17 Units/L (15-37) 10/22/23 04:58 ALT 15 Units/L (12-78) 10/22/23 04:58 Alkaline Phosphatase 105 Units/L (46-116) 10/22/23 04:58 Total Protein 7.2 g/dL (6.4-8.2) 10/22/23 04:58 Albumin 2.6 g/dL (3.4-5.0) L 10/22/23 04:58 Globulin 4.6 g/dL (2.5-4.5) H 10/22/23 04:58 Albumin/Globulin Ratio 0.6 Ratio (1.1-2.1) L 10/22/23 04:58 Specimen Type Catherized urine 10/17/23 22:00 Urine Color Straw (YELLOW) 10/17/23 22:00 Urine Appearance Cloudy (CLEAR) 10/17/23 22:00 Urine pH 5.0 (5.0 - 8.0) 10/17/23 22:00 Ur Specific [place] 1.010 (1.000-1.030) 10/17/23 22:00 Urine Protein 1+ (NEGATIVE) 10/17/23 22:00 Urine Glucose (UA) 3+ (NEGATIVE) 10/17/23 22:00 Urine Ketones Negative (NEGATIVE) 10/17/23 22:00 Urine Blood 1+ (NEGATIVE) 10/17/23 22:00 Urine Nitrite Negative (NEGATIVE) 10/17/23 22:00 Urine Bilirubin Negative (NEGATIVE) 10/17/23 22:00 Urine Urobilinogen Normal (NORMAL) 10/17/23 22:00 Ur Leukocyte Esterase 3+ (NEGATIVE) 10/17/23 22:00 Urine RBC 10-20 /HPF (0-3) A 10/17/23 22:00 Urine WBC 30-50 /HPF (0-5) A 10/17/23 22:00 Ur Squamous Epith Cells Rare /HPF (NEGATIVE) 10/17/23 22:00 Amorphous Sediment 1+ /HPF (NEGATIVE) 10/17/23 22:00 Urine Bacteria Trace /HPF (NEGATIVE) 10/17/23 22:00 Urine Yeast Moderate /HPF (NEGATIVE) 10/17/23 22:00 Ur Culture Indicated? Yes/culture set up 10/17/23 22:00 Vancomycin Trough 22.5 ug/mL (15-20) H* 10/19/23 08:28 Random Vancomycin 13.0 ug/mL 10/20/23 04:30 SARS-CoV-2 (PCR) Negative (NEGATIVE) 10/17/23 19:55 Influenza Type A (PCR) Negative (NEGATIVE) 10/17/23 19:55 Influenza Type B (PCR) Negative (NEGATIVE) 10/17/23 19:55 RSV (PCR) Negative (NEGATIVE) 10/17/23 19:55 S. pyogenes (TEM-PCR) Not detected (NOT DETECT) 10/17/23 19:55 Plan (1) Osteomyelitis of right foot: Status: Acute Qualifiers: Osteomyelitis type: chronic, with draining sinus Qualified Code(s): M86.471 - Chronic osteomyelitis with draining sinus, right ankle and foot (2) Acute UTI: Status: Acute Plan: Continue Invanz at this time. (3) Decubitus ulcer of right heel, stage 3: Status: Acute Plan: IV Invanz. Follow-up with wound culture. Podiatry following (4) Wound infection: Status: Acute (5) Generalized weakness: Status: Acute (6) Type 2 diabetes mellitus with morbid obesity: Status: None Plan: I will resume the patient's regular home diabetic medications. Will add/scale regular insulin if needed. (7) Sleep apnea with use of continuous positive airway pressure (CPAP): Status: None Plan: Patient may use her own CPAP device if she has brought her to the hospital or she has a family member or friend to bring him. (8) CHF (congestive heart failure): Status: Acute Qualifiers: Heart failure chronicity: unspecified Heart failure type: unspecified Qualified Code(s): I50.9 - Heart failure, unspecified (9) Hypomagnesemia: Status: Acute
[2023-10-22] MEDS: NORCO 10/325 TAB PO PRN (15:12)
[2023-10-22] MEDS: NovoLIN R (or HumuLIN R) SUBCUT PRN (16:22)
--- NOTE | 2023-10-22 20:22 | NOTE.SOAP ---
Soap Note Note for Day of Date of Exam: 10/22/23 Subjective Data Subjective Data: Consultation for poorly healing wound of the right heel. CTA performed . Objective Data Temperature: 98.1 F Pulse Rate: 97 Respiratory Rate: 24 Blood Pressure: 123/62 O2 Sat by Pulse Oximetry: 94 Objective Data: Right foot in dressing for heel and in external fixator.. CTA of aorta with b/l runoff shows no significant stenosis of the arteries either leg. Assessment Assessment: No arterial flow problem either leg that needs correction Plan Plan: I will sign off
[2023-10-23 05:23] LABS: BASOPHILS % (AUTO) 0.2 % (0.2-1.0); EOSINOPHILS % (AUTO) 0.3 % (0.9-2.9); HEMATOCRIT 36.3 % (36.0-47.0); HEMOGLOBIN 11.6 g/dL (12.0-16.0); LYMPHOCYTES % (AUTO) 21.7 % (21.0-51.0); MEAN CORPUSCULAR HGB CONC 31.8 g/dL (33.0-35.0); MEAN CORPUSCULAR VOLUME 91.3 fL (80.0-100.0); MEAN PLATELET VOLUME 8.3 fL (7.4-11.0); MONOCYTES # (AUTO) 0.7 x10^3/uL (0.3-0.8); MONOCYTES % (AUTO) 7.4 % (0.0-13.0); NEUTROPHILS # (AUTO) 6.4 x10^3/uL (2.2-4.8); NEUTROPHILS % (AUTO) 70.4 % (42.0-75.0); PLATELET COUNT 285 X10^3/uL (150.0-450.0); RED BLOOD COUNT 3.98 X10^6/uL (3.5-5.4); RED CELL DISTRIBUTION WIDTH 15.4 % (11.6-16.5)
[2023-10-23 05:43] LABS: ALANINE AMINOTRANSFERASE 16 Units/L (12-78); ALBUMIN 2.5 g/dL (3.4-5.0); ALKALINE PHOSPHATASE 93 Units/L (46-116); ASPARTATE AMINO TRANSFERASE 14 Units/L (15-37); BLOOD UREA NITROGEN 17 mg/dL (7-18); CALCIUM 8.5 mg/dL (8.5-10.1); CARBON DIOXIDE 31.7 mmol/L (21-32); CHLORIDE 104 mmol/L (98-107); COR CA(FOR HYPOALB) 9.7 mg/dL (8.5-10.1); COR NA(FOR HYPERGLY) 141 mmol/L (136-145); CREATININE 0.77 mg/dL (0.55-1.02); GLUCOSE 120 mg/dL (65-99); MAGNESIUM 2.1 mg/dL (2.0-2.9); POTASSIUM 4.3 mmol/L (3.5-5.1); SODIUM 141 mmol/L (136-145); TOTAL PROTEIN 6.6 g/dL (6.4-8.2); eGFR NON BLACK RACES > 60 (>60)
--- NOTE | 2023-10-23 09:18 | PCM.PROG ---
Progress Note Progress Note for Day of Date of Exam: 10/23/23 Subjective Subjective: Patient is a 67 year old female admitted for osteomyelitis of right foot. This morning she is in bed eating breakfast. No acute events overnight. Podiatry is following. She is s/p external fixation and debridement. She has been getting IV Meropenem. She had a CTA aorta with runoff that was negative for any significant stenosis. Vascular surgery has signed off. Labs/imaging reviewed: -WBC 9, hemoglobin 11.6, platelets 285, sodium 141, potassium 4.3, creatinine 0.77, glucose 120 -MRI RLE: see report -Urine Cx: Enterobacter -Wound Cx: see report -Blood Cx no growth Plan: Follow podiatry recommendations, Possible wound VAC placement. Continue IV antibiotics. Continue wound care. Replace electrolytes as per protocol. Patient does have a andino in place. Continue home medications. Hold oral hypoglycemics, continue SSI. Monitor AM labs/imaging. Past Medical Family Social History Allergies: Allergies erythromycin base Allergy (Intermediate, Verified 08/28/23 14:13) diclofenac [From Voltaren] Allergy (Unknown, Verified 08/28/23 14:13) Reason: Drug allergy Fish Containing Products Allergy (Unknown, Verified 08/28/23 14:13) "seafood" allergy gabapentin Allergy (Unknown, Verified 08/28/23 14:13) Reason: Drug allergy ibuprofen [Nuprin] Allergy (Unknown, Verified 08/28/23 14:13) nalbuphine [From Nubain] Allergy (Unknown, Verified 08/28/23 14:13) Penicillins Allergy (Unknown, Verified 08/28/23 14:13) sumatriptan [Imitrex] Allergy (Unknown, Verified 08/28/23 14:13) minocycline Allergy (Verified 08/28/23 14:13) morphine Allergy (Verified 08/28/23 14:13) oyster extract Allergy (Verified 08/28/23 14:13) penicillin G Allergy (Verified 08/28/23 14:13) promethazine [From Phenergan] Allergy (Verified 08/28/23 14:13) Review of Systems ROS changes noted: see HPI Vital Signs and I&O's Vital Signs: Vital Signs Temperature 98 F Temperature 97.7 F Pulse Rate 89 Pulse Rate 83 Pulse Rate 84 Pulse Rate 85 Pulse Rate 86 Pulse Rate 84 Pulse Rate 86 Respiratory Rate 25 Respiratory Rate 25 Respiratory Rate 25 Respiratory Rate 27 Respiratory Rate 14 Respiratory Rate 21 Respiratory Rate 17 Respiratory Rate 17 Respiratory Rate 22 Blood Pressure 148/79 Blood Pressure 141/67 Blood Pressure 139/63 Blood Pressure 141/68 Blood Pressure 141/66 Blood Pressure 148/72 Blood Pressure 143/72 O2 Sat by Pulse Oximetry 97 O2 Sat by Pulse Oximetry 99 O2 Sat by Pulse Oximetry 99 O2 Sat by Pulse Oximetry 98 O2 Sat by Pulse Oximetry 100 O2 Sat by Pulse Oximetry 99 O2 Sat by Pulse Oximetry 99 Intake and Output: Intake & Output 10/20/23 10/21/23 10/22/23 10/23/23 23:59 23:59 23:59 23:59 Intake Total 1438 / 1438 2493 / 2493 1012 / 1012 60 / 60 Output Total 3700 / 3700 4700 / 4700 2040 / 2040 750 / 750 Balance -2262 / -2262 -2207 / -2207 -1028 / -1028 -690 / -690 Physical Exam Oriented: Normal, Time, Person and Place Eyes: Normal Ear: Normal Nose: Normal Throat: Normal Respiratory: Generalized and Diminished Cardiovascular: Normal and Other (Cannot palpate pulses on the right leg due to the external fixator getting in the way. difficult to palpate femoral pulses due to her significant morBID obesity ) : Normal Auscultation: Bowel Sounds: Normal Tenderness: Normal Skin: Other (8 centimeter reported ulcer to the right heel ) Musculoskeletal: Normal Psychiatric: Normal Mood Description: Calm Affect: Normal Speech Pattern: Clear and Appropriate Laboratory and Diagnostics 10/23/23 04:13 10/23/23 04:13 Labs: 10/21/23 15:46 Foot - Right Wound Culture - Preliminary 10/17/23 17:28 Urine,Clean Catch Urine Culture - Final Enterobacter Cloacae 10/17/23 17:28 Foot - Right Wound Gram Stain - Final 10/17/23 17:28 Foot - Right Wound Culture - Final Citrobacter Freundii Morganella Morganii 10/17/23 17:35 Blood Blood Culture - Preliminary 10/17/23 17:25 Blood Blood Culture - Preliminary Laboratory WBC 9.0 X10^3/uL (3.6-10.0) 10/23/23 04:13 RBC 3.98 X10^6/uL (3.5-5.4) 10/23/23 04:13 Hgb 11.6 g/dL (12.0-16.0) L 10/23/23 04:13 Hct 36.3 % (36.0-47.0) 10/23/23 04:13 MCV 91.3 fL (80.0-100.0) 10/23/23 04:13 MCH 29.0 pg (27.0-34.0) 10/23/23 04:13 MCHC 31.8 g/dL (33.0-35.0) L 10/23/23 04:13 RDW 15.4 % (11.6-16.5) 10/23/23 04:13 Plt Count 285 X10^3/uL (150.0-450.0) 10/23/23 04:13 Plt Count Comment Adequate (ADEQUATE) 10/22/23 04:58 MPV 8.3 fL (7.4-11.0) 10/23/23 04:13 Neut % (Auto) 70.4 % (42.0-75.0) 10/23/23 04:13 Lymph % (Auto) 21.7 % (21.0-51.0) 10/23/23 04:13 [place] % (Auto) 7.4 % (0.0-13.0) 10/23/23 04:13 Eos % (Auto) 0.3 % (0.9-2.9) L 10/23/23 04:13 Baso % (Auto) 0.2 % (0.2-1.0) 10/23/23 04:13 Neut # (Auto) 6.4 x10^3/uL (2.2-4.8) H 10/23/23 04:13 Lymph # (Auto) 2.0 X10^3/uL (1.3-2.9) 10/23/23 04:13 [place] # (Auto) 0.7 x10^3/uL (0.3-0.8) 10/23/23 04:13 Eos # (Auto) 0.0 x10^3/uL (0.0-0.2) 10/23/23 04:13 Baso # (Auto) 0.0 X10^3/uL (0.0-0.1) 10/23/23 04:13 Absolute Nucleated RBC 0.1 /100WBC 10/23/23 04:13 Total Counted 100 10/22/23 04:58 Neutrophils % (Manual) 87 % (39-76) H 10/22/23 04:58 Band Neutrophils % 4 % (0-10) 10/22/23 04:58 Lymphocytes % (Manual) 6 % (13-43) L 10/22/23 04:58 Monocytes % (Manual) 2 % (4-9) L 10/22/23 04:58 Basophils % (Manual) 1 % (0-1) 10/22/23 04:58 Plt Morphology Comment Normal (NORMAL) 10/22/23 04:58 RBC Morphology Normal (NORMAL) 10/22/23 04:58 PT 15.1 SECONDS (11.8-14.3) 10/18/23 04:20 INR Target Range - 10/18/23 04:20 INR 1.22 (0.8-1.3) 10/18/23 04:20 APTT 31.7 SECONDS (22.9-36.5) 10/18/23 04:20 PTT Comment - 10/18/23 04:20 Sodium 141 mmol/L (136-145) 10/23/23 04:13 Corrected Sodium 141 mmol/L (136-145) 10/23/23 04:13 Potassium 4.3 mmol/L (3.5-5.1) 10/23/23 04:13 Chloride 104 mmol/L (98-107) 10/23/23 04:13 Carbon Dioxide 31.7 mmol/L (21-32) 10/23/23 04:13 BUN 17 mg/dL (7-18) 10/23/23 04:13 Creatinine 0.77 mg/dL (0.55-1.02) 10/23/23 04:13 Est GFR (MDRD) Af Amer > 60 (>60) 10/23/23 04:13 Est GFR (MDRD) Non-Af > 60 (>60) 10/23/23 04:13 Glucose 120 mg/dL (65-99) H 10/23/23 04:13 POC Glucose (mg/dL) 103 mg/dL (65-99) H 10/23/23 05:16 Lactic Acid 0.9 mmol/L (0.4-2.0) 10/17/23 19:25 Calcium 8.5 mg/dL (8.5-10.1) 10/23/23 04:13 Corrected Calcium 9.7 mg/dL (8.5-10.1) 10/23/23 04:13 Magnesium 2.1 mg/dL (2.0-2.9) 10/23/23 04:13 Total Bilirubin 0.10 mg/dL (0.2-1.0) L 10/23/23 04:13 AST 14 Units/L (15-37) L 10/23/23 04:13 ALT 16 Units/L (12-78) 10/23/23 04:13 Alkaline Phosphatase 93 Units/L (46-116) 10/23/23 04:13 Total Protein 6.6 g/dL (6.4-8.2) 10/23/23 04:13 Albumin 2.5 g/dL (3.4-5.0) L 10/23/23 04:13 Globulin 4.1 g/dL (2.5-4.5) 10/23/23 04:13 Albumin/Globulin Ratio 0.6 Ratio (1.1-2.1) L 10/23/23 04:13 Specimen Type Catherized urine 10/17/23 22:00 Urine Color Straw (YELLOW) 10/17/23 22:00 Urine Appearance Cloudy (CLEAR) 10/17/23 22:00 Urine pH 5.0 (5.0 - 8.0) 10/17/23 22:00 Ur Specific [place] 1.010 (1.000-1.030) 10/17/23 22:00 Urine Protein 1+ (NEGATIVE) 10/17/23 22:00 Urine Glucose (UA) 3+ (NEGATIVE) 10/17/23 22:00 Urine Ketones Negative (NEGATIVE) 10/17/23 22:00 Urine Blood 1+ (NEGATIVE) 10/17/23 22:00 Urine Nitrite Negative (NEGATIVE) 10/17/23 22:00 Urine Bilirubin Negative (NEGATIVE) 10/17/23 22:00 Urine Urobilinogen Normal (NORMAL) 10/17/23 22:00 Ur Leukocyte Esterase 3+ (NEGATIVE) 10/17/23 22:00 Urine RBC 10-20 /HPF (0-3) A 10/17/23 22:00 Urine WBC 30-50 /HPF (0-5) A 10/17/23 22:00 Ur Squamous Epith Cells Rare /HPF (NEGATIVE) 10/17/23 22:00 Amorphous Sediment 1+ /HPF (NEGATIVE) 10/17/23 22:00 Urine Bacteria Trace /HPF (NEGATIVE) 10/17/23 22:00 Urine Yeast Moderate /HPF (NEGATIVE) 10/17/23 22:00 Ur Culture Indicated? Yes/culture set up 10/17/23 22:00 Vancomycin Trough 22.5 ug/mL (15-20) H* 10/19/23 08:28 Random Vancomycin 13.0 ug/mL 10/20/23 04:30 SARS-CoV-2 (PCR) Negative (NEGATIVE) 10/17/23 19:55 Influenza Type A (PCR) Negative (NEGATIVE) 10/17/23 19:55 Influenza Type B (PCR) Negative (NEGATIVE) 10/17/23 19:55 RSV (PCR) Negative (NEGATIVE) 10/17/23 19:55 S. pyogenes (TEM-PCR) Not detected (NOT DETECT) 10/17/23 19:55 Plan (1) Osteomyelitis of right foot: Status: Acute Qualifiers: Osteomyelitis type: chronic, with draining sinus Qualified Code(s): M86.471 - Chronic osteomyelitis with draining sinus, right ankle and foot (2) Acute UTI: Status: Acute Plan: Continue Invanz at this time. (3) Decubitus ulcer of right heel, stage 3: Status: Acute Plan: IV Invanz. Follow-up with wound culture. Podiatry following (4) Wound infection: Status: Acute (5) Generalized weakness: Status: Acute (6) Type 2 diabetes mellitus with morbid obesity: Status: None Plan: I will resume the patient's regular home diabetic medications. Will add/scale regular insulin if needed. (7) Sleep apnea with use of continuous positive airway pressure (CPAP): Status: None Plan: Patient may use her own CPAP device if she has brought her to the hospital or she has a family member or friend to bring him. (8) CHF (congestive heart failure): Status: Acute Qualifiers: Heart failure chronicity: unspecified Heart failure type: unspecified Qualified Code(s): I50.9 - Heart failure, unspecified (9) Hypomagnesemia: Status: Acute
[2023-10-23] MEDS: OMNIPAQUE 350 mg/mL 100 mL BTL 100 ML ONE (12:38)
--- NOTE | 2023-10-23 15:34 | NOTE.SOAP ---
Soap Note Note for Day of Date of Exam: 10/23/23 Subjective Data Subjective Data: Resting in bed. Doing well. Objective Data Objective Data: Right Lower Extremity Exam: Diabetic heel ulcer measuring 5.0 cm x 4.0 cm x down to the level of calcaneus, approximate depth of 3.0 cm with a mix of fibrotic and granular base. Good bleeding is noted. No purulence noted. Antibiotic beads were removed. Then a wound vac was applied in the standard fashion. Seal was achieved and noted to be delivering therapy. No drainage from pin sites. Assessment Assessment: 67 year old Diabetic morbidly obese female who is s/p POD#2 partial calcacectomy with antibiotic bead placement and external fixator placement, right Plan Plan: - NWB to RLE. - Wound Vac in place, seal achieved, and delivering therapy. - Antibiotic beads were removed prior to wound vac placement. - Culture currently showing GNRs, no sensitivity currently noted. Continue meropenem. - Awaiting pathology report. - Plan is for surgical intervention on 10/26/2023 consisting of debridement, antibiotic bead placement, and external fixator modification to the RLE.
[2023-10-24 05:04] LABS: BASOPHILS % (AUTO) 0.4 % (0.2-1.0); EOSINOPHILS # (AUTO) 0.3 x10^3/uL (0.0-0.2); EOSINOPHILS % (AUTO) 3.6 % (0.9-2.9); HEMATOCRIT 34.1 % (36.0-47.0); HEMOGLOBIN 10.8 g/dL (12.0-16.0); LYMPHOCYTES # (AUTO) 2.5 X10^3/uL (1.3-2.9); LYMPHOCYTES % (AUTO) 34.9 % (21.0-51.0); MEAN CORPUSCULAR HGB CONC 31.6 g/dL (33.0-35.0); MEAN CORPUSCULAR VOLUME 91.8 fL (80.0-100.0); MONOCYTES # (AUTO) 0.7 x10^3/uL (0.3-0.8); MONOCYTES % (AUTO) 10.1 % (0.0-13.0); NEUTROPHILS # (AUTO) 3.7 x10^3/uL (2.2-4.8); PLATELET COUNT 261 X10^3/uL (150.0-450.0); RED BLOOD COUNT 3.71 X10^6/uL (3.5-5.4); RED CELL DISTRIBUTION WIDTH 15.6 % (11.6-16.5); WHITE BLOOD COUNT 7.3 X10^3/uL (3.6-10.0)
[2023-10-24 05:22] LABS: ALANINE AMINOTRANSFERASE 17 Units/L (12-78); ALBUMIN 2.4 g/dL (3.4-5.0); ALKALINE PHOSPHATASE 97 Units/L (46-116); ASPARTATE AMINO TRANSFERASE 17 Units/L (15-37); BLOOD UREA NITROGEN 21 mg/dL (7-18); CALCIUM 8.2 mg/dL (8.5-10.1); CARBON DIOXIDE 33.2 mmol/L (21-32); CHLORIDE 104 mmol/L (98-107); COR CA(FOR HYPOALB) 9.5 mg/dL (8.5-10.1); CREATININE 0.78 mg/dL (0.55-1.02); GLUCOSE 105 mg/dL (65-99); POTASSIUM 4.4 mmol/L (3.5-5.1); SODIUM 141 mmol/L (136-145); TOTAL PROTEIN 6.2 g/dL (6.4-8.2); eGFR NON BLACK RACES > 60 (>60)
[2023-10-24] MEDS ORDERED: PRECEDEX INJ VIAL ONE (09:48)
[2023-10-24] MEDS ORDERED: XYLOCAINE 2 % (PLAIN) ONE (09:48)
--- NOTE | 2023-10-24 13:32 | NOTE.SOAP ---
Soap Note Note for Day of Date of Exam: 10/24/23 Subjective Data Subjective Data: Patient seen for daily rounds with nurse present. Family at bedside. Pending further debridement, antibiotic but need placement, and Ex-Fix revision of her right lower extremity/foot with podiatry on Thursday. After that she will need placement for prolonged care due to her osteomyelitis of the right calcaneus. She is in good spirits. No overnight events. Labs overall stable. Objective Data Objective Data: Well-developed, well-nourished, morbidly obese female in no acute distress. Head NCAT. Hearing intact conversation. Extraocular movements grossly normal. Heart rhythm today. Lungs diminished but clear with shallow respirations. Belly is soft, NT, ND with bowel sounds present. Mood and affect appropriate. Ex-Fix on right lower extremity. Assessment Assessment: 1. Osteomyelitis of the right heel. Appreciate podiatry input. Vascular signed off after negative CTA with runoff of lower extremities. Continue current. 2. Diabetic foot wound. See above. 3. Type 2 diabetes mellitus with peripheral neuropathy and hyperglycemia. Continue to adjust medications as needed. Continue with diabetic diet. 4. Morbid obesity. This is a complicating factor on getting her placement for rehab and long-term care.
[2023-10-24] MEDS: CHRONULAC PO ONE (18:13)
[2023-10-25 05:31] LABS: BASOPHILS % (AUTO) 0.5 % (0.2-1.0); EOSINOPHILS # (AUTO) 0.3 x10^3/uL (0.0-0.2); EOSINOPHILS % (AUTO) 4.2 % (0.9-2.9); HEMATOCRIT 35.5 % (36.0-47.0); HEMOGLOBIN 11.3 g/dL (12.0-16.0); LYMPHOCYTES % (AUTO) 29.6 % (21.0-51.0); MEAN CORPUSCULAR HEMOGLOBIN 29.2 pg (27.0-34.0); MEAN CORPUSCULAR HGB CONC 31.8 g/dL (33.0-35.0); MEAN CORPUSCULAR VOLUME 92.1 fL (80.0-100.0); MONOCYTES # (AUTO) 0.5 x10^3/uL (0.3-0.8); MONOCYTES % (AUTO) 8.1 % (0.0-13.0); NEUTROPHILS # (AUTO) 3.9 x10^3/uL (2.2-4.8); NEUTROPHILS % (AUTO) 57.6 % (42.0-75.0); PLATELET COUNT 271 X10^3/uL (150.0-450.0); RED BLOOD COUNT 3.86 X10^6/uL (3.5-5.4); RED CELL DISTRIBUTION WIDTH 15.5 % (11.6-16.5); WHITE BLOOD COUNT 6.8 X10^3/uL (3.6-10.0)
[2023-10-25 05:50] LABS: ALANINE AMINOTRANSFERASE 16 Units/L (12-78); ALBUMIN 2.2 g/dL (3.4-5.0); ALKALINE PHOSPHATASE 91 Units/L (46-116); ASPARTATE AMINO TRANSFERASE 13 Units/L (15-37); BLOOD UREA NITROGEN 19 mg/dL (7-18); CALCIUM 8.1 mg/dL (8.5-10.1); CARBON DIOXIDE 32.8 mmol/L (21-32); CHLORIDE 104 mmol/L (98-107); COR CA(FOR HYPOALB) 9.5 mg/dL (8.5-10.1); COR NA(FOR HYPERGLY) 141 mmol/L (136-145); CREATININE 0.71 mg/dL (0.55-1.02); GLUCOSE 129 mg/dL (65-99); SODIUM 140 mmol/L (136-145); TOTAL PROTEIN 5.8 g/dL (6.4-8.2); eGFR NON BLACK RACES > 60 (>60)
[2023-10-25] MEDS: LINZESS PO SCH (10:40)
[2023-10-25] MEDS: ZYVOX 600MG IV 600 MG/300 ML BAG IV SCH (10:43)
[2023-10-25] MEDS: BACTRIM DS TAB PO SCH (10:44)
[2023-10-25] MEDS: NS 250 ML IV 250 ML IV ONE (10:50)
--- NOTE | 2023-10-25 14:58 | NOTE.SOAP ---
Soap Note Note for Day of Date of Exam: 10/25/23 Subjective Data Subjective Data: Patient seen for morning rounds with nurse at bedside. No acute overnight events but still no bowel movement in 4 to 5 days. No response to lactulose last night. Otherwise doing well and pending placement after surgical revision tomorrow. Bone biopsy culture positive for 3 bacteria with different sensitivities. Objective Data Objective Data: Obese elderly female no acute distress. Heart regular rate and rhythm but distant. Lungs diminished but clear with shallow respirations. She is in no respiratory distress and speaking in full sentences. Belly protuberant but soft with bowel sounds present. Ex-Fix on RLE. Assessment Assessment: 1. Osteomyelitis of the right heel. Organism on culture are stenotrophomonas, E cloacae, E faecalis VRE. Start Bactrim for stenotrophomonas. Continue Merrem for E cloacae. Start linezolid for E faecalis that is VRE. 2. Diabetic foot wound. See above. 3. Type 2 diabetes mellitus with peripheral neuropathy and hyperglycemia. Continue to adjust medications as needed. Continue with diabetic diet. 4. Morbid obesity. This is a complicating factor on getting her placement for rehab and long-term care.
[2023-10-26 05:01] LABS: BASOPHILS % (AUTO) 0.4 % (0.2-1.0); EOSINOPHILS # (AUTO) 0.2 x10^3/uL (0.0-0.2); EOSINOPHILS % (AUTO) 2.7 % (0.9-2.9); HEMATOCRIT 38.2 % (36.0-47.0); HEMOGLOBIN 12.3 g/dL (12.0-16.0); LYMPHOCYTES # (AUTO) 2.1 X10^3/uL (1.3-2.9); MEAN CORPUSCULAR HEMOGLOBIN 29.5 pg (27.0-34.0); MEAN CORPUSCULAR HGB CONC 32.1 g/dL (33.0-35.0); MEAN PLATELET VOLUME 8.2 fL (7.4-11.0); MONOCYTES # (AUTO) 0.6 x10^3/uL (0.3-0.8); MONOCYTES % (AUTO) 7.5 % (0.0-13.0); NEUTROPHILS # (AUTO) 5.6 x10^3/uL (2.2-4.8); NEUTROPHILS % (AUTO) 65.4 % (42.0-75.0); PLATELET COUNT 259 X10^3/uL (150.0-450.0); RED BLOOD COUNT 4.15 X10^6/uL (3.5-5.4); RED CELL DISTRIBUTION WIDTH 15.7 % (11.6-16.5); WHITE BLOOD COUNT 8.6 X10^3/uL (3.6-10.0)
[2023-10-26] MEDS: HIBICLENS WASH EXT ONE (05:07)
[2023-10-26 05:17] LABS: ALANINE AMINOTRANSFERASE 14 Units/L (12-78); ALBUMIN 2.3 g/dL (3.4-5.0); ALKALINE PHOSPHATASE 109 Units/L (46-116); ASPARTATE AMINO TRANSFERASE 13 Units/L (15-37); BLOOD UREA NITROGEN 18 mg/dL (7-18); CALCIUM 8.3 mg/dL (8.5-10.1); CARBON DIOXIDE 33.6 mmol/L (21-32); CHLORIDE 103 mmol/L (98-107); COR CA(FOR HYPOALB) 9.7 mg/dL (8.5-10.1); CREATININE 0.83 mg/dL (0.55-1.02); GLUCOSE 105 mg/dL (65-99); SODIUM 139 mmol/L (136-145); TOTAL PROTEIN 6.4 g/dL (6.4-8.2); eGFR NON BLACK RACES > 60 (>60)
--- NOTE | 2023-10-26 09:21 | PCM.PROG ---
Progress Note Progress Note for Day of Date of Exam: 10/26/23 Subjective Subjective: Patient is a 67-year-old female admitted for osteomyelitis of right foot. She is s/p debridement and wound vac placement. She is going back to the OR today for more debridement, antibiotic bead placement and external fixator. CM working on discharge planning as patient will need senior care placement. Labs/imaging reviewed: -WBC 8.6, hemoglobin 12.3, platelets 259 -MRI RLE: see report -Urine Cx: Enterobacter -Wound Cx: see report, VRE noted -Blood Cx no growth Plan: Follow podiatry recommendations, Continue IV Meropenem and Linezolid. Continue wound care. Replace electrolytes as per protocol. Patient does have a andino in place. Continue home medications. Hold oral hypoglycemics, continue SSI. Monitor AM labs/imaging. CM working on discharge planning. Past Medical Family Social History Allergies: Allergies erythromycin base Allergy (Intermediate, Verified 08/28/23 14:13) diclofenac [From Voltaren] Allergy (Unknown, Verified 08/28/23 14:13) Reason: Drug allergy Fish Containing Products Allergy (Unknown, Verified 08/28/23 14:13) "seafood" allergy gabapentin Allergy (Unknown, Verified 08/28/23 14:13) Reason: Drug allergy ibuprofen [Nuprin] Allergy (Unknown, Verified 08/28/23 14:13) nalbuphine [From Nubain] Allergy (Unknown, Verified 08/28/23 14:13) Penicillins Allergy (Unknown, Verified 08/28/23 14:13) sumatriptan [Imitrex] Allergy (Unknown, Verified 08/28/23 14:13) minocycline Allergy (Verified 08/28/23 14:13) morphine Allergy (Verified 08/28/23 14:13) oyster extract Allergy (Verified 08/28/23 14:13) penicillin G Allergy (Verified 08/28/23 14:13) promethazine [From Phenergan] Allergy (Verified 08/28/23 14:13) Vital Signs and I&O's Vital Signs: Vital Signs Temperature 98.2 F Pulse Rate 84 Pulse Rate 82 Pulse Rate 83 Pulse Rate 82 Pulse Rate 83 Respiratory Rate 14 Respiratory Rate 12 Respiratory Rate 18 Respiratory Rate 17 Respiratory Rate 18 Blood Pressure 156/86 Blood Pressure 105/53 Blood Pressure 144/73 Blood Pressure 136/72 Blood Pressure 154/79 O2 Sat by Pulse Oximetry 100 O2 Sat by Pulse Oximetry 98 O2 Sat by Pulse Oximetry 100 O2 Sat by Pulse Oximetry 100 O2 Sat by Pulse Oximetry 98 Intake and Output: Intake & Output 10/23/23 10/24/23 10/25/23 10/26/23 23:59 23:59 23:59 23:59 Intake Total 1556 / 1556 1929 / 1929 3057 / 3057 100 / 100 Output Total 1934 / 1934 3250 / 3250 600 / 600 Balance -379 / -379 -96 / -96 -193 / -193 -500 / -500 Physical Exam Oriented: Normal, Time, Person and Place Eyes: Normal Ear: Normal Nose: Normal Throat: Normal Respiratory: Generalized and Diminished Cardiovascular: Normal and Edema Auscultation: Bowel Sounds: Normal Palpation: Normal Tenderness: Normal Skin: Other (8 centimeter reported ulcer to the right heel, wound vac in place ) Musculoskeletal: Normal Psychiatric: Normal Mood Description: Calm Affect: Normal Speech Pattern: Clear and Appropriate Laboratory and Diagnostics 10/26/23 04:20 10/26/23 04:20 Labs: 10/21/23 15:46 Foot - Right Wound Culture - Final Stenotrophomonas Maltophilia Enterobacter Cloacae Enterococcus Faecium Vre 10/17/23 17:35 Blood Blood Culture - Final 10/17/23 17:25 Blood Blood Culture - Final 10/17/23 17:28 Urine,Clean Catch Urine Culture - Final Enterobacter Cloacae 10/17/23 17:28 Foot - Right Wound Gram Stain - Final 10/17/23 17:28 Foot - Right Wound Culture - Final Citrobacter Freundii Morganella Morganii Laboratory WBC 8.6 X10^3/uL (3.6-10.0) 10/26/23 04:20 RBC 4.15 X10^6/uL (3.5-5.4) 10/26/23 04:20 Hgb 12.3 g/dL (12.0-16.0) 10/26/23 04:20 Hct 38.2 % (36.0-47.0) 10/26/23 04:20 MCV 92.0 fL (80.0-100.0) 10/26/23 04:20 MCH 29.5 pg (27.0-34.0) 10/26/23 04:20 MCHC 32.1 g/dL (33.0-35.0) L 10/26/23 04:20 RDW 15.7 % (11.6-16.5) 10/26/23 04:20 Plt Count 259 X10^3/uL (150.0-450.0) 10/26/23 04:20 Plt Count Comment Adequate (ADEQUATE) 10/22/23 04:58 MPV 8.2 fL (7.4-11.0) 10/26/23 04:20 Neut % (Auto) 65.4 % (42.0-75.0) 10/26/23 04:20 Lymph % (Auto) 24.0 % (21.0-51.0) 10/26/23 04:20 [place] % (Auto) 7.5 % (0.0-13.0) 10/26/23 04:20 Eos % (Auto) 2.7 % (0.9-2.9) 10/26/23 04:20 Baso % (Auto) 0.4 % (0.2-1.0) 10/26/23 04:20 Neut # (Auto) 5.6 x10^3/uL (2.2-4.8) H 10/26/23 04:20 Lymph # (Auto) 2.1 X10^3/uL (1.3-2.9) 10/26/23 04:20 [place] # (Auto) 0.6 x10^3/uL (0.3-0.8) 10/26/23 04:20 Eos # (Auto) 0.2 x10^3/uL (0.0-0.2) 10/26/23 04:20 Baso # (Auto) 0.0 X10^3/uL (0.0-0.1) 10/26/23 04:20 Absolute Nucleated RBC 0.1 /100WBC 10/26/23 04:20 Total Counted 100 10/22/23 04:58 Neutrophils % (Manual) 87 % (39-76) H 10/22/23 04:58 Band Neutrophils % 4 % (0-10) 10/22/23 04:58 Lymphocytes % (Manual) 6 % (13-43) L 10/22/23 04:58 Monocytes % (Manual) 2 % (4-9) L 10/22/23 04:58 Basophils % (Manual) 1 % (0-1) 10/22/23 04:58 Plt Morphology Comment Normal (NORMAL) 10/22/23 04:58 RBC Morphology Normal (NORMAL) 10/22/23 04:58 PT 15.1 SECONDS (11.8-14.3) 10/18/23 04:20 INR Target Range - 10/18/23 04:20 INR 1.22 (0.8-1.3) 10/18/23 04:20 APTT 31.7 SECONDS (22.9-36.5) 10/18/23 04:20 PTT Comment - 10/18/23 04:20 Sodium 139 mmol/L (136-145) 10/26/23 04:20 Corrected Sodium TNP 10/26/23 04:20 Potassium 4.0 mmol/L (3.5-5.1) 10/26/23 04:20 Chloride 103 mmol/L (98-107) 10/26/23 04:20 Carbon Dioxide 33.6 mmol/L (21-32) H 10/26/23 04:20 BUN 18 mg/dL (7-18) 10/26/23 04:20 Creatinine 0.83 mg/dL (0.55-1.02) 10/26/23 04:20 Est GFR (MDRD) Af Amer > 60 (>60) 10/26/23 04:20 Est GFR (MDRD) Non-Af > 60 (>60) 10/26/23 04:20 Glucose 105 mg/dL (65-99) H 10/26/23 04:20 POC Glucose (mg/dL) 84 mg/dL (65-99) 10/26/23 05:41 Lactic Acid 0.9 mmol/L (0.4-2.0) 10/17/23 19:25 Calcium 8.3 mg/dL (8.5-10.1) L 10/26/23 04:20 Corrected Calcium 9.7 mg/dL (8.5-10.1) 10/26/23 04:20 Magnesium 2.1 mg/dL (2.0-2.9) 10/23/23 04:13 Total Bilirubin 0.10 mg/dL (0.2-1.0) L 10/26/23 04:20 AST 13 Units/L (15-37) L 10/26/23 04:20 ALT 14 Units/L (12-78) 10/26/23 04:20 Alkaline Phosphatase 109 Units/L (46-116) 10/26/23 04:20 Total Protein 6.4 g/dL (6.4-8.2) 10/26/23 04:20 Albumin 2.3 g/dL (3.4-5.0) L 10/26/23 04:20 Globulin 4.1 g/dL (2.5-4.5) 10/26/23 04:20 Albumin/Globulin Ratio 0.6 Ratio (1.1-2.1) L 10/26/23 04:20 Specimen Type Catherized urine 10/17/23 22:00 Urine Color Straw (YELLOW) 10/17/23 22:00 Urine Appearance Cloudy (CLEAR) 10/17/23 22:00 Urine pH 5.0 (5.0 - 8.0) 10/17/23 22:00 Ur Specific [place] 1.010 (1.000-1.030) 10/17/23 22:00 Urine Protein 1+ (NEGATIVE) 10/17/23 22:00 Urine Glucose (UA) 3+ (NEGATIVE) 10/17/23 22:00 Urine Ketones Negative (NEGATIVE) 10/17/23 22:00 Urine Blood 1+ (NEGATIVE) 10/17/23 22:00 Urine Nitrite Negative (NEGATIVE) 10/17/23 22:00 Urine Bilirubin Negative (NEGATIVE) 10/17/23 22:00 Urine Urobilinogen Normal (NORMAL) 10/17/23 22:00 Ur Leukocyte Esterase 3+ (NEGATIVE) 10/17/23 22:00 Urine RBC 10-20 /HPF (0-3) A 10/17/23 22:00 Urine WBC 30-50 /HPF (0-5) A 10/17/23 22:00 Ur Squamous Epith Cells Rare /HPF (NEGATIVE) 10/17/23 22:00 Amorphous Sediment 1+ /HPF (NEGATIVE) 10/17/23 22:00 Urine Bacteria Trace /HPF (NEGATIVE) 10/17/23 22:00 Urine Yeast Moderate /HPF (NEGATIVE) 10/17/23 22:00 Ur Culture Indicated? Yes/culture set up 10/17/23 22:00 Vancomycin Trough 22.5 ug/mL (15-20) H* 10/19/23 08:28 Random Vancomycin 13.0 ug/mL 10/20/23 04:30 SARS-CoV-2 (PCR) Negative (NEGATIVE) 10/17/23 19:55 Influenza Type A (PCR) Negative (NEGATIVE) 10/17/23 19:55 Influenza Type B (PCR) Negative (NEGATIVE) 10/17/23 19:55 RSV (PCR) Negative (NEGATIVE) 10/17/23 19:55 S. pyogenes (TEM-PCR) Not detected (NOT DETECT) 10/17/23 19:55 Plan (1) Osteomyelitis of right foot: Status: Acute Qualifiers: Osteomyelitis type: chronic, with draining sinus Qualified Code(s): M 86.471 - Chronic osteomyelitis with draining sinus, right ankle and foot (2) VRE (vancomycin-resistant Enterococci) infection: Status: Acute (3) Acute UTI: Status: Acute (4) Decubitus ulcer of right heel, stage 3: Status: Acute (5) Wound infection: Status: Acute (6) Generalized weakness: Status: Acute (7) Type 2 diabetes mellitus with morbid obesity: Status: None (8) Sleep apnea with use of continuous positive airway pressure (CPAP): Status: None (9) CHF (congestive heart failure): Status: Acute Qualifiers: Heart failure chronicity: unspecified Heart failure type: unspecified Qualified Code(s): I50.9 - Heart failure, unspecified (10) Hypomagnesemia: Status: Acute
[2023-10-26] MEDS: NS 1,000 ML IV 1,000 ML ONE (09:27)
[2023-10-26] MEDS: VERSED ONE (09:48)
[2023-10-26] MEDS: FENTANYL VIAL INJ 100 mcg ONE (09:48)
[2023-10-26] MEDS: DIPRIVAN VIAL 20 ML ONE ×2 (09:48→10:30)
[2023-10-26] MEDS: ZOFRAN INJ 4 MG VIAL ONE (09:48)
[2023-10-26] MEDS: BETADINE SOLN ONE (09:48)
[2023-10-26] MEDS: KETAMINE 50 MG/5 ML-NACL SYRNG ONE (09:48)
[2023-10-26] MEDS: MARCAINE 0.25% INJ ONE (10:06)
[2023-10-26] MEDS: NEO-SYNEPHRINE INJ ONE (10:26)
[2023-10-26] MEDS: TOBRAMYCIN SULFATE ONE (10:32)
[2023-10-26] MEDS: EPHEDRINE SULFATE INJ ONE (10:33)
[2023-10-26] MEDS: VANCOMYCIN HCL ONE (10:34)
[2023-10-27 05:12] LABS: BASOPHILS % (AUTO) 0.3 % (0.2-1.0); EOSINOPHILS # (AUTO) 0.2 x10^3/uL (0.0-0.2); EOSINOPHILS % (AUTO) 3.3 % (0.9-2.9); HEMATOCRIT 36.2 % (36.0-47.0); HEMOGLOBIN 11.7 g/dL (12.0-16.0); LYMPHOCYTES # (AUTO) 1.9 X10^3/uL (1.3-2.9); LYMPHOCYTES % (AUTO) 25.5 % (21.0-51.0); MEAN CORPUSCULAR HEMOGLOBIN 29.4 pg (27.0-34.0); MEAN CORPUSCULAR HGB CONC 32.2 g/dL (33.0-35.0); MEAN CORPUSCULAR VOLUME 91.4 fL (80.0-100.0); MEAN PLATELET VOLUME 8.2 fL (7.4-11.0); MONOCYTES # (AUTO) 0.6 x10^3/uL (0.3-0.8); MONOCYTES % (AUTO) 8.2 % (0.0-13.0); NEUTROPHILS # (AUTO) 4.7 x10^3/uL (2.2-4.8); NEUTROPHILS % (AUTO) 62.7 % (42.0-75.0); PLATELET COUNT 260 X10^3/uL (150.0-450.0); RED BLOOD COUNT 3.97 X10^6/uL (3.5-5.4); RED CELL DISTRIBUTION WIDTH 15.8 % (11.6-16.5); WHITE BLOOD COUNT 7.5 X10^3/uL (3.6-10.0)
[2023-10-27] MEDS: NS 250 ML IV 25 ML IV PRN (05:45)
[2023-10-27 06:35] LABS: ALANINE AMINOTRANSFERASE 14 Units/L (12-78); ALBUMIN 2.3 g/dL (3.4-5.0); ALKALINE PHOSPHATASE 101 Units/L (46-116); ASPARTATE AMINO TRANSFERASE 16 Units/L (15-37); BLOOD UREA NITROGEN 14 mg/dL (7-18); CALCIUM 8.1 mg/dL (8.5-10.1); CARBON DIOXIDE 28.6 mmol/L (21-32); CHLORIDE 104 mmol/L (98-107); COR CA(FOR HYPOALB) 9.5 mg/dL (8.5-10.1); COR NA(FOR HYPERGLY) 139 mmol/L (136-145); CREATININE 0.74 mg/dL (0.55-1.02); GLUCOSE 139 mg/dL (65-99); POTASSIUM 4.2 mmol/L (3.5-5.1); SODIUM 138 mmol/L (136-145); TOTAL PROTEIN 6.1 g/dL (6.4-8.2); eGFR NON BLACK RACES > 60 (>60)
--- NOTE | 2023-10-27 09:00 | NOTE.SOAP ---
Soap Note Note for Day of Date of Exam: 10/27/23 Subjective Data Subjective Data: Resting in bed. Only complaint is some minor thigh pain. Objective Data Objective Data: Right Lower Extremity Exam: Fixator in place. No drainage from pin sites. Wound noted to the plantar heel is noted have granular appearing tissue, full assessment unable secondary to antibiotic beads in the wound. No signs or sypmtoms concerning for compartment syndrome, DVT, or PE. Assessment Assessment: 67 year old Diabetic morbidly obese female who is status post POD#1 fixator modification, debridement of wound, and placement of antibiotic beads to the right foot Plan Plan: - Strict NWB to the Right Lower Extremity - Cultures grew STENOTROPHOMONAS MALTOPHILA, ENTEROBACTER CLOACA, ENTEROCOCCUS FAECIUM VRE. - Currently on Linezolid, Bactrim, and Meropenem. - Following cultures from OR on 10/26/2023. - Following Pathology report as well. - We will plan for debridement with possible closure of as much as the wound as possible and placement of wound vac on 10/28/2023.
--- NOTE | 2023-10-27 09:34 | PCM.PROG ---
Progress Note Progress Note for Day of Date of Exam: 10/27/23 Subjective Subjective: Patient seen at bedside, no acute events overnight. She had another debridement and antibiotic bead placement on her right heel. She is scheduled to go back to the OR tomorrow for bead removal and wound vac placement. She states her pain is worse today but the pain medicine helps. Labs/imaging reviewed: -WBC 7.5, hemoglobin 11.7, platelets 260 -MRI RLE: see report -Urine Cx: Enterobacter -Wound Cx: see report, VRE noted -Blood Cx no growth Plan: Follow podiatry recommendations, Continue IV Meropenem and Linezolid. Continue Bactrim. Continue wound care. Replace electrolytes as per protocol. Patient does have a andino in place. Continue home medications. Hold oral hypogly cemics, continue SSI. Monitor AM labs/imaging. CM working on discharge planning. Past Medical Family Social History Allergies: Allergies erythromycin base Allergy (Intermediate, Verified 08/28/23 14:13) diclofenac [From Voltaren] Allergy (Unknown, Verified 08/28/23 14:13) Reason: Drug allergy Fish Containing Products Allergy (Unknown, Verified 08/28/23 14:13) "seafood" allergy gabapentin Allergy (Unknown, Verified 08/28/23 14:13) Reason: Drug allergy ibuprofen [Nuprin] Allergy (Unknown, Verified 08/28/23 14:13) nalbuphine [From Nubain] Allergy (Unknown, Verified 08/28/23 14:13) Penicillins Allergy (Unknown, Verified 08/28/23 14:13) sumatriptan [Imitrex] Allergy (Unknown, Verified 08/28/23 14:13) minocycline Allergy (Verified 08/28/23 14:13) morphine Allergy (Verified 08/28/23 14:13) oyster extract Allergy (Verified 08/28/23 14:13) penicillin G Allergy (Verified 08/28/23 14:13) promethazine [From Phenergan] Allergy (Verified 08/28/23 14:13) Vital Signs and I&O's Vital Signs: Vital Signs Temperature 98.0 F Temperature 97.8 F Pulse Rate 91 Pulse Rate 83 Pulse Rate 80 Pulse Rate 79 Pulse Rate 85 Pulse Rate 89 Pulse Rate 88 Respiratory Rate 19 Respiratory Rate 21 Respiratory Rate 23 Respiratory Rate 18 Respiratory Rate 18 Respiratory Rate 19 Respiratory Rate 22 Blood Pressure 156/70 Blood Pressure 101/56 Blood Pressure 114/69 Blood Pressure 108/59 Blood Pressure 126/61 Blood Pressure 120/101 Blood Pressure 128/68 O2 Sat by Pulse Oximetry 100 O2 Sat by Pulse Oximetry 96 O2 Sat by Pulse Oximetry 100 O2 Sat by Pulse Oximetry 99 O2 Sat by Pulse Oximetry 96 O2 Sat by Pulse Oximetry 98 O2 Sat by Pulse Oximetry 98 Intake and Output: Intake & Output 10/24/23 10/25/23 10/26/23 10/27/23 23:59 23:59 23:59 23:59 Intake Total 1928 / 192 3057 / 3057 2286 / 2286 248 / 248 Output Total 2024 3250 / 3250 3980 / 3980 800 / 800 Balance -96 / -96 -193 / -193 -1694 / -1694 -552 / -552 Physical Exam Oriented: Normal, Time, Person and Place Eyes: Normal Ear: Normal Nose: Normal Throat: Normal Respiratory: Generalized and Diminished Cardiovascular: Normal and Edema Auscultation: Bowel Sounds: Normal Tenderness: Normal Skin: Other (Right foot wrapped in anuj bandage) Musculoskeletal: Normal Psychiatric: Normal Mood Description: Calm Affect: Normal Speech Pattern: Clear and Appropriate Laboratory and Diagnostics 10/27/23 04:21 10/27/23 04:21 Labs: 10/26/23 10:37 Foot - Right Wound Gram Stain - Final 10/26/23 10:37 Foot - Right Wound Culture - Preliminary 10/21/23 15:46 Foot - Right Wound Culture - Final Stenotrophomonas Maltophilia Enterobacter Cloacae Enterococcus Faecium Vre 10/17/23 17:35 Blood Blood Culture - Final 10/17/23 17:25 Blood Blood Culture - Final 10/17/23 17:28 Urine,Clean Catch Urine Culture - Final Enterobacter Cloacae 10/17/23 17:28 Foot - Right Wound Gram Stain - Final 10/17/23 17:28 Foot - Right Wound Culture - Final Citrobacter Freundii Morganella Morganii Laboratory WBC 7.5 X10^3/uL (3.6-10.0) 10/27/23 04:21 RBC 3.97 X10^6/uL (3.5-5.4) 10/27/23 04:21 Hgb 11.7 g/dL (12.0-16.0) L 10/27/23 04:21 Hct 36.2 % (36.0-47.0) 10/27/23 04:21 MCV 91.4 fL (80.0-100.0) 10/27/23 04:21 MCH 29.4 pg (27.0-34.0) 10/27/23 04:21 MCHC 32.2 g/dL (33.0-35.0) L 10/27/23 04:21 RDW 15.8 % (11.6-16.5) 10/27/23 04:21 Plt Count 260 X10^3/uL (150.0-450.0) 10/27/23 04:21 Plt Count Comment Adequate (ADEQUATE) 10/22/23 04:58 MPV 8.2 fL (7.4-11.0) 10/27/23 04:21 Neut % (Auto) 62.7 % (42.0-75.0) 10/27/23 04:21 Lymph % (Auto) 25.5 % (21.0-51.0) 10/27/23 04:21 [place] % (Auto) 8.2 % (0.0-13.0) 10/27/23 04:21 Eos % (Auto) 3.3 % (0.9-2.9) H 10/27/23 04:21 Baso % (Auto) 0.3 % (0.2-1.0) 10/27/23 04:21 Neut # (Auto) 4.7 x10^3/uL (2.2-4.8) 10/27/23 04:21 Lymph # (Auto) 1.9 X10^3/uL (1.3-2.9) 10/27/23 04:21 [place] # (Auto) 0.6 x10^3/uL (0.3-0.8) 10/27/23 04:21 Eos # (Auto) 0.2 x10^3/uL (0.0-0.2) 10/27/23 04:21 Baso # (Auto) 0.0 X10^3/uL (0.0-0.1) 10/27/23 04:21 Absolute Nucleated RBC 0.1 /100WBC 10/27/23 04:21 Total Counted 100 10/22/23 04:58 Neutrophils % (Manual) 87 % (39-76) H 10/22/23 04:58 Band Neutrophils % 4 % (0-10) 10/22/23 04:58 Lymphocytes % (Manual) 6 % (13-43) L 10/22/23 04:58 Monocytes % (Manual) 2 % (4-9) L 10/22/23 04:58 Basophils % (Manual) 1 % (0-1) 10/22/23 04:58 Plt Morphology Comment Normal (NORMAL) 10/22/23 04:58 RBC Morphology Normal (NORMAL) 10/22/23 04:58 PT 15.1 SECONDS (11.8-14.3) 10/18/23 04:20 INR Target Range - 10/18/23 04:20 INR 1.22 (0.8-1.3) 10/18/23 04:20 APTT 31.7 SECONDS (22.9-36.5) 10/18/23 04:20 PTT Comment - 10/18/23 04:20 Sodium 138 mmol/L (136-145) 10/27/23 04:21 Corrected Sodium 139 mmol/L (136-145) 10/27/23 04:21 Potassium 4.2 mmol/L (3.5-5.1) 10/27/23 04:21 Chloride 104 mmol/L (98-107) 10/27/23 04:21 Carbon Dioxide 28.6 mmol/L (21-32) 10/27/23 04:21 BUN 14 mg/dL (7-18) 10/27/23 04:21 Creatinine 0.74 mg/dL (0.55-1.02) 10/27/23 04:21 Est GFR (MDRD) Af Amer > 60 (>60) 10/27/23 04:21 Est GFR (MDRD) Non-Af > 60 (>60) 10/27/23 04:21 Glucose 139 mg/dL (65-99) H 10/27/23 04:21 POC Glucose (mg/dL) 122 mg/dL (65-99) H 10/27/23 05:20 Lactic Acid 0.9 mmol/L (0.4-2.0) 10/17/23 19:25 Calcium 8.1 mg/dL (8.5-10.1) L 10/27/23 04:21 Corrected Calcium 9.5 mg/dL (8.5-10.1) 10/27/23 04:21 Magnesium 2.1 mg/dL (2.0-2.9) 10/23/23 04:13 Total Bilirubin 0.10 mg/dL (0.2-1.0) L 10/27/23 04:21 AST 16 Units/L (15-37) 10/27/23 04:21 ALT 14 Units/L (12-78) 10/27/23 04:21 Alkaline Phosphatase 101 Units/L (46-116) 10/27/23 04:21 Total Protein 6.1 g/dL (6.4-8.2) L 10/27/23 04:21 Albumin 2.3 g/dL (3.4-5.0) L 10/27/23 04:21 Globulin 3.8 g/dL (2.5-4.5) 10/27/23 04:21 Albumin/Globulin Ratio 0.6 Ratio (1.1-2.1) L 10/27/23 04:21 Specimen Type Catherized urine 10/17/23 22:00 Urine Color Straw (YELLOW) 10/17/23 22:00 Urine Appearance Cloudy (CLEAR) 10/17/23 22:00 Urine pH 5.0 (5.0 - 8.0) 10/17/23 22:00 Ur Specific [place] 1.010 (1.000-1.030) 10/17/23 22:00 Urine Protein 1+ (NEGATIVE) 10/17/23 22:00 Urine Glucose (UA) 3+ (NEGATIVE) 10/17/23 22:00 Urine Ketones Negative (NEGATIVE) 10/17/23 22:00 Urine Blood 1+ (NEGATIVE) 10/17/23 22:00 Urine Nitrite Negative (NEGATIVE) 10/17/23 22:00 Urine Bilirubin Negative (NEGATIVE) 10/17/23 22:00 Urine Urobilinogen Normal (NORMAL) 10/17/23 22:00 Ur Leukocyte Esterase 3+ (NEGATIVE) 10/17/23 22:00 Urine RBC 10-20 /HPF (0-3) A 10/17/23 22:00 Urine WBC 30-50 /HPF (0-5) A 10/17/23 22:00 Ur Squamous Epith Cells Rare /HPF (NEGATIVE) 08/10/24 22:00 Amorphous Sediment 1+ /HPF (NEGATIVE) 10/17/23 22:00 Urine Bacteria Trace /HPF (NEGATIVE) 10/17/23 22:00 Urine Yeast Moderate /HPF (NEGATIVE) 10/17/23 22:00 Ur Culture Indicated? Yes/culture set up 10/17/23 22:00 Vancomycin Trough 22.5 ug/mL (15-20) H* 10/19/23 08:28 Random Vancomycin 13.0 ug/mL 10/20/23 04:30 SARS-CoV-2 (PCR) Negative (NEGATIVE) 10/17/23 19:55 Influenza Type A (PCR) Negative (NEGATIVE) 10/17/23 19:55 Influenza Type B (PCR) Negative (NEGATIVE) 10/17/23 19:55 RSV (PCR) Negative (NEGATIVE) 10/17/23 19:55 S. pyogenes (TEM-PCR) Not detected (NOT DETECT) 10/17/23 19:55 Plan (1) Osteomyelitis of right foot: Status: Acute Qualifiers: Osteomyelitis type: chronic, with draining sinus Qualified Code(s): M86.471 - Chronic osteomyelitis with draining sinus, right ankle and foot (2) VRE (vancomycin-resistant Enterococci) infection: Status: Acute (3) Acute UTI: Status: Acute (4) Decubitus ulcer of right heel, stage 3: Status: Acute (5) Wound infection: Status: Acute (6) Generalized weakness: Status: Acute (7) Type 2 diabetes mellitus with morbid obesity: Status: None (8) Sleep apnea with use of continuous positive airway pressure (CPAP): Status: None (9) CHF (congestive heart failure): Status: Acute Qualifiers: Heart failure chronicity: unspecified Heart failure type: unspecified Qualified Code(s): I50.9 - Heart failure, unspecified (10) Hypomagnesemia: Status: Acute
[2023-10-27] MEDS: MAALOX or MYLANTA PO PRN (23:18)
[2023-10-28 04:50] LABS: BASOPHILS % (AUTO) 0.2 % (0.2-1.0); EOSINOPHILS # (AUTO) 0.3 x10^3/uL (0.0-0.2); EOSINOPHILS % (AUTO) 4.3 % (0.9-2.9); HEMOGLOBIN 11.4 g/dL (12.0-16.0); MEAN CORPUSCULAR HEMOGLOBIN 29.3 pg (27.0-34.0); MEAN CORPUSCULAR HGB CONC 31.7 g/dL (33.0-35.0); MEAN CORPUSCULAR VOLUME 92.4 fL (80.0-100.0); MEAN PLATELET VOLUME 8.2 fL (7.4-11.0); MONOCYTES # (AUTO) 0.5 x10^3/uL (0.3-0.8); MONOCYTES % (AUTO) 8.1 % (0.0-13.0); NEUTROPHILS # (AUTO) 3.8 x10^3/uL (2.2-4.8); NEUTROPHILS % (AUTO) 57.4 % (42.0-75.0); PLATELET COUNT 241 X10^3/uL (150.0-450.0); RED BLOOD COUNT 3.89 X10^6/uL (3.5-5.4); RED CELL DISTRIBUTION WIDTH 15.9 % (11.6-16.5); WHITE BLOOD COUNT 6.6 X10^3/uL (3.6-10.0)
[2023-10-28] MEDS: HIBICLENS WASH EXT ONE (04:59)
[2023-10-28] MEDS: NOZIN NASAL SANITIZER TP ONE (05:00)
[2023-10-28 05:16] LABS: ALANINE AMINOTRANSFERASE 17 Units/L (12-78); ALBUMIN 2.3 g/dL (3.4-5.0); ALKALINE PHOSPHATASE 99 Units/L (46-116); ASPARTATE AMINO TRANSFERASE 14 Units/L (15-37); BLOOD UREA NITROGEN 13 mg/dL (7-18); CALCIUM 8.1 mg/dL (8.5-10.1); CARBON DIOXIDE 31.8 mmol/L (21-32); CHLORIDE 102 mmol/L (98-107); COR CA(FOR HYPOALB) 9.5 mg/dL (8.5-10.1); COR NA(FOR HYPERGLY) 139 mmol/L (136-145); CREATININE 0.85 mg/dL (0.55-1.02); GLUCOSE 132 mg/dL (65-99); POTASSIUM 4.3 mmol/L (3.5-5.1); SODIUM 138 mmol/L (136-145); eGFR NON BLACK RACES > 60 (>60)
[2023-10-28] MEDS: STERILE WATER IRRIGATION IR ONE (08:34)
[2023-10-28] MEDS: MARCAINE 0.25% INJ ONE (08:34)
[2023-10-28] MEDS: BETADINE SOLN ONE (08:35)
[2023-10-28] MEDS: NS 1,000 ML IV 1,000 ML ONE (09:29)
[2023-10-28] MEDS ORDERED: KETAMINE HCL ONE (09:35)
[2023-10-28] MEDS: FENTANYL VIAL INJ 100 mcg ONE (09:35)
[2023-10-28] MEDS: VERSED ONE (09:35)
[2023-10-28] MEDS ORDERED: PRECEDEX INJ VIAL ONE (09:35)
--- NOTE | 2023-10-28 09:37 | PCM.PROG ---
Progress Note Progress Note for Day of Date of Exam: 10/28/23 Subjective Subjective: Patient seen at bedside, no acute events overnight. She is going to the OR today for removal of antibiotic beads and wound vac placement. No issues as per nursing staff. Labs/imaging reviewed: -WBC 6.6, hemoglobin 11.4, platelets 241 -MRI RLE: see report -Urine Cx: Enterobacter -Wound Cx 10/26/23: no growth -Blood Cx no growth Plan: Follow podiatry recommendations, Continue IV Meropenem and Linezolid. Continue Bactrim. Continue pain control. Continue wound care. Replace ramya ctrolytes as per protocol. Hold oral hypoglycemics, continue SSI. Monitor AM labs/imaging. CM working on discharge planning. Past Medical Family Social History Allergies: Allergies erythromycin base Allergy (Intermediate, Verified 08/28/23 14:13) diclofenac [From Voltaren] Allergy (Unknown, Verified 08/28/23 14:13) Reason: Drug allergy Fish Containing Products Allergy (Unknown, Verified 08/28/23 14:13) "seafood" allergy gabapentin Allergy (Unknown, Verified 08/28/23 14:13) Reason: Drug allergy ibuprofen [Nuprin] Allergy (Unknown, Verified 08/28/23 14:13) nalbuphine [From Nubain] Allergy (Unknown, Verified 08/28/23 14:13) Penicillins Allergy (Unknown, Verified 08/28/23 14:13) sumatriptan [Imitrex] Allergy (Unknown, Verified 08/28/23 14:13) minocycline Allergy (Verified 08/28/23 14:13) morphine Allergy (Verified 08/28/23 14:13) oyster extract Allergy (Verified 08/28/23 14:13) penicillin G Allergy (Verified 08/28/23 14:13) promethazine [From Phenergan] Allergy (Verified 08/28/23 14:13) Vital Signs and I&O's Vital Signs: Vital Signs Temperature 97.7 F Temperature 97.7 F Pulse Rate 78 Pulse Rate 78 Pulse Rate 83 Pulse Rate 72 Pulse Rate 79 Pulse Rate 64 Pulse Rate 74 Pulse Rate 67 Respiratory Rate 17 Respiratory Rate 18 Respiratory Rate 26 Respiratory Rate 17 Respiratory Rate 19 Respiratory Rate 18 Respiratory Rate 18 Respiratory Rate 16 Blood Pressure 114/55 Blood Pressure 143/77 Blood Pressure 130/61 Blood Pressure 146/63 Blood Pressure 98/51 Blood Pressure 90/52 Blood Pressure 95/53 O2 Sat by Pulse Oximetry 100 O2 Sat by Pulse Oximetry 100 O2 Sat by Pulse Oximetry 99 O2 Sat by Pulse Oximetry 100 O2 Sat by Pulse Oximetry 100 O2 Sat by Pulse Oximetry 100 O2 Sat by Pulse Oximetry 100 O2 Sat by Pulse Oximetry 91 Intake and Output: Intake & Output 10/25/23 10/26/23 10/27/23 10/28/23 23:59 23:59 23:59 23:59 Intake Total 3057 / 3057 2286 / 2286 1369 / 1369 136 / 136 Output Total 3250 / 3250 3980 / 3980 2600 / 2600 550 / 550 Balance -193 / -193 -1694 / -1694 -1231 / -1231 -414 / -414 Physical Exam Oriented: Normal, Time, Person and Place Eyes: Normal Ear: Normal Nose: Normal Throat: Normal Respiratory: Generalized and Diminished Cardiovascular: Normal and Edema : Normal Auscultation: Bowel Sounds: Normal Palpation: Normal Tenderness: Normal Skin: Other (Right foot wrapped in anuj bandage) Musculoskeletal: Normal Psychiatric: Normal Mood Description: Calm Affect: Normal Speech Pattern: Clear and Appropriate Laboratory and Diagnostics 10/28/23 04:26 10/28/23 04:26 Labs: 10/26/23 10:37 Foot - Right Wound Gram Stain - Final 10/26/23 10:37 Foot - Right Wound Culture - Preliminary 10/21/23 15:46 Foot - Right Wound Culture - Final Stenotrophomonas Maltophilia Enterobacter Cloacae Enterococcus Faecium Vre 10/17/23 17:35 Blood Blood Culture - Final 10/17/23 17:25 Blood Blood Culture - Final 10/17/23 17:28 Urine,Clean Catch Urine Culture - Final Enterobacter Cloacae 10/17/23 17:28 Foot - Right Wound Gram Stain - Final 10/17/23 17:28 Foot - Right Wound Culture - Final Citrobacter Freundii Morganella Morganii Laboratory WBC 6.6 X10^3/uL (3.6-10.0) 10/28/23 04:26 RBC 3.89 X10^6/uL (3.5-5.4) 10/28/23 04:26 Hgb 11.4 g/dL (12.0-16.0) L 10/28/23 04:26 Hct 36.0 % (36.0-47.0) 10/28/23 04:26 MCV 92.4 fL (80.0-100.0) 10/28/23 04:26 MCH 29.3 pg (27.0-34.0) 10/28/23 04:26 MCHC 31.7 g/dL (33.0-35.0) L 10/28/23 04:26 RDW 15.9 % (11.6-16.5) 10/28/23 04:26 Plt Count 241 X10^3/uL (150.0-450.0) 10/28/23 04:26 Plt Count Comment Adequate (ADEQUATE) 10/22/23 04:58 MPV 8.2 fL (7.4-11.0) 10/28/23 04:26 Neut % (Auto) 57.4 % (42.0-75.0) 10/28/23 04:26 Lymph % (Auto) 30.0 % (21.0-51.0) 10/28/23 04:26 [place] % (Auto) 8.1 % (0.0-13.0) 10/28/23 04:26 Eos % (Auto) 4.3 % (0.9-2.9) H 10/28/23 04:26 Baso % (Auto) 0.2 % (0.2-1.0) 10/28/23 04:26 Neut # (Auto) 3.8 x10^3/uL (2.2-4.8) 10/28/23 04:26 Lymph # (Auto) 2.0 X10^3/uL (1.3-2.9) 10/28/23 04:26 [place] # (Auto) 0.5 x10^3/uL (0.3-0.8) 10/28/23 04:26 Eos # (Auto) 0.3 x10^3/uL (0.0-0.2) H 10/28/23 04:26 Baso # (Auto) 0.0 X10^3/uL (0.0-0.1) 10/28/23 04:26 Absolute Nucleated RBC 0.1 /100WBC 10/28/23 04:26 Total Counted 100 10/22/23 04:58 Neutrophils % (Manual) 87 % (39-76) H 10/22/23 04:58 Band Neutrophils % 4 % (0-10) 10/22/23 04:58 Lymphocytes % (Manual) 6 % (13-43) L 10/22/23 04:58 Monocytes % (Manual) 2 % (4-9) L 10/22/23 04:58 Basophils % (Manual) 1 % (0-1) 10/22/23 04:58 Plt Morphology Comment Normal (NORMAL) 10/22/23 04:58 RBC Morphology Normal (NORMAL) 10/22/23 04:58 PT 15.1 SECONDS (11.8-14.3) 10/18/23 04:20 INR Target Range - 10/18/23 04:20 INR 1.22 (0.8-1.3) 10/18/23 04:20 APTT 31.7 SECONDS (22.9-36.5) 10/18/23 04:20 PTT Comment - 10/18/23 04:20 Sodium 138 mmol/L (136-145) 10/28/23 04:26 Corrected Sodium 139 mmol/L (136-145) 10/28/23 04:26 Potassium 4.3 mmol/L (3.5-5.1) 10/28/23 04:26 Chloride 102 mmol/L (98-107) 10/28/23 04:26 Carbon Dioxide 31.8 mmol/L (21-32) 10/28/23 04:26 BUN 13 mg/dL (7-18) 10/28/23 04:26 Creatinine 0.85 mg/dL (0.55-1.02) 10/28/23 04:26 Est GFR (MDRD) Af Amer > 60 (>60) 10/28/23 04:26 Est GFR (MDRD) Non-Af > 60 (>60) 10/28/23 04:26 Glucose 132 mg/dL (65-99) H 10/28/23 04:26 POC Glucose (mg/dL) 131 mg/dL (65-99) H 10/28/23 05:47 Lactic Acid 0.9 mmol/L (0.4-2.0) 10/17/23 19:25 Calcium 8.1 mg/dL (8.5-10.1) L 10/28/23 04:26 Corrected Calcium 9.5 mg/dL (8.5-10.1) 10/28/23 04:26 Magnesium 2.1 mg/dL (2.0-2.9) 10/23/23 04:13 Total Bilirubin 0.30 mg/dL (0.2-1.0) 10/28/23 04:26 AST 14 Units/L (15-37) L 10/28/23 04:26 ALT 17 Units/L (12-78) 10/28/23 04:26 Alkaline Phosphatase 99 Units/L (46-116) 10/28/23 04:26 Total Protein 6.0 g/dL (6.4-8.2) L 10/28/23 04:26 Albumin 2.3 g/dL (3.4-5.0) L 10/28/23 04:26 Globulin 3.7 g/dL (2.5-4.5) 10/28/23 04:26 Albumin/Globulin Ratio 0.6 Ratio (1.1-2.1) L 10/28/23 04:26 Specimen Type Catherized urine 10/17/23 22:00 Urine Color Straw (YELLOW) 10/17/23 22:00 Urine Appearance Cloudy (CLEAR) 10/17/23 22:00 Urine pH 5.0 (5.0 - 8.0) 10/17/23 22:00 Ur Specific [place] 1.010 (1.000-1.030) 10/17/23 22:00 Urine Protein 1+ (NEGATIVE) 10/17/23 22:00 Urine Glucose (UA) 3+ (NEGATIVE) 10/17/23 22:00 Urine Ketones Negative (NEGATIVE) 10/17/23 22:00 Urine Blood 1+ (NEGATIVE) 10/17/23 22:00 Urine Nitrite Negative (NEGATIVE) 10/17/23 22:00 Urine Bilirubin Negative (NEGATIVE) 10/17/23 22:00 Urine Urobilinogen Normal (NORMAL) 10/17/23 22:00 Ur Leukocyte Esterase 3+ (NEGATIVE) 10/17/23 22:00 Urine RBC 10-20 /HPF (0-3) A 10/17/23 22:00 Urine WBC 30-50 /HPF (0-5) A 10/17/23 22:00 Ur Squamous Epith Cells Rare /HPF (NEGATIVE) 10/17/23 22:00 Amorphous Sediment 1+ /HPF (NEGATIVE) 10/17/23 22:00 Urine Bacteria Trace /HPF (NEGATIVE) 10/17/23 22:00 Urine Yeast Moderate /HPF (NEGATIVE) 10/17/23 22:00 Ur Culture Indicated? Yes/culture set up 10/17/23 22:00 Vancomycin Trough 22.5 ug/mL (15-20) H* 10/19/23 08:28 Random Vancomycin 13.0 ug/mL 10/20/23 04:30 SARS-CoV-2 (PCR) Negative (NEGATIVE) 10/17/23 19:55 Influenza Type A (PCR) Negative (NEGATIVE) 10/17/23 19:55 Influenza Type B (PCR) Negative (NEGATIVE) 10/17/23 19:55 RSV (PCR) Negative (NEGATIVE) 10/17/23 19:55 S. pyogenes (TEM-PCR) Not detected (NOT DETECT) 10/17/23 19:55 Tissue Pathology See comment. 10/21/23 15:45 Plan (1) Osteomyelitis of right foot: Status: Acute Qualifiers: Osteomyelitis type: chronic, with draining sinus Qualified Code(s): M86.471 - Chronic osteomyelitis with draining sinus, right ankle and foot (2) VRE (vancomycin-resistant Enterococci) infection: Status: Acute (3) Acute UTI: Status: Acute (4) Decubitus ulcer of right heel, stage 3: Status: Acute (5) Wound infection: Status: Acute (6) Generalized weakness: Status: Acute (7) Type 2 diabetes mellitus with morbid obesity: Status: None (8) Sleep apnea with use of continuous positive airway pressure (CPAP): Status: None (9) CHF (congestive heart failure): Status: Acute Qualifiers: Heart failure chronicity: unspecified Heart failure type: unspecified Qualified Code(s): I50.9 - Heart failure, unspecified (10) Hypomagnesemia: Status: Acute
[2023-10-28] MEDS: ZOFRAN INJ 4 MG VIAL ONE (09:46)
[2023-10-29] MEDS: STERILE WATER IRRIGATION IR ONE (06:04)
[2023-10-29 06:34] LABS: BASOPHILS % (AUTO) 0.4 % (0.2-1.0); EOSINOPHILS # (AUTO) 0.3 x10^3/uL (0.0-0.2); EOSINOPHILS % (AUTO) 5.4 % (0.9-2.9); HEMATOCRIT 37.5 % (36.0-47.0); HEMOGLOBIN 11.8 g/dL (12.0-16.0); LYMPHOCYTES # (AUTO) 1.6 X10^3/uL (1.3-2.9); LYMPHOCYTES % (AUTO) 27.5 % (21.0-51.0); MEAN CORPUSCULAR HGB CONC 31.4 g/dL (33.0-35.0); MEAN CORPUSCULAR VOLUME 92.3 fL (80.0-100.0); MEAN PLATELET VOLUME 8.1 fL (7.4-11.0); MONOCYTES # (AUTO) 0.4 x10^3/uL (0.3-0.8); MONOCYTES % (AUTO) 7.6 % (0.0-13.0); NEUTROPHILS # (AUTO) 3.3 x10^3/uL (2.2-4.8); NEUTROPHILS % (AUTO) 59.1 % (42.0-75.0); PLATELET COUNT 206 X10^3/uL (150.0-450.0); RED BLOOD COUNT 4.06 X10^6/uL (3.5-5.4); RED CELL DISTRIBUTION WIDTH 15.8 % (11.6-16.5); WHITE BLOOD COUNT 5.7 X10^3/uL (3.6-10.0)
[2023-10-29 06:52] LABS: ALANINE AMINOTRANSFERASE 19 Units/L (12-78); ALBUMIN 2.3 g/dL (3.4-5.0); ALKALINE PHOSPHATASE 93 Units/L (46-116); ASPARTATE AMINO TRANSFERASE 16 Units/L (15-37); BLOOD UREA NITROGEN 10 mg/dL (7-18); CALCIUM 8.4 mg/dL (8.5-10.1); CARBON DIOXIDE 31.3 mmol/L (21-32); CHLORIDE 102 mmol/L (98-107); COR CA(FOR HYPOALB) 9.8 mg/dL (8.5-10.1); COR NA(FOR HYPERGLY) 138 mmol/L (136-145); CREATININE 0.74 mg/dL (0.55-1.02); GLUCOSE 119 mg/dL (65-99); POTASSIUM 4.1 mmol/L (3.5-5.1); SODIUM 138 mmol/L (136-145); TOTAL PROTEIN 6.2 g/dL (6.4-8.2); eGFR NON BLACK RACES > 60 (>60)
--- NOTE | 2023-10-29 10:35 | NOTE.SOAP ---
Soap Note Note for Day of Date of Exam: 10/29/23 Subjective Data Subjective Data: Resting in bed. Has some minor increased pain. Objective Data Objective Data: Right Lower Extremity Exam: Fixator in place to the right lower extremity. Wound Vac delivering therapy. Dressing clean, dry, and intact. No signs or symptoms concerning for DVT, PE, or Compartment Syndrome. Assessment Assessment: 67 year old Diabetic and Morbid obese female who is POD #1 removal of antibiotic beads, wound debridement, partial delayed primary closure, and application of antibiotic wound vac to the right foot Plan Plan: - NWB to the RLE - We will follow culture and path report from 10/28/2023. - Believe she will need custodial antibiotics with the antibiotic regimen she is currently on. - No further surgical intervention warranted at this time. - Will plan to change wound vac tomorrow. Nursing staff please have vac supplies on floor. - We are awaiting discharge until a formal placement plan is in place.
--- NOTE | 2023-10-29 11:03 | PCM.PROG ---
Progress Note Progress Note for Day of Date of Exam: 10/29/23 Subjective Subjective: Patient resting in bed. No acute events overnight. She went to OR yesterday for removal of antibiotic beads and wound vac placement. No issues as per nursing staff. Labs/imaging reviewed: -Wbc 5.7, Hgb 11.8, Plt 206, Na 138, K 4.1, Creatinine 0.74, Glucose 119 -MRI RLE: see report -Urine Cx: Enterobacter -Wound Cx 10/26/23: no growth -Blood Cx no growth Plan: Follow podiatry recommendations, Continue IV Meropenem and Linezolid. Continue Bactrim. Continue pain control. Continue wound care. Replace electrolytes as per protocol. Hold oral hypoglycemics, continue SSI. Monitor AM labs/imaging. CM working on discharge planning. Past Medical Family Social History Allergies: Allergies erythromycin base Allergy (Intermediate, Verified 08/28/23 14:13) diclofenac [From Voltaren] Allergy (Unknown, Verified 08/28/23 14:13) Reason: Drug allergy Fish Containing Products Allergy (Unknown, Verified 08/28/23 14:13) "seafood" allergy gabapentin Allergy (Unknown, Verified 08/28/23 14:13) Reason: Drug allergy ibuprofen [Nuprin] Allergy (Unknown, Verified 08/28/23 14:13) nalbuphine [From Nubain] Allergy (Unknown, Verified 08/28/23 14:13) Penicillins Allergy (Unknown, Verified 08/28/23 14:13) sumatriptan [Imitrex] Allergy (Unknown, Verified 08/28/23 14:13) minocycline Allergy (Verified 08/28/23 14:13) morphine Allergy (Verified 08/28/23 14:13) oyster extract Allergy (Verified 08/28/23 14:13) penicillin G Allergy (Verified 08/28/23 14:13) promethazine [From Phenergan] Allergy (Verified 08/28/23 14:13) Review of Systems ROS changes noted: see HPI Vital Signs and I&O's Vital Signs: Vital Signs Temperature 98.1 F Temperature 97.6 F Pulse Rate 72 Pulse Rate 82 Respiratory Rate 20 Respiratory Rate 20 Respiratory Rate 20 Blood Pressure 144/65 Blood Pressure 138/69 O2 Sat by Pulse Oximetry 99 O2 Sat by Pulse Oximetry 94 Intake and Output: Intake & Output 10/26/23 10/27/23 10/28/23 10/29/23 23:59 23:59 23:59 23:59 Intake Total 2286 / 2286 1369 / 1369 2551 / 2551 Output Total 3980 / 3980 2600 / 2600 3790 / 3790 900 / 900 Balance -1694 / -1694 -1231 / -1231 -1239 / -1239 -900 / -900 Physical Exam Oriented: Normal, Time, Person and Place Eyes: Normal Ear: Normal Nose: Normal Throat: Normal Respiratory: Generalized and Diminished Cardiovascular: Normal and Edema : Normal Auscultation: Bowel Sounds: Normal Tenderness: Normal Skin: Other (Right foot wrapped in anuj bandage, wound vac ) Musculoskeletal: Normal Psychiatric: Normal Mood Description: Calm Affect: Normal Speech Pattern: Clear and Appropriate Laboratory and Diagnostics 10/29/23 06:10 10/29/23 06:10 Labs: 10/26/23 10:37 Foot - Right Wound Gram Stain - Final 10/26/23 10:37 Foot - Right Wound Culture - Final Stenotrophomonas Maltophilia 10/28/23 09:55 Foot - Right Wound Culture - Preliminary 10/21/23 15:46 Foot - Right Wound Culture - Final Stenotrophomonas Maltophilia Enterobacter Cloacae Enterococcus Faecium Vre 10/17/23 17:35 Blood Blood Culture - Final 10/17/23 17:25 Blood Blood Culture - Final 10/17/23 17:28 Urine,Clean Catch Urine Culture - Final Enterobacter Cloacae 10/17/23 17:28 Foot - Right Wound Gram Stain - Final 10/17/23 17:28 Foot - Right Wound Culture - Final Citrobacter Freundii Morganella Morganii Laboratory WBC 5.7 X10^3/uL (3.6-10.0) 10/29/23 06:10 RBC 4.06 X10^6/uL (3.5-5.4) 10/29/23 06:10 Hgb 11.8 g/dL (12.0-16.0) L 10/29/23 06:10 Hct 37.5 % (36.0-47.0) 10/29/23 06:10 MCV 92.3 fL (80.0-100.0) 10/29/23 06:10 MCH 29.0 pg (27.0-34.0) 10/29/23 06:10 MCHC 31.4 g/dL (33.0-35.0) L 10/29/23 06:10 RDW 15.8 % (11.6-16.5) 10/29/23 06:10 Plt Count 206 X10^3/uL (150.0-450.0) 10/29/23 06:10 Plt Count Comment Adequate (ADEQUATE) 10/22/23 04:58 MPV 8.1 fL (7.4-11.0) 10/29/23 06:10 Neut % (Auto) 59.1 % (42.0-75.0) 10/29/23 06:10 Lymph % (Auto) 27.5 % (21.0-51.0) 10/29/23 06:10 [place] % (Auto) 7.6 % (0.0-13.0) 10/29/23 06:10 Eos % (Auto) 5.4 % (0.9-2.9) H 10/29/23 06:10 Baso % (Auto) 0.4 % (0.2-1.0) 10/29/23 06:10 Neut # (Auto) 3.3 x10^3/uL (2.2-4.8) 10/29/23 06:10 Lymph # (Auto) 1.6 X10^3/uL (1.3-2.9) 10/29/23 06:10 [place] # (Auto) 0.4 x10^3/uL (0.3-0.8) 10/29/23 06:10 Eos # (Auto) 0.3 x10^3/uL (0.0-0.2) H 10/29/23 06:10 Baso # (Auto) 0.0 X10^3/uL (0.0-0.1) 10/29/23 06:10 Absolute Nucleated RBC 0.0 /100WBC 10/29/23 06:10 Total Counted 100 10/22/23 04:58 Neutrophils % (Manual) 87 % (39-76) H 10/22/23 04:58 Band Neutrophils % 4 % (0-10) 10/22/23 04:58 Lymphocytes % (Manual) 6 % (13-43) L 10/22/23 04:58 Monocytes % (Manual) 2 % (4-9) L 10/22/23 04:58 Basophils % (Manual) 1 % (0-1) 10/22/23 04:58 Plt Morphology Comment Normal (NORMAL) 10/22/23 04:58 RBC Morphology Normal (NORMAL) 10/22/23 04:58 PT 15.1 SECONDS (11.8-14.3) 10/18/23 04:20 INR Target Range - 10/18/23 04:20 INR 1.22 (0.8-1.3) 10/18/23 04:20 APTT 31.7 SECONDS (22.9-36.5) 10/18/23 04:20 PTT Comment - 10/18/23 04:20 Sodium 138 mmol/L (136-145) 10/29/23 06:10 Corrected Sodium 138 mmol/L (136-145) 10/29/23 06:10 Potassium 4.1 mmol/L (3.5-5.1) 10/29/23 06:10 Chloride 102 mmol/L (98-107) 10/29/23 06:10 Carbon Dioxide 31.3 mmol/L (21-32) 10/29/23 06:10 BUN 10 mg/dL (7-18) 10/29/23 06:10 Creatinine 0.74 mg/dL (0.55-1.02) 10/29/23 06:10 Est GFR (MDRD) Af Amer > 60 (>60) 10/29/23 06:10 Est GFR (MDRD) Non-Af > 60 (>60) 10/29/23 06:10 Glucose 119 mg/dL (65-99) H 10/29/23 06:10 POC Glucose (mg/dL) 109 mg/dL (65-99) H 10/29/23 06:02 Lactic Acid 0.9 mmol/L (0.4-2.0) 10/17/23 19:25 Calcium 8.4 mg/dL (8.5-10.1) L 10/29/23 06:10 Corrected Calcium 9.8 mg/dL (8.5-10.1) 10/29/23 06:10 Magnesium 2.1 mg/dL (2.0-2.9) 10/23/23 04:13 Total Bilirubin 0.30 mg/dL (0.2-1.0) 10/29/23 06:10 AST 16 Units/L (15-37) 10/29/23 06:10 ALT 19 Units/L (12-78) 10/29/23 06:10 Alkaline Phosphatase 93 Units/L (46-116) 10/29/23 06:10 Total Protein 6.2 g/dL (6.4-8.2) L 10/29/23 06:10 Albumin 2.3 g/dL (3.4-5.0) L 10/29/23 06:10 Globulin 3.9 g/dL (2.5-4.5) 10/29/23 06:10 Albumin/Globulin Ratio 0.6 Ratio (1.1-2.1) L 10/29/23 06:10 Specimen Type Catherized urine 10/17/23 22:00 Urine Color Straw (YELLOW) 10/17/23 22:00 Urine Appearance Cloudy (CLEAR) 10/17/23 22:00 Urine pH 5.0 (5.0 - 8.0) 10/17/23 22:00 Ur Specific [place] 1.010 (1.000-1.030) 10/17/23 22:00 Urine Protein 1+ (NEGATIVE) 10/17/23 22:00 Urine Glucose (UA) 3+ (NEGATIVE) 10/17/23 22:00 Urine Ketones Negative (NEGATIVE) 10/17/23 22:00 Urine Blood 1+ (NEGATIVE) 10/17/23 22:00 Urine Nitrite Negative (NEGATIVE) 10/17/23 22:00 Urine Bilirubin Negative (NEGATIVE) 10/17/23 22:00 Urine Urobilinogen Normal (NORMAL) 10/17/23 22:00 Ur Leukocyte Esterase 3+ (NEGATIVE) 10/17/23 22:00 Urine RBC 10-20 /HPF (0-3) A 10/17/23 22:00 Urine WBC 30-50 /HPF (0-5) A 10/17/23 22:00 Ur Squamous Epith Cells Rare /HPF (NEGATIVE) 10/17/23 22:00 Amorphous Sediment 1+ /HPF (NEGATIVE) 10/17/23 22:00 Urine Bacteria Trace /HPF (NEGATIVE) 10/17/23 22:00 Urine Yeast Moderate /HPF (NEGATIVE) 10/17/23 22:00 Ur Culture Indicated? Yes/culture set up 10/17/23 22:00 Vancomycin Trough 22.5 ug/mL (15-20) H* 10/19/23 08:28 Random Vancomycin 13.0 ug/mL 10/20/23 04:30 SARS-CoV-2 (PCR) Negative (NEGATIVE) 10/17/23 19:55 Influenza Type A (PCR) Negative (NEGATIVE) 10/17/23 19:55 Influenza Type B (PCR) Negative (NEGATIVE) 10/17/23 19:55 RSV (PCR) Negative (NEGATIVE) 10/17/23 19:55 S. pyogenes (TEM-PCR) Not detected (NOT DETECT) 10/17/23 19:55 Tissue Pathology See comment. 10/21/23 15:45 Plan (1) Osteomyelitis of right foot: Status: Acute Qualifiers: Osteomyelitis type: chronic, with draining sinus Qualified Code(s): M86.471 - Chronic osteomyelitis with draining sinus, right ankle and foot (2) VRE (vancomycin-resistant Enterococci) infection: Status: Acute (3) Acute UTI: Status: Acute Plan: Continue Invanz at this time. (4) Decubitus ulcer of right heel, stage 3: Status: Acute Plan: IV Invanz. Follow-up with wound culture. Podiatry following (5) Wound infection: Status: Acute Plan: Consult general surgery for possible debridement of her right heel. The patient has been seen at a wound care clinic as an outpatient. She recently started back with him after not going and having treatment for quite a long time. (6) Generalized weakness: Status: Acute (7) Type 2 diabetes mellitus with morbid obesity: Status: None Plan: I will resume the patient's regular home diabetic medications. Will add/scale regular insulin if needed. (8) Sleep apnea with use of continuous positive airway pressure (CPAP): Status: None Plan: Patient may use her own CPAP device if she has brought her to the hospital or she has a family member or friend to bring him. (9) CHF (congestive heart failure): Status: Acute Qualifiers: Heart failure chronicity: unspecified Heart failure type: unspecified Qualified Code(s): I50.9 - Heart failure, unspecified (10) Hypomagnesemia: Status: Acute
[2023-10-30 06:56] LABS: BASOPHILS % (AUTO) 0.5 % (0.2-1.0); EOSINOPHILS # (AUTO) 0.3 x10^3/uL (0.0-0.2); EOSINOPHILS % (AUTO) 5.7 % (0.9-2.9); HEMATOCRIT 34.3 % (36.0-47.0); HEMOGLOBIN 10.9 g/dL (12.0-16.0); LYMPHOCYTES # (AUTO) 1.6 X10^3/uL (1.3-2.9); LYMPHOCYTES % (AUTO) 25.7 % (21.0-51.0); MEAN CORPUSCULAR HEMOGLOBIN 29.3 pg (27.0-34.0); MEAN CORPUSCULAR HGB CONC 31.9 g/dL (33.0-35.0); MEAN CORPUSCULAR VOLUME 91.9 fL (80.0-100.0); MEAN PLATELET VOLUME 8.4 fL (7.4-11.0); MONOCYTES # (AUTO) 0.5 x10^3/uL (0.3-0.8); MONOCYTES % (AUTO) 8.6 % (0.0-13.0); NEUTROPHILS # (AUTO) 3.6 x10^3/uL (2.2-4.8); NEUTROPHILS % (AUTO) 59.5 % (42.0-75.0); PLATELET COUNT 216 X10^3/uL (150.0-450.0); RED BLOOD COUNT 3.73 X10^6/uL (3.5-5.4); RED CELL DISTRIBUTION WIDTH 15.7 % (11.6-16.5); WHITE BLOOD COUNT 6.1 X10^3/uL (3.6-10.0)
[2023-10-30 07:01] LABS: ALANINE AMINOTRANSFERASE 18 Units/L (12-78); ALBUMIN 2.1 g/dL (3.4-5.0); ALKALINE PHOSPHATASE 92 Units/L (46-116); ASPARTATE AMINO TRANSFERASE 15 Units/L (15-37); BLOOD UREA NITROGEN 13 mg/dL (7-18); CALCIUM 8.1 mg/dL (8.5-10.1); CARBON DIOXIDE 31.1 mmol/L (21-32); CHLORIDE 103 mmol/L (98-107); COR CA(FOR HYPOALB) 9.6 mg/dL (8.5-10.1); COR NA(FOR HYPERGLY) 138 mmol/L (136-145); CREATININE 0.85 mg/dL (0.55-1.02); GLUCOSE 147 mg/dL (65-99); POTASSIUM 4.5 mmol/L (3.5-5.1); SODIUM 137 mmol/L (136-145); TOTAL PROTEIN 5.6 g/dL (6.4-8.2); eGFR NON BLACK RACES > 60 (>60)
[2023-10-30] MEDS: VITAMIN D3 125 mcg (5,000 UNITS) PO SCH (14:07)
[2023-10-30] MEDS: VITAMIN B-12 INJ IM NR (14:07)
--- NOTE | 2023-10-30 15:10 | RAD ---
EXAMINATION:CHEST, 1 VIEWHISTORY:picc line placement; .COMPARISON STUDY:10/19/2023TECHNIQUE:A single view of the chest was obtained.FINDINGS:Right-sided PICC line with tip in the SVC. Heart size is enlarged. No acute infiltrates. There is no pneumothorax. Hilar and mediastinal structures and bony structures are unremarkable. Elevated right hemidiaphragm. Poor inspiration.IMPRESSION:No acute process in the chest.Right-sided PICC line with tip in the SVC.THIS IS AN ELECTRONICALLY VERIFIED FINAL REPORT10/30/2023 3:07 PM - Electronically signed by Lux Haines MD
--- NOTE | 2023-10-30 15:17 | DR.UPDATE ---
H&P Update Prescription drug monitoring program results: PDMP was not reviewed H&P Reviewed: Yes Any changes to H&P?: No Patient was examined?: Yes Vital Signs: Temp Pulse Resp BP Pulse Ox O2 Del Method O2 Flow Rate 10/30/23 12:00 97.9 F 81 19 120/66 99 Nasal Cannula 10/30/23 07:00 Nasal Cannula 2 10/30/23 08:00 97.5 F L 77 17 111/56 98 Nasal Cannula 10/30/23 08:10 Nasal Cannula 2 10/30/23 13:55 19 10/30/23 06:31 20 10/30/23 05:31 20 10/30/23 04:00 97.5 F L 73 18 142/67 100 CPAP 10/30/23 00:00 97.6 F 78 18 124/59 98 CPAP 10/29/23 22:05 20 10/29/23 21:05 20 10/29/23 20:20 Room Air 10/29/23 20:00 98.2 F 77 18 131/62 97 Nasal Cannula 2 10/29/23 19:00 Nasal Cannula 2 10/29/23 16:00 97.8 F 70 18 109/59 99 CPAP 2 10/29/23 12:00 97.8 F 66 18 106/50 95 CPAP 2 10/29/23 07:00 Nasal Cannula 2 10/29/23 08:00 98.1 F 72 20 144/65 99 CPAP 2 10/29/23 08:42 Room Air 2 10/29/23 06:07 20 10/29/23 04:00 97.6 F 82 20 138/69 94 L CPAP 2 10/28/23 23:30 20 10/29/23 00:00 97.9 F 81 20 108/55 95 Nasal Cannula 2 10/28/23 19:00 Nasal Cannula 2 10/28/23 22:30 18 10/28/23 19:00 81 23 140/73 100 10/28/23 18:01 129/59 10/28/23 18:01 76 13 100 10/28/23 18:00 75 19 98 10/28/23 17:01 76 13 100 10/28/23 17:01 136/67 10/28/23 17:00 79 19 100 10/28/23 16:01 75 21 100 10/28/23 16:01 125/60 10/28/23 16:00 75 19 100 10/28/23 15:59 97.7 F 10/28/23 14:35 20 10/28/23 15:01 78 19 100 10/28/23 15:01 136/62 10/28/23 15:00 98.0 F 76 18 100 10/28/23 14:01 136/61 10/28/23 14:01 98.0 F 72 23 100 10/28/23 14:00 74 23 100 10/28/23 07:00 Nasal Cannula 2 10/28/23 13:45 81 23 100 10/28/23 13:45 120/59 10/28/23 13:31 136/59 10/28/23 13:31 98.0 F 84 19 100 10/28/23 13:15 90 21 100 10/28/23 13:15 137/62 10/28/23 13:00 144/59 10/28/23 13:00 144/59 10/28/23 13:00 82 19 100 10/28/23 12:46 81 18 100 10/28/23 12:46 135/62 10/28/23 12:30 126/58 10/28/23 12:30 98.0 F 74 17 100 10/28/23 12:16 80 18 100 10/28/23 12:16 122/63 10/28/23 12:00 152/69 10/28/23 13:35 20 10/28/23 12:00 152/69 10/28/23 12:00 87 21 100 10/28/23 11:45 142/58 10/28/23 11:45 86 19 100 10/28/23 11:30 97.7 F 91 H 15 100 10/28/23 11:30 144/70 10/28/23 11:15 97.7 F 85 22 100 10/28/23 11:15 143/65 10/28/23 11:00 154/78 10/28/23 11:00 97.8 F 85 17 100 10/28/23 10:46 84 33 H 100 10/28/23 10:46 154/81 10/28/23 10:45 97.8 F 84 15 100 10/28/23 10:30 125/59 10/28/23 10:30 97.8 F 84 99 10/28/23 10:29 96 10/28/23 09:00 81 14 100 10/28/23 09:00 137/64 10/28/23 08:45 79 14 100 10/28/23 08:30 80 23 100 10/28/23 08:15 77 20 100 10/28/23 09:05 Nasal Cannula 2 10/28/23 08:00 97.7 F 78 17 100 10/28/23 08:00 114/55 10/28/23 07:01 78 18 100 10/28/23 07:01 143/77 10/28/23 07:00 83 26 H 99 10/28/23 06:00 130/61 10/28/23 06:00 72 17 100 10/28/23 05:00 146/63 10/28/23 05:00 97.7 F 79 19 100 10/28/23 04:00 98/51 10/28/23 04:00 64 18 100 10/28/23 03:00 90/52 10/28/23 03:00 74 18 100 10/27/23 21:15 79 100 10/27/23 21:15 Nasal Cannula 2 10/28/23 02:00 95/53 10/28/23 02:00 67 16 91 L 10/28/23 01:00 92/53 10/28/23 01:00 73 13 100 10/28/23 00:00 126/63 10/28/23 00:00 97.6 F 80 24 100 10/27/23 22:04 18 10/27/23 23:00 124/59 10/27/23 23:00 79 20 100 10/27/23 19:00 Room Air 10/27/23 22:01 132/63 10/27/23 22:00 76 21 100 10/27/23 21:01 159/65 10/27/23 21:00 71 22 100 10/27/23 20:00 76 29 H 100 10/27/23 20:00 97.8 F 137/62 10/27/23 21:04 22 10/27/23 19:01 130/63 10/27/23 19:01 78 22 100 10/27/23 18:00 69 22 168/67 100 10/27/23 17:00 69 22 168/67 100 10/27/23 16:00 98.2 F 54 L 20 173/72 92 L FiO2 10/30/23 12:00 10/30/23 07:00 10/30/23 08:00 10/30/23 08:10 28 10/30/23 13:55 10/30/23 06:31 10/30/23 05:31 10/30/23 04:00 10/30/23 00:00 10/29/23 22:05 10/29/23 21:05 10/29/23 20:20 10/29/23 20:00 10/29/23 19:00 10/29/23 16:00 10/29/23 12:00 10/29/23 07:00 10/29/23 08:00 10/29/23 08:42 10/29/23 06:07 10/29/23 04:00 10/28/23 23:30 10/29/23 00:00 10/28/23 19:00 10/28/23 22:30 10/28/23 19:00 10/28/23 18:01 10/28/23 18:01 10/28/23 18:00 10/28/23 17:01 10/28/23 17:01 10/28/23 17:00 10/28/23 16:01 10/28/23 16:01 10/28/23 16:00 10/28/23 15:59 10/28/23 14:35 10/28/23 15:01 10/28/23 15:01 10/28/23 15:00 10/28/23 14:01 10/28/23 14:01 10/28/23 14:00 10/28/23 07:00 10/28/23 13:45 10/28/23 13:45 10/28/23 13:31 10/28/23 13:31 10/28/23 13:15 10/28/23 13:15 10/28/23 13:00 10/28/23 13:00 10/28/23 13:00 10/28/23 12:46 10/28/23 12:46 10/28/23 12:30 10/28/23 12:30 10/28/23 12:16 10/28/23 12:16 10/28/23 12:00 10/28/23 13:35 10/28/23 12:00 10/28/23 12:00 10/28/23 11:45 10/28/23 11:45 10/28/23 11:30 10/28/23 11:30 10/28/23 11:15 10/28/23 11:15 10/28/23 11:00 10/28/23 11:00 10/28/23 10:46 10/28/23 10:46 10/28/23 10:45 10/28/23 10:30 10/28/23 10:30 10/28/23 10:29 10/28/23 09:00 10/28/23 09:00 10/28/23 08:45 10/28/23 08:30 10/28/23 08:15 10/28/23 09:05 10/28/23 08:00 10/28/23 08:00 10/28/23 07:01 10/28/23 07:01 10/28/23 07:00 10/28/23 06:00 10/28/23 06:00 10/28/23 05:00 10/28/23 05:00 10/28/23 04:00 10/28/23 04:00 10/28/23 03:00 10/28/23 03:00 10/27/23 21:15 10/27/23 21:15 28 10/28/23 02:00 10/28/23 02:00 10/28/23 01:00 10/28/23 01:00 10/28/23 00:00 10/28/23 00:00 10/27/23 22:04 10/27/23 23:00 10/27/23 23:00 10/27/23 19:00 10/27/23 22:01 10/27/23 22:00 10/27/23 21:01 10/27/23 21:00 10/27/23 20:00 10/27/23 20:00 10/27/23 21:04 10/27/23 19:01 10/27/23 19:01 10/27/23 18:00 10/27/23 17:00 10/27/23 16:00 Procedures (ALL) - Central Line Placement PCM.[email or web address]: written consent Time out performed: Yes Patient placed pm monitor/pulse ox: Yes MD prep: mask, gown, gloves, other Centrial line prep: chlorhexidine scrub, sterile drapes applied Local anesthsia used: lidocane 1% Ultrasound used for placement: Yes (right basilic id'd via u/s and cannulation vis) Central line lumen ininserted: double (5.5 fr arrow picc) Post procedure: good blood return, all ports aspirated, flushed,capped, sterile dressing applied Post procedure xray: tip oc catheter in good position (SVC termination per CXR) Patient tolerated procedure: Yes Complications: none
[2023-10-31 06:22] LABS: BASOPHILS % (AUTO) 0.5 % (0.2-1.0); EOSINOPHILS # (AUTO) 0.2 x10^3/uL (0.0-0.2); EOSINOPHILS % (AUTO) 4.2 % (0.9-2.9); HEMATOCRIT 37.1 % (36.0-47.0); HEMOGLOBIN 11.9 g/dL (12.0-16.0); LYMPHOCYTES # (AUTO) 1.5 X10^3/uL (1.3-2.9); LYMPHOCYTES % (AUTO) 26.6 % (21.0-51.0); MEAN CORPUSCULAR HEMOGLOBIN 29.5 pg (27.0-34.0); MEAN CORPUSCULAR HGB CONC 32.1 g/dL (33.0-35.0); MEAN CORPUSCULAR VOLUME 91.8 fL (80.0-100.0); MONOCYTES # (AUTO) 0.5 x10^3/uL (0.3-0.8); MONOCYTES % (AUTO) 8.8 % (0.0-13.0); NEUTROPHILS # (AUTO) 3.3 x10^3/uL (2.2-4.8); NEUTROPHILS % (AUTO) 59.9 % (42.0-75.0); PLATELET COUNT 188 X10^3/uL (150.0-450.0); RED BLOOD COUNT 4.04 X10^6/uL (3.5-5.4); RED CELL DISTRIBUTION WIDTH 15.8 % (11.6-16.5); WHITE BLOOD COUNT 5.5 X10^3/uL (3.6-10.0)
[2023-10-31 06:31] LABS: ALANINE AMINOTRANSFERASE 18 Units/L (12-78); ALBUMIN 2.5 g/dL (3.4-5.0); ALKALINE PHOSPHATASE 101 Units/L (46-116); ASPARTATE AMINO TRANSFERASE 16 Units/L (15-37); BLOOD UREA NITROGEN 15 mg/dL (7-18); CALCIUM 8.6 mg/dL (8.5-10.1); CARBON DIOXIDE 31.5 mmol/L (21-32); CHLORIDE 101 mmol/L (98-107); COR CA(FOR HYPOALB) 9.8 mg/dL (8.5-10.1); COR NA(FOR HYPERGLY) 136 mmol/L (136-145); CREATININE 0.82 mg/dL (0.55-1.02); GLUCOSE 119 mg/dL (65-99); POTASSIUM 4.2 mmol/L (3.5-5.1); SODIUM 136 mmol/L (136-145); TOTAL PROTEIN 6.4 g/dL (6.4-8.2); eGFR NON BLACK RACES > 60 (>60)
--- NOTE | 2023-10-31 08:00 | PCM.PROG ---
Progress Note Progress Note for Day of Date of Exam: 10/30/23 Subjective Subjective: Patient this morning in bed resting comfortably. No acute events overnight. She is POD#2 removal of antibiotic beads, wound debridement, partial delayed primary closure, and application of antibiotic wound vac to the right foot. Labs/imaging reviewed: -Wbc 6.1, Hgb 10.9, Plt 216, Na 137, K 4.5, Creatinine 0.85, Glucose 147 -MRI RLE: see report -Urine Cx: Enterobacter -Wound Cx 10/26/23: no growth -Blood Cx no growth Plan: Follow podiatry recommendations, Continue IV Meropenem and Linezolid. Continue Bactrim. Continue pain control. Continue wound care. Replace electrolytes as per protocol. Hold oral hypoglycemics, continue SSI. Monitor AM labs/imaging. Will get central line placement. CM working on discharge planning and placement. Past Medical Family Social History Allergies: Allergies erythromycin base Allergy (Intermediate, Verified 08/28/23 14:13) diclofenac [From Voltaren] Allergy (Unknown, Verified 08/28/23 14:13) Reason: Drug allergy Fish Containing Products Allergy (Unknown, Verified 08/28/23 14:13) "seafood" allergy gabapentin Allergy (Unknown, Verified 08/28/23 14:13) Reason: Drug allergy ibuprofen [Nuprin] Allergy (Unknown, Verified 08/28/23 14:13) nalbuphine [From Nubain] Allergy (Unknown, Verified 08/28/23 14:13) Penicillins Allergy (Unknown, Verified 08/28/23 14:13) sumatriptan [Imitrex] Allergy (Unknown, Verified 08/28/23 14:13) minocycline Allergy (Verified 08/28/23 14:13) morphine Allergy (Verified 08/28/23 14:13) oyster extract Allergy (Verified 08/28/23 14:13) penicillin G Allergy (Verified 08/28/23 14:13) promethazine [From Phenergan] Allergy (Verified 08/28/23 14:13) Review of Systems ROS changes noted: see HPI Vital Signs and I&O's Vital Signs: Vital Signs Temperature 98 F Temperature 97.8 F Pulse Rate [Bilateral Radial] 72 Pulse Rate [Bilateral Radial] 73 Respiratory Rate 18 Respiratory Rate 18 Respiratory Rate 20 Respiratory Rate 20 Respiratory Rate 18 Blood Pressure [Right Arm] 130/63 Blood Pressure [Right Arm] 139/64 O2 Sat by Pulse Oximetry 100 O2 Sat by Pulse Oximetry 100 Intake and Output: Intake & Output 10/28/23 10/29/23 10/30/23 10/31/23 23:59 23:59 23:59 23:59 Intake Total 2551 / 2551 190 / 1902 2061 / 2061 454 / 454 Output Total 3790 / 3790 3150 / 3150 2705 / 2705 1500 / 1500 Balance -1239 / -1239 -1248 / -1248 -643 / -643 -1046 / -1046 Physical Exam Oriented: Normal, Time, Person and Place Eyes: Normal Ear: Normal Nose: Normal Throat: Normal Respiratory: Generalized and Diminished Cardiovascular: Normal and Edema : Normal Auscultation: Bowel Sounds: Normal Tenderness: Normal Skin: Other (Right foot wrapped in anuj bandage, wound vac ) Musculoskeletal: Normal Psychiatric: Normal Mood Description: Calm Affect: Normal Speech Pattern: Clear and Appropriate Laboratory and Diagnostics 10/31/23 06:03 10/31/23 06:03 Labs: 10/28/23 09:55 Foot - Right Wound Culture - Preliminary 10/26/23 10:37 Foot - Right Wound Gram Stain - Final 10/26/23 10:37 Foot - Right Wound Culture - Final Stenotrophomonas Maltophilia 10/21/23 15:46 Foot - Right Wound Culture - Final Stenotrophomonas Maltophilia Enterobacter Cloacae Enterococcus Faecium Vre 10/17/23 17:35 Blood Blood Culture - Final 10/17/23 17:25 Blood Blood Culture - Final 10/17/23 17:28 Urine,Clean Catch Urine Culture - Final Enterobacter Cloacae 10/17/23 17:28 Foot - Right Wound Gram Stain - Final 10/17/23 17:28 Foot - Right Wound Culture - Final Citrobacter Freundii Morganella Morganii Laboratory WBC 5.5 X10^3/uL (3.6-10.0) 10/31/23 06:03 RBC 4.04 X10^6/uL (3.5-5.4) 10/31/23 06:03 Hgb 11.9 g/dL (12.0-16.0) L 10/31/23 06:03 Hct 37.1 % (36.0-47.0) 10/31/23 06:03 MCV 91.8 fL (80.0-100.0) 10/31/23 06:03 MCH 29.5 pg (27.0-34.0) 10/31/23 06:03 MCHC 32.1 g/dL (33.0-35.0) L 10/31/23 06:03 RDW 15.8 % (11.6-16.5) 10/31/23 06:03 Plt Count 188 X10^3/uL (150.0-450.0) 10/31/23 06:03 Plt Count Comment Adequate (ADEQUATE) 10/22/23 04:58 MPV 8.0 fL (7.4-11.0) 10/31/23 06:03 Neut % (Auto) 59.9 % (42.0-75.0) 10/31/23 06:03 Lymph % (Auto) 26.6 % (21.0-51.0) 10/31/23 06:03 [place] % (Auto) 8.8 % (0.0-13.0) 10/31/23 06:03 Eos % (Auto) 4.2 % (0.9-2.9) H 10/31/23 06:03 Baso % (Auto) 0.5 % (0.2-1.0) 10/31/23 06:03 Neut # (Auto) 3.3 x10^3/uL (2.2-4.8) 10/31/23 06:03 Lymph # (Auto) 1.5 X10^3/uL (1.3-2.9) 10/31/23 06:03 [place] # (Auto) 0.5 x10^3/uL (0.3-0.8) 10/31/23 06:03 Eos # (Auto) 0.2 x10^3/uL (0.0-0.2) 10/31/23 06:03 Baso # (Auto) 0.0 X10^3/uL (0.0-0.1) 10/31/23 06:03 Absolute Nucleated RBC 0.0 /100WBC 10/31/23 06:03 Total Counted 100 10/22/23 04:58 Neutrophils % (Manual) 87 % (39-76) H 10/22/23 04:58 Band Neutrophils % 4 % (0-10) 10/22/23 04:58 Lymphocytes % (Manual) 6 % (13-43) L 10/22/23 04:58 Monocytes % (Manual) 2 % (4-9) L 10/22/23 04:58 Basophils % (Manual) 1 % (0-1) 10/22/23 04:58 Plt Morphology Comment Normal (NORMAL) 10/22/23 04:58 RBC Morphology Normal (NORMAL) 10/22/23 04:58 PT 15.1 SECONDS (11.8-14.3) 10/18/23 04:20 INR Target Range - 10/18/23 04:20 INR 1.22 (0.8-1.3) 10/18/23 04:20 APTT 31.7 SECONDS (22.9-36.5) 10/18/23 04:20 PTT Comment - 10/18/23 04:20 Sodium 136 mmol/L (136-145) 10/31/23 06:03 Corrected Sodium 136 mmol/L (136-145) 10/31/23 06:03 Potassium 4.2 mmol/L (3.5-5.1) 10/31/23 06:03 Chloride 101 mmol/L (98-107) 10/31/23 06:03 Carbon Dioxide 31.5 mmol/L (21-32) 10/31/23 06:03 BUN 15 mg/dL (7-18) 10/31/23 06:03 Creatinine 0.82 mg/dL (0.55-1.02) 10/31/23 06:03 Est GFR (MDRD) Af Amer > 60 (>60) 10/31/23 06:03 Est GFR (MDRD) Non-Af > 60 (>60) 10/31/23 06:03 Glucose 119 mg/dL (65-99) H 10/31/23 06:03 POC Glucose (mg/dL) 93 mg/dL (65-99) 10/31/23 06:50 Lactic Acid 0.9 mmol/L (0.4-2.0) 10/17/23 19:25 Calcium 8.6 mg/dL (8.5-10.1) 10/31/23 06:03 Corrected Calcium 9.8 mg/dL (8.5-10.1) 10/31/23 06:03 Magnesium 2.1 mg/dL (2.0-2.9) 10/23/23 04:13 Total Bilirubin 0.30 mg/dL (0.2-1.0) 10/31/23 06:03 AST 16 Units/L (15-37) 10/31/23 06:03 ALT 18 Units/L (12-78) 10/31/23 06:03 Alkaline Phosphatase 101 Units/L (46-116) 10/31/23 06:03 Total Protein 6.4 g/dL (6.4-8.2) 10/31/23 06:03 Albumin 2.5 g/dL (3.4-5.0) L 10/31/23 06:03 Globulin 3.9 g/dL (2.5-4.5) 10/31/23 06:03 Albumin/Globulin Ratio 0.6 Ratio (1.1-2.1) L 10/31/23 06:03 Specimen Type Catherized urine 10/17/23 22:00 Urine Color Straw (YELLOW) 10/17/23 22:00 Urine Appearance Cloudy (CLEAR) 10/17/23 22:00 Urine pH 5.0 (5.0 - 8.0) 10/17/23 22:00 Ur Specific [place] 1.010 (1.000-1.030) 10/17/23 22:00 Urine Protein 1+ (NEGATIVE) 10/17/23 22:00 Urine Glucose (UA) 3+ (NEGATIVE) 10/17/23 22:00 Urine Ketones Negative (NEGATIVE) 10/17/23 22:00 Urine Blood 1+ (NEGATIVE) 10/17/23 22:00 Urine Nitrite Negative (NEGATIVE) 10/17/23 22:00 Urine Bilirubin Negative (NEGATIVE) 10/17/23 22:00 Urine Urobilinogen Normal (NORMAL) 10/17/23 22:00 Ur Leukocyte Esterase 3+ (NEGATIVE) 10/17/23 22:00 Urine RBC 10-20 /HPF (0-3) A 10/17/23 22:00 Urine WBC 30-50 /HPF (0-5) A 10/17/23 22:00 Ur Squamous Epith Cells Rare /HPF (NEGATIVE) 10/17/23 22:00 Amorphous Sediment 1+ /HPF (NEGATIVE) 10/17/23 22:00 Urine Bacteria Trace /HPF (NEGATIVE) 10/17/23 22:00 Urine Yeast Moderate /HPF (NEGATIVE) 10/17/23 22:00 Ur Culture Indicated? Yes/culture set up 10/17/23 22:00 Vancomycin Trough 22.5 ug/mL (15-20) H* 10/19/23 08:28 Random Vancomycin 13.0 ug/mL 10/20/23 04:30 SARS-CoV-2 (PCR) Negative (NEGATIVE) 10/17/23 19:55 Influenza Type A (PCR) Negative (NEGATIVE) 10/17/23 19:55 Influenza Type B (PCR) Negative (NEGATIVE) 10/17/23 19:55 RSV (PCR) Negative (NEGATIVE) 10/17/23 19:55 S. pyogenes (TEM-PCR) Not detected (NOT DETECT) 10/17/23 19:55 Tissue Pathology See comment. 10/28/23 09:55 Plan (1) Osteomyelitis of right foot: Status: Acute Qualifiers: Osteomyelitis type: chronic, with draining sinus Qualified Code(s): M86.471 - Chronic osteomyelitis with draining sinus, right ankle and foot (2) VRE (vancomycin-resistant Enterococci) infection: Status: Acute (3) Acute UTI: Status: Acute Plan: Continue Invanz at this time. (4) Decubitus ulcer of right heel, stage 3: Status: Acute Plan: IV Invanz. Follow-up with wound culture. Podiatry following (5) Wound infection: Status: Acute Plan: Consult general surgery for possible debridement of her right heel. The patient has been seen at a wound care clinic as an outpatient. She recently started back with him after not going and having treatment for quite a long time. (6) Generalized weakness: Status: Acute (7) Type 2 diabetes mellitus with morbid obesity: Status: None Plan: I will resume the patient's regular home diabetic medications. Will add/scale regular insulin if needed. (8) Sleep apnea with use of continuous positive airway pressure (CPAP): Status: None Plan: Patient may use her own CPAP device if she has brought her to the hospital or she has a family member or friend to bring him. (9) CHF (congestive heart failure): Status: Acute Qualifiers: Heart failure chronicity: unspecified Heart failure type: unspecified Qualified Code(s): I50.9 - Heart failure, unspecified (10) Hypomagnesemia: Status: Acute
--- NOTE | 2023-10-31 09:33 | NOTE.SOAP ---
Soap Note Note for Day of Date of Exam: 10/31/23 Subjective Data Subjective Data: Patient doing well this am. Objective Data Objective Data: Right Lower Extremity Exam: External fixator in place. Wound measuring 3.0 cm circuremferentially at plantar heel. Wound base is granular. No purulence. Depth is filling great. Still depth goes down to calcaneus approximately 2.5 cm. Wound vac was reapplied in standard fashion. seal achieved. Noted to be delivering therapy. No signs or symptoms concerning for DVT, PE, or Compartment Syndrome. Assessment Assessment: 67 year old Female who is mordbily obese with a diabetic heel ulcer to the right foot she has undergone multiple procedures and currently has a wound vac in place with external fixator as well to the right foot Plan Plan: - Strict NWB to the RLE. - PICC Line in place. Delivering antibiotics. - Cultures from most recent surgery show no growth at day 2, will continue to monitor. - Again, expect termite control technician antibiotics - Awaiting pathology report. - Per patient she might be going home on Thursday. - She will need wound vac changes q3 days at the facility. - She will also need to follow-up with our office upon discharge.
[2023-10-31] MEDS: NS 500 ML IV 500 ML IV ONE (12:24)
[2023-10-31] MEDS: STERILE WATER IRRIGATION IR ONE (23:56)
[2023-10-31] MEDS: NS 250 ML IV 250 ML IV ONE (23:57)
[2023-11-01 05:52] LABS: BASOPHILS % (AUTO) 0.5 % (0.2-1.0); EOSINOPHILS # (AUTO) 0.3 x10^3/uL (0.0-0.2); EOSINOPHILS % (AUTO) 5.2 % (0.9-2.9); HEMATOCRIT 35.9 % (36.0-47.0); HEMOGLOBIN 11.4 g/dL (12.0-16.0); LYMPHOCYTES # (AUTO) 1.4 X10^3/uL (1.3-2.9); MEAN CORPUSCULAR HEMOGLOBIN 29.2 pg (27.0-34.0); MEAN CORPUSCULAR HGB CONC 31.7 g/dL (33.0-35.0); MEAN PLATELET VOLUME 8.1 fL (7.4-11.0); MONOCYTES # (AUTO) 0.4 x10^3/uL (0.3-0.8); MONOCYTES % (AUTO) 8.6 % (0.0-13.0); NEUTROPHILS # (AUTO) 2.8 x10^3/uL (2.2-4.8); NEUTROPHILS % (AUTO) 56.7 % (42.0-75.0); PLATELET COUNT 185 X10^3/uL (150.0-450.0); RED CELL DISTRIBUTION WIDTH 15.8 % (11.6-16.5); WHITE BLOOD COUNT 4.9 X10^3/uL (3.6-10.0)
[2023-11-01 06:03] LABS: ALANINE AMINOTRANSFERASE 16 Units/L (12-78); ALBUMIN 2.3 g/dL (3.4-5.0); ALKALINE PHOSPHATASE 95 Units/L (46-116); ASPARTATE AMINO TRANSFERASE 14 Units/L (15-37); BLOOD UREA NITROGEN 13 mg/dL (7-18); CALCIUM 8.7 mg/dL (8.5-10.1); CARBON DIOXIDE 33.1 mmol/L (21-32); CHLORIDE 103 mmol/L (98-107); COR CA(FOR HYPOALB) 10.1 mg/dL (8.5-10.1); COR NA(FOR HYPERGLY) 139 mmol/L (136-145); GLUCOSE 140 mg/dL (65-99); POTASSIUM 4.2 mmol/L (3.5-5.1); SODIUM 138 mmol/L (136-145); eGFR NON BLACK RACES > 60 (>60)
[2023-11-01] MEDS ORDERED: CALAN SR 240 MG PO SCH (19:00)
[2023-11-02 05:08] LABS: MEAN CORPUSCULAR HEMOGLOBIN 29.2 pg (27.0-34.0); MEAN PLATELET VOLUME 8.2 fL (7.4-11.0)
[2023-11-02 05:15] LABS: BASOPHILS % (AUTO) 0.5 % (0.2-1.0); EOSINOPHILS # (AUTO) 0.3 x10^3/uL (0.0-0.2); EOSINOPHILS % (AUTO) 5.6 % (0.9-2.9); HEMATOCRIT 35.4 % (36.0-47.0); HEMOGLOBIN 11.3 g/dL (12.0-16.0); LYMPHOCYTES # (AUTO) 1.7 X10^3/uL (1.3-2.9); LYMPHOCYTES % (AUTO) 35.5 % (21.0-51.0); MEAN CORPUSCULAR VOLUME 91.4 fL (80.0-100.0); MONOCYTES # (AUTO) 0.4 x10^3/uL (0.3-0.8); MONOCYTES % (AUTO) 8.9 % (0.0-13.0); NEUTROPHILS # (AUTO) 2.3 x10^3/uL (2.2-4.8); NEUTROPHILS % (AUTO) 49.5 % (42.0-75.0); PLATELET COUNT 191 X10^3/uL (150.0-450.0); RED BLOOD COUNT 3.88 X10^6/uL (3.5-5.4); RED CELL DISTRIBUTION WIDTH 15.5 % (11.6-16.5); WHITE BLOOD COUNT 4.7 X10^3/uL (3.6-10.0)
[2023-11-02 05:20] LABS: ALANINE AMINOTRANSFERASE 16 Units/L (12-78); ALBUMIN 2.2 g/dL (3.4-5.0); ALKALINE PHOSPHATASE 93 Units/L (46-116); ASPARTATE AMINO TRANSFERASE 14 Units/L (15-37); BLOOD UREA NITROGEN 14 mg/dL (7-18); CALCIUM 8.6 mg/dL (8.5-10.1); CARBON DIOXIDE 30.3 mmol/L (21-32); CHLORIDE 101 mmol/L (98-107); COR NA(FOR HYPERGLY) 138 mmol/L (136-145); CREATININE 0.89 mg/dL (0.55-1.02); GLUCOSE 126 mg/dL (65-99); POTASSIUM 4.2 mmol/L (3.5-5.1); SODIUM 137 mmol/L (136-145); TOTAL PROTEIN 5.8 g/dL (6.4-8.2); eGFR NON BLACK RACES > 60 (>60)
[2023-11-02] MEDS: CALAN SR 120 MG PO SCH (08:26)
--- NOTE | 2023-11-02 09:31 | PCM.PROG ---
Progress Note Progress Note for Day of Date of Exam: 11/02/23 Subjective Subjective: Patient seen at bedside, no acute events overnight. She is complaining of back pain. She is being treated for right heel osteomyelitis. She currently has wound Vac in place. She states it ulcer seems to be looking smaller. Podiatry is following, will change dressing tomorrow. CM is working on placement. Patient has PICC line placed, will need long-term antibiotics. Patient was noted to have some bradycardia at night, metoprolol was stopped, and verapamil dose was reduced to the AM. Labs/imaging reviewed: -Wbc 4.7, Hgb 11.3, Plt 191 -MRI RLE: see report -Urine Cx: Enterobacter -Wound Cx 10/28/23: no growth -Blood Cx no growth Plan: Follow podiatry recommendations, Continue IV Meropenem and Linezolid. Continue Bactrim. Continue pain control. Continue wound care. Replace electrolytes as per protocol. Resume duloxetine. Monitor HR. Continue Verapamil. Change diet to ADA. CM working on placement. Monitor AM labs/imaging. Past Medical Family Social History Allergies: Allergies erythromycin base Allergy (Intermediate, Verified 08/28/23 14:13) diclofenac [From Voltaren] Allergy (Unknown, Verified 08/28/23 14:13) Reason: Drug allergy Fish Containing Products Allergy (Unknown, Verified 08/28/23 14:13) "seafood" allergy gabapentin Allergy (Unknown, Verified 08/28/23 14:13) Reason: Drug allergy ibuprofen [Nuprin] Allergy (Unknown, Verified 08/28/23 14:13) nalbuphine [From Nubain] Allergy (Unknown, Verified 08/28/23 14:13) Penicillins Allergy (Unknown, Verified 08/28/23 14:13) sumatriptan [Imitrex] Allergy (Unknown, Verified 08/28/23 14:13) minocycline Allergy (Verified 08/28/23 14:13) morphine Allergy (Verified 08/28/23 14:13) oyster extract Allergy (Verified 08/28/23 14:13) penicillin G Allergy (Verified 08/28/23 14:13) promethazine [From Phenergan] Allergy (Verified 08/28/23 14:13) Vital Signs and I&O's Vital Signs: Vital Signs Temperature 97.6 F Temperature 98.8 F Pulse Rate [Right Brachial] 66 Pulse Rate [Right Brachial] 77 Respiratory Rate 20 Respiratory Rate 22 Blood Pressure [Right Arm] 131/70 Blood Pressure [Right Arm] 142/64 O2 Sat by Pulse Oximetry 96 O2 Sat by Pulse Oximetry 97 Intake and Output: Intake & Output 10/30/23 10/31/23 11/01/23 11/02/23 23:59 23:59 23:59 23:59 Intake Total 2061 / 2061 2124 / 2124 2188 / 2188 753 / 753 Output Total 2705 / 2705 4200 / 4200 4290 / 4290 620 / 620 Balance -643 / -643 -2075 / -2075 -2101 / -2101 133 / 133 Physical Exam Oriented: Normal, Time, Person and Place Eyes: Normal Ear: Normal Nose: Normal Throat: Normal Respiratory: Generalized and Diminished Cardiovascular: Normal and Edema Auscultation: Bowel Sounds: Normal Palpation: Normal Tenderness: Normal Skin: Other (Right foot wrapped in anuj bandage, wound vac ) Musculoskeletal: Normal Psychiatric: Normal Mood Description: Calm Affect: Normal Speech Pattern: Clear and Appropriate Laboratory and Diagnostics 11/02/23 04:35 11/02/23 04:35 Labs: 10/28/23 09:55 Foot - Right Wound Culture - Preliminary 10/26/23 10:37 Foot - Right Wound Gram Stain - Final 10/26/23 10:37 Foot - Right Wound Culture - Final Stenotrophomonas Maltophilia 10/21/23 15:46 Foot - Right Wound Culture - Final Stenotrophomonas Maltophilia Enterobacter Cloacae Enterococcus Faecium Vre 10/17/23 17:35 Blood Blood Culture - Final 10/17/23 17:25 Blood Blood Culture - Final 10/17/23 17:28 Urine,Clean Catch Urine Culture - Final Enterobacter Cloacae 10/17/23 17:28 Foot - Right Wound Gram Stain - Final 10/17/23 17:28 Foot - Right Wound Culture - Final Citrobacter Freundii Morganella Morganii Laboratory WBC 4.7 X10^3/uL (3.6-10.0) 11/02/23 04:35 RBC 3.88 X10^6/uL (3.5-5.4) 11/02/23 04:35 Hgb 11.3 g/dL (12.0-16.0) L 11/02/23 04:35 Hct 35.4 % (36.0-47.0) L 11/02/23 04:35 MCV 91.4 fL (80.0-100.0) 11/02/23 04:35 MCH 29.2 pg (27.0-34.0) 11/02/23 04:35 MCHC 32.0 g/dL (33.0-35.0) L 11/02/23 04:35 RDW 15.5 % (11.6-16.5) 11/02/23 04:35 Plt Count 191 X10^3/uL (150.0-450.0) 11/02/23 04:35 Plt Count Comment Adequate (ADEQUATE) 10/22/23 04:58 MPV 8.2 fL (7.4-11.0) 11/02/23 04:35 Neut % (Auto) 49.5 % (42.0-75.0) 11/02/23 04:35 Lymph % (Auto) 35.5 % (21.0-51.0) 11/02/23 04:35 [place] % (Auto) 8.9 % (0.0-13.0) 11/02/23 04:35 Eos % (Auto) 5.6 % (0.9-2.9) H 11/02/23 04:35 Baso % (Auto) 0.5 % (0.2-1.0) 11/02/23 04:35 Neut # (Auto) 2.3 x10^3/uL (2.2-4.8) 11/02/23 04:35 Lymph # (Auto) 1.7 X10^3/uL (1.3-2.9) 11/02/23 04:35 [place] # (Auto) 0.4 x10^3/uL (0.3-0.8) 11/02/23 04:35 Eos # (Auto) 0.3 x10^3/uL (0.0-0.2) H 11/02/23 04:35 Baso # (Auto) 0.0 X10^3/uL (0.0-0.1) 11/02/23 04:35 Absolute Nucleated RBC 0.1 /100WBC 11/02/23 04:35 Total Counted 100 10/22/23 04:58 Neutrophils % (Manual) 87 % (39-76) H 10/22/23 04:58 Band Neutrophils % 4 % (0-10) 10/22/23 04:58 Lymphocytes % (Manual) 6 % (13-43) L 10/22/23 04:58 Monocytes % (Manual) 2 % (4-9) L 10/22/23 04:58 Basophils % (Manual) 1 % (0-1) 10/22/23 04:58 Plt Morphology Comment Normal (NORMAL) 10/22/23 04:58 RBC Morphology Normal (NORMAL) 10/22/23 04:58 PT 15.1 SECONDS (11.8-14.3) 10/18/23 04:20 INR Target Range - 10/18/23 04:20 INR 1.22 (0.8-1.3) 10/18/23 04:20 APTT 31.7 SECONDS (22.9-36.5) 10/18/23 04:20 PTT Comment - 10/18/23 04:20 Sodium 137 mmol/L (136-145) 11/02/23 04:35 Corrected Sodium 138 mmol/L (136-145) 11/02/23 04:35 Potassium 4.2 mmol/L (3.5-5.1) 11/02/23 04:35 Chloride 101 mmol/L (98-107) 11/02/23 04:35 Carbon Dioxide 30.3 mmol/L (21-32) 11/02/23 04:35 BUN 14 mg/dL (7-18) 11/02/23 04:35 Creatinine 0.89 mg/dL (0.55-1.02) 11/02/23 04:35 Est GFR (MDRD) Af Amer > 60 (>60) 11/02/23 04:35 Est GFR (MDRD) Non-Af > 60 (>60) 11/02/23 04:35 Glucose 126 mg/dL (65-99) H 11/02/23 04:35 POC Glucose (mg/dL) 113 mg/dL (65-99) H 11/02/23 06:06 Lactic Acid 0.9 mmol/L (0.4-2.0) 10/17/23 19:25 Calcium 8.6 mg/dL (8.5-10.1) 11/02/23 04:35 Corrected Calcium 10.0 mg/dL (8.5-10.1) 11/02/23 04:35 Magnesium 2.1 mg/dL (2.0-2.9) 10/23/23 04:13 Total Bilirubin 0.30 mg/dL (0.2-1.0) 11/02/23 04:35 AST 14 Units/L (15-37) L 11/02/23 04:35 ALT 16 Units/L (12-78) 11/02/23 04:35 Alkaline Phosphatase 93 Units/L (46-116) 11/02/23 04:35 Total Protein 5.8 g/dL (6.4-8.2) L 11/02/23 04:35 Albumin 2.2 g/dL (3.4-5.0) L 11/02/23 04:35 Globulin 3.6 g/dL (2.5-4.5) 11/02/23 04:35 Albumin/Globulin Ratio 0.6 Ratio (1.1-2.1) L 11/02/23 04:35 Specimen Type Catherized urine 10/17/23 22:00 Urine Color Straw (YELLOW) 10/17/23 22:00 Urine Appearance Cloudy (CLEAR) 10/17/23 22:00 Urine pH 5.0 (5.0 - 8.0) 10/17/23 22:00 Ur Specific [place] 1.010 (1.000-1.030) 10/17/23 22:00 Urine Protein 1+ (NEGATIVE) 10/17/23 22:00 Urine Glucose (UA) 3+ (NEGATIVE) 10/17/23 22:00 Urine Ketones Negative (NEGATIVE) 10/17/23 22:00 Urine Blood 1+ (NEGATIVE) 10/17/23 22:00 Urine Nitrite Negative (NEGATIVE) 10/17/23 22:00 Urine Bilirubin Negative (NEGATIVE) 10/17/23 22:00 Urine Urobilinogen Normal (NORMAL) 10/17/23 22:00 Ur Leukocyte Esterase 3+ (NEGATIVE) 10/17/23 22:00 Urine RBC 10-20 /HPF (0-3) A 10/17/23 22:00 Urine WBC 30-50 /HPF (0-5) A 10/17/23 22:00 Ur Squamous Epith Cells Rare /HPF (NEGATIVE) 10/17/23 22:00 Amorphous Sediment 1+ /HPF (NEGATIVE) 10/17/23 22:00 Urine Bacteria Trace /HPF (NEGATIVE) 10/17/23 22:00 Urine Yeast Moderate /HPF (NEGATIVE) 10/17/23 22:00 Ur Culture Indicated? Yes/culture set up 10/17/23 22:00 Vancomycin Trough 22.5 ug/mL (15-20) H* 10/19/23 08:28 Random Vancomycin 13.0 ug/mL 10/20/23 04:30 SARS-CoV-2 (PCR) Negative (NEGATIVE) 10/17/23 19:55 Influenza Type A (PCR) Negative (NEGATIVE) 10/17/23 19:55 Influenza Type B (PCR) Negative (NEGATIVE) 10/17/23 19:55 RSV (PCR) Negative (NEGATIVE) 10/17/23 19:55 SARS CoV-2 RNA Rapid JANICE Negative (NEGATIVE) 10/31/23 23:36 S. pyogenes (TEM-PCR) Not detected (NOT DETECT) 10/17/23 19:55 Tissue Pathology See comment. 10/28/23 09:55 Plan (1) Osteomyelitis of right foot: Status: Acute Qualifiers: Osteomyelitis type: chronic, with draining sinus Qualified Code(s): M86.471 - Chronic osteomyelitis with draining sinus, right ankle and foot (2) VRE (vancomycin-resistant Enterococci) infection: Status: Acute (3) Acute UTI: Status: Acute (4) Decubitus ulcer of right heel, stage 3: Status: Acute (5) Wound infection: Status: Acute (6) Generalized weakness: Status: Acute (7) Type 2 diabetes mellitus with morbid obesity: Status: None (8) Sleep apnea with use of continuous positive airway pressure (CPAP): Status: None (9) CHF (congestive heart failure): Status: Acute Qualifiers: Heart failure chronicity: unspecified Heart failure type: unspecified Qualified Code(s): I50.9 - Heart failure, unspecified (10) Hypomagnesemia: Status: Acute
[2023-11-03 05:14] LABS: BASOPHILS % (AUTO) 0.7 % (0.2-1.0); EOSINOPHILS # (AUTO) 0.3 x10^3/uL (0.0-0.2); EOSINOPHILS % (AUTO) 5.9 % (0.9-2.9); HEMATOCRIT 35.2 % (36.0-47.0); HEMOGLOBIN 11.4 g/dL (12.0-16.0); LYMPHOCYTES # (AUTO) 1.8 X10^3/uL (1.3-2.9); LYMPHOCYTES % (AUTO) 36.1 % (21.0-51.0); MEAN CORPUSCULAR HEMOGLOBIN 29.5 pg (27.0-34.0); MEAN CORPUSCULAR HGB CONC 32.3 g/dL (33.0-35.0); MEAN CORPUSCULAR VOLUME 91.4 fL (80.0-100.0); MEAN PLATELET VOLUME 8.1 fL (7.4-11.0); MONOCYTES # (AUTO) 0.4 x10^3/uL (0.3-0.8); MONOCYTES % (AUTO) 9.1 % (0.0-13.0); NEUTROPHILS # (AUTO) 2.3 x10^3/uL (2.2-4.8); NEUTROPHILS % (AUTO) 48.2 % (42.0-75.0); PLATELET COUNT 180 X10^3/uL (150.0-450.0); RED BLOOD COUNT 3.85 X10^6/uL (3.5-5.4); RED CELL DISTRIBUTION WIDTH 15.9 % (11.6-16.5); WHITE BLOOD COUNT 4.9 X10^3/uL (3.6-10.0)
[2023-11-03 05:30] LABS: ALANINE AMINOTRANSFERASE 19 Units/L (12-78); ALBUMIN 2.4 g/dL (3.4-5.0); ALKALINE PHOSPHATASE 110 Units/L (46-116); ASPARTATE AMINO TRANSFERASE 16 Units/L (15-37); BLOOD UREA NITROGEN 16 mg/dL (7-18); CALCIUM 8.5 mg/dL (8.5-10.1); CARBON DIOXIDE 29.7 mmol/L (21-32); CHLORIDE 100 mmol/L (98-107); COR CA(FOR HYPOALB) 9.8 mg/dL (8.5-10.1); COR NA(FOR HYPERGLY) 137 mmol/L (136-145); GLUCOSE 122 mg/dL (65-99); SODIUM 136 mmol/L (136-145); TOTAL PROTEIN 6.1 g/dL (6.4-8.2); eGFR NON BLACK RACES > 60 (>60)
--- NOTE | 2023-11-03 10:35 | PCM.PROG ---
Progress Note Progress Note for Day of Date of Exam: 11/03/23 Subjective Subjective: Patient seen at bedside, no acute events overnight. Her wound vac did come off yesterday as the suction came off. Her foot was covered with gauze and wrapped in anuj bandage. Podiatry will replace wound vac today. Wound does appear to be looking better in the pictures. She does complain of shoulder and back pain. Labs/imaging reviewed: -Wbc 4.9, Hgb 11.4, Plt 180 -MRI RLE: see report -Urine Cx: Enterobacter -Wound Cx 10/28/23: no growth -Blood Cx no growth Plan: Follow podiatry recommendations, Continue IV Meropenem and Linezolid. Continue Bactrim. Continue pain control. Continue wound care. Replace electrolytes as per protocol. Continue lovenox for DVT ppx. Continue home medications. CM working on placement. Monitor AM labs/imaging. Past Medical Family Social History Allergies: Allergies erythromycin base Allergy (Intermediate, Verified 08/28/23 14:13) diclofenac [From Voltaren] Allergy (Unknown, Verified 08/28/23 14:13) Reason: Drug allergy Fish Containing Products Allergy (Unknown, Verified 08/28/23 14:13) "seafood" allergy gabapentin Allergy (Unknown, Verified 08/28/23 14:13) Reason: Drug allergy ibuprofen [Nuprin] Allergy (Unknown, Verified 08/28/23 14:13) nalbuphine [From Nubain] Allergy (Unknown, Verified 08/28/23 14:13) Penicillins Allergy (Unknown, Verified 08/28/23 14:13) sumatriptan [Imitrex] Allergy (Unknown, Verified 08/28/23 14:13) minocycline Allergy (Verified 08/28/23 14:13) morphine Allergy (Verified 08/28/23 14:13) oyster extract Allergy (Verified 08/28/23 14:13) penicillin G Allergy (Verified 08/28/23 14:13) promethazine [From Phenergan] Allergy (Verified 08/28/23 14:13) Vital Signs and I&O's Vital Signs: Vital Signs Temperature 98.1 F Temperature 97.4 F Pulse Rate [Right Brachial] 77 Pulse Rate [Right Brachial] 80 Respiratory Rate 18 Respiratory Rate 18 Respiratory Rate 20 Respiratory Rate 20 Blood Pressure [Right Arm] 131/76 Blood Pressure [Right Arm] 134/69 O2 Sat by Pulse Oximetry 100 O2 Sat by Pulse Oximetry 100 Intake and Output: Intake & Output 10/31/23 11/01/23 11/02/23 11/03/23 23:59 23:59 23:59 23:59 Intake Total 2124 / 2124 2188 / 2188 3096 / 3096 103 / 103 Output Total 4200 / 4200 4290 / 4290 3820 / 3820 550 / 550 Balance -2076 / -2076 -2102 / -2102 -724 / -724 -447 / -447 Physical Exam Oriented: Normal, Time, Person and Place Eyes: Normal Ear: Normal Nose: Normal Throat: Normal Respiratory: Generalized and Diminished Cardiovascular: Normal and Edema Auscultation: Bowel Sounds: Normal Tenderness: Normal Skin: Other (Right foot wrapped in anuj bandage) Musculoskeletal: Back:Thoracic and Back:Paraspinous Psychiatric: Normal Mood Description: Calm Affect: Normal Speech Pattern: Clear and Appropriate Laboratory and Diagnostics 11/03/23 04:40 11/03/23 04:40 Labs: 10/28/23 09:55 Foot - Right Wound Culture - Preliminary 10/26/23 10:37 Foot - Right Wound Gram Stain - Final 10/26/23 10:37 Foot - Right Wound Culture - Final Stenotrophomonas Maltophilia 10/21/23 15:46 Foot - Right Wound Culture - Final Stenotrophomonas Maltophilia Enterobacter Cloacae Enterococcus Faecium Vre 10/17/23 17:35 Blood Blood Culture - Final 10/17/23 17:25 Blood Blood Culture - Final 10/17/23 17:28 Urine,Clean Catch Urine Culture - Final Enterobacter Cloacae 10/17/23 17:28 Foot - Right Wound Gram Stain - Final 10/17/23 17:28 Foot - Right Wound Culture - Final Citrobacter Freundii Morganella Morganii Laboratory WBC 4.9 X10^3/uL (3.6-10.0) 11/03/23 04:40 RBC 3.85 X10^6/uL (3.5-5.4) 11/03/23 04:40 Hgb 11.4 g/dL (12.0-16.0) L 11/03/23 04:40 Hct 35.2 % (36.0-47.0) L 11/03/23 04:40 MCV 91.4 fL (80.0-100.0) 11/03/23 04:40 MCH 29.5 pg (27.0-34.0) 11/03/23 04:40 MCHC 32.3 g/dL (33.0-35.0) L 11/03/23 04:40 RDW 15.9 % (11.6-16.5) 11/03/23 04:40 Plt Count 180 X10^3/uL (150.0-450.0) 11/03/23 04:40 Plt Count Comment Adequate (ADEQUATE) 10/22/23 04:58 MPV 8.1 fL (7.4-11.0) 11/03/23 04:40 Neut % (Auto) 48.2 % (42.0-75.0) 11/03/23 04:40 Lymph % (Auto) 36.1 % (21.0-51.0) 11/03/23 04:40 [place] % (Auto) 9.1 % (0.0-13.0) 11/03/23 04:40 Eos % (Auto) 5.9 % (0.9-2.9) H 11/03/23 04:40 Baso % (Auto) 0.7 % (0.2-1.0) 11/03/23 04:40 Neut # (Auto) 2.3 x10^3/uL (2.2-4.8) 11/03/23 04:40 Lymph # (Auto) 1.8 X10^3/uL (1.3-2.9) 11/03/23 04:40 [place] # (Auto) 0.4 x10^3/uL (0.3-0.8) 11/03/23 04:40 Eos # (Auto) 0.3 x10^3/uL (0.0-0.2) H 11/03/23 04:40 Baso # (Auto) 0.0 X10^3/uL (0.0-0.1) 11/03/23 04:40 Absolute Nucleated RBC 0.0 /100WBC 11/03/23 04:40 Total Counted 100 10/22/23 04:58 Neutrophils % (Manual) 87 % (39-76) H 10/22/23 04:58 Band Neutrophils % 4 % (0-10) 10/22/23 04:58 Lymphocytes % (Manual) 6 % (13-43) L 10/22/23 04:58 Monocytes % (Manual) 2 % (4-9) L 10/22/23 04:58 Basophils % (Manual) 1 % (0-1) 10/22/23 04:58 Plt Morphology Comment Normal (NORMAL) 10/22/23 04:58 RBC Morphology Normal (NORMAL) 10/22/23 04:58 PT 15.1 SECONDS (11.8-14.3) 10/18/23 04:20 INR Target Range - 10/18/23 04:20 INR 1.22 (0.8-1.3) 10/18/23 04:20 APTT 31.7 SECONDS (22.9-36.5) 10/18/23 04:20 PTT Comment - 10/18/23 04:20 Sodium 136 mmol/L (136-145) 11/03/23 04:40 Corrected Sodium 137 mmol/L (136-145) 11/03/23 04:40 Potassium 4.0 mmol/L (3.5-5.1) 11/03/23 04:40 Chloride 100 mmol/L (98-107) 11/03/23 04:40 Carbon Dioxide 29.7 mmol/L (21-32) 11/03/23 04:40 BUN 16 mg/dL (7-18) 11/03/23 04:40 Creatinine 0.90 mg/dL (0.55-1.02) 11/03/23 04:40 Est GFR (MDRD) Af Amer > 60 (>60) 11/03/23 04:40 Est GFR (MDRD) Non-Af > 60 (>60) 11/03/23 04:40 Glucose 122 mg/dL (65-99) H 11/03/23 04:40 POC Glucose (mg/dL) 107 mg/dL (65-99) H 11/03/23 06:09 Lactic Acid 0.9 mmol/L (0.4-2.0) 10/17/23 19:25 Calcium 8.5 mg/dL (8.5-10.1) 11/03/23 04:40 Corrected Calcium 9.8 mg/dL (8.5-10.1) 11/03/23 04:40 Magnesium 2.1 mg/dL (2.0-2.9) 10/23/23 04:13 Total Bilirubin 0.30 mg/dL (0.2-1.0) 11/03/23 04:40 AST 16 Units/L (15-37) 11/03/23 04:40 ALT 19 Units/L (12-78) 11/03/23 04:40 Alkaline Phosphatase 110 Units/L (46-116) 11/03/23 04:40 Total Protein 6.1 g/dL (6.4-8.2) L 11/03/23 04:40 Albumin 2.4 g/dL (3.4-5.0) L 11/03/23 04:40 Globulin 3.7 g/dL (2.5-4.5) 11/03/23 04:40 Albumin/Globulin Ratio 0.6 Ratio (1.1-2.1) L 11/03/23 04:40 Specimen Type Catherized urine 10/17/23 22:00 Urine Color Straw (YELLOW) 10/17/23 22:00 Urine Appearance Cloudy (CLEAR) 10/17/23 22:00 Urine pH 5.0 (5.0 - 8.0) 10/17/23 22:00 Ur Specific [place] 1.010 (1.000-1.030) 10/17/23 22:00 Urine Protein 1+ (NEGATIVE) 10/17/23 22:00 Urine Glucose (UA) 3+ (NEGATIVE) 10/17/23 22:00 Urine Ketones Negative (NEGATIVE) 10/17/23 22:00 Urine Blood 1+ (NEGATIVE) 10/17/23 22:00 Urine Nitrite Negative (NEGATIVE) 10/17/23 22:00 Urine Bilirubin Negative (NEGATIVE) 10/17/23 22:00 Urine Urobilinogen Normal (NORMAL) 10/17/23 22:00 Ur Leukocyte Esterase 3+ (NEGATIVE) 10/17/23 22:00 Urine RBC 10-20 /HPF (0-3) A 10/17/23 22:00 Urine WBC 30-50 /HPF (0-5) A 10/17/23 22:00 Ur Squamous Epith Cells Rare /HPF (NEGATIVE) 10/17/23 22:00 Amorphous Sediment 1+ /HPF (NEGATIVE) 10/17/23 22:00 Urine Bacteria Trace /HPF (NEGATIVE) 10/17/23 22:00 Urine Yeast Moderate /HPF (NEGATIVE) 10/17/23 22:00 Ur Culture Indicated? Yes/culture set up 10/17/23 22:00 Vancomycin Trough 22.5 ug/mL (15-20) H* 10/19/23 08:28 Random Vancomycin 13.0 ug/mL 10/20/23 04:30 SARS-CoV-2 (PCR) Negative (NEGATIVE) 10/17/23 19:55 Influenza Type A (PCR) Negative (NEGATIVE) 10/17/23 19:55 Influenza Type B (PCR) Negative (NEGATIVE) 10/17/23 19:55 RSV (PCR) Negative (NEGATIVE) 10/17/23 19:55 SARS CoV-2 RNA Rapid JANICE Negative (NEGATIVE) 10/31/23 23:36 S. pyogenes (TEM-PCR) Not detected (NOT DETECT) 10/17/23 19:55 Tissue Pathology See comment. 10/28/23 09:55 Plan (1) Osteomyelitis of right foot: Status: Acute Qualifiers: Osteomyelitis type: chronic, with draining sinus Qualified Code(s): M86.471 - Chronic osteomyelitis with draining sinus, right ankle and foot (2) VRE (vancomycin-resistant Enterococci) infection: Status: Acute (3) Decubitus ulcer of right heel, stage 3: Status: Acute (4) Generalized weakness: Status: Acute (5) Type 2 diabetes mellitus with morbid obesity: Status: None (6) Sleep apnea with use of continuous positive airway pressure (CPAP): Status: None (7) CHF (congestive heart failure): Status: Acute Qualifiers: Heart failure chronicity: unspecified Heart failure type: unspecified Qualified Code(s): I50.9 - Heart failure, unspecified (8) Hypomagnesemia: Status: Acute
[2023-11-04 06:16] LABS: BASOPHILS % (AUTO) 0.4 % (0.2-1.0); EOSINOPHILS # (AUTO) 0.3 x10^3/uL (0.0-0.2); EOSINOPHILS % (AUTO) 6.3 % (0.9-2.9); HEMATOCRIT 35.7 % (36.0-47.0); HEMOGLOBIN 11.4 g/dL (12.0-16.0); LYMPHOCYTES # (AUTO) 1.7 X10^3/uL (1.3-2.9); LYMPHOCYTES % (AUTO) 41.4 % (21.0-51.0); MEAN CORPUSCULAR HEMOGLOBIN 29.1 pg (27.0-34.0); MEAN CORPUSCULAR HGB CONC 31.8 g/dL (33.0-35.0); MEAN CORPUSCULAR VOLUME 91.4 fL (80.0-100.0); MEAN PLATELET VOLUME 7.9 fL (7.4-11.0); MONOCYTES # (AUTO) 0.4 x10^3/uL (0.3-0.8); MONOCYTES % (AUTO) 9.7 % (0.0-13.0); NEUTROPHILS # (AUTO) 1.7 x10^3/uL (2.2-4.8); NEUTROPHILS % (AUTO) 42.2 % (42.0-75.0); PLATELET COUNT 178 X10^3/uL (150.0-450.0); RED BLOOD COUNT 3.91 X10^6/uL (3.5-5.4)
[2023-11-04 06:28] LABS: ALANINE AMINOTRANSFERASE 19 Units/L (12-78); ALBUMIN 2.4 g/dL (3.4-5.0); ALKALINE PHOSPHATASE 100 Units/L (46-116); ASPARTATE AMINO TRANSFERASE 21 Units/L (15-37); BLOOD UREA NITROGEN 16 mg/dL (7-18); CALCIUM 8.4 mg/dL (8.5-10.1); CARBON DIOXIDE 31.3 mmol/L (21-32); CHLORIDE 100 mmol/L (98-107); COR CA(FOR HYPOALB) 9.7 mg/dL (8.5-10.1); CREATININE 0.93 mg/dL (0.55-1.02); GLUCOSE 95 mg/dL (65-99); POTASSIUM 3.8 mmol/L (3.5-5.1); SODIUM 136 mmol/L (136-145); TOTAL PROTEIN 6.1 g/dL (6.4-8.2); eGFR NON BLACK RACES > 60 (>60)
[2023-11-04] MEDS ORDERED: CONSULT PHARMACY - POTASSIUM & MAGNESIUM XX SCH ×2 (07:00→09:00)
[2023-11-04 07:51] VITALS: BP 123/57; PULSE 80; RESP 18; TEMP 98.7; O2SAT 96
[2023-11-04] MEDS: K-DUR TAB 20 MEQ PO ONE (08:38)
--- NOTE | 2023-11-06 11:02 | W.DIS.FURT ---
Summary of Discharge Discharge Summary of Date Date of Exam: 11/04/23 Admission Date Date of Admission: 10/18/23 Admission Diagnosis Patient Problems (Updated 10/26/23 @ 09:20 by Sharon Petit) Sepsis (Acute) A41.9 Acute UTI (Acute) N39.0 Hypothermia (Resolved) T68.XXXA Wound infection (Acute) T14.8XXA, L08.9 CHF (congestive heart failure) (Acute) I50.9 Hospital Course: Ms Graham is a 67-year-old white female with a history of multiple medical problems. She was found unresponsive at home and was very cold. EMS was called patient was extremely hypothermic at 92 F with profoundly low blood sugar and unresponsive. She was given two amps of D50 en route to the emergency department at the [facility]. When she arrived, her temperature was taken, and it was found to be 93 F. Patient's sugar was monitored closely and she did require more D50. UA was suggestive of infection. Patient was started on hydration and antibiotics. Patient appeared to be more coherent and alert as her sugar stabilized. She also has worsening right foot infection with purulent drainage and odor. She was recently here for right foot infection, seen by podiatry and was supposed to follow-up outpatient. Patient recently started going to wound care for her chronic foot ulcer. Patient's labs were monitored daily and electrolytes replaced as needed. Podiatry was consulted and patient underwent multiple debridement procedures including biopsies and wound VAC placement for her right heel. MRI was concerning for osteomyelitis. Patient's cultures are scanned in the chart. Patient was on 3 different antibiotics to treat her osteomyelitis. She had PICC line placed as she will need longer course of IV antibiotics. Physical therapy recommended patient to go to inpatient rehab. Patient was accepted and will be going to short-term rehab facility for IV antibiotics and wound care. Vital Signs: Vital Signs (72 hours) 11/01/23 11:46 11/01/23 14:11 11/01/23 15:11 Temperature 97.7 F Pulse Rate Pulse Rate [Right Brachial] 65 Respiratory Rate 19 18 18 Blood Pressure [Right Arm] 125/64 O2 Sat by Pulse Oximetry 96 Oxygen Delivery Method Room Air Oxygen Flow Rate FIO2% 11/01/23 16:00 11/01/23 19:00 11/01/23 20:00 Temperature 98.2 F 98.5 F Pulse Rate Pulse Rate [Right Brachial] 80 82 Respiratory Rate 18 21 Blood Pressure [Right Arm] 131/69 164/70 O2 Sat by Pulse Oximetry 95 94 L Oxygen Delivery Method Room Air Nasal Cannula Room Air Oxygen Flow Rate 2 FIO2% 11/01/23 23:12 11/02/23 00:00 11/01/23 20:30 Temperature 98.7 F Pulse Rate Pulse Rate [Right Brachial] 89 Respiratory Rate 20 19 Blood Pressure [Right Arm] 128/60 O2 Sat by Pulse Oximetry 95 Oxygen Delivery Method Room Air Room Air Oxygen Flow Rate FIO2% 11/02/23 00:00 11/02/23 04:00 11/02/23 00:12 Temperature 98.8 F Pulse Rate Pulse Rate [Right Brachial] 77 Respiratory Rate 22 20 Blood Pressure [Right Arm] 142/64 O2 Sat by Pulse Oximetry 97 Oxygen Delivery Method CPAP Room Air Oxygen Flow Rate 2 FIO2% 28 11/02/23 07:43 11/02/23 10:37 11/02/23 07:00 Temperature 97.6 F Pulse Rate Pulse Rate [Right Brachial] 66 Respiratory Rate 20 20 Blood Pressure [Right Arm] 131/70 O2 Sat by Pulse Oximetry 96 Oxygen Delivery Method Room Air Nasal Cannula Oxygen Flow Rate 2 FIO2% 11/02/23 12:00 11/02/23 11:37 11/02/23 16:00 Temperature 98.0 F 97.8 F Pulse Rate Pulse Rate [Right Brachial] 79 63 Respiratory Rate 20 18 20 Blood Pressure [Right Arm] 117/56 137/62 O2 Sat by Pulse Oximetry 94 L 98 Oxygen Delivery Method Room Air Room Air Oxygen Flow Rate FIO2% 11/02/23 19:26 11/02/23 19:00 11/02/23 19:42 Temperature Pulse Rate Pulse Rate [Right Brachial] Respiratory Rate 19 Blood Pressure [Right Arm] O2 Sat by Pulse Oximetry Oxygen Delivery Method Room Air CPAP Oxygen Flow Rate 2 FIO2% 28 11/02/23 19:42 11/02/23 20:00 11/02/23 20:26 Temperature 97.6 F Pulse Rate 81 Pulse Rate [Right Brachial] 78 Respiratory Rate 20 20 Blood Pressure [Right Arm] 132/59 O2 Sat by Pulse Oximetry 98 95 Oxygen Delivery Method Room Air Oxygen Flow Rate FIO2% 11/02/23 23:07 11/02/23 23:52 11/03/23 03:49 Temperature 98 F 97.4 F L Pulse Rate Pulse Rate [Right Brachial] 82 80 Respiratory Rate 20 20 Blood Pressure [Right Arm] 109/56 134/69 O2 Sat by Pulse Oximetry 97 100 Oxygen Delivery Method CPAP Room Air Room Air Oxygen Flow Rate 2 FIO2% 11/03/23 05:02 11/03/23 06:02 11/03/23 14:28 Temperature Pulse Rate Pulse Rate [Right Brachial] Respiratory Rate 20 18 18 Blood Pressure [Right Arm] O2 Sat by Pulse Oximetry Oxygen Delivery Method Oxygen Flow Rate FIO2% 11/03/23 07:00 11/03/23 08:00 11/03/23 11:58 Temperature 98.1 F 97.8 F Pulse Rate Pulse Rate [Right Brachial] 77 74 Respiratory Rate 18 18 Blood Pressure [Right Arm] 131/76 113/51 O2 Sat by Pulse Oximetry 100 99 Oxygen Delivery Method Room Air Room Air Room Air Oxygen Flow Rate FIO2% 11/03/23 16:00 11/03/23 15:28 11/03/23 19:00 Temperature 97.9 F Pulse Rate Pulse Rate [Right Brachial] 94 H Respiratory Rate 21 18 Blood Pressure [Right Arm] 144/61 O2 Sat by Pulse Oximetry 98 Oxygen Delivery Method Room Air Room Air Oxygen Flow Rate FIO2% 11/03/23 19:55 11/03/23 21:52 11/03/23 22:52 Temperature 97.6 F Pulse Rate Pulse Rate [Right Brachial] 89 Respiratory Rate 18 20 18 Blood Pressure [Right Arm] 112/65 O2 Sat by Pulse Oximetry 96 Oxygen Delivery Method Room Air Oxygen Flow Rate FIO2% 11/03/23 23:56 11/04/23 04:00 11/04/23 04:42 Temperature 98.1 F 97.6 F Pulse Rate Pulse Rate [Right Brachial] 73 74 Respiratory Rate 18 18 18 Blood Pressure [Right Arm] 107/54 118/61 O2 Sat by Pulse Oximetry 99 100 Oxygen Delivery Method Room Air Room Air Oxygen Flow Rate FIO2% 11/04/23 05:42 11/04/23 07:50 11/04/23 07:00 Temperature 98.7 F Pulse Rate Pulse Rate [Right Brachial] 80 Respiratory Rate 20 18 Blood Pressure [Right Arm] 123/57 O2 Sat by Pulse Oximetry 96 Oxygen Delivery Method Room Air Room Air Oxygen Flow Rate FIO2% Labs: Laboratory Last Values WBC 4.0 X10^3/uL (3.6-10.0) 11/04/23 05:51 RBC 3.91 X10^6/uL (3.5-5.4) 11/04/23 05:51 Hgb 11.4 g/dL (12.0-16.0) L 11/04/23 05:51 Hct 35.7 % (36.0-47.0) L 11/04/23 05:51 MCV 91.4 fL (80.0-100.0) 11/04/23 05:51 MCH 29.1 pg (27.0-34.0) 11/04/23 05:51 MCHC 31.8 g/dL (33.0-35.0) L 11/04/23 05:51 RDW 16.0 % (11.6-16.5) 11/04/23 05:51 Plt Count 178 X10^3/uL (150.0-450.0) 11/04/23 05:51 Plt Count Comment Adequate (ADEQUATE) 10/22/23 04:58 MPV 7.9 fL (7.4-11.0) 11/04/23 05:51 Neut % (Auto) 42.2 % (42.0-75.0) 11/04/23 05:51 Lymph % (Auto) 41.4 % (21.0-51.0) 11/04/23 05:51 M[place]re[place] % (Auto) 9.7 % (0.0-13.0) 11/04/23 05:51 Eos % (Auto) 6.3 % (0.9-2.9) H 11/04/23 05:51 Baso % (Auto) 0.4 % (0.2-1.0) 11/04/23 05:51 Neut # (Auto) 1.7 x10^3/uL (2.2-4.8) L 11/04/23 05:51 Lymph # (Auto) 1.7 X10^3/uL (1.3-2.9) 11/04/23 05:51 [place] # (Auto) 0.4 x10^3/uL (0.3-0.8) 11/04/23 05:51 Eos # (Auto) 0.3 x10^3/uL (0.0-0.2) H 11/04/23 05:51 Baso # (Auto) 0.0 X10^3/uL (0.0-0.1) 11/04/23 05:51 Absolute Nucleated RBC 0.1 /100WBC 11/04/23 05:51 Total Counted 100 10/22/23 04:58 Neutrophils % (Manual) 87 % (39-76) H 10/22/23 04:58 Band Neutrophils % 4 % (0-10) 10/22/23 04:58 Lymphocytes % (Manual) 6 % (13-43) L 10/22/23 04:58 Monocytes % (Manual) 2 % (4-9) L 10/22/23 04:58 Basophils % (Manual) 1 % (0-1) 10/22/23 04:58 Plt Morphology Comment Normal (NORMAL) 10/22/23 04:58 RBC Morphology Normal (NORMAL) 10/22/23 04:58 PT 15.1 SECONDS (11.8-14.3) 10/18/23 04:20 INR Target Range - 10/18/23 04:20 INR 1.22 (0.8-1.3) 10/18/23 04:20 APTT 31.7 SECONDS (22.9-36.5) 10/18/23 04:20 PTT Comment - 10/18/23 04:20 Sodium 136 mmol/L (136-145) 11/04/23 05:51 Corrected Sodium TNP 11/04/23 05:51 Potassium 3.8 mmol/L (3.5-5.1) 11/04/23 05:51 Chloride 100 mmol/L (98-107) 11/04/23 05:51 Carbon Dioxide 31.3 mmol/L (21-32) 11/04/23 05:51 BUN 16 mg/dL (7-18) 11/04/23 05:51 Creatinine 0.93 mg/dL (0.55-1.02) 11/04/23 05:51 Est GFR (MDRD) Af Amer > 60 (>60) 11/04/23 05:51 Est GFR (MDRD) Non-Af > 60 (>60) 11/04/23 05:51 Glucose 95 mg/dL (65-99) 11/04/23 05:51 POC Glucose (mg/dL) 78 mg/dL (65-99) 11/04/23 05:39 Lactic Acid 0.9 mmol/L (0.4-2.0) 10/17/23 19:25 Calcium 8.4 mg/dL (8.5-10.1) L 11/04/23 05:51 Corrected Calcium 9.7 mg/dL (8.5-10.1) 11/04/23 05:51 Magnesium 1.3 mg/dL (2.0-2.9) L 11/04/23 05:51 Total Bilirubin 0.30 mg/dL (0.2-1.0) 11/04/23 05:51 AST 21 Units/L (15-37) 11/04/23 05:51 ALT 19 Units/L (12-78) 11/04/23 05:51 Alkaline Phosphatase 100 Units/L (46-116) 11/04/23 05:51 Total Protein 6.1 g/dL (6.4-8.2) L 11/04/23 05:51 Albumin 2.4 g/dL (3.4-5.0) L 11/04/23 05:51 Globulin 3.7 g/dL (2.5-4.5) 11/04/23 05:51 Albumin/Globulin Ratio 0.6 Ratio (1.1-2.1) L 11/04/23 05:51 Specimen Type Catherized urine 10/17/23 22:00 Urine Color Straw (YELLOW) 10/17/23 22:00 Urine Appearance Cloudy (CLEAR) 10/17/23 22:00 Urine pH 5.0 (5.0 - 8.0) 10/17/23 22:00 Ur Specific [place] 1.010 (1.000-1.030) 10/17/23 22:00 Urine Protein 1+ (NEGATIVE) 10/17/23 22:00 Urine Glucose (UA) 3+ (NEGATIVE) 10/17/23 22:00 Urine Ketones Negative (NEGATIVE) 10/17/23 22:00 Urine Blood 1+ (NEGATIVE) 10/17/23 22:00 Urine Nitrite Negative (NEGATIVE) 10/17/23 22:00 Urine Bilirubin Negative (NEGATIVE) 10/17/23 22:00 Urine Urobilinogen Normal (NORMAL) 10/17/23 22:00 Ur Leukocyte Esterase 3+ (NEGATIVE) 10/17/23 22:00 Urine RBC 10-20 /HPF (0-3) A 10/17/23 22:00 Urine WBC 30-50 /HPF (0-5) A 10/17/23 22:00 Ur Squamous Epith Cells Rare /HPF (NEGATIVE) 10/17/23 22:00 Amorphous Sediment 1+ /HPF (NEGATIVE) 10/17/23 22:00 Urine Bacteria Trace /HPF (NEGATIVE) 10/17/23 22:00 Urine Yeast Moderate /HPF (NEGATIVE) 10/17/23 22:00 Ur Culture Indicated? Yes/culture set up 10/17/23 22:00 Vancomycin Trough 22.5 ug/mL (15-20) H* 10/19/23 08:28 Random Vancomycin 13.0 ug/mL 10/20/23 04:30 SARS-CoV-2 (PCR) Negative (NEGATIVE) 10/17/23 19:55 Influenza Type A (PCR) Negative (NEGATIVE) 10/17/23 19:55 Influenza Type B (PCR) Negative (NEGATIVE) 10/17/23 19:55 RSV (PCR) Negative (NEGATIVE) 10/17/23 19:55 SARS CoV-2 RNA Rapid JANICE Negative (NEGATIVE) 10/31/23 23:36 S. pyogenes (TEM-PCR) Not detected (NOT DETECT) 10/17/23 19:55 Tissue Pathology See comment. 10/28/23 09:55 Reason For Visit: SEPSIS, UTI, HYPOGLYCEMIA, HYPOTHERMIA, WOUND Discharge Diagnosis All Active Problems (Updated 10/26/23 @ 09:20 by Sharon Petit) VRE (vancomycin-resistant Enterococci) infection (Acute) Osteomyelitis of right foot (Acute) Hypomagnesemia (Acute) Decubitus ulcer of right heel, stage 3 (Acute) Sepsis (Acute) Acute UTI (Acute) Wound infection (Acute) CHF (congestive heart failure) (Acute) Constipation (Acute) Generalized weakness (Acute) Fever with chills (Acute) Paroxysmal atrial fibrillation (Acute) Cellulitis of foot, right (Acute) Pressure ulcer of right heel (Acute) Decubitus ulcer of foot, stage 3 (Acute) Diabetic foot ulcer (Acute) Pressure injury of sacral region, stage 1 (Acute) Cellulitis of right foot (Acute) Acute exacerbation of chronic bronchitis (Acute) Rhinosinusitis (Acute) Dysuria (Acute) Flu vaccine need (Acute) Abscess or cellulitis of back (Acute) Open wound anterior abdominal wall (Acute) Joint pain in fingers of left hand (Acute) Folliculitis (Acute) Encounter for screening mammogram for breast cancer (Chronic) COVID-19 (Acute) Cough (Acute) Hypotension (Acute) Acute dehydration (Acute) UTI (urinary tract infection) (Acute) Atrial fibrillation with slow ventricular response (Acute) Closed compression fracture of lumbosacral spine (Acute) UTI (urinary tract infection) (Acute) Soft tissue injury of lower leg (Acute) Migraine (Acute) Type 2 diabetes mellitus (Acute) Plan of Treatment: Continue with present treatment and follow up plan. Pt is to keep follow up appointment as instructed and take medications as ordered. Discharge Medications Discharge Medications: erythromycin base Allergy (Intermediate, Verified 08/28/23 14:13) diclofenac [From Voltaren] Allergy (Unknown, Verified 08/28/23 14:13) Fish Containing Products Allergy (Unknown, Verified 08/28/23 14:13) gabapentin Allergy (Unknown, Verified 08/28/23 14:13) ibuprofen [Nuprin] Allergy (Unknown, Verified 08/28/23 14:13) nalbuphine [From Nubain] Allergy (Unknown, Verified 08/28/23 14:13) Penicillins Allergy (Unknown, Verified 08/28/23 14:13) sumatriptan [Imitrex] Allergy (Unknown, Verified 08/28/23 14:13) minocycline Allergy (Verified 08/28/23 14:13) morphine Allergy (Verified 08/28/23 14:13) oyster extract Allergy (Verified 08/28/23 14:13) penicillin G Allergy (Verified 08/28/23 14:13) promethazine [From Phenergan] Allergy (Verified 08/28/23 14:13) Discharge Plan Discharge Plan Hospital Course: Ms Graham is a 67-year-old white female with a history of multiple medical problems. She was found unresponsive at home and was very cold. EMS was called patient was extremely hypothermic at 92 F with profoundly low blood sugar and unresponsive. She was given two amps of D50 en route to the emergency department at the [facility]. When she arrived, her temperature was taken, and it was found to be 93 F. Patient's sugar was monitored closely and she did require more D50. UA was suggestive of infection. Patient was started on hydration and antibiotics. Patient appeared to be more coherent and alert as her sugar stabilized. She also has worsening right foot infection with purulent drainage and odor. She was recently here for right foot infection, seen by podiatry and was supposed to follow-up outpatient. Patient recently started going to wound care for her chronic foot ulcer. Patient's labs were monitored daily and electrolytes replaced as needed. Podiatry was consulted and patient underwent multiple debridement procedures including biopsies and wound VAC placement for her right heel. MRI was concerning for osteomyelitis. Patient's cultures are scanned in the chart. Patient was on 3 different antibiotics to treat her osteomyelitis. She had PICC line placed as she will need longer course of IV antibiotics. Physical therapy recommended patient to go to inpatient rehab. Patient was accepted and will be going to short-term rehab facility for IV antibiotics and wound care. Patient Disposition: [facility] Condition: Stable Health Concerns: Post Hospitalization: new medications and changes needed to prevent readmission or further decline. Pt educated and given instructions on all concerns. Plan of Treatment: Continue with present treatment and follow up plan. Pt is to keep follow up appointment as instructed and take medications as ordered. Prescriptions: Discontinued hydrocodone-acetaminophen 5-325 mg tablet 1 tab PO TID MDD 30 PRN (Reason: pain) 30 Days Qty: 90 0RF Rx Instructions: Take 1 tab q4=6h prn pain No Action potassium chloride 10 mEq tablet extended release 10 meq PO TID Qty: 270 3RF glimepiride 4 mg tablet 4 mg PO QDAY Qty: 90 1RF levofloxacin 500 mg tablet 500 mg PO Q24H MDD 1 10 Days Qty: 10 0RF Rx Instructions: Have Patient hold hydroxychloroquine while on this antibiotic linezolid 600 mg tablet 600 mg PO Q12H MDD 2 10 Days Qty: 20 0RF Rx Instructions: Have patient leave off duloxetine while on this antibiotic hydrocodone-acetaminophen 10-325 mg tablet 1 tab PO BID MDD 2 PRN (Reason: pain) 15 Days Qty: 30 0RF tizanidine 4 mg tablet 4 mg PO TID PRN docusate sodium 100 mg Capsule 100 mg PO HS PRN (Reason: constipation) 30 Days Qty: 30 3RF lovastatin 40 mg tablet 40 mg PO HS metoprolol tartrate 50 mg tablet 50 mg PO HS benazepril 20 mg tablet 20 mg PO DAILY verapamil 240 mg tablet extended release 240 mg PO DAILY montelukast 10 mg tablet 10 mg PO HS Jardiance 10 mg tablet 10 mg PO DAILY polysaccharide iron complex 150 mg iron Capsule 150 mg DAILY pramipexole 0.5 mg Tablet 0.5 mg PO BID aspirin 81 mg Tablet,Chewable 81 mg PO DAILY allopurinol 300 mg Tablet 300 mg PO DAILY hydroxychloroquine 200 mg Tablet 200 mg PO DAILY topiramate 100 mg Tablet 100 mg PO BID duloxetine 60 mg Capsule,Delayed Release(Dr/Ec) 60 mg PO QDAY levothyroxine 150 mcg Tablet 150 mcg PO DAILY Orders to Discharge Patient Discharge Orders: Discharge (Routine); Ordered 11/04/23 Ordered By: Juan Luis Arnett Follow ups/Referrals Follow ups/Referrals: Jaden Langley [CONSULTING PHYSICIAN] - 11/12/23 3:45 pm Stacey Stanley [Primary Care Provider] - 3 days Instructions Stand Alone Forms: Excuse From Work or School, Post Hospital Follow Up Care
--- NOTE | 2023-11-10 11:07 | NOTE.SOAP ---
Soap Note Note for Day of Date of Exam: 11/03/23 Subjective Data Subjective Data: Patient resting in bed. Going to rehab today. Objective Data Objective Data: Right Lower Extremity Exam: Fixator in place. Wound vac was removed and wound measured approximately 3 cm x 3 cm x 2 cm with noted granular tissue covering bone. There was no purulence from wound bed. A wound vac was then applied in the sterile fashion and seal was noted to be achieved. Wound vac was delivering therapy. Assessment Assessment: 68 year old DM F with calcaneal osteomyelitis who s/p partial excision calcaneus with external fixator adjustment, and wound vac application, right Plan Plan: - Strict NWB to RLE. - Wound vac needs to be changed every 3 days. - supervisor intermediates IV antibiotics. On meropenem, linezolid, bactrim. - Okay for discharge from Podiatry perspective.
== END 2023-11-04 09:15 | DRG 853 ==
LOC: ER 16:29 → ICU 21:51 → MED/SURG 10-28 19:42
PROVIDERS: ADMIT Family Medicine; ATTEND Family Medicine
PROC: DEBRIDE (2023-10-21 13:45)